=== PATIENT | male | born 1960 | race American Indian/Alaskan Native ===

== ENCOUNTER 2018-02-03 18:33 | Inpatient (IN) | payer MEDICARE ==
[2018-02-03 18:43] VITALS: BMI 24.3
--- NOTE | 2018-02-03 19:06 | C.PDOC ---
History Of Present Illness 57 year old male with PMH of HTN, CKD, DM, systolic CHF with EF last month of 12%, pacemaker, defibrillator, presents to the ED with son for evaluation of abdominal distention and urinary retention. As per son, patient has a beaver ca theter that drains fluid, but he still experiences bladder fullness and urinary retention. Patient regularly follows up with Dr. Brar, who is aware of this. Patient is also complaining of suprapubic abdominal pain. Additionally, son reports patient has lost around 40-50 pounds over the past year. He denies fever, chills, nausea, vomiting. History obtained via patient's son, because patient is deaf/mute. Acute Kidney Injury (N17.9) versus underlying CKD 3, likely due to cardio-renal syndrome CHF exacerbation hyperbilirubinemia hx of AICD BPH, hearing impairment Time Seen by Provider: 02/03/18 18:53 Chief Complaint (Nursing): Shortness Of Breath History Per: Family History/Exam Limitations: other (patient is deaf/mute) Onset/Duration Of Symptoms: Hrs Current Symptoms Are (Timing): Still Present Additional History Per: Family Past Medical History Reviewed: Historical Data, Nursing Documentation, Vital Signs Vital Signs: Last Vital Signs Temp 98.5 F 02/03/18 18:39 Pulse 125 H 02/03/18 18:39 Resp 24 02/03/18 18:39 BP 110/71 02/03/18 18:39 Pulse Ox 99 02/03/18 18:39 - Medical History PMH: Cardia Arrhythmia, CHF, HTN, Hypercholesterolemia, Hyperlipidemia, Peripheral Edema, Chronic Kidney Disease Denies: Personality Disorder Surgical History: Pacemaker (with defib) - [facility] Procedures DRAINAGE OF PERITONEAL CAVITY, PERCUTANEOUS APPROACH (12/04/17) INJECT/INFUSE ELECTROLYT (02/18/13) INJECT/INFUSE NEC (02/18/13) Family History: States: Unknown Family Hx - Social History Hx Tobacco Use: No Hx Alcohol Use: Yes (OCCASIONALLY) Hx Substance Use: No - Immunization History Hx Tetanus Toxoid Vaccination: No Hx Influenza Vaccination: No Hx Pneumococcal Vaccination: No Review Of Systems Constitutional: Negative for: Fever, Chills Gastrointestinal: Positive for: Abdominal Pain (suprapubic ) Genitourinary: Positive for: Other (urinary retention ) Physical Exam - Physical Exam Appears: Non-toxic, Other (in mild distress ) Skin: Normal Color, Warm, Dry Head: Atraumatic, Normacephalic Eye(s): bilateral: Scleral Icterus Oral Mucosa: Moist Neck: Supple Chest: Symmetrical, No Deformity, No Tenderness Cardiovascular: Rhythm Regular, No Murmur Respiratory: Decreased Breath Sounds (right base ), Rales, Other (chronic, non- productive cough noted ) Gastrointestinal/Abdominal: Soft, Tenderness (mild, suprapubic ), Distention, No Guarding, No Rebound Extremity: Normal ROM, Capillary Refill (less than 2 seconds ), Other (urinary leg bag to right lower extremity ) Neurological/Psych: Other (intact ) ED Course And Treatment - Laboratory Results Result Diagrams: 02/03/18 19:59 02/03/18 19:50 ECG: Interpreted By Me ECG Rhythm: Sinus Rhythm, Junctional Rhythm ECG Interpretation: Abnormal Rate From EC O2 Sat by Pulse Oximetry: 99 (on RA) Pulse Ox Interpretation: Normal Progress Note: Bloodwork, urinalysis, CXR, CT Head, and EKG ordered and reviewed. Rocephin IVPB given. Progress - Re-Evaluation Re-evaluation Note: 02/03/18 20:21 D/W DR sIabel BRAR ADVISES BEAVER CHANGE, WILL CONSULT. UNK PROSTATE STATUS, PENDING UROLOGIC WORKUP. RECOMMENDS ADMISSION 02/03/18 21:24 S/P BEAVER REPLACE, +250 CC. +MOD IMPROVE. D/W 02/03/18 21:49 D/W DR Karly MEEK C/F PMD REQUESTING UDS, ETOH. WILL ADMIT - Data Reviewed Data Reviewed: Lab, Diagnostic imaging, EKG, Old records Disposition Counseled Patient/Family Regarding: Studies Performed, Diagnosis - Disposition Disposition: HOSPITALIZED Disposition Time: 21:50 Condition: SERIOUS - POA Present On Arrival: None - Clinical Impression Clinical Impression: Urinary retention, Jaundice, Chronic renal insufficiency - Scribe Statement The provider has reviewed the documentation as recorded by the Scribe (Roberta Brown tel) Provider Attestation: All medical record entries made by the Scribe were at my direction and personally dictated by me. I have reviewed the chart and agree that the record accurately reflects my personal performance of the history, physical exam, medical decision making, and the department course for this patient. I have also personally directed, reviewed, and agree with the discharge instructions and disposition.
[2018-02-03 20:07] LABS: BASO # 0.1 K/uL (0.0-0.2); BASO % 0.9 % (0.0-2.0); EOS # 0.3 K/uL (0.0-0.7); EOS % 2.8 % (0.0-4.0); HEMOGLOBIN 15.9 g/dL (12.0-18.0); LYMPH # 1.1 K/uL (1.0-4.3); LYMPH % 11.6 % (20.0-40.0); MEAN CORPUSCULAR HEMOGLOBIN 29.8 pg (27.0-31.0); MEAN CORPUSCULAR HGB CONC 33.2 g/dL (33.0-37.0); MONO # 0.6 K/uL (0.0-0.8); MONO % 6.1 % (0.0-10.0); NEUT # 7.5 K/uL (1.8-7.0); NEUT % 78.6 % (50.0-75.0); NRBC % 0.1 % (0.0-2.0); RBC 5.32 Mil/uL (4.40-5.90); RED CELL DISTRIBUTION WIDTH 21.4 % (11.5-14.5); WHITE BLOOD COUNT 9.5 K/uL (4.8-10.8)
[2018-02-03 20:17] LABS: INR 1.5; PROTHROMBIN TIME 16.6 SECONDS (9.7-12.2)
[2018-02-03 20:22] LABS: ALBUMIN 3.8 g/dL (3.5-5.0); BILIRUBIN,DIRECT 2.9 mg/dL (0.0-0.4)
[2018-02-03 21:03] LABS: CALCIUM 9.4 mg/dl (8.6-10.4)
[2018-02-03 21:03] LABS: SQUAMOUS EPITHIAL < 1 /hpf (0-5); URINE BACTERIA OCC (<OCC); URINE BILIRUBIN NEGATIVE (NEGATIVE); URINE BLOOD 3+ (NEGATIVE); URINE CLARITY Hazy (Clear); URINE COLOR Yellow (YELLOW); URINE GLUCOSE (UA) NORMAL (Normal); URINE LEUKOCYTE ESTERASE 3+ Leu/uL (Negative); URINE PROTEIN NEGATIVE (NEGATIVE); WBC CLUMPS FEW /hpf
[2018-02-03 22:23] LABS: BARBITURATES, UR NEGATIVE (NEGATIVE); BENZODIAZEPINES, UR NEGATIVE (NEGATIVE); OPIATES, UR NEGATIVE (NEGATIVE); PHENCYCLIDINE, UR NEGATIVE (NEGATIVE)
--- NOTE | 2018-02-03 22:51 | CP.PCM.HP ---
<Kell Madden P - Last Filed: 02/04/18 09:34> History of Present Illness - History of Present Illness History of Present Illness: H&P for hospitalist service. HPI: History was obtained from patient's son in sign language, as patient is deaf and mute. Patient is a 57 year old male with PMHx of HTN, HLD, BPH, CKD 3, systolic heart failure, with AICD and pacemaker, cardiac arrhythmia, who was initially sent to ED by his visiting doctor for hypotension (patient was not told the blood pressure reading), however blood pressure was found to be within normal limits on arrival. In ED, patient admitted to abdominal distention for the past month with no improvement despite having a mason catheter placed 10 days ago. Patient also complains of lower abdominal pressure, pain on urination, intermittent hematuria, as well as bilateral lower leg weakness, cough with white phlegm and SOB for the past 4 months, and 40 lb unintentional weight loss in the past year. Patient denies fever, chills, nausea, vomiting, hematochezia, melena, and flank pain. Bladder scan in the ED showed 750cc. Patient's mason was replaced with output of 250cc of urine. 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 Proxy: Mauri, son: [phone], Kathleen, daughter: [phone] PMD: Dr. Cano, cardio: Dr. Pang Review of Systems: -Gen: No fever, No chills, No headache, No lethargy, + bilateral leg weakness. -HEENT: No dizziness, No change in vision, No change in hearing, No sore throat, No dysphagia, No nasal congestion -Cardio: + chest soreness with coughing, + palpitations, No lower extremity edema, No orthopnea. -Resp: + cough, + dyspnea, No hemoptysis, No wheezing, No pain on inspiration. -GI: + abdominal pain, No nausea/vomiting, No diarrhea/constipation, No hematochezia, No hematemesis. -: + dysuria, No urinary freq, No incontinence, + hematuria, No change in urinary stream. -MSK: No back pain, No muscle weakness, No radiating pain. -Skin: No itching, No rash, No lesions. -Neuro: No confusion, No numbness, No tingling, No focal weakness, No radicular pain, No syncope. -Psych: No anxiety, No depression, No H/I, No S/I, No hallucinations. Present on Admission - Present on Admission Any Indicators Present on Admission: No Past Patient History - Infectious Disease Hx of Infectious Diseases: None - Past Medical History & Family History Past Medical History?: Yes - Past Social History Smoking Status: Never Smoked - CARDIAC Hx Cardia Arrhythmia: Yes Hx Congestive Heart Failure: Yes Hx Hypercholesterolemia: Yes Hx Hypertension: Yes Hx Pacemaker: Yes (with defib) Hx Peripheral Edema: Yes - PULMONARY Hx Respiratory Disorders: No - NEUROLOGICAL Hx Neurological Disorder: Yes (encephalomalacia) HX Cerebrovascular Accident: Yes Hx Syncope: Yes - HEENT Hx HEENT Problems: Yes Hx Deafness: Yes - RENAL Hx Chronic Kidney Disease: Yes - ENDOCRINE/METABOLIC Hx Endocrine Disorders: Yes Hx Diabetes Mellitus Type 2: Yes - HEMATOLOGICAL/ONCOLOGICAL Hx Blood Disorders: No - INTEGUMENTARY Hx Dermatological Problems: No - MUSCULOSKELETAL/RHEUMATOLOGICAL Hx Musculoskeletal Disorders: No Hx Falls: Yes - GASTROINTESTINAL Hx Gastrointestinal Disorders: Yes Other/Comment: ascites - GENITOURINARY/GYNECOLOGICAL Hx Genitourinary Disorders: Yes (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) - PSYCHIATRIC Hx Substance Use: No - SURGICAL HISTORY Hx Surgeries: Yes Other/Comment: Pacemaker - ANESTHESIA Hx Anesthesia: Yes Hx Anesthesia Reactions: No Hx Malignant Hyperthermia: No Meds Allergies/Adverse Reactions: Allergies Allergy/AdvReac Type Severity Reaction Status Date / Time No Known Allergies Allergy Verified 02/03/18 18:39 Physical Exam - Constitutional Appears: No Acute Distress - Head Exam Head Exam: ATRAUMATIC, NORMOCEPHALIC - Eye Exam Eye Exam: EOMI, PERRL, Scleral icterus. absent: Normal appearance - ENT Exam ENT Exam: Mucous Membranes Moist Additional comments: Yellowing of frenulum. - Neck Exam Neck exam: Positive for: Full Rom Additional comments: +JVD on the R - Respiratory Exam Respiratory Exam: Clear to Auscultation Bilateral, NORMAL BREATHING PATTERN. absent: Decreased Breath Sounds, Rales, Rhonchi, Wheezes - Cardiovascular Exam Additional comments: Note noisy ED environment and faint heart sounds made for difficult examination, possible extra heart sound. - GI/Abdominal Exam GI & Abdominal Exam: Distended, Hernia (umbilical), Hypoactive Bowel Sounds, Tenderness (to deep palpation of LLQ). absent: Guarding, Rebound - Extremities Exam Additional comments: Radial pulses strong and equal bilaterally. Pedal pulses weaker than radial. Feet with dry skin, cool to the touch. No loss of sensation. Trace edema to bilateral lower extremities up to tibial tuberosity. Skin changes to bilateral lower legs consistent with chronic venous stasis changes. - Back Exam Back exam: absent: CVA tenderness (L), CVA tenderness (R) - Neurological Exam Neurological exam: Alert, CN II-XII Intact, Oriented x3 Additional comments: 5/5 muscle strength bilateral upper extremities, 4/5 strength bilateral lower extremities. Results - Vital Signs Recent Vital Signs: Last Vital Signs Temp 98.5 F 02/03/18 18:39 Pulse 107 H 02/03/18 22:12 Resp 20 02/03/18 22:12 BP 111/81 02/03/18 22:23 Pulse Ox 99 02/03/18 22:12 - Labs Result Diagrams: 02/04/18 06:55 02/04/18 06:55 Labs: Laboratory Results - last 24 hr 02/03/18 02/03/18 02/03/18 19:50 19:50 19:59 WBC 9.5 RBC 5.32 Hgb 15.9 Hct 47.8 MCV 90.0 D MCH 29.8 MCHC 33.2 RDW 21.4 H Plt Count 253 MPV 8.0 Neut % (Auto) 78.6 H Lymph % (Auto) 11.6 L [place] % (Auto) 6.1 Eos % (Auto) 2.8 Baso % (Auto) 0.9 Neut # (Auto) 7.5 H Lymph # (Auto) 1.1 [place] # (Auto) 0.6 Eos # (Auto) 0.3 Baso # (Auto) 0.1 PT INR APTT Sodium 139 Potassium 4.7 Chloride 100 Carbon Dioxide 24 Anion Gap 21 H BUN 48 H Creatinine 1.8 H Est GFR ( Amer) 47 Est GFR (Non-Af Amer) 39 Random Glucose 102 Calcium 9.4 Phosphorus Magnesium Total Bilirubin Direct Bilirubin AST ALT Alkaline Phosphatase Total Protein Albumin Globulin Albumin/Globulin Ratio Urine Color Urine Clarity Urine pH Ur Specific [place] Urine Protein Urine Glucose (UA) Urine Ketones Urine Blood Urine Nitrate Urine Bilirubin Urine Urobilinogen Ur Leukocyte Esterase Urine WBC (Auto) Urine RBC (Auto) Urine WBC Clumps (Auto) Ur Squamous Epith Cells Urine Bacteria Urine Opiates Screen Urine Methadone Screen Ur Barbiturates Screen Ur Phencyclidine Scrn Ur Amphetamines Screen U Benzodiazepines Scrn U Oth Cocaine Metabols U Cannabinoids Screen Alcohol, Quantitative < 10 02/03/18 02/03/18 02/03/18 19:59 19:59 20:44 WBC RBC Hgb Hct MCV MCH MCHC RDW Plt Count MPV Neut % (Auto) Lymph % (Auto) [place] % (Auto) Eos % (Auto) Baso % (Auto) Neut # (Auto) Lymph # (Auto) [place] # (Auto) Eos # (Auto) Baso # (Auto) PT 16.6 H INR 1.5 APTT 27 Sodium Potassium Chloride Carbon Dioxide Anion Gap BUN Creatinine Est GFR ( Amer) Est GFR (Non-Af Amer) Random Glucose Calcium Phosphorus 4.3 Magnesium 2.3 Total Bilirubin 4.5 H Direct Bilirubin 2.9 H AST 31 ALT 23 Alkaline Phosphatase 464 H D Total Protein 7.7 Albumin 3.8 Globulin 3.9 Albumin/Globulin Ratio 1.0 Urine Color Yellow Urine Clarity Hazy Urine pH 5.0 Ur Specific [place] 1.012 Urine Protein Negative Urine Glucose (UA) Normal Urine Ketones Negative Urine Blood 3+ H Urine Nitrate Negative Urine Bilirubin Negative Urine Urobilinogen 2.0 Ur Leukocyte Esterase 3+ H Urine WBC (Auto) 159 H Urine RBC (Auto) 22 H Urine WBC Clumps (Auto) Few H Ur Squamous Epith Cells < 1 Urine Bacteria Occ H Urine Opiates Screen Urine Methadone Screen Ur Barbiturates Screen Ur Phencyclidine Scrn Ur Amphetamines Screen U Benzodiazepines Scrn U Oth Cocaine Metabols U Cannabinoids Screen Alcohol, Quantitative 02/03/18 21:59 WBC RBC Hgb Hct MCV MCH MCHC RDW Plt Count MPV Neut % (Auto) Lymph % (Auto) [place] % (Auto) Eos % (Auto) Baso % (Auto) Neut # (Auto) Lymph # (Auto) [place] # (Auto) Eos # (Auto) Baso # (Auto) PT INR APTT Sodium Potassium Chloride Carbon Dioxide Anion Gap BUN Creatinine Est GFR ( Amer) Est GFR (Non-Af Amer) Random Glucose Calcium Phosphorus Magnesium Total Bilirubin Direct Bilirubin AST ALT Alkaline Phosphatase Total Protein Albumin Globulin Albumin/Globulin Ratio Urine Color Urine Clarity Urine pH Ur Specific [place] Urine Protein Urine Glucose (UA) Urine Ketones Urine Blood Urine Nitrate Urine Bilirubin Urine Urobilinogen Ur Leukocyte Esterase Urine WBC (Auto) Urine RBC (Auto) Urine WBC Clumps (Auto) Ur Squamous Epith Cells Urine Bacteria Urine Opiates Screen Negative Urine Methadone Screen Negative Ur Barbiturates Screen Negative Ur Phencyclidine Scrn Negative Ur Amphetamines Screen Negative U Benzodiazepines Scrn Negative U Oth Cocaine Metabols Negative U Cannabinoids Screen Negative Alcohol, Quantitative Assessment & Plan - Assessment and Plan (Free Text) Plan: 57 year old male with PMHx of HTN, HLD, BPH, CKD, systolic heart failure, cardiac arrhythmia, PM, defibrillator, previous stroke admitted for urinary retention. Urinary retention status post mason replacement Abnormal UA -NPO for possible cystoscopy on 02/[address] Brar who has seen patient in the past. -Please update Dr. Isabel Brar at 12pm 02/04 -Consult cardiology, Dr. Carlton, for cardiac clearance -Follow up urine C&S -patient with abnormal UA , +Leuk esterase, complaining of painful urination, no CVA tenderness on exam -Continue flomax 0.4mg BID -Mason care with betadine 3x/day HFrEF (Systolic Heart failure) with AICD/Pacemaker -Echo 10/2017: LVEF 12.8% Severe LV hypokinesis, mild LVH, dilated LA, RA and RV, mild MR, severe TR, Mild pulmonar hypertension, PPM in RV. (see full report) -Patient sees Dr. 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 Followed up with him this month. -EKG: Junctional rhythm, left axis deviation, RBB -Daily weights, I&O's, head of bead 45 degrees -Follow up with Dr. Carlton for clearance first thing in the morning. -Continue Entresto, Spironolactone 50mg daily, carvedilol 25mg BID, and Lasix 80mg BID Hx of hyperbilirubinemia, elevated Alkaline phosphatase, ascites Hepatitis panel 10/2017 negative -Tbili is at baseline at 4.5 -Alkaline phosphatase: 464 -Abdominal US 11/2017: The extrahepatic portal vein is patent with hepatopetal flow. No sonographic evidence for thrombus or obstruction is seen. The 3 hepatic veins are visualized centrally and patent. The hepatic artery is patent. (see full report) -CT abd/pelvis: Limited assessment without IV or oral contrast administration. Cardiomegaly. Small pericardial effusion. Moderate to large amount of ascites in the abdomen and pelvis. Enlarged prostate. [id number] anasarca. Preliminary report was submitted by virtual Radiology. (see full report) -Seen by GI, Dr. Zavala during 10/2017 admission and was asked to follow up, however patient did not do so. Patient was councelled on the improtance of following up. Please provide follow up information upon discharge. Hx HTN - Continue Spironolactone 50mg daily, carvedilol 25mg BID, and Lasix 80mg BID -Hold for SBP<100 and HR <60 -Home med of Tradjenta non-formulary, will place patien on insulin sliding scale -Accuchecks ACHS -Hypoglycemia protocol Hx of CKD -Cr: 1.8 -GFR: 54 -Seen by nephro, Dr. Acosta during 10/2017 admission, patient has not followed up. -provide with follow up information upon discharge. Hx of deaf/mute -Patient communicates in sign. Please use sales and operations trainee service Unintentional weight loss -40 lb weight loss in the past year -Continue to monitor Prophylaxis -DVT risk 3 points for age, CHF and possible minor procedure- start Heparin 5000u SC Q8H -Dopplers ordered due to trace LE swelling. May place on SCDs pending doppler results. -No GI ppx indicated -Start on HHD 2g Na following procedure Case discussed with Dr. Karly Lewis. <Raul Lewis - Last Filed: 02/06/18 01:37> Results - Vital Signs Recent Vital Signs: Last Vital Signs Temp 97.6 F 11/18/18 00:00 Pulse 98 H 02/06/18 00:00 Resp 20 02/06/18 00:00 BP 104/65 02/06/18 00:00 Pulse Ox 100 02/06/18 00:00 - Labs Result Diagrams: 02/05/18 08:16 02/05/18 08:16 Labs: Laboratory Results - last 24 hr 02/04/18 02/05/18 02/05/18 21:06 06:10 08:16 WBC 6.6 RBC 4.63 Hgb 13.9 Hct 41.9 MCV 90.6 MCH 30.0 MCHC 33.1 RDW 21.3 H Plt Count 221 MPV 8.4 Neut % (Auto) 75.8 H Lymph % (Auto) 12.9 L [place] % (Auto) 7.0 Eos % (Auto) 3.1 Baso % (Auto) 1.2 Neut # (Auto) 5.0 Lymph # (Auto) 0.8 L [place] # (Auto) 0.5 Eos # (Auto) 0.2 Baso # (Auto) 0.1 Sodium Potassium Chloride Carbon Dioxide Anion Gap BUN Creatinine Est GFR ( Amer) Est GFR (Non-Af Amer) POC Glucose (mg/dL) 125 H 146 H Random Glucose Calcium Phosphorus Magnesium Total Bilirubin AST ALT Alkaline Phosphatase Total Protein Albumin Globulin Albumin/Globulin Ratio 02/05/18 02/05/18 02/05/18 08:16 12:22 16:09 WBC RBC Hgb Hct MCV MCH MCHC RDW Plt Count MPV Neut % (Auto) Lymph % (Auto) [place] % (Auto) Eos % (Auto) Baso % (Auto) Neut # (Auto) Lymph # (Auto) [place] # (Auto) Eos # (Auto) Baso # (Auto) Sodium 140 Potassium 4.5 Chloride 101 Carbon Dioxide 24 Anion Gap 19 BUN 47 H Creatinine 1.7 H Est GFR ( Amer) 50 Est GFR (Non-Af Amer) 42 POC Glucose (mg/dL) 124 H 118 H Random Glucose 125 H Calcium 8.8 Phosphorus 3.9 Magnesium 2.2 Total Bilirubin 3.2 H AST 32 ALT 30 Alkaline Phosphatase 369 H Total Protein 6.8 Albumin 3.2 L Globulin 3.6 Albumin/Globulin Ratio 0.9 L 02/05/18 21:11 WBC RBC Hgb Hct MCV MCH MCHC RDW Plt Count MPV Neut % (Auto) Lymph % (Auto) [place] % (Auto) Eos % (Auto) Baso % (Auto) Neut # (Auto) Lymph # (Auto) [place] # (Auto) Eos # (Auto) Baso # (Auto) Sodium Potassium Chloride Carbon Dioxide Anion Gap BUN Creatinine Est GFR ( Amer) Est GFR (Non-Af Amer) POC Glucose (mg/dL) 134 H Random Glucose Calcium Phosphorus Magnesium Total Bilirubin AST ALT Alkaline Phosphatase Total Protein Albumin Globulin Albumin/Globulin Ratio Attending/Attestation - Attestation I have personally seen and examined this patient.: Yes I have fully participated in the care of the patient.: Yes I have reviewed all pertinent clinical information: Yes Notes (Text): 02/06/18 01:36 This is a late entry. Patient was seen and examined in the ER Bed #[address] Ernestina Madden Patient's son helped to translate Sign Language. Raul Lewis D.O.
[2018-02-04] MEDS ORDERED: Glucagon Recombinant 1 mg Inj IM PRN (00:43)
[2018-02-04] MEDS ORDERED: Dextrose 50% SYRINGE Inj (50 ml) IV PRN (00:43)
[2018-02-04 07:16] LABS: BASO # 0.1 K/uL (0.0-0.2); BASO % 1.2 % (0.0-2.0); EOS # 0.2 K/uL (0.0-0.7); EOS % 2.5 % (0.0-4.0); HEMOGLOBIN 14.3 g/dL (12.0-18.0); LYMPH % 14.1 % (20.0-40.0); MEAN CELL VOLUME 89.6 fL (80.0-94.0); MEAN CORPUSCULAR HGB CONC 33.5 g/dL (33.0-37.0); MEAN PLATELET VOLUME 8.2 fL (7.2-11.7); MONO # 0.5 K/uL (0.0-0.8); NEUT # 5.3 K/uL (1.8-7.0); NEUT % 75.2 % (50.0-75.0); NRBC % 0.1 % (0.0-2.0); RBC 4.76 Mil/uL (4.40-5.90); RED CELL DISTRIBUTION WIDTH 21.3 % (11.5-14.5); WHITE BLOOD COUNT 7.1 K/uL (4.8-10.8)
[2018-02-04 08:16] LABS: ALBUMIN 3.5 g/dL (3.5-5.0)
[2018-02-04] MEDS: (Novolin R) Insulin Human Regular 100 units/ml vial SC SCH ×4 (08:22→21:33)
--- NOTE | 2018-02-04 08:25 | RAD ---
HISTORY: SOB COMPARISON: None available TECHNIQUE: Chest, one view. FINDINGS: LUNGS: No focal consolidation. Please note that chest x-ray has limited sensitivity for the detection of pulmonary masses. PLEURA: No significant pleural effusion identified. No definite pneumothorax . CARDIOVASCULAR: Severe enlargement of the cardiac silhouette. Dual lead left-sided AICD. Faint atherosclerotic calcification present. OSSEOUS STRUCTURES: No acute osseous abnormality identified. VISUALIZED UPPER ABDOMEN: Unremarkable. OTHER FINDINGS: None. IMPRESSION: Severe enlargement of the cardiac silhouette. Dual lead left-sided AICD.
[2018-02-04] MEDS: Sacubitril/Valsartan 49-51 Tab PO SCH ×2 (09:56→18:18)
--- NOTE | 2018-02-04 13:00 | CP.PCM.PN ---
<Jone Gill - Last Filed: 02/04/18 17:37> Subjective - Date & Time of Evaluation Date of Evaluation: 02/04/18 Time of Evaluation: 13:00 - Subjective Subjective: PGY-1 Medicine progress note for Dr. Pereira Patient seen and examined at bedside. No acute events overnight. 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 He is complaining of abdominal distention and inability to urinate. He denies fevers, chills, chest pain, shortness of breath, nausea, vomitting, or diarrhea. Objective - Vital Signs/Intake and Output Vital Signs (last 24 hours): Temp Pulse Resp BP Pulse Ox 97.5 F L 92 H 20 110/77 98 02/04/18 12:00 02/04/18 12:00 02/04/18 12:00 02/04/18 12:00 02/04/18 12:00 - Medications Medications: Current Medications Carvedilol (Coreg) 25 mg PO BID [facility] Last Admin: 02/04/18 09:55 Dose: Not Given Dextrose (Dextrose 50% Inj) 0 ml IV STAT PRN; Protocol PRN Reason: Hypoglycemia Protocol Dextrose (Glutose 15) 0 gm PO ONCE PRN; Protocol PRN Reason: Hypoglycemia Protocol Furosemide (Lasix) 80 mg PO BID [facility] Last Admin: 02/04/18 09:56 Dose: 80 mg Glucagon (Glucagen Diagnostic Kit) 0 mg IM STAT PRN; Protocol PRN Reason: Hypoglycemia Protocol Heparin Sodium (Porcine) (Heparin) 5,000 units SC Q8 [facility] Dextrose (Dextrose 5% In Water 1000 Ml) 1,000 mls @ 0 mls/hr IV .Q0M PRN; Protocol PRN Reason: Hypoglycemia Protocol Influenza Virus Vaccine (Fluzone Quad [id number]) 60 mcg IM .ONCE ONE Stop: 02/06/18 10:01 Insulin Human Regular (Novolin R) 0 unit SC ACHS [facility]; Protocol Last Admin: 02/04/18 12:00 Dose: Not Given Pneumococcal Polyvalent Vaccine (Pneumovax 23 Vaccine) 0.5 ml IM .ONCE ONE Stop: 02/06/18 10:01 Sacubitril/Valsartan (Entresto 49 Mg-51 Mg) 2 tab PO BID [facility] Last Admin: 02/04/18 09:56 Dose: 2 tab Spironolactone (Aldactone) 50 mg PO DAILY [facility] Last Admin: 02/04/18 09:55 Dose: Not Given Tamsulosin HCl (Flomax) 0.4 mg PO BID [facility] Last Admin: 02/04/18 09:56 Dose: 0.4 mg Tramadol HCl (Ultram) 50 mg PO DAILY PRN PRN Reason: Pain, moderate (4-7) - Labs Labs: 02/04/18 06:55 02/04/18 06:55 PT 16.6 SECONDS (9.7-12.2) H 02/03/18 19:59 INR 1.5 02/03/18 19:59 APTT 27 SECONDS (21-34) 02/03/18 19:59 - Additional Findings Additional findings: - Constitutional Appears: No Acute Distress - Head Exam Head Exam: ATRAUMATIC, NORMOCEPHALIC - Eye Exam Eye Exam: EOMI, PERRL, Scleral icterus. absent: Normal appearance - ENT Exam ENT Exam: Mucous Membranes Moist - Respiratory Exam Respiratory Exam: Clear to Auscultation Bilateral, NORMAL BREATHING PATTERN. absent: Decreased Breath Sounds, Rales, Rhonchi, Wheezes - Cardiovascular Exam Additional comments: Irregular heart rhythm, S1, S2. No murmurs heard. - GI/Abdominal Exam GI & Abdominal Exam: Distended, Hernia (umbilical), Hypoactive Bowel Sounds, No Tenderness. absent: Guarding, Rebound - Extremities Exam Additional comments: Radial pulses strong and equal bilaterally. Pedal pulses weaker than radial. Feet with dry skin, cool to the touch. No loss of sensation. Trace edema to bilateral lower extremities up to tibial tuberosity. Skin changes to bilateral lower legs consistent with chronic venous stasis changes. - Neurological Exam Neurological exam: Alert, CN II-XII Intact, Oriented x3 Additional comments: 5/5 muscle strength bilateral upper extremities, 4/5 strength bilateral lower extremities. Assessment and Plan - Assessment and Plan (Free Text) Assessment: 57 year old male with PMHx of HTN, HLD, BPH, CKD, systolic heart failure, cardiac arrhythmia, Pacemaker, and defibrillator, admitted for urinary retention. Plan: Urinary retention status post mason replacement: - UA: positive for blood, LE, WBC, and bacteria - 1 dose of Rocephin given in ED - S/p cystoscopy with Dr. Brar - POD #0 - Consult cardiology, Dr. Carlton, for cardiac clearance - Urine Cx: Follow up - Flomax 0.4mg BID - Mason care with betadine 3x/day HFrEF (Systolic Heart failure) with AICD/Pacemaker: - Echo (10/2017): LVEF 12.8% Severe LV hypokinesis, mild LVH, dilated LA, RA and RV, mild MR, severe TR, Mild pulmonary hypertension. - Patient sees Dr. Pang, reading intervention teacher regularly. Followed up with him this month. - EKG(02/04): Junctional rhythm, left axis deviation, RBB - Daily weights, I&O's, head of bead 45 degrees - Consult cardiology, Dr. Carlton - Monitor patient on telemetry - Entresto 2 tab PO BID - Spironolactone 50mg daily - Carvedilol 25mg BID - Lasix 80mg BID - Fluid restriction to 1 L daily Hx of hyperbilirubinemia, elevated Alkaline phosphatase, ascites: - Hepatitis panel 10/2017 negative - Tbili is at baseline at 4.5 - Alkaline phosphatase: 464 - Abdominal US (12/03/2017): The extrahepatic portal vein is patent with hepatopetal flow. No sonographic evidence for thrombus or obstruction is seen. The 3 hepatic veins are visualized centrally and patent. The hepatic artery is patent. (see full report) - CT abd/pelvis (12/03): Limited assessment without IV or oral contrast administration. Cardiomegaly. Small pericardial effusion. Moderate to large am ount of ascites in the abdomen and pelvis. Enlarged prostate. [id number] anasarca. Preliminary report was submitted by virtual Radiology. (see full report) - Seen by GI, Dr. Zavala during 10/2017 admission and was asked to follow up, however patient did not do so. - Patient was counselled on the importance of following up. Please provide follow up information upon discharge. Hx HTN: - Spironolactone 50mg daily - Carvedilol 25mg BID - Lasix 80mg BID - Hold for SBP<100 and HR <60 Hx of DM-2: - Home med of Tradjenta- hold - ISS - Accuchecks ACHS - Hypoglycemia protocol Hx of CKD: - Cr: 1.6 - GFR: 54 - Seen by nephro, Dr. Acosta during 10/2017 admission, patient has not followed up. - Will provide with follow up information upon discharge. Hx of deaf/mute: - Patient communicates in sign. Please use director packaging service Unintentional weight loss: - 40 lb weight loss in the past year - Continue to monitor Prophylaxis: - Heparin 5000u SC Q8H - Dopplers ordered due to trace LE swelling. May place on SCDs pending doppler results. - No GI ppx indicated - Start on HHD 2g Na following procedure Case discussed with Dr. Randall Gill, PGY-1 <Tiffany Pereira V - Last Filed: 02/04/18 23:29> Objective - Vital Signs/Intake and Output Vital Signs (last 24 hours): Temp Pulse Resp BP Pulse Ox 97.2 F L 100 H 18 115/82 100 02/04/18 16:35 02/04/18 16:35 02/04/18 16:35 02/04/18 18:17 02/04/18 16:35 Intake and Output: 02/04/18 02/05/18 18:59 06:59 Intake Total 175 275 Output Total 1050 350 Balance -875 -75 - Medications Medications: Current Medications Carvedilol (Coreg) 25 mg PO BID [facility] Last Admin: 02/04/18 18:17 Dose: 25 mg Dextrose (Dextrose 50% Inj) 0 ml IV STAT PRN; Protocol PRN Reason: Hypoglycemia Protocol Dextrose (Glutose 15) 0 gm PO ONCE PRN; Protocol PRN Reason: Hypoglycemia Protocol Furosemide (Lasix) 80 mg PO BID [facility] Last Admin: 02/04/18 18:17 Dose: 80 mg Glucagon (Glucagen Diagnostic Kit) 0 mg IM STAT PRN; Protocol PRN Reason: Hypoglycemia Protocol Dextrose (Dextrose 5% In Water 1000 Ml) 1,000 mls @ 0 mls/hr IV .Q0M PRN; Protocol PRN Reason: Hypoglycemia Protocol Influenza Virus Vaccine (Fluzone Quad [id number]) 60 mcg IM .ONCE ONE Stop: 02/06/18 10:01 Insulin Human Regular (Novolin R) 0 unit SC [facility]; Protocol Last Admin: 02/04/18 21:33 Dose: Not Given Pneumococcal Polyvalent Vaccine (Pneumovax 23 Vaccine) 0.5 ml IM .ONCE ONE Stop: 02/06/18 10:01 Polyethylene Glycol (Miralax) 17 gm PO DAILY [facility] Sacubitril/Valsartan (Entresto 49 Mg-51 Mg) 2 tab PO BID [facility] Last Admin: 02/04/18 18:18 Dose: 2 tab Spironolactone (Aldactone) 50 mg PO DAILY [facility] Last Admin: 02/04/18 09:55 Dose: Not Given Tamsulosin HCl (Flomax) 0.4 mg PO BID [facility] Last Admin: 02/04/18 18:17 Dose: 0.4 mg Tramadol HCl (Ultram) 50 mg PO DAILY PRN PRN Reason: Pain, moderate (4-7) Last Admin: 02/04/18 18:17 Dose: 50 mg - Labs Labs: 02/04/18 06:55 02/04/18 06:55 PT 16.6 SECONDS (9.7-12.2) H 02/03/18 19:59 INR 1.5 02/03/18 19:59 APTT 27 SECONDS (21-34) 02/03/18 19:59 Attending/Attestation - Attestation I have personally seen and examined this patient.: Yes I have fully participated in the care of the patient.: Yes I have reviewed all pertinent clinical information, including history, physical exam and plan: Yes Notes (Text): Patient seen, examined, and case discussed with day-time resident. 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 Patient noted he has been urinating but less feels that he is leaking around the mason that was place recent. patient reports he was compensating by taking in less fluid. Patient does not report fluid restriction for his heart failure. patient reports he has a pacemaker and has heart has "stopped" before but unclear if he has AICD or pacemaker only. Cardiology seen patient reports may go for urologic procedure. Will need EP to evaluate the pacemaker. Patient has recent hospitalization in [place] over the summer; advised to f/u with [facility] following hospitalization but did not followup. Patient at the hospitalization had diagnostic paracentesis wherein IR had removed about 2.1 Liters per report. At the time suspect ascites related to Chf. Patient is notably distended on exam. Soft. No pain on palpation. patient is on medications for chf which he reports he is compliant on. Patient for possible urology cystoscopy with Dr. Brar. Assessment/plan 1) Urinary retention status post mason replacement: Assessment/Plan * UA: positive for blood, LE, WBC, and bacteria * Urine culture: gram negative amanda * Patient had received 1 dose of Rocephin given in ED * Start Rocephin 1 gram IV q daily * S/p cystoscopy with Dr. Brar - POD #0 * Consult cardiology, Dr. Carlton, for cardiac clearance-->patient may proceed with procedure, recommended for telemetry, and EP eval * Flomax 0.4mg BID * Mason care with betadine 3x/day 2) HFrEF (Systolic Heart failure) with AICD/Pacemaker: Assessment/Plan * Echo (10/2017): LVEF 12.8% Severe LV hypokinesis, mild LVH, dilated LA, RA and RV, mild MR, severe TR, Mild pulmonary hypertension. * Patient sees Dr. Pang, reading intervention teacher regularly. Followed up with him this month * EKG(02/04): Junctional rhythm, left axis deviation, RBB * Daily weights, I&O's, head of bead 45 degrees * Consult cardiology, Dr. Carlton corporate bond trader-->help appreciated * Monitor patient on telemetr * Entresto 2 tab PO BID * Spironolactone 50mg daily * Carvedilol 25mg BID * Lasix 80mg BID * patient is off aspirin * Fluid restriction to 1 L daily 3) Hx of hyperbilirubinemia, elevated Alkaline phosphatase, ascites: Assessment/Plan * Hepatitis panel 10/2017 negative * Tbili is at baseline at 4.5 * Alkaline phosphatase: 464 * Abdominal US (12/03/2017): The extrahepatic portal vein is patent with hepatopetal flow. No sonographic evidence for thrombus or obstruction is seen. The 3 hepatic veins are visualized centrally and patent. The hepatic artery is patent. (see full report) * CT abd/pelvis (12/03): Limited assessment without IV or oral contrast administration. Cardiomegaly. Small pericardial effusion. Moderate to large amount of ascites in the abdomen and pelvis. Enlarged prostate. [id number] anasarca. Preliminary report was submitted by virtual Radiology. (see full report) * Seen by GI, Dr. Zavala during 10/2017 admission and was asked to follow up, however patient did not do so. * patient noted in prior hospitalization noted ascites secondary to CHF. Patient had require IR to drain about 2.1 Liters. * Patient was counselled on the importance of following up. Please provide follow up information upon discharge. 4) Hx HTN Assessment/Plan * Spironolactone 50mg daily * Carvedilol 25mg BID * Lasix 80mg BID * Hold for SBP<100 and HR <60 5) Hx of DM-2: * Home med of Tradjenta- hold * ISS * Accuchecks ACHS * Hypoglycemia protocol 6) Hx of CKD: * Cr: 1.6 * GFR: 54 * Seen by nephro, Dr. Acosta during 10/2017 admission, patient has not followed up. * consult nephrology * Patient is on Lasix/ Aldactone for CHF 7) Hx of deaf/mute: * Patient communicates in sign. Please use director packaging service 8) Unintentional weight loss: * 40 lb weight loss in the past year * Continue to monitor 9) Prophylaxis: * Patient is OFF chemical anticoagulation secondary to procedure * Dopplers ordered due to trace LE swelling. May place on SCDs pending doppler results. * No GI ppx indicated * Start on HHD 2g Na following urologic procedure * Florastor 250mg PO BID Disposition: Cardiology reports patient may go to urologic procedure to check mason and possible cystoscopy. Urine culture prelim gram negative. Start Rocephin 1 gram Iv daily. Will consult GI/nephro who saw patient previously in 11/06 hospitalization.
--- NOTE | 2018-02-04 14:05 | VASCLAB ---
Date of service: 02/04/2018 PROCEDURE: Lower Extremity Venous Duplex Exam. HISTORY: LE swelling PRIORS: None. TECHNIQUE: Bilateral common femoral, femoral, popliteal and posterior tibial, peroneal and great saphenous veins were evaluated. Flow was assessed with color Doppler, compressibility, assessment of phasic flow and augmentation response. Report prepared by Lc Gonsalves, ANTONINA, RVT FINDINGS: RIGHT: 1. Common Femoral Vein: 1.1. Compressibility - Fully compressible: Thrombus - None : Flow - Phasic: Augmentation -Normal: Reflux - None. 2. Femoral Vein: 2.1. Compressibility - Fully compressible: Thrombus - None : Flow - Phasic: Augmentation -Normal: Reflux - None. 3. Popliteal Vein: 3.1. Compressibility - Fully compressible: Thrombus - None : Flow - Phasic: Augmentation -Normal: Reflux - None. 4. Posterior Tibial Vein: 4.1. Compressibility - Fully compressible: Thrombus - None: Flow - Phasic: Augmentation -Normal: Reflux - None. 5. Peroneal Vein: 5.1. Compressibility - Fully compressible: Thrombus - None: Flow - Phasic: Augmentation -Normal: Reflux - None. 6. Great Saphenous Vein: 6.1. Compressibility - Fully compressible: Thrombus - None: Flow - Phasic: Augmentation - Normal: Reflux - None. LEFT: 1. Common Femoral Vein: 1.1. Compressibility - Fully compressible: Thrombus - None: Flow - Phasic: Augmentation -Normal: Reflux - None. 2. Femoral Vein: 2.1. Compressibility - Fully compressible: Thrombus - None: Flow - Phasic: Augmentation -Normal: Reflux - None. 3. Popliteal Vein: 3.1. Compressibility - Fully compressible: Thrombus - None : Flow - Phasic: Augmentation -Normal: Reflux - Yes. 4. Posterior Tibial Vein: 4.1. Compressibility - Fully compressible: Thrombus - None: Flow - Phasic: Augmentation -Normal: Reflux - None. 5. Peroneal Vein: 5.1. Compressibility - Fully compressible: Thrombus - None: Flow - Phasic: Augmentation -Normal: Reflux - None. 6. Great Saphenous Vein: 6.1. Compressibility - Fully compressible: Thrombus - None: Flow - Phasic: Augmentation - Normal: Reflux - None. OTHER FINDINGS: Pulsatile venous flow noted bilaterally. IMPRESSION: Right: No evidence of deep or superficial vein thrombosis of the right lower extremity. Normal valve function noted of the right side. Left: No evidence of deep or superficial vein thrombosis of the left lower extremity. Valvular incompetence of the left popliteal vein.
[2018-02-04] MEDS ORDERED: cefTRIAXone 1 gm 1 GM/100 ML BAG IVPB ONE (14:17)
[2018-02-04] MEDS ORDERED: Iohexol 240 200 ML ONE (14:17)
[2018-02-04] MEDS ORDERED: Lidocaine 2% Jelly (Uro-Jet) ONE (14:17)
[2018-02-04] MEDS ORDERED: Vasopressin 20 Units/ml Inj ONE (14:24)
[2018-02-04] MEDS ORDERED: Midazolam 2 MG/2 ML VIAL ONE (14:40)
--- NOTE | 2018-02-04 15:18 | CP.PCM.CON ---
Past Patient History - Infectious Disease Hx of Infectious Diseases: None - Past Medical History & Family History Past Medical History?: Yes - Past Social History Smoking Status: Never Smoked - CARDIAC Hx Cardia Arrhythmia: Yes Hx Congestive Heart Failure: Yes Hx Hypercholesterolemia: Yes Hx Hypertension: Yes Hx Pacemaker: Yes (with defib) Hx Peripheral Edema: Yes - PULMONARY Hx Respiratory Disorders: No - NEUROLOGICAL Hx Neurological Disorder: Yes (encephalomalacia) HX Cerebrovascular Accident: Yes Hx Syncope: Yes - HEENT Hx HEENT Problems: Yes Hx Deafness: Yes - RENAL Hx Chronic Kidney Disease: Yes - ENDOCRINE/METABOLIC Hx Endocrine Disorders: Yes Hx Diabetes Mellitus Type 2: Yes - HEMATOLOGICAL/ONCOLOGICAL Hx Blood Disorders: No - INTEGUMENTARY Hx Dermatological Problems: No - MUSCULOSKELETAL/RHEUMATOLOGICAL Hx Musculoskeletal Disorders: No Hx Falls: Yes - GASTROINTESTINAL Hx Gastrointestinal Disorders: Yes Other/Comment: ascites - GENITOURINARY/GYNECOLOGICAL Hx Genitourinary Disorders: Yes (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) - PSYCHIATRIC Hx Substance Use: No - SURGICAL HISTORY Hx Surgeries: Yes Other/Comment: Pacemaker - ANESTHESIA Hx Anesthesia: Yes Hx Anesthesia Reactions: No Hx Malignant Hyperthermia: No Meds Allergies/Adverse Reactions: Allergies Allergy/AdvReac Type Severity Reaction Status Date / Time No Known Allergies Allergy Verified 02/03/18 18:39 - Medications Medications: Current Medications Carvedilol (Coreg) 25 mg PO BID [facility] Last Admin: 02/04/18 09:55 Dose: Not Given Dextrose (Dextrose 50% Inj) 0 ml IV STAT PRN; Protocol PRN Reason: Hypoglycemia Protocol Dextrose (Glutose 15) 0 gm PO ONCE PRN; Protocol PRN Reason: Hypoglycemia Protocol Furosemide (Lasix) 80 mg PO BID [facility] Last Admin: 02/04/18 09:56 Dose: 80 mg Glucagon (Glucagen Diagnostic Kit) 0 mg IM STAT PRN; Protocol PRN Reason: Hypoglycemia Protocol Heparin Sodium (Porcine) (Heparin) 5,000 units SC Q8 [facility] Dextrose (Dextrose 5% In Water 1000 Ml) 1,000 mls @ 0 mls/hr IV .Q0M PRN; Protocol PRN Reason: Hypoglycemia Protocol Influenza Virus Vaccine (Fluzone Quad [id number]) 60 mcg IM .ONCE ONE Stop: 02/06/18 10:01 Insulin Human Regular (Novolin R) 0 unit SC ACHS [facility]; Protocol Last Admin: 02/04/18 12:00 Dose: Not Given Pneumococcal Polyvalent Vaccine (Pneumovax 23 Vaccine) 0.5 ml IM .ONCE ONE Stop: 02/06/18 10:01 Sacubitril/Valsartan (Entresto 49 Mg-51 Mg) 2 tab PO BID [facility] Last Admin: 02/04/18 09:56 Dose: 2 tab Spironolactone (Aldactone) 50 mg PO DAILY [facility] Last Admin: 02/04/18 09:55 Dose: Not Given Tamsulosin HCl (Flomax) 0.4 mg PO BID [facility] Last Admin: 02/04/18 09:56 Dose: 0.4 mg Tramadol HCl (Ultram) 50 mg PO DAILY PRN PRN Reason: Pain, moderate (4-7) Results - Vital Signs Recent Vital Signs: Last Vital Signs Temp 97.5 F L 02/04/18 12:00 Pulse 92 H 02/04/18 12:00 Resp 20 02/04/18 12:00 BP 110/77 02/04/18 12:00 Pulse Ox 98 02/04/18 12:00 - Labs Result Diagrams: 02/04/18 06:55 02/04/18 06:55 Labs: Laboratory Results - last 24 hr 02/03/18 02/03/18 02/03/18 18:50 19:50 19:50 WBC RBC Hgb Hct MCV MCH MCHC RDW Plt Count MPV Neut % (Auto) Lymph % (Auto) Wirt % (Auto) Eos % (Auto) Baso % (Auto) Neut # (Auto) Lymph # (Auto) Wirt # (Auto) Eos # (Auto) Baso # (Auto) PT INR APTT Sodium 139 Potassium 4.7 Chloride 100 Carbon Dioxide 24 Anion Gap 21 H BUN 48 H Creatinine 1.8 H Est GFR ( Amer) 47 Est GFR (Non-Af Amer) 39 POC Glucose (mg/dL) 82 Random Glucose 102 Calcium 9.4 Phosphorus Magnesium Total Bilirubin Direct Bilirubin AST ALT Alkaline Phosphatase Total Protein Albumin Globulin Albumin/Globulin Ratio Prostate Specific Ag Urine Color Urine Clarity Urine pH Ur Specific Grant Urine Protein Urine Glucose (UA) Urine Ketones Urine Blood Urine Nitrate Urine Bilirubin Urine Urobilinogen Ur Leukocyte Esterase Urine WBC (Auto) Urine RBC (Auto) Urine WBC Clumps (Auto) Ur Squamous Epith Cells Urine Bacteria Urine Opiates Screen Urine Methadone Screen Ur Barbiturates Screen Ur Phencyclidine Scrn Ur Amphetamines Screen U Benzodiazepines Scrn U Oth Cocaine Metabols U Cannabinoids Screen Alcohol, Quantitative < 10 02/03/18 02/03/18 02/03/18 19:59 19:59 19:59 WBC 9.5 RBC 5.32 Hgb 15.9 Hct 47.8 MCV 90.0 D MCH 29.8 MCHC 33.2 RDW 21.4 H Plt Count 253 MPV 8.0 Neut % (Auto) 78.6 H Lymph % (Auto) 11.6 L Wirt % (Auto) 6.1 Eos % (Auto) 2.8 Baso % (Auto) 0.9 Neut # (Auto) 7.5 H Lymph # (Auto) 1.1 Wirt # (Auto) 0.6 Eos # (Auto) 0.3 Baso # (Auto) 0.1 PT 16.6 H INR 1.5 APTT 27 Sodium Potassium Chloride Carbon Dioxide Anion Gap BUN Creatinine Est GFR ( Amer) Est GFR (Non-Af Amer) POC Glucose (mg/dL) Random Glucose Calcium Phosphorus 4.3 Magnesium 2.3 Total Bilirubin 4.5 H Direct Bilirubin 2.9 H AST 31 ALT 23 Alkaline Phosphatase 464 H D Total Protein 7.7 Albumin 3.8 Globulin 3.9 Albumin/Globulin Ratio 1.0 Prostate Specific Ag Urine Color Urine Clarity Urine pH Ur Specific Grant Urine Protein Urine Glucose (UA) Urine Ketones Urine Blood Urine Nitrate Urine Bilirubin Urine Urobilinogen Ur Leukocyte Esterase Urine WBC (Auto) Urine RBC (Auto) Urine WBC Clumps (Auto) Ur Squamous Epith Cells Urine Bacteria Urine Opiates Screen Urine Methadone Screen Ur Barbiturates Screen Ur Phencyclidine Scrn Ur Amphetamines Screen U Benzodiazepines Scrn U Oth Cocaine Metabols U Cannabinoids Screen Alcohol, Quantitative 02/03/18 02/03/18 02/04/18 20:44 21:59 06:55 WBC 7.1 RBC 4.76 Hgb 14.3 Hct 42.7 MCV 89.6 MCH 30.0 MCHC 33.5 RDW 21.3 H Plt Count 228 MPV 8.2 Neut % (Auto) 75.2 H Lymph % (Auto) 14.1 L Wirt % (Auto) 7.0 Eos % (Auto) 2.5 Baso % (Auto) 1.2 Neut # (Auto) 5.3 Lymph # (Auto) 1.0 Wirt # (Auto) 0.5 Eos # (Auto) 0.2 Baso # (Auto) 0.1 PT INR APTT Sodium Potassium Chloride Carbon Dioxide Anion Gap BUN Creatinine Est GFR ( Amer) Est GFR (Non-Af Amer) POC Glucose (mg/dL) Random Glucose Calcium Phosphorus Magnesium Total Bilirubin Direct Bilirubin AST ALT Alkaline Phosphatase Total Protein Albumin Globulin Albumin/Globulin Ratio Prostate Specific Ag Urine Color Yellow Urine Clarity Hazy Urine pH 5.0 Ur Specific Grant 1.012 Urine Protein Negative Urine Glucose (UA) Normal Urine Ketones Negative Urine Blood 3+ H Urine Nitrate Negative Urine Bilirubin Negative Urine Urobilinogen 2.0 Ur Leukocyte Esterase 3+ H Urine WBC (Auto) 159 H Urine RBC (Auto) 22 H Urine WBC Clumps (Auto) Few H Ur Squamous Epith Cells < 1 Urine Bacteria Occ H Urine Opiates Screen Negative Urine Methadone Screen Negative Ur Barbiturates Screen Negative Ur Phencyclidine Scrn Negative Ur Amphetamines Screen Negative U Benzodiazepines Scrn Negative U Oth Cocaine Metabols Negative U Cannabinoids Screen Negative Alcohol, Quantitative 02/04/18 02/04/18 06:55 07:25 WBC RBC Hgb Hct MCV MCH MCHC RDW Plt Count MPV Neut % (Auto) Lymph % (Auto) Wirt % (Auto) Eos % (Auto) Baso % (Auto) Neut # (Auto) Lymph # (Auto) Wirt # (Auto) Eos # (Auto) Baso # (Auto) PT INR APTT Sodium 140 Potassium 4.0 Chloride 104 Carbon Dioxide 25 Anion Gap 16 BUN 46 H Creatinine 1.6 H Est GFR ( Amer) 54 Est GFR (Non-Af Amer) 45 POC Glucose (mg/dL) 119 H Random Glucose 105 Calcium 9.0 Phosphorus Magnesium Total Bilirubin 3.3 H Direct Bilirubin AST 28 ALT 28 Alkaline Phosphatase 458 H Total Protein 7.0 Albumin 3.5 Globulin 3.5 Albumin/Globulin Ratio 1.0 Prostate Specific Ag 7.61 H Urine Color Urine Clarity Urine pH Ur Specific Grant Urine Protein Urine Glucose (UA) Urine Ketones Urine Blood Urine Nitrate Urine Bilirubin Urine Urobilinogen Ur Leukocyte Esterase Urine WBC (Auto) Urine RBC (Auto) Urine WBC Clumps (Auto) Ur Squamous Epith Cells Urine Bacteria Urine Opiates Screen Urine Methadone Screen Ur Barbiturates Screen Ur Phencyclidine Scrn Ur Amphetamines Screen U Benzodiazepines Scrn U Oth Cocaine Metabols U Cannabinoids Screen Alcohol, Quantitative Assessment & Plan - Assessment and Plan (Free Text) Assessment: IMP: hematuriA RETENTION chf FULL NOTE T/F ys - Date & Time Date: 02/04/18 Time: 14:00
--- NOTE | 2018-02-04 15:20 | PCM.SURG1 ---
Surgeon's Initial Post Op Note - Surgeon's Notes Surgeon: moise Steele Cold Food Packer: NONE Type of Anesthesia: IV Sedation, Local Pre-Operative Diagnosis: RETENTION. hEMATURIA Operative Findings: same. Enlarged prostate. Bladder tumor Post-Operative Diagnosis: same Operation Performed: cystogram. cystoscopy. Bladder bx and fulg. EUA Specimen/Specimens Removed: bladder bx Estimated Blood Loss: EBL {In ML}: 0 Blood Products Given: N/A Date of Surgery/Procedure: 02/04/18 Time of Surgery/Procedure: 15:19
--- NOTE | 2018-02-04 15:29 | RAD ---
Date of service: 02/04/2018 PROCEDURE: Intraoperative Fluoroscopy. HISTORY: URINARY RETENTION FINDINGS: Fluoroscopic assistance was provided. Fluoroscopy time = 11.2 sec. Radiation dose = 1.12 mGy-cm. Please refer to the operative report from Dr. TAM, ROANOKE.
--- NOTE | 2018-02-04 19:53 | CARD ---
APPROVED REPORT Date of service: 02/03/2018 EKG Measurement Heart [id number] <Conclusion> Accelerated Junctional rhythm Left axis deviation Incomplete right bundle branch block Septal infarct, age undetermined Possible Lateral infarct, age undetermined Inferior infarct, age undetermined Abnormal ECG
--- NOTE | 2018-02-04 20:23 | CON ---
DATE: 02/04/2018 CARDIOLOGY CONSULT REASON FOR CONSULTATION: Cardiomyopathy. The history was obtained by a interactive media designer. HISTORY OF PRESENT ILLNESS: The patient is a 57-year-old male who has a history of dilated cardiomyopathy, status post ICD placement. The patient is being taken care of by his medical records clerk, Dr. Doyle Pang, in [place]. The patient stated that the ICD was placed because his heart stopped beating 4 times. The patient does not recall any recent discharge of defibrillator and does not know the medical records clerk who follows the defibrillator except for the fact that he follows with Dr. Pang. The patient denies having coronary angioplasty or stent. The patient presented because of abdominal distention and urinary retention. The patient was followed by Dr. Brar, urologist, and a cystoscopy is being considered for today. SOCIAL HISTORY: Nonsmoker, nondrinker. He is and with children. MEDICATIONS: Aldactone 50 mg once a day, Coreg 25 mg twice a day, Flomax 0.4 mg twice a day, Entresto 49/51 mg 2 tablets p.o. twice a day, heparin 5000 units subcutaneous every 8 hours, Lasix 80 mg p.o. twice a day, Ultram 50 mg p.o. daily. REVIEW OF SYSTEMS: No recent discharge of the defibrillator. No syncopal episode. No productive cough. PHYSICAL EXAMINATION: GENERAL: The patient is a middle-aged man who does not appear to be in any distress. VITAL SIGNS: Blood pressure 100/68, heart rate 85, temperature 97.4, respirations 20. HEENT: Normocephalic. CHEST: Absent breath sound at the bases. HEART: S1, S2 regular. ABDOMEN: Moderate ascites. EXTREMITIES: 1+ pitting edema. LABORATORY DATA: Today's hemoglobin and hematocrit are 14.3 and 42.7. White count and platelet count are within normal limits. SMA-7: Sodium 140, potassium 4, chloride 104, CO2 of 25, glucose 105, BUN 46, creatinine 1.6. Alkaline phosphatase today is 458, magnesium is 2.3, calcium is 9, INR is 1.5, PTT 27. Urine drug screen is negative and alcohol below 10. EKG revealed junctional tachycardia at the rate of 124 and complete right bundle branch block, and old lateral infarcts. Prior EKG revealed atrial fibrillation. The most recent echo was in 10/2017 at [facility], and revealed left ventricular hypokinesis, dilated left atrium, right atrium, right ventricle, with mild MR and mild pulmonary hypertension. Chest x-ray revealed significant cardiomegaly and ICD with ventricular pacemaker lead noted. No . ASSESSMENT: 1. Dilated cardiomyopathy. 2. Moderate ascites with history of recent abdominal paracentesis with removal of about 2.1 liters in 11/2017 at [facility]. 3. Chronic renal insufficiency. 4. Urinary retention. 5. Chronic atrial fibrillation. RECOMMENDATIONS: I did request the patient to go to the telemetry as soon as possible. Continue Aldactone 50 mg daily, Coreg 25 mg twice a day, Lasix 80 mg p.o. twice a day, Entresto 49/51 mg p.o. twice a day. I would request EP consultation from Dr. Brunner; however, the patient can go to cystoscopy from the cardiac point of view with postprocedural ICU/telemetry depending on the outcome. Jass Carlton MD
--- NOTE | 2018-02-04 23:50 | CP.PCM.PCO ---
Physician Communication Note - Physician Communication Note Physician Communication Note: Promethazine DM for cough PRN
[2018-02-05] MEDS: POLYETHYLENE GLYCOL 3350 17 GM/Dose PACKET PO SCH ×2 (00:05→10:29)
[2018-02-05] MEDS: Promethazine DM 6.25 mg-15 mg/5 ml Syrup PO PRN ×2 (01:29→21:07)
[2018-02-05 08:24] LABS: BASO # 0.1 K/uL (0.0-0.2); BASO % 1.2 % (0.0-2.0); EOS # 0.2 K/uL (0.0-0.7); EOS % 3.1 % (0.0-4.0); HEMOGLOBIN 13.9 g/dL (12.0-18.0); LYMPH # 0.8 K/uL (1.0-4.3); LYMPH % 12.9 % (20.0-40.0); MEAN CELL VOLUME 90.6 fL (80.0-94.0); MEAN CORPUSCULAR HGB CONC 33.1 g/dL (33.0-37.0); MEAN PLATELET VOLUME 8.4 fL (7.2-11.7); MONO # 0.5 K/uL (0.0-0.8); NEUT % 75.8 % (50.0-75.0); RBC 4.63 Mil/uL (4.40-5.90); RED CELL DISTRIBUTION WIDTH 21.3 % (11.5-14.5); WHITE BLOOD COUNT 6.6 K/uL (4.8-10.8)
[2018-02-05] MEDS: (Novolin R) Insulin Human Regular 100 units/ml vial SC SCH ×4 (08:26→21:54)
[2018-02-05 09:12] LABS: ALB/GLOB RATIO 0.9 (1.0-2.1); ALBUMIN 3.2 g/dL (3.5-5.0); CALCIUM 8.8 mg/dl (8.6-10.4)
--- NOTE | 2018-02-05 11:00 | CP.PCM.PN ---
<Saman Aquino - Last Filed: 02/05/18 12:12> Subjective - Date & Time of Evaluation Date of Evaluation: 02/05/18 Time of Evaluation: 11:03 - Subjective Subjective: PGY3 Note for Dr. Pereira Patient seen and examined with indemand ASL interpeter; patient states he feels like his abdomen is markedly distended and is similar to episodes in the past when he has had paracentesis; he denies abdominal pain/fevers, but states it is uncomfortable. Objective - Vital Signs/Intake and Output Vital Signs (last 24 hours): Temp Pulse Resp BP Pulse Ox 97.6 F 95 H 18 97/60 L 99 02/05/18 07:00 02/05/18 07:00 02/05/18 07:00 02/05/18 10:30 02/05/18 07:00 Intake and Output: 02/05/18 02/05/18 06:59 18:59 Intake Total 375 Output Total 450 Balance -75 - Medications Medications: Current Medications Carvedilol (Coreg) 25 mg PO BID [facility] Last Admin: 02/05/18 10:30 Dose: Not Given Dextrose (Dextrose 50% Inj) 0 ml IV STAT PRN; Protocol PRN Reason: Hypoglycemia Protocol Dextrose (Glutose 15) 0 gm PO ONCE PRN; Protocol PRN Reason: Hypoglycemia Protocol Furosemide (Lasix) 80 mg PO BID [facility] Last Admin: 02/04/18 18:17 Dose: 80 mg Glucagon (Glucagen Diagnostic Kit) 0 mg IM STAT PRN; Protocol PRN Reason: Hypoglycemia Protocol Dextrose (Dextrose 5% In Water 1000 Ml) 1,000 mls @ 0 mls/hr IV .Q0M PRN; Protocol PRN Reason: Hypoglycemia Protocol Influenza Virus Vaccine (Fluzone Quad [id number]) 60 mcg IM .ONCE ONE Stop: 02/06/18 10:01 Insulin Human Regular (Novolin R) 0 unit SC ACHS [facility]; Protocol Last Admin: 02/05/18 08:26 Dose: Not Given Pneumococcal Polyvalent Vaccine (Pneumovax 23 Vaccine) 0.5 ml IM .ONCE ONE Stop: 02/06/18 10:01 Polyethylene Glycol (Miralax) 17 gm PO DAILY [facility] Last Admin: 02/05/18 10:29 Dose: Not Given Promethazine HCl/Dextromethorphan (Phenergan Dm Syrup) 5 ml PO Q6H PRN PRN Reason: Cough Last Admin: 02/05/18 01:29 Dose: 5 ml Sacubitril/Valsartan (Entresto 49 Mg-51 Mg) 2 tab PO BID [facility] Last Admin: 02/04/18 18:18 Dose: 2 tab Spironolactone (Aldactone) 50 mg PO DAILY [facility] Last Admin: 02/04/18 09:55 Dose: Not Given Tamsulosin HCl (Flomax) 0.4 mg PO BID [facility] Last Admin: 02/05/18 10:38 Dose: 0.4 mg Tramadol HCl (Ultram) 50 mg PO DAILY PRN PRN Reason: Pain, moderate (4-7) Last Admin: 02/04/18 18:17 Dose: 50 mg - Labs Labs: 02/05/18 08:16 02/05/18 08:16 PT 16.6 SECONDS (9.7-12.2) H 02/03/18 19:59 INR 1.5 02/03/18 19:59 APTT 27 SECONDS (21-34) 02/03/18 19:59 - Constitutional Appears: Well, Non-toxic - Head Exam Head Exam: ATRAUMATIC, NORMAL INSPECTION - Eye Exam Eye Exam: EOMI, Normal appearance, PERRL - ENT Exam ENT Exam: Mucous Membranes Moist - Neck Exam Neck Exam: Full ROM. absent: Lymphadenopathy - Respiratory Exam Respiratory Exam: Clear to Ausculation Bilateral, NORMAL BREATHING PATTERN. absent: Rales, Rhonchi, Wheezes - Cardiovascular Exam Cardiovascular Exam: REGULAR RHYTHM - GI/Abdominal Exam Additional comments: abdomen distended with fluid wave, tenderness suprapubic region - Extremities Exam Extremities Exam: Full ROM. absent: Calf Tenderness - Back Exam Back Exam: NORMAL INSPECTION. absent: CVA tenderness (L), CVA tenderness (R) - Neurological Exam Neurological Exam: Alert, Awake, Oriented x3 - Psychiatric Exam Psychiatric exam: Normal Affect - Skin Skin Exam: Warm Assessment and Plan - Assessment and Plan (Free Text) Assessment: 57 year old male with PMHx of HTN, HLD, BPH, CKD, systolic heart failure, cardiac arrhythmia, Pacemaker, and defibrillator, admitted for urinary retention. Plan: Urinary retention status post mason replacement with SARAH - UA: positive for blood, LE, WBC, and bacteria - 1 dose of Rocephin given in ED - S/p cystoscopy with Dr. Brar - POD #1 - Consult cardiology, Dr. Carlton, for cardiac clearance - Urine Cx: Follow up - Flomax 0.4mg BID - Mason care with betadine 3x/day -f/u nephrology recs for SARAH Bladder Tumor -as per cystoscopy report; patient had bladder tumor -f/u urology recs Abdominal Distention -will f/u GI recs; Dr. Zavala; thank you for your help -patient has been tapped in the past before with 3L being taken off; may need paracentesis again -IR consulted for ascites; 02/05 gave 1 amp of albumin before paracentesis - Abdominal US (12/03/2017): The extrahepatic portal vein is patent with hepatopetal flow. No sonographic evidence for thrombus or obstruction is seen. The 3 hepatic veins are visualized centrally and patent. The hepatic artery is patent. (see full report) - CT abd/pelvis (12/03): Limited assessment without IV or oral contrast administration. Cardiomegaly. Small pericardial effusion. Moderate to large amount of ascites in the abdomen and pelvis. Enlarged prostate. [id number] anasarca. Preliminary report was submitted by virtual Radiology. (see full report) HFrEF (Systolic Heart failure) with AICD/Pacemaker: - Echo (10/2017): LVEF 12.8% Severe LV hypokinesis, mild LVH, dilated LA, RA and RV, mild MR, severe TR, Mild pulmonary hypertension. - Patient sees Dr. Pang, bunch trimmer mold regularly. Followed up with him this month. - EKG(02/04): Junctional rhythm, left axis deviation, RBB - Daily weights, I&O's, head of bead 45 degrees - Consult cardiology, Dr. Carlton - Monitor patient on telemetry - Entresto 2 tab PO BID - Spironolactone 50mg daily - Carvedilol 25mg BID - Lasix 80mg BID - Fluid restriction to 1 L daily Hx of hyperbilirubinemia, elevated Alkaline phosphatase - Hepatitis panel 10/2017 negative - Seen by Dr. Lucas ALVARADO during 10/2017 admission and was asked to follow up, however patient did not do so -f/u GI recs - Patient was counselled on the importance of following up. Please provide follow up information upon discharge. Hx HTN: - Spironolactone 50mg daily - Carvedilol 25mg BID - Lasix 80mg BID - Hold for SBP<100 and HR <60 Hx of DM-2: - Home med of Tradjenta- hold - ISS - Accuchecks ACHS - Hypoglycemia protocol Hx of CKD: - GFR: 50-60 - Seen by nephroDr. Acosta during 10/2017 admission, patient has not followed up. - Will provide with follow up information upon discharge. Hx of deaf/mute: - Patient communicates in sign. Please use medical interpreter service Unintentional weight loss: - 40 lb weight loss in the past year - Continue to monitor Prophylaxis: - Heparin 5000u SC Q8H - Dopplers ordered due to trace LE swelling. May place on SCDs pending doppler results. - No GI ppx indicated - Start on HHD 2g Na following procedure Case discussed with Dr. Randall Aquino PGY3 <Tiffany Pereira V - Last Filed: 02/05/18 22:44> Objective - Vital Signs/Intake and Output Vital Signs (last 24 hours): Temp Pulse Resp BP Pulse Ox 97.8 F 95 H 18 91/62 L 99 02/05/18 15:00 02/05/18 15:00 02/05/18 15:00 02/05/18 17:16 02/05/18 15:00 Intake and Output: 02/05/18 02/06/18 18:59 06:59 Intake Total 290 300 Output Total 300 150 Balance -10 150 - Medications Medications: Current Medications Carvedilol (Coreg) 25 mg PO BID [facility] Last Admin: 02/05/18 17:15 Dose: Not Given Dextrose (Dextrose 50% Inj) 0 ml IV STAT PRN; Protocol PRN Reason: Hypoglycemia Protocol Dextrose (Glutose 15) 0 gm PO ONCE PRN; Protocol PRN Reason: Hypoglycemia Protocol Furosemide (Lasix) 40 mg PO BID [facility] Last Admin: 02/05/18 17:16 Dose: Not Given Glucagon (Glucagen Diagnostic Kit) 0 mg IM STAT PRN; Protocol PRN Reason: Hypoglycemia Protocol Dextrose (Dextrose 5% In Water 1000 Ml) 1,000 mls @ 0 mls/hr IV .Q0M PRN; Protocol PRN Reason: Hypoglycemia Protocol Ceftriaxone Sodium (Rocephin Iv 1 Gm Duplex) 50 mls @ 100 mls/hr IVPB DAILY [facility]; Protocol Stop: 02/09/18 10:05 Influenza Virus Vaccine (Fluzone Quad [id number]) 60 mcg IM .ONCE ONE Stop: 02/06/18 10:01 Insulin Human Regular (Novolin R) 0 unit SC ACHS [facility]; Protocol Last Admin: 02/05/18 21:54 Dose: Not Given Pneumococcal Polyvalent Vaccine (Pneumovax 23 Vaccine) 0.5 ml IM .ONCE ONE Stop: 02/06/18 10:01 Polyethylene Glycol (Miralax) 17 gm PO DAILY [facility] Last Admin: 02/05/18 10:29 Dose: Not Given Promethazine HCl/Dextromethorphan (Phenergan Dm Syrup) 5 ml PO Q6H PRN PRN Reason: Cough Last Admin: 02/05/18 21:07 Dose: 5 ml Sacubitril/Valsartan (Entresto 49 Mg-51 Mg) 2 tab PO BID [facility] Last Admin: 02/05/18 17:17 Dose: Not Given Spironolactone (Aldactone) 50 mg PO DAILY [facility] Tamsulosin HCl (Flomax) 0.4 mg PO BID [facility] Last Admin: 02/05/18 17:16 Dose: 0.4 mg Tramadol HCl (Ultram) 50 mg PO DAILY PRN PRN Reason: Pain, moderate (4-7) Last Admin: 02/04/18 18:17 Dose: 50 mg - Labs Labs: 02/05/18 08:16 02/05/18 08:16 PT 16.6 SECONDS (9.7-12.2) H 02/03/18 19:59 INR 1.5 02/03/18 19:59 APTT 27 SECONDS (21-34) 02/03/18 19:59 Attending/Attestation - Attestation I have personally seen and examined this patient.: Yes I have fully participated in the care of the patient.: Yes I have reviewed all pertinent clinical information, including history, physical exam and plan: Yes Notes (Text): Patient seen, examined, and case discussed with day-time resident. 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 Patient is status post cystoscopy with Dr. Brar POD1. Patient is notably more distended today compared to yesterday. Patient underwent Abdominal US ordered by GI. I have placed for IR paracentesis ordered. Patient had prior paracentesis in [facility] wherein 2.1 Liter was removed. Discussed with renal, creatinine relatively stable likely cardiorenal. Patient pending EP evaluation to check pacemaker. Patient denies complaints of chest pain or palpations. I spoke with patient's RN, Marlen patient has had bowel movements today at least 2, with flatus. patient was started on Miralax post cystoscopy yesterday. Patient given dose of Albumin today to increase effectiveness of diuretic and maintain blood pressure. Blood pressure medication have BP parameters. Patient's urine culture finalized; started on Rocephin 1 gram IV daily Assessment/plan 1) Urinary retention status post mason replacement: Assessment/Plan * UA: positive for blood, LE, WBC, and bacteria * Urine culture: Citrobacter * Patient had received 1 dose of Rocephin given in ED * Start Rocephin 1 gram IV q daily * S/p cystoscopy with Dr. Brar - POD #1 * Consult cardiology, Dr. Carlton, for cardiac clearance-->patient may proceed with procedure, recommended for telemetry, and EP eval * Flomax 0.4mg BID * Mason care with betadine 3x/day 2) HFrEF (Systolic Heart failure) with AICD/Pacemaker: Assessment/Plan * Echo (10/2017): LVEF 12.8% Severe LV hypokinesis, mild LVH, dilated LA, RA and RV, mild MR, severe TR, Mild pulmonary hypertension. * Patient sees Dr. Pang, bunch trimmer mold regularly. Followed up with him this month * EKG(02/04): Junctional rhythm, left axis deviation, RBB * Daily weights, I&O's, head of bead 45 degrees * Consult cardiology, Dr. Carlton construction engineer-->help appreciated * Consult EP-Cardiology, Dr. Brunner to check pacemaker * Monitor patient on telemetry * Entresto 2 tab PO BID * Spironolactone 50mg daily * Carvedilol 25mg BID * Lasix 40mg BID * patient is off aspirin * Fluid restriction to 1 L daily 3) Hx of hyperbilirubinemia, elevated Alkaline phosphatase, ascites: Assessment/Plan * Hepatitis panel 10/2017 negative * Tbili is at baseline at 4.5 * Alkaline phosphatase: 464 * Abdominal US (12/03/2017): The extrahepatic portal vein is patent with hepatopetal flow. No sonographic evidence for thrombus or obstruction is seen. The 3 hepatic veins are visualized centrally and patent. The hepatic artery is patent. (see full report) * CT abd/pelvis (12/03): Limited assessment without IV or oral contrast administration. Cardiomegaly. Small pericardial effusion. Moderate to large amount of ascites in the abdomen and pelvis. Enlarged prostate. [id number] anasarca. Preliminary report was submitted by virtual Radiology. (see full report) * Seen by GI, Dr. Zavala during 10/2017 admission and was asked to follow up, however patient did not do so. * patient noted in prior hospitalization noted ascites secondary to CHF. Patient had require IR to drain about 2.1 Liters. * Patient was counselled on the importance of following up. Please provide follow up information upon discharge. * GI on consult help appreciated * Patient completed new abdominal US * IR order placed for paracentesis 4) Hx HTN Assessment/Plan * Spironolactone 50mg daily * Carvedilol 25mg BID * Lasix 40mg BID * Hold for SBP<100 and HR <60 5) Hx of DM-2: * Home med of Tradjenta- hold * ISS * Accuchecks ACHS * Hypoglycemia protocol 6) Hx of CKD: * likely cardiorenal disease * Cr: 1.6 * GFR: 54 * Seen by nephro, Dr. Acosta during 10/2017 admission, patient has not followed up. * consult nephrology * Patient is on Lasix/ Aldactone for CHF 7) Hx of deaf/mute: * Patient communicates in sign. Please use medical interpreter service which is very effective. 8) Unintentional weight loss: * 40 lb weight loss in the past year * Continue to monitor 9) Prophylaxis: * Patient is OFF chemical anticoagulation secondary to procedure * Venous dopplers: negative b/l * No GI ppx indicated * Start on HHD 2g Na following urologic procedure * Florastor 250mg PO BID Disposition: GI, nephrology, cardiology, and cardiology EP on case. patient underwent Abdominal US today. Order placed for IR paracentesis to relieve d istension. patient is having bowel movements. i did indicate to patient that the fluid back up in the abdominal and scrotum is likely due to his severe congestive heart failure.
[2018-02-05] MEDS ORDERED: Albumin Human 25% (12.5 gm/50 ml) IV ONE ×2 (11:37→18:23)
[2018-02-05] MEDS: Sacubitril/Valsartan 49-51 Tab PO SCH ×2 (11:54→17:17)
--- NOTE | 2018-02-05 14:00 | CP.PCM.CON ---
<Kiara Culver - Last Filed: 02/05/18 14:00> History of Present Illness - History of Present Illness History of Present Illness: GI Fellow PGY5 Consult Note This is a 57 year old male with a past medical history significant for HTN, CKD, DM2, systolic CHF (Last EF 12%), PPM, AICD, deafness and mute who presents with hypotension and abdominal distention. GI was consulted as patient was found to have a moderate to large amount of abdominal/pelvis ascites. Currently, he denies any sick contacts, changes in diet, fevers, headache, chest pain, SOB, abdominal pain, N/V/D/C, hematemesis, melena, hematochezia, or skin changes. Pt has been seen multiple times by the GI service and ascites has been attributed to congestive hepatopathy, no underlying cirrhosis. He had a paracentesis 2L removed two months ago, Neg for SBP. SAAG>1.1 and TP>2.5 consistent with Heart Failure. ROS:A 12pt ROS was negative except as above PMH: As stated above PSH: PPM and AICD Family History: GERD, HTN, HLD; No history of colon/liver/GI cancer Social History: Currently denies any tobacco, alcohol or illicit drug use; Former alcohol abuse noted; Lives alone and independent with ADL's Past Patient History - Infectious Disease Hx of Infectious Diseases: None - Past Medical History & Family History Past Medical History?: Yes - Past Social History Smoking Status: Never Smoked - CARDIAC Hx Cardia Arrhythmia: Yes Hx Congestive Heart Failure: Yes Hx Hypercholesterolemia: Yes Hx Hypertension: Yes Hx Pacemaker: Yes (with defib) Hx Peripheral Edema: Yes - PULMONARY Hx Respiratory Disorders: No - NEUROLOGICAL Hx Neurological Disorder: Yes (encephalomalacia) HX Cerebrovascular Accident: Yes Hx Syncope: Yes - HEENT Hx HEENT Problems: Yes Hx Deafness: Yes - RENAL Hx Chronic Kidney Disease: Yes - ENDOCRINE/METABOLIC Hx Endocrine Disorders: Yes Hx Diabetes Mellitus Type 2: Yes - HEMATOLOGICAL/ONCOLOGICAL Hx Blood Disorders: No - INTEGUMENTARY Hx Dermatological Problems: No - MUSCULOSKELETAL/RHEUMATOLOGICAL Hx Musculoskeletal Disorders: No Hx Falls: Yes - GASTROINTESTINAL Hx Gastrointestinal Disorders: Yes Other/Comment: ascites - GENITOURINARY/GYNECOLOGICAL Hx Genitourinary Disorders: Yes (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) - PSYCHIATRIC Hx Substance Use: No - SURGICAL HISTORY Hx Surgeries: Yes Other/Comment: Pacemaker - ANESTHESIA Hx Anesthesia: Yes Hx Anesthesia Reactions: No Hx Malignant Hyperthermia: No Meds Allergies/Adverse Reactions: Allergies Allergy/AdvReac Type Severity Reaction Status Date / Time No Known Allergies Allergy Verified 02/03/18 18:39 - Medications Medications: Current Medications Carvedilol (Coreg) 25 mg PO BID [facility] Last Admin: 02/05/18 10:30 Dose: Not Given Dextrose (Dextrose 50% Inj) 0 ml IV STAT PRN; Protocol PRN Reason: Hypoglycemia Protocol Dextrose (Glutose 15) 0 gm PO ONCE PRN; Protocol PRN Reason: Hypoglycemia Protocol Furosemide (Lasix) 40 mg PO BID [facility] Glucagon (Glucagen Diagnostic Kit) 0 mg IM STAT PRN; Protocol PRN Reason: Hypoglycemia Protocol Dextrose (Dextrose 5% In Water 1000 Ml) 1,000 mls @ 0 mls/hr IV .Q0M PRN; Pr otocol PRN Reason: Hypoglycemia Protocol Influenza Virus Vaccine (Fluzone Quad [id number]) 60 mcg IM .ONCE ONE Stop: 02/06/18 10:01 Insulin Human Regular (Novolin R) 0 unit SC [facility]; Protocol Last Admin: 02/05/18 12:23 Dose: Not Given Pneumococcal Polyvalent Vaccine (Pneumovax 23 Vaccine) 0.5 ml IM .ONCE ONE Stop: 02/06/18 10:01 Polyethylene Glycol (Miralax) 17 gm PO DAILY [facility] Last Admin: 02/05/18 10:29 Dose: Not Given Promethazine HCl/Dextromethorphan (Phenergan Dm Syrup) 5 ml PO Q6H PRN PRN Reason: Cough Last Admin: 02/05/18 01:29 Dose: 5 ml Sacubitril/Valsartan (Entresto 49 Mg-51 Mg) 2 tab PO BID [facility] Spironolactone (Aldactone) 50 mg PO DAILY [facility] Tamsulosin HCl (Flomax) 0.4 mg PO BID [facility] Last Admin: 02/05/18 10:38 Dose: 0.4 mg Tramadol HCl (Ultram) 50 mg PO DAILY PRN PRN Reason: Pain, moderate (4-7) Last Admin: 02/04/18 18:17 Dose: 50 mg Physical Exam - Constitutional Appears: Non-toxic, No Acute Distress - Head Exam Head Exam: ATRAUMATIC, NORMAL INSPECTION, NORMOCEPHALIC - Eye Exam Eye Exam: EOMI, Normal appearance, PERRL Pupil Exam: PERRL - ENT Exam ENT Exam: Mucous Membranes Moist - Respiratory Exam Respiratory Exam: Rales - Cardiovascular Exam Cardiovascular Exam: Tachycardia, +S1, +S2 - GI/Abdominal Exam GI & Abdominal Exam: Distended, Firm, Normal Bowel Sounds. absent: Tenderness - Extremities Exam Extremities exam: Positive for: pedal edema - Neurological Exam Neurological exam: Alert, Oriented x3 - Psychiatric Exam Psychiatric exam: Normal Affect, Normal Mood - Skin Skin Exam: Dry, Intact, Normal Color, Warm Results - Vital Signs Recent Vital Signs: Last Vital Signs Temp 97.6 F 02/05/18 07:00 Pulse 95 H 02/05/18 07:00 Resp 18 02/05/18 07:00 BP 97/60 L 02/05/18 10:30 Pulse Ox 99 02/05/18 07:00 - Labs Result Diagrams: 02/05/18 08:16 02/05/18 08:16 Labs: Laboratory Results - last 24 hr 02/04/18 02/04/18 02/05/18 16:32 21:06 06:10 WBC RBC Hgb Hct MCV MCH MCHC RDW Plt Count MPV Neut % (Auto) Lymph % (Auto) [place] % (Auto) Eos % (Auto) Baso % (Auto) Neut # (Auto) Lymph # (Auto) [place] # (Auto) Eos # (Auto) Baso # (Auto) Sodium Potassium Chloride Carbon Dioxide Anion Gap BUN Creatinine Est GFR ( Amer) Est GFR (Non-Af Amer) POC Glucose (mg/dL) 92 125 H 146 H Random Glucose Calcium Phosphorus Magnesium Total Bilirubin AST ALT Alkaline Phosphatase Total Protein Albumin Globulin Albumin/Globulin Ratio 02/05/18 02/05/18 02/05/18 08:16 08:16 12:22 WBC 6.6 RBC 4.63 Hgb 13.9 Hct 41.9 MCV 90.6 MCH 30.0 MCHC 33.1 RDW 21.3 H Plt Count 221 MPV 8.4 Neut % (Auto) 75.8 H Lymph % (Auto) 12.9 L [place] % (Auto) 7.0 Eos % (Auto) 3.1 Baso % (Auto) 1.2 Neut # (Auto) 5.0 Lymph # (Auto) 0.8 L [place] # (Auto) 0.5 Eos # (Auto) 0.2 Baso # (Auto) 0.1 Sodium 140 Potassium 4.5 Chloride 101 Carbon Dioxide 24 Anion Gap 19 BUN 47 H Creatinine 1.7 H Est GFR ( Amer) 50 Est GFR (Non-Af Amer) 42 POC Glucose (mg/dL) 124 H Random Glucose 125 H Calcium 8.8 Phosphorus 3.9 Magnesium 2.2 Total Bilirubin 3.2 H AST 32 ALT 30 Alkaline Phosphatase 369 H Total Protein 6.8 Albumin 3.2 L Globulin 3.6 Albumin/Globulin Ratio 0.9 L Assessment & Plan - Assessment and Plan (Free Text) Assessment: 1. Ascites 2. CHF 3. LE Edema 4. CKD Plan: -Continue supportive care -Ascites likely cardiac etiology SAAG>1.1, TP>2.5 from 2months ago -Will order Abdominal US -Plan for paracentesis on Wednesday for symptomatic relief -Optimize cardiac functions -Continue diuretics -Will continue to follow closely <Dominick Reyes - Last Filed: 02/05/18 14:22> Meds - Medications Medications: Current Medications Carvedilol (Coreg) 25 mg PO BID [facility] Last Admin: 02/05/18 10:30 Dose: Not Given Dextrose (Dextrose 50% Inj) 0 ml IV STAT PRN; Protocol PRN Reason: Hypoglycemia Protocol Dextrose (Glutose 15) 0 gm PO ONCE PRN; Protocol PRN Reason: Hypoglycemia Protocol Furosemide (Lasix) 40 mg PO BID [facility] Glucagon (Glucagen Diagnostic Kit) 0 mg IM STAT PRN; Protocol PRN Reason: Hypoglycemia Protocol Dextrose (Dextrose 5% In Water 1000 Ml) 1,000 mls @ 0 mls/hr IV .Q0M PRN; Protocol PRN Reason: Hypoglycemia Protocol Influenza Virus Vaccine (Fluzone Quad [id number]) 60 mcg IM .ONCE ONE Stop: 02/06/18 10:01 Insulin Human Regular (Novolin R) 0 unit SC ACHS [facility]; Protocol Last Admin: 02/05/18 12:23 Dose: Not Given Pneumococcal Polyvalent Vaccine (Pneumovax 23 Vaccine) 0.5 ml IM .ONCE ONE Stop: 02/06/18 10:01 Polyethylene Glycol (Miralax) 17 gm PO DAILY [facility] Last Admin: 02/05/18 10:29 Dose: Not Given Promethazine HCl/Dextromethorphan (Phenergan Dm Syrup) 5 ml PO Q6H PRN PRN Reason: Cough Last Admin: 02/05/18 01:29 Dose: 5 ml Sacubitril/Valsartan (Entresto 49 Mg-51 Mg) 2 tab PO BID [facility] Spironolactone (Aldactone) 50 mg PO DAILY [facility] Tamsulosin HCl (Flomax) 0.4 mg PO BID [facility] Last Admin: 02/05/18 10:38 Dose: 0.4 mg Tramadol HCl (Ultram) 50 mg PO DAILY PRN PRN Reason: Pain, moderate (4-7) Last Admin: 02/04/18 18:17 Dose: 50 mg Results - Vital Signs Recent Vital Signs: Last Vital Signs Temp 97.6 F 02/05/18 07:00 Pulse 95 H 02/05/18 07:00 Resp 18 02/05/18 07:00 BP 97/60 L 02/05/18 10:30 Pulse Ox 99 02/05/18 07:00 - Labs Result Diagrams: 02/05/18 08:16 02/05/18 08:16 Labs: Laboratory Results - last 24 hr 02/04/18 02/04/18 02/05/18 16:32 21:06 06:10 WBC RBC Hgb Hct MCV MCH MCHC RDW Plt Count MPV Neut % (Auto) Lymph % (Auto) [place] % (Auto) Eos % (Auto) Baso % (Auto) Neut # (Auto) Lymph # (Auto) [place] # (Auto) Eos # (Auto) Baso # (Auto) Sodium Potassium Chloride Carbon Dioxide Anion Gap BUN Creatinine Est GFR ( Amer) Est GFR (Non-Af Amer) POC Glucose (mg/dL) 92 125 H 146 H Random Glucose Calcium Phosphorus Magnesium Total Bilirubin AST ALT Alkaline Phosphatase Total Protein Albumin Globulin Albumin/Globulin Ratio 02/05/18 02/05/18 02/05/18 08:16 08:16 12:22 WBC 6.6 RBC 4.63 Hgb 13.9 Hct 41.9 MCV 90.6 MCH 30.0 MCHC 33.1 RDW 21.3 H Plt Count 221 MPV 8.4 Neut % (Auto) 75.8 H Lymph % (Auto) 12.9 L [place] % (Auto) 7.0 Eos % (Auto) 3.1 Baso % (Auto) 1.2 Neut # (Auto) 5.0 Lymph # (Auto) 0.8 L [place] # (Auto) 0.5 Eos # (Auto) 0.2 Baso # (Auto) 0.1 Sodium 140 Potassium 4.5 Chloride 101 Carbon Dioxide 24 Anion Gap 19 BUN 47 H Creatinine 1.7 H Est GFR ( Amer) 50 Est GFR (Non-Af Amer) 42 POC Glucose (mg/dL) 124 H Random Glucose 125 H Calcium 8.8 Phosphorus 3.9 Magnesium 2.2 Total Bilirubin 3.2 H AST 32 ALT 30 Alkaline Phosphatase 369 H Total Protein 6.8 Albumin 3.2 L Globulin 3.6 Albumin/Globulin Ratio 0.9 L Attending/Attestation - Attestation I have personally seen and examined this patient.: Yes I have fully participated in the care of the patient.: Yes I have reviewed all pertinent clinical information: Yes Notes (Text): 02/05/18 14:22 The patient was evaluated and discussed today with Dr. Snell. Agree with above findings on the exam, assessment and recommendations. Also discussed with pt's nurse.
--- NOTE | 2018-02-05 14:56 | CP.PCM.CON ---
History of Present Illness - History of Present Illness History of Present Illness: Covering . History was obtained from patient's son in sign language, as patient is deaf and mute. Patient is a 57 year old male with PMHx of HTN, HLD, BPH, CKD 3, systolic heart failure, with AICD and pacemaker, cardiac arrhythmia, who was initially sent to ED by his visiting doctor for hypotension (patient was not told the blood pressure reading), however blood pressure was found to be within normal limits on arrival. In ED, patient admitted to abdominal distention for the past month with no improvement despite having a mason catheter placed 10 days ago. Patient also complains of lower abdominal pressure, pain on urination, intermittent hematuria, as well as bilateral lower leg weakness, cough with white phlegm and SOB for the past 4 months, and 40 lb unintentional weight loss in the past year. Patient denies fever, chills, nausea, vomiting, hematochezia, melena, and flank pain. AT the time of exam, sitting in bed with distress. Past Patient History - Infectious Disease Hx of Infectious Diseases: None - Past Medical History & Family History Past Medical History?: Yes - Past Social History Smoking Status: Never Smoked - CARDIAC Hx Cardia Arrhythmia: Yes Hx Congestive Heart Failure: Yes Hx Hypercholesterolemia: Yes Hx Hypertension: Yes Hx Pacemaker: Yes (with defib) Hx Peripheral Edema: Yes - PULMONARY Hx Respiratory Disorders: No - NEUROLOGICAL Hx Neurological Disorder: Yes (encephalomalacia) HX Cerebrovascular Accident: Yes Hx Syncope: Yes - HEENT Hx HEENT Problems: Yes Hx Deafness: Yes - RENAL Hx Chronic Kidney Disease: Yes - ENDOCRINE/METABOLIC Hx Endocrine Disorders: Yes Hx Diabetes Mellitus Type 2: Yes - HEMATOLOGICAL/ONCOLOGICAL Hx Blood Disorders: No - INTEGUMENTARY Hx Dermatological Problems: No - MUSCULOSKELETAL/RHEUMATOLOGICAL Hx Musculoskeletal Disorders: No Hx Falls: Yes - GASTROINTESTINAL Hx Gastrointestinal Disorders: Yes Other/Comment: ascites - GENITOURINARY/GYNECOLOGICAL Hx Genitourinary Disorders: Yes (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) - PSYCHIATRIC Hx Substance Use: No - SURGICAL HISTORY Hx Surgeries: Yes Other/Comment: Pacemaker - ANESTHESIA Hx Anesthesia: Yes Hx Anesthesia Reactions: No Hx Malignant Hyperthermia: No Meds Allergies/Adverse Reactions: Allergies Allergy/AdvReac Type Severity Reaction Status Date / Time No Known Allergies Allergy Verified 02/03/18 18:39 - Medications Medications: Current Medications Carvedilol (Coreg) 25 mg PO BID [facility] Last Admin: 02/05/18 10:30 Dose: Not Given Dextrose (Dextrose 50% Inj) 0 ml IV STAT PRN; Protocol PRN Reason: Hypoglycemia Protocol Dextrose (Glutose 15) 0 gm PO ONCE PRN; Protocol PRN Reason: Hypoglycemia Protocol Furosemide (Lasix) 40 mg PO BID [facility] Glucagon (Glucagen Diagnostic Kit) 0 mg IM STAT PRN; Protocol PRN Reason: Hypoglycemia Protocol Dextrose (Dextrose 5% In Water 1000 Ml) 1,000 mls @ 0 mls/hr IV .Q0M PRN; Protocol PRN Reason: Hypoglycemia Protocol Influenza Virus Vaccine (Fluzone Quad [id number]) 60 mcg IM .ONCE ONE Stop: 02/06/18 10:01 Insulin Human Regular (Novolin R) 0 unit SC [facility]; Protocol Last Admin: 02/05/18 12:23 Dose: Not Given Pneumococcal Polyvalent Vaccine (Pneumovax 23 Vaccine) 0.5 ml IM .ONCE ONE Stop: 02/06/18 10:01 Polyethylene Glycol (Miralax) 17 gm PO DAILY [facility] Last Admin: 02/05/18 10:29 Dose: Not Given Promethazine HCl/Dextromethorphan (Phenergan Dm Syrup) 5 ml PO Q6H PRN PRN Reason: Cough Last Admin: 02/05/18 01:29 Dose: 5 ml Sacubitril/Valsartan (Entresto 49 Mg-51 Mg) 2 tab PO BID [facility] Spironolactone (Aldactone) 50 mg PO DAILY [facility] Tamsulosin HCl (Flomax) 0.4 mg PO BID [facility] Last Admin: 02/05/18 10:38 Dose: 0.4 mg Tramadol HCl (Ultram) 50 mg PO DAILY PRN PRN Reason: Pain, moderate (4-7) Last Admin: 02/04/18 18:17 Dose: 50 mg Physical Exam - Head Exam Head Exam: NORMOCEPHALIC - Neck Exam Neck exam: Positive for: Normal Inspection - Respiratory Exam Respiratory Exam: NORMAL BREATHING PATTERN - Cardiovascular Exam Cardiovascular Exam: REGULAR RHYTHM, Systolic Murmur - GI/Abdominal Exam GI & Abdominal Exam: Distended, Firm - Extremities Exam Extremities exam: Positive for: pedal edema - Neurological Exam Neurological exam: Alert Results - Vital Signs Recent Vital Signs: Last Vital Signs Temp 97.6 F 02/05/18 07:00 Pulse 95 H 02/05/18 07:00 Resp 18 02/05/18 07:00 BP 97/60 L 02/05/18 10:30 Pulse Ox 99 02/05/18 07:00 - Labs Result Diagrams: 02/06/18 07:23 02/06/18 07:23 Labs: Laboratory Results - last 24 hr 02/04/18 02/04/18 02/05/18 16:32 21:06 06:10 WBC RBC Hgb Hct MCV MCH MCHC RDW Plt Count MPV Neut % (Auto) Lymph % (Auto) [place] % (Auto) Eos % (Auto) Baso % (Auto) Neut # (Auto) Lymph # (Auto) [place] # (Auto) Eos # (Auto) Baso # (Auto) Sodium Potassium Chloride Carbon Dioxide Anion Gap BUN Creatinine Est GFR ( Amer) Est GFR (Non-Af Amer) POC Glucose (mg/dL) 92 125 H 146 H Random Glucose Calcium Phosphorus Magnesium Total Bilirubin AST ALT Alkaline Phosphatase Total Protein Albumin Globulin Albumin/Globulin Ratio 02/05/18 02/05/18 02/05/18 08:16 08:16 12:22 WBC 6.6 RBC 4.63 Hgb 13.9 Hct 41.9 MCV 90.6 MCH 30.0 MCHC 33.1 RDW 21.3 H Plt Count 221 MPV 8.4 Neut % (Auto) 75.8 H Lymph % (Auto) 12.9 L [place] % (Auto) 7.0 Eos % (Auto) 3.1 Baso % (Auto) 1.2 Neut # (Auto) 5.0 Lymph # (Auto) 0.8 L [place] # (Auto) 0.5 Eos # (Auto) 0.2 Baso # (Auto) 0.1 Sodium 140 Potassium 4.5 Chloride 101 Carbon Dioxide 24 Anion Gap 19 BUN 47 H Creatinine 1.7 H Est GFR ( Amer) 50 Est GFR (Non-Af Amer) 42 POC Glucose (mg/dL) 124 H Random Glucose 125 H Calcium 8.8 Phosphorus 3.9 Magnesium 2.2 Total Bilirubin 3.2 H AST 32 ALT 30 Alkaline Phosphatase 369 H Total Protein 6.8 Albumin 3.2 L Globulin 3.6 Albumin/Globulin Ratio 0.9 L Assessment & Plan (1) Congestive heart failure Assessment and Plan: Severe LV systolic dysfunction now with exacerbation of CHF, Fluid restriction. Maintain electrolyte balance. Status: Acute (2) Syncope Assessment and Plan: No new episodes. Continue monitoring. Status: Acute (3) Flutter-fibrillation Assessment and Plan: Rate controlled, Anticoagulation. EP with possible ablation. Status: Acute
--- NOTE | 2018-02-05 15:13 | CP.PCM.CON ---
History of Present Illness - History of Present Illness History of Present Illness: Assessment: Stable CKD 3, likely due to cardio-renal syndrome CHF exacerbation hyperbilirubinemia hx of AICD BPH, hearing impairment Ascites Obstructive uropathy Plan No acute need for renal replacement therapy at this time. Renal function stable recc consider paracetesis - f/u abdominal us bp is stable f/u work up re: obstructive uropathy Monitor Input/Output, daily weights and renal function with basic metabolic panel Volume status is reasonable Dose meds/antibiotics for reduced GFR. Avoid fleets enema/magnesium based laxatives. Avoid nephrotoxins/NSAIDs/ iodinated contrast (unless needed emergently) Glycemic control Further work up/management as per primary team Chief Complaint; abd distension Reason for consult: CKD HPI: Pt is a 57 M with hx of deafness, CKD III, BPH, CHF that presented w/ worsening abdominal swelling. Initially sent in for hypotension, but bp was ok in ER. He has been compliant w/ medications. He recently had mason placed by for obstructive uropathy. Denies OTC/herbal meds or NSAIDs No recent iodinated contrast exposure. ROS: a full detailed ROS negative except ias in hpi Physical Examination: General Appearance: Comfortable, in no acute respiratory distress, co-operative . Vitals reviewed and noted as below Head; Atraumatic, normocephalic ENT: no ulcers no thrush. Tongue is midline. Oropharynx: no rash or ulcers. has hearing impairment EYES: Pupils are equal, round and reactive to light accommodation. Eye muscles and extraocular movement intact. Sclera is icteric. Neck; supple no lymphadenopathy, no thyromegaly or bruit. JVP distended Lungs: Normal respiratory rate/effort. Breath sounds bilateral clear and decreased at bases Heart: Normal rate. s1s2 normal. No rub or gallop. left side AICD + Extremities: 2+ edema. No varicose veins Neurological: Patient is alert, awake and oriented to person, place and time. No focal deficit. Strength bilateral appropriate and equal Skin: Warm and dry. Normal turgor. No rash. Palpitation: Normal elasticity for age Abdomen: Abdomen is soft. Bowel sounds +. There is no abdominal tenderness, no guarding/rigidity has hepatomegaly. distended Psych: normal insight and normal affect/mood MSK: no joint tenderness or swelling. Digits and nails normal, no deformity : kidney or bladder not palpable Labs/imaging reviewed. Past medical history, past surgical history, family history, social history, al lergy reviewed and noted as below Family hx: no hx of CKD. Rest non-contributory work up: VQ scan neg Past Patient History - Infectious Disease Hx of Infectious Diseases: None - Past Medical History & Family History Past Medical History?: Yes - Past Social History Smoking Status: Never Smoked - CARDIAC Hx Cardia Arrhythmia: Yes Hx Congestive Heart Failure: Yes Hx Hypercholesterolemia: Yes Hx Hypertension: Yes Hx Pacemaker: Yes (with defib) Hx Peripheral Edema: Yes - PULMONARY Hx Respiratory Disorders: No - NEUROLOGICAL Hx Neurological Disorder: Yes (encephalomalacia) HX Cerebrovascular Accident: Yes Hx Syncope: Yes - HEENT Hx HEENT Problems: Yes Hx Deafness: Yes - RENAL Hx Chronic Kidney Disease: Yes - ENDOCRINE/METABOLIC Hx Endocrine Disorders: Yes Hx Diabetes Mellitus Type 2: Yes - HEMATOLOGICAL/ONCOLOGICAL Hx Blood Disorders: No - INTEGUMENTARY Hx Dermatological Problems: No - MUSCULOSKELETAL/RHEUMATOLOGICAL Hx Musculoskeletal Disorders: No Hx Falls: Yes - GASTROINTESTINAL Hx Gastrointestinal Disorders: Yes Other/Comment: ascites - GENITOURINARY/GYNECOLOGICAL Hx Genitourinary Disorders: Yes (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) - PSYCHIATRIC Hx Substance Use: No - SURGICAL HISTORY Hx Surgeries: Yes Other/Comment: Pacemaker - ANESTHESIA Hx Anesthesia: Yes Hx Anesthesia Reactions: No Hx Malignant Hyperthermia: No Meds Allergies/Adverse Reactions: Allergies Allergy/AdvReac Type Severity Reaction Status Date / Time No Known Allergies Allergy Verified 02/03/18 18:39 - Medications Medications: Current Medications Carvedilol (Coreg) 25 mg PO BID [facility] Last Admin: 02/05/18 10:30 Dose: Not Given Dextrose (Dextrose 50% Inj) 0 ml IV STAT PRN; Protocol PRN Reason: Hypoglycemia Protocol Dextrose (Glutose 15) 0 gm PO ONCE PRN; Protocol PRN Reason: Hypoglycemia Protocol Furosemide (Lasix) 40 mg PO BID [facility] Glucagon (Glucagen Diagnostic Kit) 0 mg IM STAT PRN; Protocol PRN Reason: Hypoglycemia Protocol Dextrose (Dextrose 5% In Water 1000 Ml) 1,000 mls @ 0 mls/hr IV .Q0M PRN; Protocol PRN Reason: Hypoglycemia Protocol Influenza Virus Vaccine (Fluzone Quad [id number]) 60 mcg IM .ONCE ONE Stop: 02/06/18 10:01 Insulin Human Regular (Novolin R) 0 unit SC ACHS [facility]; Protocol Last Admin: 02/05/18 12:23 Dose: Not Given Pneumococcal Polyvalent Vaccine (Pneumovax 23 Vaccine) 0.5 ml IM .ONCE ONE Stop: 02/06/18 10:01 Polyethylene Glycol (Miralax) 17 gm PO DAILY [facility] Last Admin: 02/05/18 10:29 Dose: Not Given Promethazine HCl/Dextromethorphan (Phenergan Dm Syrup) 5 ml PO Q6H PRN PRN Reason: Cough Last Admin: 02/05/18 01:29 Dose: 5 ml Sacubitril/Valsartan (Entresto 49 Mg-51 Mg) 2 tab PO BID [facility] Spironolactone (Aldactone) 50 mg PO DAILY [facility] Tamsulosin HCl (Flomax) 0.4 mg PO BID [facility] Last Admin: 02/05/18 10:38 Dose: 0.4 mg Tramadol HCl (Ultram) 50 mg PO DAILY PRN PRN Reason: Pain, moderate (4-7) Last Admin: 02/04/18 18:17 Dose: 50 mg Results - Vital Signs Recent Vital Signs: Last Vital Signs Temp 97.6 F 02/05/18 07:00 Pulse 95 H 02/05/18 07:00 Resp 18 02/05/18 07:00 BP 97/60 L 02/05/18 10:30 Pulse Ox 99 02/05/18 07:00 - Labs Result Diagrams: 02/05/18 08:16 02/05/18 08:16 Labs: Laboratory Results - last 24 hr 02/04/18 02/04/18 02/05/18 16:32 21:06 06:10 WBC RBC Hgb Hct MCV MCH MCHC RDW Plt Count MPV Neut % (Auto) Lymph % (Auto) [place] % (Auto) Eos % (Auto) Baso % (Auto) Neut # (Auto) Lymph # (Auto) [place] # (Auto) Eos # (Auto) Baso # (Auto) Sodium Potassium Chloride Carbon Dioxide Anion Gap BUN Creatinine Est GFR ( Amer) Est GFR (Non-Af Amer) POC Glucose (mg/dL) 92 125 H 146 H Random Glucose Calcium Phosphorus Magnesium Total Bilirubin AST ALT Alkaline Phosphatase Total Protein Albumin Globulin Albumin/Globulin Ratio 02/05/18 02/05/18 02/05/18 08:16 08:16 12:22 WBC 6.6 RBC 4.63 Hgb 13.9 Hct 41.9 MCV 90.6 MCH 30.0 MCHC 33.1 RDW 21.3 H Plt Count 221 MPV 8.4 Neut % (Auto) 75.8 H Lymph % (Auto) 12.9 L [place] % (Auto) 7.0 Eos % (Auto) 3.1 Baso % (Auto) 1.2 Neut # (Auto) 5.0 Lymph # (Auto) 0.8 L [place] # (Auto) 0.5 Eos # (Auto) 0.2 Baso # (Auto) 0.1 Sodium 140 Potassium 4.5 Chloride 101 Carbon Dioxide 24 Anion Gap 19 BUN 47 H Creatinine 1.7 H Est GFR ( Amer) 50 Est GFR (Non-Af Amer) 42 POC Glucose (mg/dL) 124 H Random Glucose 125 H Calcium 8.8 Phosphorus 3.9 Magnesium 2.2 Total Bilirubin 3.2 H AST 32 ALT 30 Alkaline Phosphatase 369 H Total Protein 6.8 Albumin 3.2 L Globulin 3.6 Albumin/Globulin Ratio 0.9 L
--- NOTE | 2018-02-05 15:30 | US ---
Abdominal ultrasound HISTORY: Abdominal ascites. Comparison: CT dated 12/03/2017 Technique: Real-time sonography was performed through the abdomen. Findings: Liver: Prominent measuring 24.6 centimeters in length. Increased echogenicity of the hepatic parenchymal cortex suggestive for fatty infiltration versus hepatic parenchymal disease. Nodular contour of the liver. Bidirectional flow noted within the portal vein. Clinical correlation. Moderate abdominal and pelvic ascites. Gallbladder: Thick-walled and edematous measuring up to 4.7 millimeters. No gross calculi or sludge. Common bile duct measures 4 millimeters. Limited visualization of the pancreas. Atherosclerotic calcification and plaque within the aorta. Visualized aorta Visualized IVC grossly preserved. Prominent spleen measuring 13 centimeters in length. Right kidney: 11.1 x 4.8 x 5.0 centimeters. No calculi or hydronephrosis. Left kidney: 9.5 x 4.1 x 4.3 centimeters. No calculi or hydronephrosis. Impression: 1. Enlarged echogenic and nodular liver suggestive for fatty infiltration versus hepatic parenchymal disease. Bidirectional flow noted within the portal vein. Clinical correlation. 2. Moderate abdominal and pelvic ascites. 3. Right pleural effusion. 4. Contracted thick-walled edematous gallbladder 5. Prominent spleen measuring 13 centimeters in length.
--- NOTE | 2018-02-05 18:23 | PN ---
DATE: 02/05/2018 SUBJECTIVE: The patient underwent cystoscopy yesterday. He tolerated the procedure. I saw him in the recovery room before his transfer to the fifth floor. I communicated with him today in writing. He denies any chest pain or shortness of breath. He complains of abdominal discomfort. PHYSICAL EXAMINATION: VITAL SIGNS: Blood pressure 97/69, heart rate 95, temperature 97.6, respirations 18. HEENT: Normocephalic. CHEST: Clear. HEART: S1 and S2, regular. ABDOMEN: Moderate distention. EXTREMITIES: No edema. LABORATORY STUDIES: Today's SMA-7 is within normal limit except for glucose of 125, BUN and creatinine are 47 and 1.7. Today's hemoglobin and hematocrit, white count and platelet count are within normal limit. ASSESSMENT: 1. Dilated cardiomyopathy, status post implantable cardioverter-defibrillators placement. 2. Recurrent ascites. 3. Urinary retention status post cystoscopy and biopsy. 3. Chronic renal insufficiency. 4. Chronic atrial fibrillation. The patient had junctional tachycardia on admission. RECOMMENDATIONS: Continue Aldactone 50 mg once a day,Entresto two tablets twice a day. Hold both for systolic blood pressure below 100. Continue Lasix at 40 mg intravenously twice a day. Obtain 12-lead EKG today. Jass Carlton MD
--- NOTE | 2018-02-06 01:39 | OP ---
PROCEDURE DATE: 02/04/2018 UROLOGY OPERATIVE REPORT PREOPERATIVE DIAGNOSIS: Urinary retention. POSTOPERATIVE DIAGNOSES: 1. Urinary retention. 2. Prostatic enlargement. 3. Cystitis. 4. Abnormal bladder mucosa, probable bladder tumor. PROCEDURES: Cystogram, cystoscopy, bladder biopsy and fulguration. OPERATING SURGEON: Yesenia Brar MD PROCEDURE FOLLOWS: The patient was in the supine position. The cystogram was performed under fluoroscopic control. Iodinated contrast dye was instilled via the Perdomo catheter. Fluoroscopic views were obtained in PA and both oblique views. Post-drainage film was obtained as well. Findings on cystogram: The bladder contour was noted to be normal. There was no evidence of intrinsic or extrinsic filling defect within the bladder. There was no evidence of vesicoureteral reflux. There was moderate to marked elevation of the bladder floor consistent with prostatic hypertrophy. There was no bladder diverticulum. The Perdomo catheter was removed. The patient was in the supine position. The genitalia were prepped and draped sterilely. Lidocaine jelly was instilled per urethra. Sedation was provided by the anesthesiologist. A 16-Russian flexible cystoscope was introduced under direct vision using video endoscopic control. The previous post-drainage view of the bladder after cystogram revealed good bladder emptying via the Perdomo catheter. The urethra, prostate and bladder were inspected via the flexible cystoscope. Findings: There was no stricture of the anterior urethra. There was evidence of lateral lobe prostatic hypertrophy. Prostatic urethra was 3.5 cm in length and occlusive. There was noted to be marked bladder trabeculation. The ureteral orifices could not be identified. There was diffuse marked inflammation of bladder mucosa. There was debris floating within the bladder which diminished visibility. 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 The tumor appeared to be approximately 2 cm in size. Biopsy of tumor was taken using Dajuan biopsy forceps. Fulguration was performed with Ball electrode and electrocautery. The bladder was reinspected. Hemostasis was complete. The cystoscope was removed. A 16-Russian Perdomo catheter was inserted. Bladder drainage was clear. Rectal examination was performed. The prostate was noted to be enlarged, approximately 30 g in size, without fixation, induration or nodularity. Prostate was firm and smooth. Findings: Abnormal mucosa. Possible bladder carcinoma. Pathology pending. Prostatic enlargement with bladder outlet obstruction. History of urinary retention. RECOMMENDATIONS AND PLAN: Perdomo catheter indwelling. Pathology pending. The patient may require TUR bladder tumor. The patient may require TURP. Further therapy to follow according to the patient's clinical course. Monitor urine culture and continue antibiotic therapy. [place] MD Maykel cc: Raul Lewis DO
--- NOTE | 2018-02-06 05:42 | CON ---
DATE: 02/04/2018 Requested by Raul Lewis DO Urology consultation filled by Yesenia Brar MD REASON FOR CONSULTATION: Urinary retention. HISTORY OF PRESENT ILLNESS: The patient is a 57-year-old male with urinary retention. The patient is in otherwise fair to poor health. The patient has had an indwelling Perdomo catheter. The catheter was not draining well. The patient was found to have abdominal distention. The patient presented to the emergency room. The catheter was found to be not functioning. The patient was found to have an elevated residual within the bladder on bladder scan. Perdomo catheter was subsequently changed. Approximately 450 mL of clear urine was drained. The subsequent bladder scan still revealed an elevated residual within the bladder. The patient was previously in [facility] approximately two months ago. He was admitted with urinary retention in 11/2017. The patient has history of syncope. The patient has history of severe CHF. The patient had been unable to urinate. He also had constipation. Mr. Sorto has a significant cardiac history. He has a history of cardiac pacemaker and defibrillator. There is history of hypertension. There is history of severe CHF. The patient has history of diabetes. His medications previously included atenolol, carvedilol, Tradjenta, Delsym, spirolactone, tramadol, and albuterol. The patient was also found to have abnormal liver function tests in the past with elevated bilirubin. Mr. Sorto subsequently had a trial of voiding. He developed urinary retention and had a Perdomo catheter inserted. There is a history of previous heavy alcohol consumption. The patient lives alone. He does not smoke. ALLERGIES: NONE KNOWN. PHYSICAL EXAMINATION: GENERAL: The patient is a well-developed, well-nourished male appearing his stated age. ABDOMEN: Soft. Mildly distended. There is mild mid abdominal tenderness. The abdomen is protuberant. There is no suprapubic tenderness. GENITALIA: Without inflammation. The urine is dark kadi via the Perdomo catheter. Scrotal contents without inflammation. LABORATORY DATA: Attached. IMPRESSION: Urinary retention. History of enlarged prostate. The patient had failed previous trial of voiding. The patient had a trial of voiding last month. The Perdomo catheter was subsequently reinserted. The patient now presents to the emergency room with catheter obstruction. The catheter has been changed. The etiology of urinary retention may be due to detrusor muscle hypofunction and/or bladder outlet obstruction, possibly related to prostatic disease. The patient also has significant cardiac history as noted above. PLAN/RECOMMENDATIONS: 1. Perdomo catheter in place. Please obtain urine culture. Please obtain serum PSA. 2. Possible cystoscopy, cystogram, and cystometrogram. 3. We will discuss with the patient and with the financial sales consultant. 4. Further therapy to follow according to the patient's clinical course. Of note, the patient had been previously scheduled for cystoscopy, prior to the event which brought about his hospitalization last night. I discussed the case also with the resident staff. The patient is for possible cystoscopy today. I will discuss further with the anesthesiologist as well. ADDENDUM I discussed the case with the fire control system installer, who felt that the patient could have the anesthesia for cystoscopy today. After discussion with the anesthesiologist and with the report of the patient's markedly diminished ejection fraction of 12%, the anesthesiologist recommends that we not give the patient a general anesthesia. I will proceed with flexible cystoscopy with local anesthesia and sedation. Thank you for recommending the patient for urology consultation. Yesenia Brar MD cc: Raul Lewis DO
[2018-02-06 07:32] LABS: BASO # 0.1 K/uL (0.0-0.2); BASO % 1.4 % (0.0-2.0); EOS # 0.2 K/uL (0.0-0.7); EOS % 3.7 % (0.0-4.0); HEMOGLOBIN 13.8 g/dL (12.0-18.0); LYMPH # 1.1 K/uL (1.0-4.3); MEAN CELL VOLUME 89.8 fL (80.0-94.0); MEAN CORPUSCULAR HEMOGLOBIN 29.9 pg (27.0-31.0); MEAN CORPUSCULAR HGB CONC 33.2 g/dL (33.0-37.0); MEAN PLATELET VOLUME 8.2 fL (7.2-11.7); MONO # 0.5 K/uL (0.0-0.8); NEUT # 4.3 K/uL (1.8-7.0); NEUT % 69.9 % (50.0-75.0); RBC 4.63 Mil/uL (4.40-5.90); RED CELL DISTRIBUTION WIDTH 21.1 % (11.5-14.5); WHITE BLOOD COUNT 6.2 K/uL (4.8-10.8)
[2018-02-06 07:50] LABS: ALBUMIN 3.5 g/dL (3.5-5.0)
[2018-02-06] MEDS: (Novolin R) Insulin Human Regular 100 units/ml vial SC SCH ×4 (08:03→21:43)
[2018-02-06] MEDS: POLYETHYLENE GLYCOL 3350 17 GM/Dose PACKET PO SCH (09:52)
[2018-02-06] MEDS ORDERED: Pneumococcal 23-Valent Vaccine IM ONE (10:00)
[2018-02-06] MEDS ORDERED: Influenza Vaccine 60 MCG/0.5 ML SYR (3 yr & up) IM ONE (10:00)
[2018-02-06] MEDS: Sacubitril/Valsartan 49-51 Tab PO SCH ×2 (10:03→17:32)
[2018-02-06] MEDS: cefTRIAXone IV 1 gm in Dextros 50 ML IVPB SCH (10:03)
--- NOTE | 2018-02-06 11:36 | CP.PCM.PN ---
<Palomo,Kiara - Last Filed: 02/06/18 11:33> Subjective - Date & Time of Evaluation Date of Evaluation: 02/06/18 Time of Evaluation: 08:30 - Subjective Subjective: GI Fellow PGY5 Progress Note Pt seen and evaluated at bedside, pt denies any abdominal pain but reports discomforts. +SOB, +BM ROS: A 12pt ROS was negative except as above. Objective - Vital Signs/Intake and Output Vital Signs (last 24 hours): Temp Pulse Resp BP Pulse Ox 97.2 F L 95 H 18 114/86 98 02/06/18 07:00 02/06/18 07:00 02/06/18 07:00 02/06/18 09:52 02/06/18 07:00 Intake and Output: 02/06/18 02/06/18 06:59 18:59 Intake Total 300 Output Total 350 Balance -50 - Medications Medications: Current Medications Carvedilol (Coreg) 25 mg PO BID [facility] Last Admin: 02/06/18 09:51 Dose: 25 mg Dextrose (Dextrose 50% Inj) 0 ml IV STAT PRN; Protocol PRN Reason: Hypoglycemia Protocol Dextrose (Glutose 15) 0 gm PO ONCE PRN; Protocol PRN Reason: Hypoglycemia Protocol Furosemide (Lasix) 40 mg PO BID [facility] Last Admin: 02/06/18 09:52 Dose: 40 mg Glucagon (Glucagen Diagnostic Kit) 0 mg IM STAT PRN; Protocol PRN Reason: Hypoglycemia Protocol Dextrose (Dextrose 5% In Water 1000 Ml) 1,000 mls @ 0 mls/hr IV .Q0M PRN; Protocol PRN Reason: Hypoglycemia Protocol Ceftriaxone Sodium (Rocephin Iv 1 Gm Duplex) 50 mls @ 100 mls/hr IVPB DAILY [facility]; Protocol Stop: 02/09/18 10:05 Last Admin: 02/06/18 10:03 Dose: 100 mls/hr Insulin Human Regular (Novolin R) 0 unit SC ACHS [facility]; Protocol Last Admin: 02/06/18 08:03 Dose: Not Given Polyethylene Glycol (Miralax) 17 gm PO DAILY [facility] Last Admin: 02/06/18 09:52 Dose: 17 gm Promethazine HCl/Dextromethorphan (Phenergan Dm Syrup) 5 ml PO Q6H PRN PRN Reason: Cough Last Admin: 02/05/18 21:07 Dose: 5 ml Sacubitril/Valsartan (Entresto 49 Mg-51 Mg) 2 tab PO BID [facility] Last Admin: 02/06/18 10:03 Dose: 2 tab Spironolactone (Aldactone) 50 mg PO DAILY [facility] Last Admin: 02/06/18 09:52 Dose: 50 mg Tamsulosin HCl (Flomax) 0.4 mg PO BID [facility] Last Admin: 02/06/18 09:51 Dose: 0.4 mg Tramadol HCl (Ultram) 50 mg PO DAILY PRN PRN Reason: Pain, moderate (4-7) Last Admin: 02/06/18 00:39 Dose: 50 mg - Labs Labs: 02/06/18 07:23 02/06/18 07:23 PT 16.6 SECONDS (9.7-12.2) H 02/03/18 19:59 INR 1.5 02/03/18 19:59 APTT 27 SECONDS (21-34) 02/03/18 19:59 - Constitutional Appears: Non-toxic, No Acute Distress - Head Exam Head Exam: ATRAUMATIC, NORMAL INSPECTION, NORMOCEPHALIC - Eye Exam Eye Exam: EOMI, Normal appearance, PERRL Pupil Exam: PERRL - ENT Exam ENT Exam: Mucous Membranes Moist, Normal Exam - Respiratory Exam Respiratory Exam: Rales - Cardiovascular Exam Cardiovascular Exam: Tachycardia, Irregular Rhythm - GI/Abdominal Exam GI & Abdominal Exam: Distended, Firm, Normal Bowel Sounds. absent: Tenderness - Extremities Exam Extremities Exam: Pedal Edema - Neurological Exam Neurological Exam: Alert, Awake, Oriented x3 - Skin Skin Exam: Dry, Intact, Normal Color, Warm Assessment and Plan - Assessment and Plan (Free Text) Assessment: 1. Ascites 2. CHF 3. LE Edema 4. CKD 5. Congestive Hepatopathy Plan: -Continue supportive care -Ascites likely cardiac etiology SAAG>1.1, TP>2.5 from 2months ago -Abdominal US with moderate ascites -Plan for possible paracentesis on Wednesday for symptomatic relief -Optimize cardiac functions -Continue diuretics -Will continue to follow closely <Dominick Reyes - Last Filed: 02/06/18 14:50> Objective - Vital Signs/Intake and Output Vital Signs (last 24 hours): Temp Pulse Resp BP Pulse Ox 97.2 F L 95 H 18 114/86 98 02/06/18 07:00 02/06/18 07:00 02/06/18 07:00 02/06/18 09:52 02/06/18 07:00 Intake and Output: 02/06/18 02/06/18 06:59 18:59 Intake Total 300 Output Total 350 250 Balance -50 -250 - Medications Medications: Current Medications Carvedilol (Coreg) 25 mg PO BID [facility] Last Admin: 02/06/18 09:51 Dose: 25 mg Dextrose (Dextrose 50% Inj) 0 ml IV STAT PRN; Protocol PRN Reason: Hypoglycemia Protocol Dextrose (Glutose 15) 0 gm PO ONCE PRN; Protocol PRN Reason: Hypoglycemia Protocol Furosemide (Lasix) 40 mg IVP Q12 [facility] Glucagon (Glucagen Diagnostic Kit) 0 mg IM STAT PRN; Protocol PRN Reason: Hypoglycemia Protocol Dextrose (Dextrose 5% In Water 1000 Ml) 1,000 mls @ 0 mls/hr IV .Q0M PRN; Protocol PRN Reason: Hypoglycemia Protocol Ceftriaxone Sodium (Rocephin Iv 1 Gm Duplex) 50 mls @ 100 mls/hr IVPB DAILY [facility]; Protocol Stop: 02/09/18 10:05 Last Admin: 02/06/18 10:03 Dose: 100 mls/hr Insulin Human Regular (Novolin R) 0 unit SC ACHS [facility]; Protocol Last Admin: 02/06/18 11:34 Dose: Not Given Polyethylene Glycol (Miralax) 17 gm PO DAILY [facility] Last Admin: 02/06/18 09:52 Dose: 17 gm Promethazine HCl/Dextromethorphan (Phenergan Dm Syrup) 5 ml PO Q6H PRN PRN Reason: Cough Last Admin: 02/05/18 21:07 Dose: 5 ml Sacubitril/Valsartan (Entresto 49 Mg-51 Mg) 2 tab PO BID [facility] Last Admin: 02/06/18 10:03 Dose: 2 tab Spironolactone (Aldactone) 50 mg PO DAILY [facility] Last Admin: 02/06/18 09:52 Dose: 50 mg Tamsulosin HCl (Flomax) 0.4 mg PO BID [facility] Last Admin: 02/06/18 09:51 Dose: 0.4 mg Tramadol HCl (Ultram) 50 mg PO DAILY PRN PRN Reason: Pain, moderate (4-7) Last Admin: 02/06/18 00:39 Dose: 50 mg - Labs Labs: 02/06/18 07:23 02/06/18 07:23 PT 16.6 SECONDS (9.7-12.2) H 02/03/18 19:59 INR 1.5 02/03/18 19:59 APTT 27 SECONDS (21-34) 02/03/18 19:59 Attending/Attestation - Attestation I have personally seen and examined this patient.: Yes I have fully participated in the care of the patient.: Yes I have reviewed all pertinent clinical information, including history, physical exam and plan: Yes Notes (Text): 02/06/18 14:50 The patient was evaluated today and discussed with Dr. Maria. Agree with above findings, assessment and recommendations. 02/06/18 14:50
--- NOTE | 2018-02-06 13:42 | RAD ---
Chest x-ray single frontal view HISTORY: Congestive heart failure. COMPARISON: 02/03/2018 Findings: Severe enlargement of the cardiac silhouette. Left-sided pacer device in place. Atherosclerotic calcification in the aorta. Degenerative changes in the spine. Mild venous congestion. Left hilar prominence. Impression: Severe enlargement of the cardiac silhouette. Left-sided pacer device in place. Atherosclerotic calcification in the aorta. Degenerative changes in the spine. Mild venous congestion. Left hilar prominence.
--- NOTE | 2018-02-06 13:44 | CP.PCM.PN ---
Subjective - Date & Time of Evaluation Date of Evaluation: 02/06/18 Time of Evaluation: 13:41 - Subjective Subjective: No new complaints, watching TV. Objective - Vital Signs/Intake and Output Vital Signs (last 24 hours): Temp Pulse Resp BP Pulse Ox 97.2 F L 95 H 18 114/86 98 02/06/18 07:00 02/06/18 07:00 02/06/18 07:00 02/06/18 09:52 02/06/18 07:00 Intake and Output: 02/06/18 02/06/18 06:59 18:59 Intake Total 300 Output Total 350 Balance -50 - Medications Medications: Current Medications Carvedilol (Coreg) 25 mg PO BID [facility] Last Admin: 02/06/18 09:51 Dose: 25 mg Dextrose (Dextrose 50% Inj) 0 ml IV STAT PRN; Protocol PRN Reason: Hypoglycemia Protocol Dextrose (Glutose 15) 0 gm PO ONCE PRN; Protocol PRN Reason: Hypoglycemia Protocol Furosemide (Lasix) 40 mg IVP Q12 [facility] Glucagon (Glucagen Diagnostic Kit) 0 mg IM STAT PRN; Protocol PRN Reason: Hypoglycemia Protocol Dextrose (Dextrose 5% In Water 1000 Ml) 1,000 mls @ 0 mls/hr IV .Q0M PRN; Protocol PRN Reason: Hypoglycemia Protocol Ceftriaxone Sodium (Rocephin Iv 1 Gm Duplex) 50 mls @ 100 mls/hr IVPB DAILY [facility]; Protocol Stop: 02/09/18 10:05 Last Admin: 02/06/18 10:03 Dose: 100 mls/hr Insulin Human Regular (Novolin R) 0 unit SC ACHS [facility]; Protocol Last Admin: 02/06/18 11:34 Dose: Not Given Polyethylene Glycol (Miralax) 17 gm PO DAILY [facility] Last Admin: 02/06/18 09:52 Dose: 17 gm Promethazine HCl/Dextromethorphan (Phenergan Dm Syrup) 5 ml PO Q6H PRN PRN Reason: Cough Last Admin: 02/05/18 21:07 Dose: 5 ml Sacubitril/Valsartan (Entresto 49 Mg-51 Mg) 2 tab PO BID [facility] Last Admin: 02/06/18 10:03 Dose: 2 tab Spironolactone (Aldactone) 50 mg PO DAILY [facility] Last Admin: 02/06/18 09:52 Dose: 50 mg Tamsulosin HCl (Flomax) 0.4 mg PO BID [facility] Last Admin: 02/06/18 09:51 Dose: 0.4 mg Tramadol HCl (Ultram) 50 mg PO DAILY PRN PRN Reason: Pain, moderate (4-7) Last Admin: 02/06/18 00:39 Dose: 50 mg - Labs Labs: 02/06/18 07:23 02/06/18 07:23 PT 16.6 SECONDS (9.7-12.2) H 02/03/18 19:59 INR 1.5 02/03/18 19:59 APTT 27 SECONDS (21-34) 02/03/18 19:59 - Head Exam Head Exam: NORMOCEPHALIC - Neck Exam Neck Exam: Normal Inspection - Respiratory Exam Respiratory Exam: NORMAL BREATHING PATTERN - Cardiovascular Exam Cardiovascular Exam: REGULAR RHYTHM - GI/Abdominal Exam GI & Abdominal Exam: Distended - Extremities Exam Extremities Exam: Pedal Edema Assessment and Plan (1) Congestive heart failure Assessment & Plan: CHF, stable. Continue diuretics. Status: Acute (2) Syncope Assessment & Plan: AICD interrogation. Monitor. Status: Acute (3) Flutter-fibrillation Assessment & Plan: Anticoagulation. Plans for EP, ABlation and AICD interrogation. Status: Acute
--- NOTE | 2018-02-06 15:36 | CP.PCM.PN ---
Objective - Vital Signs/Intake and Output Vital Signs (last 24 hours): Temp Pulse Resp BP Pulse Ox 97.2 F L 95 H 18 114/86 98 02/06/18 07:00 02/06/18 07:00 02/06/18 07:00 02/06/18 09:52 02/06/18 07:00 Intake and Output: 02/06/18 02/06/18 06:59 18:59 Intake Total 300 Output Total 350 250 Balance -50 -250 - Medications Medications: Current Medications Carvedilol (Coreg) 25 mg PO BID [facility] Last Admin: 02/06/18 09:51 Dose: 25 mg Dextrose (Dextrose 50% Inj) 0 ml IV STAT PRN; Protocol PRN Reason: Hypoglycemia Protocol Dextrose (Glutose 15) 0 gm PO ONCE PRN; Protocol PRN Reason: Hypoglycemia Protocol Furosemide (Lasix) 40 mg IVP Q12 [facility] Glucagon (Glucagen Diagnostic Kit) 0 mg IM STAT PRN; Protocol PRN Reason: Hypoglycemia Protocol Dextrose (Dextrose 5% In Water 1000 Ml) 1,000 mls @ 0 mls/hr IV .Q0M PRN; Protocol PRN Reason: Hypoglycemia Protocol Ceftriaxone Sodium (Rocephin Iv 1 Gm Duplex) 50 mls @ 100 mls/hr IVPB DAILY [facility]; Protocol Stop: 02/09/18 10:05 Last Admin: 02/06/18 10:03 Dose: 100 mls/hr Insulin Human Regular (Novolin R) 0 unit SC ACHS [facility]; Protocol Last Admin: 02/06/18 11:34 Dose: Not Given Polyethylene Glycol (Miralax) 17 gm PO DAILY [facility] Last Admin: 02/06/18 09:52 Dose: 17 gm Promethazine HCl/Dextromethorphan (Phenergan Dm Syrup) 5 ml PO Q6H PRN PRN Reason: Cough Last Admin: 02/05/18 21:07 Dose: 5 ml Sacubitril/Valsartan (Entresto 49 Mg-51 Mg) 2 tab PO BID [facility] Last Admin: 02/06/18 10:03 Dose: 2 tab Spironolactone (Aldactone) 50 mg PO DAILY [facility] Last Admin: 02/06/18 09:52 Dose: 50 mg Tamsulosin HCl (Flomax) 0.4 mg PO BID [facility] Last Admin: 02/06/18 09:51 Dose: 0.4 mg Tramadol HCl (Ultram) 50 mg PO DAILY PRN PRN Reason: Pain, moderate (4-7) Last Admin: 02/06/18 00:39 Dose: 50 mg - Labs Labs: 02/06/18 07:23 02/06/18 07:23 PT 16.6 SECONDS (9.7-12.2) H 02/03/18 19:59 INR 1.5 02/03/18 19:59 APTT 27 SECONDS (21-34) 02/03/18 19:59
--- NOTE | 2018-02-06 15:37 | CP.PCM.PN ---
<Saman Aquino - Last Filed: 02/06/18 15:37> Subjective - Date & Time of Evaluation Date of Evaluation: 02/06/18 Time of Evaluation: 15:40 - Subjective Subjective: PGY3 Note for Dr. Sanchez Patient seen and examined at bedside this AM; patient is complaining of increased abdominal girth and cough; states he has no other complaints such as fevers/chills, BERTRAND, CP, abdominal pain, N/V/D, dysuria/freq/urg or lower extremity pain. Objective - Vital Signs/Intake and Output Vital Signs (last 24 hours): Temp Pulse Resp BP Pulse Ox 97.2 F L 95 H 18 114/86 98 02/06/18 07:00 02/06/18 07:00 02/06/18 07:00 02/06/18 09:52 02/06/18 07:00 Intake and Output: 02/06/18 02/06/18 06:59 18:59 Intake Total 300 Output Total 350 250 Balance -50 -250 - Medications Medications: Current Medications Carvedilol (Coreg) 25 mg PO BID KEE Last Admin: 02/06/18 09:51 Dose: 25 mg Dextrose (Dextrose 50% Inj) 0 ml IV STAT PRN; Protocol PRN Reason: Hypoglycemia Protocol Dextrose (Glutose 15) 0 gm PO ONCE PRN; Protocol PRN Reason: Hypoglycemia Protocol Furosemide (Lasix) 40 mg IVP Q12 KEE Glucagon (Glucagen Diagnostic Kit) 0 mg IM STAT PRN; Protocol PRN Reason: Hypoglycemia Protocol Dextrose (Dextrose 5% In Water 1000 Ml) 1,000 mls @ 0 mls/hr IV .Q0M PRN; Prot ocol PRN Reason: Hypoglycemia Protocol Ceftriaxone Sodium (Rocephin Iv 1 Gm Duplex) 50 mls @ 100 mls/hr IVPB DAILY KEE; Protocol Stop: 02/09/18 10:05 Last Admin: 02/06/18 10:03 Dose: 100 mls/hr Insulin Human Regular (Novolin R) 0 unit SC ACHS KEE; Protocol Last Admin: 02/06/18 11:34 Dose: Not Given Polyethylene Glycol (Miralax) 17 gm PO DAILY KEE Last Admin: 02/06/18 09:52 Dose: 17 gm Promethazine HCl/Dextromethorphan (Phenergan Dm Syrup) 5 ml PO Q6H PRN PRN Reason: Cough Last Admin: 02/05/18 21:07 Dose: 5 ml Sacubitril/Valsartan (Entresto 49 Mg-51 Mg) 2 tab PO BID [facility] Last Admin: 02/06/18 10:03 Dose: 2 tab Spironolactone (Aldactone) 50 mg PO DAILY [facility] Last Admin: 02/06/18 09:52 Dose: 50 mg Tamsulosin HCl (Flomax) 0.4 mg PO BID [facility] Last Admin: 02/06/18 09:51 Dose: 0.4 mg Tramadol HCl (Ultram) 50 mg PO DAILY PRN PRN Reason: Pain, moderate (4-7) Last Admin: 02/06/18 00:39 Dose: 50 mg - Labs Labs: 02/06/18 07:23 02/06/18 07:23 PT 16.6 SECONDS (9.7-12.2) H 02/03/18 19:59 INR 1.5 02/03/18 19:59 APTT 27 SECONDS (21-34) 02/03/18 19:59 - Constitutional Appears: Non-toxic - Head Exam Head Exam: ATRAUMATIC - Eye Exam Eye Exam: EOMI, PERRL - ENT Exam ENT Exam: Mucous Membranes Moist - Neck Exam Neck Exam: Full ROM. absent: Lymphadenopathy - Respiratory Exam Respiratory Exam: absent: Clear to Ausculation Bilateral, Rales, Rhonchi, Wheezes Additional comments: crackels bases - Cardiovascular Exam Cardiovascular Exam: REGULAR RHYTHM, +S1, +S2, Murmur - GI/Abdominal Exam GI & Abdominal Exam: absent: Soft (abdomen is distended with fluid wave, no tenderness to palpation, larger compared to yesterday ) - Extremities Exam Extremities Exam: Full ROM, Pedal Edema. absent: Calf Tenderness - Back Exam Back Exam: NORMAL INSPECTION. absent: CVA tenderness (L), CVA tenderness (R) - Neurological Exam Neurological Exam: Awake, Oriented x3 (patient uses ASL to speak) - Psychiatric Exam Psychiatric exam: Normal Affect - Skin Skin Exam: Warm Assessment and Plan - Assessment and Plan (Free Text) Assessment: 57 year old male with PMHx of HTN, HLD, BPH, CKD, systolic heart failure, cardiac arrhythmia, Pacemaker, and defibrillator, admitted for urinary retention. Plan: Urinary retention status post mason replacement with SARAH/CKD with citrobacter UTI - UA: positive for blood, LE, WBC, and bacteria - 1 dose of Rocephin given in ED - S/p cystoscopy with Dr. Brar - POD #1 - Consult cardiology, Dr. Carlton, for cardiac clearance - Urine Cx: Follow up - Flomax 0.4mg BID - Mason care with betadine 3x/day -f/u nephrology recs for SARAH -1g ceftriaxone daily creatinine hovers around 1.8 with GFR around 50 for AA male Bladder Tumor -as per cystoscopy report; patient had bladder tumor -f/u urology recs Abdominal Distention/ascites -will f/u GI recs; Dr. Zavala; thank you for your help -patient has been tapped in the past before with 3L being taken off; may need paracentesis again -IR consulted for ascites; 02/05 gave 1 amp of albumin before paracentesis - Abdominal US (12/03/2017): The extrahepatic portal vein is patent with hepatopetal flow. No sonographic evidence for thrombus or obstruction is seen. The 3 hepatic veins are visualized centrally and patent. The hepatic artery is patent. (see full report) - CT abd/pelvis (12/03): Limited assessment without IV or oral contrast administration. Cardiomegaly. Small pericardial effusion. Moderate to large amount of ascites in the abdomen and pelvis. Enlarged prostate. [id number] anasarca. Preliminary report was submitted by virtual Radiology. (see full report) -patient has no tenderness to palpation, fevers; low liklihood for SBP; ceftriaxone for UTi will also treat SBP patient for paracentesis 02/07/18 HFrEF (Systolic Heart failure) with AICD/Pacemaker: - Echo (10/2017): LVEF 12.8% Severe LV hypokinesis, mild LVH, dilated LA, RA and RV, mild MR, severe TR, Mild pulmonary hypertension. - Patient sees Dr. Pang, egg worker regularly. Followed up with him this month. - EKG(02/04): Junctional rhythm, left axis deviation, RBB - Daily weights, I&O's, head of bead 45 degrees - Consult cardiology, Dr. Carlton - Monitor patient on telemetry - Entresto 2 tab PO BID - Spironolactone 50mg daily - Carvedilol 25mg BID - Lasix 80mg BID - Fluid restriction to 1 L daily Hx of hyperbilirubinemia, elevated Alkaline phosphatase - Hepatitis panel 10/2017 negative - Seen by GI, Dr. Zavala during 10/2017 admission and was asked to follow up, however patient did not do so -f/u GI recs - Patient was counselled on the importance of following up. Please provide follow up information upon discharge. Hx HTN: - Spironolactone 50mg daily - Carvedilol 25mg BID - Lasix 80mg BID - Hold for SBP<100 and HR <60 Hx of DM-2: - Home med of Tradjenta- hold - ISS - Accuchecks ACHS - Hypoglycemia protocol Hx of CKD: - GFR: 50-60 - Seen by nephro, Dr. Acosta during 10/2017 admission, patient has not followed up. - Will provide with follow up information upon discharge. Hx of deaf/mute: - Patient communicates in sign. Please use bobbin presser service Unintentional weight loss: - 40 lb weight loss in the past year - Continue to monitor Prophylaxis: - Heparin 5000u SC Q8H - Dopplers ordered due to trace LE swelling. May place on SCDs pending doppler results. - No GI ppx indicated - HHD 2g Na Case discussed with Dr. Randall Aquino PGY3 <Sharyn Sanchez - Last Filed: 02/06/18 18:19> Objective - Vital Signs/Intake and Output Vital Signs (last 24 hours): Temp Pulse Resp BP Pulse Ox 97.2 F L 95 H 18 102/74 98 02/06/18 07:00 02/06/18 07:00 02/06/18 07:00 02/06/18 17:32 02/06/18 07:00 Intake and Output: 02/06/18 02/06/18 06:59 18:59 Intake Total 300 Output Total 350 250 Balance -50 -250 - Medications Medications: Current Medications Apixaban (Eliquis) 2.5 mg PO BID KEE Carvedilol (Coreg) 25 mg PO BID KEE Last Admin: 02/06/18 17:32 Dose: 25 mg Dextrose (Dextrose 50% Inj) 0 ml IV STAT PRN; Protocol PRN Reason: Hypoglycemia Protocol Dextrose (Glutose 15) 0 gm PO ONCE PRN; Protocol PRN Reason: Hypoglycemia Protocol Furosemide (Lasix) 40 mg IVP Q12 KEE Glucagon (Glucagen Diagnostic Kit) 0 mg IM STAT PRN; Protocol PRN Reason: Hypoglycemia Protocol Guaifenesin (Robitussin) 200 mg PO Q6H PRN PRN Reason: Cough and congestion Dextrose (Dextrose 5% In Water 1000 Ml) 1,000 mls @ 0 mls/hr IV .Q0M PRN; Protocol PRN Reason: Hypoglycemia Protocol Ceftriaxone Sodium (Rocephin Iv 1 Gm Duplex) 50 mls @ 100 mls/hr IVPB DAILY KEE; Protocol Stop: 02/09/18 10:05 Last Admin: 02/06/18 10:03 Dose: 100 mls/hr Insulin Human Regular (Novolin R) 0 unit SC ACHS KEE; Protocol Last Admin: 02/06/18 16:49 Dose: Not Given Polyethylene Glycol (Miralax) 17 gm PO DAILY [facility] Last Admin: 02/06/18 09:52 Dose: 17 gm Promethazine HCl/Dextromethorphan (Phenergan Dm Syrup) 5 ml PO Q6H PRN PRN Reason: Cough Last Admin: 02/05/18 21:07 Dose: 5 ml Sacubitril/Valsartan (Entresto 49 Mg-51 Mg) 2 tab PO BID [facility] Last Admin: 02/06/18 17:32 Dose: 2 tab Spironolactone (Aldactone) 50 mg PO DAILY [facility] Last Admin: 02/06/18 09:52 Dose: 50 mg Tamsulosin HCl (Flomax) 0.4 mg PO BID [facility] Last Admin: 02/06/18 17:32 Dose: 0.4 mg Tramadol HCl (Ultram) 50 mg PO DAILY PRN PRN Reason: Pain, moderate (4-7) Last Admin: 02/06/18 00:39 Dose: 50 mg - Labs Labs: 02/06/18 07:23 02/06/18 07:23 PT 16.6 SECONDS (9.7-12.2) H 02/03/18 19:59 INR 1.5 02/03/18 19:59 APTT 27 SECONDS (21-34) 02/03/18 19:59 Attending/Attestation - Attestation I have personally seen and examined this patient.: Yes I have fully participated in the care of the patient.: Yes I have reviewed all pertinent clinical information, including history, physical exam and plan: Yes Notes (Text): Seen and examined this morning communicated with the help of translation service/bobbin presser communicated with sign language, Patient is complaining of cough and increasing abdominal distension/discomfort Discussed with Dr Askew. He is recommending to start on Eliquis 2.5 mg bid for his atrial flutter patient may go for paracentesis tomorrow. we will start eliquis after paracentesis. continue current meds coreg,aldactone,Lasix, Entresto ,flomax and ceftriaxone dr Thomas reduced the dose of lasix to 40mg bid. his today's creatinine is 1.7 Assessment and the plan discussed with the resident and I agree with the documentation
[2018-02-06] MEDS ORDERED: guaiFENesin 200 mg/10 ml Syrup UD PO PRN (15:40)
--- NOTE | 2018-02-06 18:00 | PN ---
DATE: 02/06/2018 SUBJECTIVE: The patient is experiencing shortness of breath and productive cough. No chest pain. He has insomnia, but refuses sleeping pills. PHYSICAL EXAMINATION: VITAL SIGNS: Blood pressure 114/86, heart rate 95, temperature 97.2, and respiration 18. HEENT: Normocephalic. CHEST: Bibasilar rhonchi. HEART: S1 and S2 regular. EXTREMITIES: No edema. LABORATORY DATA: Today's BUN and creatinine of 54 and 1.7 respectively. Today's hemoglobin and hematocrit, white count, and platelet count are within normal limit. ASSESSMENT: 1. Dilated cardiomyopathy, status post implantable cardioverter-defibrillator placement. 2. Status post cystoscopy and prostatic biopsy. 3. Chronic renal insufficiency. 4. Atrial flutter with variable atrioventricular conduction. RECOMMENDATIONS: Continue Aldactone 50 mg once a day, Coreg 25 mg once a day, change Lasix 40 mg intravenously twice a day, continue IV Rocephin at 1 g daily, obtain a portable chest x-ray. Jass Carlton MD
[2018-02-07] MEDS: (Novolin R) Insulin Human Regular 100 units/ml vial SC SCH ×4 (08:00→22:10)
[2018-02-07 08:23] LABS: BASO # 0.1 K/uL (0.0-0.2); EOS # 0.2 K/uL (0.0-0.7); EOS % 3.4 % (0.0-4.0); HEMOGLOBIN 14.4 g/dL (12.0-18.0); LYMPH # 0.9 K/uL (1.0-4.3); LYMPH % 15.2 % (20.0-40.0); MEAN CELL VOLUME 89.9 fL (80.0-94.0); MEAN CORPUSCULAR HEMOGLOBIN 30.1 pg (27.0-31.0); MEAN CORPUSCULAR HGB CONC 33.4 g/dL (33.0-37.0); MEAN PLATELET VOLUME 8.5 fL (7.2-11.7); MONO # 0.5 K/uL (0.0-0.8); MONO % 8.1 % (0.0-10.0); NEUT # 4.3 K/uL (1.8-7.0); NEUT % 71.3 % (50.0-75.0); NRBC % 0.1 % (0.0-2.0); RBC 4.78 Mil/uL (4.40-5.90); RED CELL DISTRIBUTION WIDTH 20.9 % (11.5-14.5)
[2018-02-07 08:27] LABS: INR 1.6
[2018-02-07 08:43] LABS: ALBUMIN 3.5 g/dL (3.5-5.0); CALCIUM 9.1 mg/dl (8.6-10.4)
--- NOTE | 2018-02-07 09:05 | CP.PCM.PN ---
<Chapin Riggins - Last Filed: 02/07/18 14:20> Subjective - Date & Time of Evaluation Date of Evaluation: 02/07/18 Time of Evaluation: 09:02 - Subjective Subjective: GI Fellow PGY4, progress note. Patient is okay this AM. No acute overnight events. Abdomen distended and will have paracentesis today. Objective - Vital Signs/Intake and Output Vital Signs (last 24 hours): Temp Pulse Resp BP Pulse Ox 98.8 F 95 H 18 105/71 100 02/07/18 07:00 02/07/18 08:00 02/07/18 07:00 02/07/18 07:00 02/07/18 07:00 Intake and Output: 02/07/18 02/07/18 06:59 18:59 Output Total 750 Balance -750 - Medications Medications: Current Medications Carvedilol (Coreg) 25 mg PO BID KEE Last Admin: 02/06/18 17:32 Dose: 25 mg Dextrose (Dextrose 50% Inj) 0 ml IV STAT PRN; Protocol PRN Reason: Hypoglycemia Protocol Dextrose (Glutose 15) 0 gm PO ONCE PRN; Protocol PRN Reason: Hypoglycemia Protocol Furosemide (Lasix) 40 mg IVP Q12 KEE Last Admin: 02/06/18 21:44 Dose: 40 mg Glucagon (Glucagen Diagnostic Kit) 0 mg IM STAT PRN; Protocol PRN Reason: Hypoglycemia Protocol Guaifenesin (Robitussin) 200 mg PO Q6H PRN PRN Reason: Cough and congestion Ceftriaxone Sodium (Rocephin Iv 1 Gm Duplex) 50 mls @ 100 mls/hr IVPB DAILY KEE; Protocol Stop: 02/09/18 10:05 Last Admin: 02/06/18 10:03 Dose: 100 mls/hr Insulin Human Regular (Novolin R) 0 unit SC ACHS KEE; Protocol Last Admin: 02/07/18 08:00 Dose: Not Given Polyethylene Glycol (Miralax) 17 gm PO DAILY KEE Last Admin: 02/06/18 09:52 Dose: 17 gm Promethazine HCl/Dextromethorphan (Phenergan Dm Syrup) 5 ml PO Q6H PRN PRN Reason: Cough Last Admin: 02/05/18 21:07 Dose: 5 ml Sacubitril/Valsartan (Entresto 49 Mg-51 Mg) 2 tab PO BID [facility] Last Admin: 02/06/18 17:32 Dose: 2 tab Spironolactone (Aldactone) 50 mg PO DAILY [facility] Last Admin: 02/06/18 09:52 Dose: 50 mg Tamsulosin HCl (Flomax) 0.4 mg PO BID [facility] Last Admin: 02/06/18 17:32 Dose: 0.4 mg Tramadol HCl (Ultram) 50 mg PO DAILY PRN PRN Reason: Pain, moderate (4-7) Last Admin: 02/06/18 00:39 Dose: 50 mg - Labs Labs: 02/07/18 08:13 02/07/18 08:13 PT 17.0 SECONDS (9.7-12.2) H 02/07/18 08:13 INR 1.6 02/07/18 08:13 APTT 27 SECONDS (21-34) 02/03/18 19:59 - Constitutional Appears: Non-toxic, No Acute Distress, Chronically Ill - Head Exam Head Exam: NORMAL INSPECTION, NORMOCEPHALIC - Eye Exam Eye Exam: EOMI, Normal appearance - ENT Exam ENT Exam: Mucous Membranes Moist, Normal Exam - Respiratory Exam Respiratory Exam: Clear to Ausculation Bilateral, NORMAL BREATHING PATTERN - Cardiovascular Exam Cardiovascular Exam: REGULAR RHYTHM, +S1, +S2 - GI/Abdominal Exam GI & Abdominal Exam: Distended, Normal Bowel Sounds. absent: Tenderness - Extremities Exam Extremities Exam: Normal Inspection. absent: Pedal Edema - Neurological Exam Neurological Exam: Alert, Awake, Oriented x3 - Psychiatric Exam Psychiatric exam: Normal Affect, Normal Mood - Skin Skin Exam: Dry, Normal Color Assessment and Plan - Assessment and Plan (Free Text) Assessment: 1. Ascites 2. CHF 3. LE Edema 4. CKD 5. Congestive Hepatopathy 6. Bladder tummor Plan: -Continue supportive care -Ascites likely cardiac etiology SAAG>1.1, TP>2.5 from 2months ago -Abdominal US with moderate ascites -s/p paracentesis 02/07, results pending. -Optimize cardiac medical management (lasix, aldactone, coreg). This should help congestive hepatopathy as well. Monitor kidney function closely. -f/u bladder pathology -AFP Pending. Preivous abdominal imaging have not shown any liver masses (HCC). -Continue diet <Saqib Zavala Y - Last Filed: 02/07/18 15:23> Objective - Vital Signs/Intake and Output Vital Signs (last 24 hours): Temp Pulse Resp BP Pulse Ox 98.8 F 95 H 18 90/62 L 100 02/07/18 07:00 02/07/18 08:00 02/07/18 07:00 02/07/18 12:08 02/07/18 07:00 Intake and Output: 02/07/18 02/07/18 06:59 18:59 Output Total 750 Balance -750 - Medications Medications: Current Medications Carvedilol (Coreg) 25 mg PO BID [facility] Last Admin: 02/07/18 12:07 Dose: Not Given Dextrose (Dextrose 50% Inj) 0 ml IV STAT PRN; Protocol PRN Reason: Hypoglycemia Protocol Dextrose (Glutose 15) 0 gm PO ONCE PRN; Protocol PRN Reason: Hypoglycemia Protocol Furosemide (Lasix) 40 mg IVP Q12 KEE Last Admin: 02/07/18 12:08 Dose: Not Given Glucagon (Glucagen Diagnostic Kit) 0 mg IM STAT PRN; Protocol PRN Reason: Hypoglycemia Protocol Ceftriaxone Sodium (Rocephin Iv 1 Gm Duplex) 50 mls @ 100 mls/hr IVPB DAILY [facility]; Protocol Stop: 02/09/18 10:05 Last Admin: 02/07/18 10:50 Dose: 100 mls/hr Insulin Human Regular (Novolin R) 0 unit SC ACHS [facility]; Protocol Last Admin: 02/07/18 12:00 Dose: Not Given Polyethylene Glycol (Miralax) 17 gm PO DAILY [facility] Last Admin: 02/07/18 10:59 Dose: 17 gm Promethazine HCl/Dextromethorphan (Phenergan Dm Syrup) 5 ml PO Q6H PRN PRN Reason: Cough Last Admin: 02/05/18 21:07 Dose: 5 ml Sacubitril/Valsartan (Entresto 49 Mg-51 Mg) 2 tab PO BID [facility] Last Admin: 02/07/18 12:08 Dose: Not Given Simethicone (Mylicon Chew Tab) 80 mg PO QID [facility] Last Admin: 02/07/18 14:14 Dose: 80 mg Spironolactone (Aldactone) 50 mg PO DAILY [facility] Last Admin: 02/07/18 12:07 Dose: Not Given Tamsulosin HCl (Flomax) 0.4 mg PO BID [facility] Last Admin: 02/07/18 11:57 Dose: 0.4 mg Tramadol HCl (Ultram) 50 mg PO DAILY PRN PRN Reason: Pain, moderate (4-7) Last Admin: 02/06/18 00:39 Dose: 50 mg - Labs Labs: 02/07/18 08:13 02/07/18 08:13 PT 17.0 SECONDS (9.7-12.2) H 02/07/18 08:13 INR 1.6 02/07/18 08:13 APTT 27 SECONDS (21-34) 02/03/18 19:59 Attending/Attestation - Attestation I have personally seen and examined this patient.: Yes I have fully participated in the care of the patient.: Yes I have reviewed all pertinent clinical information, including history, physical exam and plan: Yes Notes (Text): 02/07/18 15:20 I have seen and examined patient with GI fellow. Assistance was provided thr [facility] [email or web address] scene and lighting design lecturer service. No acute events overnight, he is seen resting in bed comfortably. He underwent paracentesis today with 3L fluid removed. He complains of mild abdominal pain at drainage site but otherwise denies nausea, vomiting, fever/chills. CHF Ascites - likely cardiac in etiology CKD Bladder lesion - Low sodium diet as tolerated - Continue with diuretic therapy, monitor electrolytes - Albumin replacement therapy given post paracentesis, monitor creatinine - Continue to optimize cardiac status - Follow up ascitic fluid results - Follow up urology recommendations - Obtain AFP - No further planned GI interventions, will sign off case. Please reconsult as necessary, thank you.
[2018-02-07] MEDS: cefTRIAXone IV 1 gm in Dextros 50 ML IVPB SCH (10:50)
[2018-02-07] MEDS: POLYETHYLENE GLYCOL 3350 17 GM/Dose PACKET PO SCH (10:59)
--- NOTE | 2018-02-07 11:21 | PCM.URO ---
Urology Progress Note - General General: Tolerating Diet - Subjective Abdominal Pain: No Flank Pain: No Voiding Well: No (catheter in place) Hematuria: No Chest Pain: No Fever & Chills: No - Objective Lab Studies: Reviewed Lab Results Last 24 Hours: Laboratory Results - last 24 hr 02/06/18 02/06/18 02/07/18 16:28 21:13 06:34 WBC RBC Hgb Hct MCV MCH MCHC RDW Plt Count MPV Neut % (Auto) Lymph % (Auto) [place] % (Auto) Eos % (Auto) Baso % (Auto) Neut # (Auto) Lymph # (Auto) [place] # (Auto) Eos # (Auto) Baso # (Auto) PT INR Sodium Potassium Chloride Carbon Dioxide Anion Gap BUN Creatinine Est GFR ( Amer) Est GFR (Non-Af Amer) POC Glucose (mg/dL) 133 H 170 H 82 Random Glucose Calcium Phosphorus Magnesium Total Bilirubin AST ALT Alkaline Phosphatase Total Protein Albumin Globulin Albumin/Globulin Ratio Lipase 02/07/18 02/07/18 02/07/18 08:13 08:13 08:13 WBC 6.0 RBC 4.78 Hgb 14.4 Hct 42.9 MCV 89.9 MCH 30.1 MCHC 33.4 RDW 20.9 H Plt Count 218 MPV 8.5 Neut % (Auto) 71.3 Lymph % (Auto) 15.2 L [place] % (Auto) 8.1 Eos % (Auto) 3.4 Baso % (Auto) 2.0 Neut # (Auto) 4.3 Lymph # (Auto) 0.9 L [place] # (Auto) 0.5 Eos # (Auto) 0.2 Baso # (Auto) 0.1 PT 17.0 H INR 1.6 Sodium 138 Potassium 4.2 Chloride 104 Carbon Dioxide 22 Anion Gap 16 BUN 56 H Creatinine 1.8 H Est GFR ( Amer) 47 Est GFR (Non-Af Amer) 39 POC Glucose (mg/dL) Random Glucose 116 H Calcium 9.1 Phosphorus 3.4 Magnesium 2.3 Total Bilirubin 3.4 H AST 23 ALT 26 Alkaline Phosphatase 500 H Total Protein 6.9 Albumin 3.5 Globulin 3.4 Albumin/Globulin Ratio 1.0 Lipase 122 02/07/18 10:59 WBC RBC Hgb Hct MCV MCH MCHC RDW Plt Count MPV Neut % (Auto) Lymph % (Auto) [place] % (Auto) Eos % (Auto) Baso % (Auto) Neut # (Auto) Lymph # (Auto) [place] # (Auto) Eos # (Auto) Baso # (Auto) PT INR Sodium Potassium Chloride Carbon Dioxide Anion Gap BUN Creatinine Est GFR ( Amer) Est GFR (Non-Af Amer) POC Glucose (mg/dL) 144 H Random Glucose Calcium Phosphorus Magnesium Total Bilirubin AST ALT Alkaline Phosphatase Total Protein Albumin Globulin Albumin/Globulin Ratio Lipase Intake & Output: Intake & Output 02/06/18 02/07/18 02/07/18 18:59 06:59 18:59 Output Total 250 750 Balance -250 -750 Output: Urine 250 750 Urethral (Perdomo) 250 750 Other: # Bowel Movements 1 Vital Signs: Vital Signs - 24 hr 02/06/18 02/06/18 02/06/18 16:00 17:32 21:44 Temperature 99.1 F Pulse Rate 82 Respiratory 18 Rate Blood Pressure 102/74 102/74 100/60 O2 Sat by Pulse 97 Oximetry 02/07/18 02/07/18 02/07/18 00:00 00:50 07:00 Temperature 97.3 F L 98.8 F Pulse Rate 92 H 89 90 Respiratory 20 18 Rate Blood Pressure 105/71 105/71 O2 Sat by Pulse 100 100 Oximetry 02/07/18 08:00 Temperature Pulse Rate 95 H Respiratory Rate Blood Pressure O2 Sat by Pulse Oximetry - Physical Exam Abdominal Exam: Soft, Non-Tender. absent: Non-Distended (mod distended) Back: No CVA Tenderness Urinary Catheter Draining Well: Yes Urine Color: Yellow - Male Phallus: Normal - Plan Catheter Care: Yes Additional Information: IMP: stable p cysto. Urinary retention. possible bladder tumor. CHF. Rec/P: Perdomo cathetr in place. Cardiologic rx. Bladder bx - pending. discuseed w pt's family. YS. Ascites. Liver disease - Date & Time of Note Date: 02/07/18 Time: 11:21
[2018-02-07] MEDS: Sacubitril/Valsartan 49-51 Tab PO SCH ×2 (12:08→18:50)
--- NOTE | 2018-02-07 12:31 | CP.PCM.PN ---
<Jakob Gould - Last Filed: 02/07/18 16:32> Subjective - Date & Time of Evaluation Date of Evaluation: 02/07/18 Time of Evaluation: 12:28 - Subjective Subjective: Hospitalist Service Pt seen and examined using television script writer for sign language, ([id number]). Pt complains of pain at the mason catheter. Pt also complains of abdominal fullness and distention. Pt denies cp sob fc nv or hematuria. Pt understands recommendations for thoracentesis today and agrees with plan. Objective - Vital Signs/Intake and Output Vital Signs (last 24 hours): Temp Pulse Resp BP Pulse Ox 98.8 F 95 H 18 90/62 L 100 02/07/18 07:00 02/07/18 08:00 02/07/18 07:00 02/07/18 12:08 02/07/18 07:00 Intake and Output: 02/07/18 02/07/18 06:59 18:59 Output Total 750 Balance -750 - Medications Medications: Current Medications Carvedilol (Coreg) 25 mg PO BID KEE Last Admin: 02/07/18 12:07 Dose: Not Given Dextrose (Dextrose 50% Inj) 0 ml IV STAT PRN; Protocol PRN Reason: Hypoglycemia Protocol Dextrose (Glutose 15) 0 gm PO ONCE PRN; Protocol PRN Reason: Hypoglycemia Protocol Furosemide (Lasix) 40 mg IVP Q12 KEE Last Admin: 02/07/18 12:08 Dose: Not Given Glucagon (Glucagen Diagnostic Kit) 0 mg IM STAT PRN; Protocol PRN Reason: Hypoglycemia Protocol Guaifenesin (Robitussin) 200 mg PO Q6H PRN PRN Reason: Cough and congestion Ceftriaxone Sodium (Rocephin Iv 1 Gm Duplex) 50 mls @ 100 mls/hr IVPB DAILY KEE; Protocol Stop: 02/09/18 10:05 Last Admin: 02/07/18 10:50 Dose: 100 mls/hr Insulin Human Regular (Novolin R) 0 unit SC ACHS KEE; Protocol Last Admin: 02/07/18 08:00 Dose: Not Given Polyethylene Glycol (Miralax) 17 gm PO DAILY KEE Last Admin: 02/07/18 10:59 Dose: 17 gm Promethazine HCl/Dextromethorphan (Phenergan Dm Syrup) 5 ml PO Q6H PRN PRN Reason: Cough Last Admin: 02/05/18 21:07 Dose: 5 ml Sacubitril/Valsartan (Entresto 49 Mg-51 Mg) 2 tab PO BID [facility] Last Admin: 02/07/18 12:08 Dose: Not Given Spironolactone (Aldactone) 50 mg PO DAILY [facility] Last Admin: 02/07/18 12:07 Dose: Not Given Tamsulosin HCl (Flomax) 0.4 mg PO BID [facility] Last Admin: 02/07/18 11:57 Dose: 0.4 mg Tramadol HCl (Ultram) 50 mg PO DAILY PRN PRN Reason: Pain, moderate (4-7) Last Admin: 02/06/18 00:39 Dose: 50 mg - Labs Labs: 02/07/18 08:13 02/07/18 08:13 PT 17.0 SECONDS (9.7-12.2) H 02/07/18 08:13 INR 1.6 02/07/18 08:13 APTT 27 SECONDS (21-34) 02/03/18 19:59 Assessment and Plan - Assessment and Plan (Free Text) Assessment: 57yo M with pmhx of ICD CHF, CKD, recent diagnosis of possible bladder tumor s/p cystoscopy 02/05, getting paracentesis today Urinary retention status post mason replacement with SARAH/CKD with citrobacter UTI - UA: positive for blood, LE, WBC, and bacteria - 1 dose of Rocephin given in ED - S/p cystoscopy with Dr. Brar - POD #2 - Consult cardiology, Dr. Carlton, for cardiac clearance - Urine Cx: Follow up - Flomax 0.4mg BID - Mason care with betadine 3x/day -f/u nephrology recs for SARAH -1g ceftriaxone daily creatinine hovers around 1.8 with GFR around 50 for AA male Bladder Tumor -as per cystoscopy report; patient had bladder tumor -f/u urology recs Dr Isabel Brar possible d/c with mason tmrw [employer] [facility] for TURP Abdominal Distention/ascites -Paracentesis today 2L removed -GI recs; Dr. Zavala; thank you for your help: paracentesis for symptomatic relief, f/u bladder path, continue w/ diuresis -IR consulted for ascites; 02/05 gave 1 amp of albumin before paracentesis - Abdominal US (12/03/2017): The extrahepatic portal vein is patent with hepatopetal flow. No sonographic evidence for thrombus or obstruction is seen. The 3 hepatic veins are visualized centrally and patent. The hepatic artery is patent. (see full report) - CT abd/pelvis (12/03): Limited assessment without IV or oral contrast administration. Cardiomegaly. Small pericardial effusion. Moderate to large amount of ascites in the abdomen and pelvis. Enlarged prostate. [id number] anasarca. Preliminary report was submitted by virtual Radiology. (see full report) -patient has no tenderness to palpation, fevers; low liklihood for SBP; ceftriaxone for UTi will also treat SBP patient for paracentesis 02/07/18 Aflutter with AICD/Pacemaker: - Eliquis 5mg QD - Echo (10/2017): LVEF 12.8% Severe LV hypokinesis, mild LVH, dilated LA, RA and RV, mild MR, severe TR, Mild pulmonary hypertension. - Patient sees Dr. Pang, data virtualization consultant regularly. Followed up with him this month. - EKG(02/04): Junctional rhythm, left axis deviation, RBB - Daily weights, I&O's, head of bead 45 degrees - Consult cardiology, Dr. Carlton - Monitor patient on telemetry - Entresto 2 tab PO BID - Spironolactone 50mg daily - Carvedilol 25mg BID - Lasix 80mg BID - Fluid restriction to 1 L daily Hx of hyperbilirubinemia, elevated Alkaline phosphatase - Hepatitis panel 10/2017 negative - Seen by GIDr. Zavala during 10/2017 admission and was asked to follow up, however patient did not do so -f/u GI recs - Patient was counselled on the importance of following up. Please provide follow up information upon discharge. Hx HTN: - Spironolactone 50mg daily - Carvedilol 25mg BID - Lasix 40 q12 - Hold for SBP<100 and HR <60 Hx of DM-2: - Home med of Tradjenta- hold - ISS - Accuchecks ACHS - Hypoglycemia protocol Hx of CKD: - GFR: 50-60 - Seen by nephro, Dr. Acosta during 10/2017 admission, patient has not followed up. Dr Acosta recs: No acute need for renal replacement therapy at this time. Renal function stable s/p paracetesis 2 L bp is stable f/u work up re: obstructive uropathy and bladder tumor. waiting for bx result. Monitor Input/Output, daily weights and renal function with basic metabolic panel Volume status is reasonable - Will provide with follow up information upon discharge. Hx of deaf/mute: - Patient communicates in sign. Please use paraprofessional interpreter service Unintentional weight loss: - 40 lb weight loss in the past year - Continue to monitor Prophylaxis: - Eliquis 5mg QD - No GI ppx indicated - HHD 2g Na Case discussed with Dr. Pereira <Tiffany Pereira V - Last Filed: 02/07/18 20:46> Objective - Vital Signs/Intake and Output Vital Signs (last 24 hours): Temp Pulse Resp BP Pulse Ox 97.1 F L 95 H 20 96/70 L 100 02/07/18 16:00 02/07/18 16:00 02/07/18 16:00 02/07/18 18:50 02/07/18 16:00 - Medications Medications: Current Medications Carvedilol (Coreg) 25 mg PO BID [facility] Last Admin: 02/07/18 18:50 Dose: Not Given Dextrose (Dextrose 50% Inj) 0 ml IV STAT PRN; Protocol PRN Reason: Hypoglycemia Protocol Dextrose (Glutose 15) 0 gm PO ONCE PRN; Protocol PRN Reason: Hypoglycemia Protocol Furosemide (Lasix) 40 mg IVP Q12 KEE Last Admin: 02/07/18 12:08 Dose: Not Given Glucagon (Glucagen Diagnostic Kit) 0 mg IM STAT PRN; Protocol PRN Reason: Hypoglycemia Protocol Ceftriaxone Sodium (Rocephin Iv 1 Gm Duplex) 50 mls @ 100 mls/hr IVPB DAILY KEE; Protocol Stop: 02/09/18 10:05 Last Admin: 02/07/18 10:50 Dose: 100 mls/hr Insulin Human Regular (Novolin R) 0 unit SC ACHS KEE; Protocol Last Admin: 02/07/18 18:51 Dose: Not Given Polyethylene Glycol (Miralax) 17 gm PO DAILY KEE Last Admin: 02/07/18 10:59 Dose: 17 gm Promethazine HCl/Dextromethorphan (Phenergan Dm Syrup) 5 ml PO Q6H PRN PRN Reason: Cough Last Admin: 02/05/18 21:07 Dose: 5 ml Sacubitril/Valsartan (Entresto 49 Mg-51 Mg) 2 tab PO BID [facility] Last Admin: 02/07/18 18:50 Dose: Not Given Simethicone (Mylicon Chew Tab) 80 mg PO QID [facility] Last Admin: 02/07/18 18:57 Dose: 80 mg Spironolactone (Aldactone) 50 mg PO DAILY [facility] Last Admin: 02/07/18 12:07 Dose: Not Given Tamsulosin HCl (Flomax) 0.4 mg PO BID [facility] Last Admin: 02/07/18 18:57 Dose: 0.4 mg Tramadol HCl (Ultram) 50 mg PO DAILY PRN PRN Reason: Pain, moderate (4-7) Last Admin: 02/06/18 00:39 Dose: 50 mg - Labs Labs: 02/07/18 08:13 02/07/18 08:13 PT 17.0 SECONDS (9.7-12.2) H 02/07/18 08:13 INR 1.6 02/07/18 08:13 APTT 27 SECONDS (21-34) 02/03/18 19:59 Attending/Attestation - Attestation I have personally seen and examined this patient.: Yes I have fully participated in the care of the patient.: Yes I have reviewed all pertinent clinical information, including history, physical exam and plan: Yes Notes (Text): Patient seen, examined, and case discussed with day-time resident. Patient seen this afternoon with the assistance of his son, as well as his two family memebers. Patient noted he feels distended in abdomen and pain over the penis. Patient is status post cystoscopy with Dr. Brar POD3. Dr Brar has spoken with two family members in regards to bladder mass; we are awaiting pathology. I did indicate to the family recommend to keep the mason catheter given his complaint was urinary retention in light of his weakened his heart. Patient is status post thoracentesis with interventional radiology about 2-3 liters removed. Discussed with renal, creatinine relatively stable likely cardiorenal. Patient has meditronic device, which was checked last month per son. Noted discussion with my colleague yesterday, EP cardiology noted for atrial flutter recommended for anticoagulation. I did indicate to family regards this finding in regards to anticoagulation given there is a stroke risk associated. Will think about this, consider anticoagulation whether Coumadin vs Eliquis. Repeat UA/Urine culture today. Patient is on empiric antibiotic treatment. GI has signed off case. Assessment/plan 1) Urinary retention status post mason replacement: Assessment/Plan * UA: positive for blood, LE, WBC, and bacteria * Urine culture: Citrobacter * Repeat urine studies to show clearance of UTI * Patient had received 1 dose of Rocephin given in ED * c/w Rocephin 1 gram IV q daily * S/p cystoscopy with Dr. Brar - POD #3 * Consult cardiology, Dr. Carlton, for cardiac clearance-->patient may proceed with procedure, recommended for telemetry, and EP eval * Flomax 0.4mg BID * Mason care with betadine 3x/day 2) HFrEF (Systolic Heart failure) with AICD/Pacemaker: Assessment/Plan * Echo (10/2017): LVEF 12.8% Severe LV hypokinesis, mild LVH, dilated LA, RA and RV, mild MR, severe TR, Mild pulmonary hypertension. * Patient sees Dr. Pang, data virtualization consultant regularly. Followed up with him this month * EKG(02/04): Junctional rhythm, left axis deviation, RBB * Daily weights, I&O's, head of bead 45 degrees * Consult cardiology, Dr. Carlton publications inspector-->help appreciated * Consult EP-Cardiology, Dr. Brunner to check pacemaker * Monitor patient on telemetry * Entresto 2 tab PO BID * Spironolactone 50mg daily * Carvedilol 25mg BID * Lasix 40mg BID * patient is off aspirin * Fluid restriction to 1 L daily * Recommended for anticoagulation in light of atrial flutter 3) Hx of hyperbilirubinemia, elevated Alkaline phosphatase, ascites: Assessment/Plan * Hepatitis panel 10/2017 negative * Tbili is at baseline at 4.5 * Alkaline phosphatase: 464 * Abdominal US (12/03/2017): The extrahepatic portal vein is patent with hepatopetal flow. No sonographic evidence for thrombus or obstruction is seen. The 3 hepatic veins are visualized centrally and patent. The hepatic artery is patent. (see full report) * CT abd/pelvis (12/03): Limited assessment without IV or oral contrast adminis tration. Cardiomegaly. Small pericardial effusion. Moderate to large amount of ascites in the abdomen and pelvis. Enlarged prostate. [id number] anasarca. Preliminary report was submitted by virtual Radiology. (see full report) * Seen by Dr. Lucas ALVARADO during 10/2017 admission and was asked to follow up, however patient did not do so. * GI was reconsulted has seen patient this admission and signed off. * patient noted in prior hospitalization noted ascites secondary to CHF. Patient had require IR to drain about 2.1 Liters. * Patient was counselled on the importance of following up. Please provide follow up information upon discharge. * Is/p paracentesis 02/07 4) Hx HTN Assessment/Plan * Spironolactone 50mg daily * Carvedilol 25mg BID * Lasix 40mg BID * Hold for SBP<100 and HR <60 5) Hx of DM-2: * Home med of Tradjenta- hold * ISS * Accuchecks ACHS * Hypoglycemia protocol 6) Hx of CKD: * likely cardiorenal disease * Cr: 1.6 * GFR: 54 * Seen by nephro, Dr. Acosta during 10/2017 admission, patient has not followed up. * consult nephrology * Patient is on Lasix/ Aldactone for CHF 7) Hx of deaf/mute: * Patient communicates in sign. Please use paraprofessional interpreter service which is very effective. 8) Unintentional weight loss: * 40 lb weight loss in the past year * Continue to monitor 9) Prophylaxis: * Patient is OFF chemical anticoagulation secondary to procedure * Venous dopplers: negative b/l * No GI ppx indicated * Start on HHD 2g Na following urologic procedure * Florastor 250mg PO BID Disposition: GI, nephrology, cardiology, and cardiology EP on case. patient is status post IR thoracentesis today. I had quite discussion with the family and patient. Will consider starting anticoagulation to cover for atrial flutter; in regards to eliquis or coumadin awaiting family decision. f/u urology plan regarding plan regarding bladder mass in regards to further intervention and regards to the mason. i did indicate to patient that the fluid back up in the abdominal and scrotum is likely due to his severe congestive heart failure and advised fluid restriction in light which family i believe understood.
--- NOTE | 2018-02-07 13:26 | US ---
Date of Procedure: 02/07/2018 PROCEDURE: Ultrasound-guided paracentesis, CPT 27227 Medications: 7 cc 1% Lidocaine HISTORY: Ascites, abdominal pain, cirrhosis TECHNIQUE: Following informed consent , the patient was placed supine on the stretcher and the site was marked. A limited abdominal ultrasound was performed that showed a moderate amount of intra-abdominal fluid. Procedural time out was called and the Pt's abdomen was marked and prepped and draped in the usual sterile fashion. Ultrasound-guided large volume paracentesis performed. A total of 3 liters of straw colored fluid was removed without complication. Fluid specimen was sent for culture, sensitivity,and chemistries. IMPRESSION: Ultrasound-guided large volume paracentesis.
[2018-02-07] MEDS: Albumin Human 25% (12.5 gm/50 ml) IV SCH ×2 (14:00→15:04)
[2018-02-07] MEDS: Simethicone 80 mg Chewtab PO SCH ×3 (14:14→22:11)
--- NOTE | 2018-02-07 16:21 | CP.PCM.PN ---
Subjective - Date & Time of Evaluation Date of Evaluation: 02/07/18 Time of Evaluation: 16:11 - Subjective Subjective: Nephrology Consultation Note: Assessment: Stable underlying CKD 3, likely due to cardio-renal syndrome chronic sys CHF with ascites, hyperbilirubinemia hx of AICD BPH, hearing impairment Renal cyst Bladder tumor Plan No acute need for renal replacement therapy at this time. Renal function stable s/p paracetesis 3 L bp is stable f/u work up re: obstructive uropathy and bladder tumor. waiting for bx result. Monitor Input/Output, daily weights and renal function with basic metabolic quinteros el Volume status is reasonable Dose meds/antibiotics for reduced GFR. Avoid fleets enema/magnesium based laxatives. Avoid nephrotoxins/NSAIDs/ iodinated contrast (unless needed emergently) Glycemic control Further work up/management as per primary team Thanks for allowing me to participate in care of your patient. Will follow patient with you. Please call if any Qs. had d/w team Dr Kalpesh Acosta Office: [phone] ROS: used sign/language interpretation Cardiovascular: No chest pain. Pulmonary:no shortness of breath Gastrointestinal: denies abdominal pain No nausea. No vomiting. c/o distension Genitourinary: has catheter All other negative except as mentioned in HPI Physical Examination: General Appearance: Comfortable, no SOB today, co-operative . Vitals reviewed and noted as below Head; Atraumatic, normocephalic ENT: no ulcers no thrush. Tongue is midline. Oropharynx: no rash or ulcers. has hearing impairment EYES: Pupils are equal, round and reactive to light accommodation. Eye muscles and extraocular movement intact. Sclera is icteric. Neck; supple no lymphadenopathy, no thyromegaly or bruit. JVP distended Lungs: normal respiratory rate/effort. Breath sounds bilateral clear Heart: Normal rate. s1s2 normal. No rub or gallop. left side AICD + Extremities: no edema. No varicose veins Neurological: Patient is alert, awake and oriented to person, place and time. No focal deficit. Strength bilateral appropriate and equal Skin: Warm and dry. Normal turgor. No rash. Palpitation: Normal elasticity for age Abdomen: Abdomen is soft. Bowel sounds +. There is no abdominal tenderness, no guarding/rigidity has hepatomegaly. distended and ascitic Psych: normal insight and normal affect/mood MSK: no joint tenderness or swelling. Digits and nails normal, no deformity : kidney or bladder not palpable but exam limited Labs/imaging reviewed. Past medical history, past surgical history, family history, social history, allergy reviewed and noted as below Family hx: no hx of CKD. Rest non-contributory Objective - Vital Signs/Intake and Output Vital Signs (last 24 hours): Temp Pulse Resp BP Pulse Ox 98.8 F 95 H 18 90/62 L 100 02/07/18 07:00 02/07/18 08:00 02/07/18 07:00 02/07/18 12:08 02/07/18 07:00 Intake and Output: 02/07/18 02/07/18 06:59 18:59 Output Total 750 Balance -750 - Medications Medications: Current Medications Carvedilol (Coreg) 25 mg PO BID [facility]EE Last Admin: 02/07/18 12:07 Dose: Not Given Dextrose (Dextrose 50% Inj) 0 ml IV STAT PRN; Protocol PRN Reason: Hypoglycemia Protocol Dextrose (Glutose 15) 0 gm PO ONCE PRN; Protocol PRN Reason: Hypoglycemia Protocol Furosemide (Lasix) 40 mg IVP Q12 KEE Last Admin: 02/07/18 12:08 Dose: Not Given Glucagon (Glucagen Diagnostic Kit) 0 mg IM STAT PRN; Protocol PRN Reason: Hypoglycemia Protocol Ceftriaxone Sodium (Rocephin Iv 1 Gm Duplex) 50 mls @ 100 mls/hr IVPB DAILY KEE; Protocol Stop: 02/09/18 10:05 Last Admin: 02/07/18 10:50 Dose: 100 mls/hr Insulin Human Regular (Novolin R) 0 unit SC ACHS K[facility]; Protocol Last Admin: 02/07/18 12:00 Dose: Not Given Polyethylene Glycol (Miralax) 17 gm PO DAILY [facility] Last Admin: 02/07/18 10:59 Dose: 17 gm Promethazine HCl/Dextromethorphan (Phenergan Dm Syrup) 5 ml PO Q6H PRN PRN Reason: Cough Last Admin: 02/05/18 21:07 Dose: 5 ml Sacubitril/Valsartan (Entresto 49 Mg-51 Mg) 2 tab PO BID [facility] Last Admin: 02/07/18 12:08 Dose: Not Given Simethicone (Mylicon Chew Tab) 80 mg PO QID [facility] Last Admin: 02/07/18 14:14 Dose: 80 mg Spironolactone (Aldactone) 50 mg PO DAILY [facility] Last Admin: 02/07/18 12:07 Dose: Not Given Tamsulosin HCl (Flomax) 0.4 mg PO BID [facility] Last Admin: 02/07/18 11:57 Dose: 0.4 mg Tramadol HCl (Ultram) 50 mg PO DAILY PRN PRN Reason: Pain, moderate (4-7) Last Admin: 02/06/18 00:39 Dose: 50 mg - Labs Labs: 02/07/18 08:13 02/07/18 08:13 PT 17.0 SECONDS (9.7-12.2) H 02/07/18 08:13 INR 1.6 02/07/18 08:13 APTT 27 SECONDS (21-34) 02/03/18 19:59
--- NOTE | 2018-02-07 18:41 | PN ---
DATE: 02/07/2018 SUBJECTIVE: The patient underwent abdominal paracentesis with removal of few liters of straw-colored fluid. The patient denies any chest pain. Shortness of breath has improved. PHYSICAL EXAMINATION: VITAL SIGNS: Blood pressure 90/62, heart rate 95, temperature 98.8, and respiration 18. HEENT: Normocephalic. CHEST: Diminished breath sounds over the basis. HEART: S1 and S2 regular. ABDOMEN: Improved ascites. EXTREMITIES: No edema. LABORATORY DATA: Today's BUN and creatinine of 56 and 1.67, glucose 116. Today's SMA-7 is within normal limit. Today's hemoglobin and hematocrit, white count, and platelet count are within normal limit. ASSESSMENT: 1. Nonischemic cardiomyopathy. 2. Benign prostatic hypertrophy, 3. Bladder mass status post bladder biopsy. 4. Chronic renal insufficiency. 5. Chronic atrial flutter. 6. Splenomegaly. 7. Evidence of thickened and edematous gallbladder without calculi or sludge. RECOMMENDATIONS: Case was discussed at length with Dr. Brar. The patient is a high risk candidate for radical surgery and we will follow for prostatic biopsy. Continue IV Rocephin 1 g daily. Lasix, Coreg and Aldactone are on Hold. I did review yesterday's chest x-ray significant cardiomegaly, no definite infiltrate or effusion. The patient will be evaluated by the customs manager probably today. Jass Carlton MD
[2018-02-07] MEDS: Promethazine DM 6.25 mg-15 mg/5 ml Syrup PO PRN (22:00)
--- NOTE | 2018-02-07 23:04 | CARD ---
APPROVED REPORT Date of service: 02/05/2018 EKG Measurement Heart [id number] P23 [id number] <Conclusion> Atrial flutter with variable AV block Left axis deviation Incomplete right bundle branch block Inferior infarct, age undetermined Abnormal ECG
[2018-02-08] MEDS: Promethazine DM 6.25 mg-15 mg/5 ml Syrup PO PRN ×2 (04:10→22:12)
[2018-02-08 06:25] LABS: BASO # 0.1 K/uL (0.0-0.2); BASO % 1.9 % (0.0-2.0); EOS # 0.2 K/uL (0.0-0.7); EOS % 3.9 % (0.0-4.0); HEMOGLOBIN 13.9 g/dL (12.0-18.0); LYMPH % 16.8 % (20.0-40.0); MEAN CORPUSCULAR HEMOGLOBIN 29.6 pg (27.0-31.0); MEAN CORPUSCULAR HGB CONC 32.9 g/dL (33.0-37.0); MEAN PLATELET VOLUME 8.1 fL (7.2-11.7); MONO # 0.6 K/uL (0.0-0.8); NEUT # 4.2 K/uL (1.8-7.0); NEUT % 68.4 % (50.0-75.0); RBC 4.7 Mil/uL (4.40-5.90); RED CELL DISTRIBUTION WIDTH 20.7 % (11.5-14.5); WHITE BLOOD COUNT 6.2 K/uL (4.8-10.8)
[2018-02-08 06:50] LABS: ALBUMIN 3.2 g/dL (3.5-5.0); CALCIUM 8.8 mg/dl (8.6-10.4)
[2018-02-08] MEDS: (Novolin R) Insulin Human Regular 100 units/ml vial SC SCH ×4 (07:52→21:30)
--- NOTE | 2018-02-08 07:52 | CP.PCM.PN ---
<Jakob Gould - Last Filed: 02/08/18 15:41> Subjective - Date & Time of Evaluation Date of Evaluation: 02/08/18 Time of Evaluation: 07:51 - Subjective Subjective: Hospitalist Service Pt seen and examined at bedside. Pt denies any acute events overnight. Pt feels abdomnial pain improved, urinary retention also improved, pain with the mason cath improved. Pt denies chest pain sob fc nv. Pt is hungry able to eat Objective - Vital Signs/Intake and Output Vital Signs (last 24 hours): Temp Pulse Resp BP Pulse Ox 98.0 F 96 H 20 106/68 99 02/07/18 23:55 02/08/18 04:00 02/07/18 23:55 02/07/18 23:55 02/07/18 23:55 Intake and Output: 02/08/18 02/08/18 06:59 18:59 Intake Total 60 Output Total 400 Balance -340 - Medications Medications: Current Medications Carvedilol (Coreg) 25 mg PO BID [facility] Last Admin: 02/07/18 18:50 Dose: Not Given Dextrose (Dextrose 50% Inj) 0 ml IV STAT PRN; Protocol PRN Reason: Hypoglycemia Protocol Dextrose (Glutose 15) 0 gm PO ONCE PRN; Protocol PRN Reason: Hypoglycemia Protocol Furosemide (Lasix) 40 mg IVP Q12 KEE Last Admin: 02/07/18 22:10 Dose: Not Given Glucagon (Glucagen Diagnostic Kit) 0 mg IM STAT PRN; Protocol PRN Reason: Hypoglycemia Protocol Ceftriaxone Sodium (Rocephin Iv 1 Gm Duplex) 50 mls @ 100 mls/hr IVPB DAILY KEE; Protocol Stop: 02/09/18 10:05 Last Admin: 02/07/18 10:50 Dose: 100 mls/hr Insulin Human Regular (Novolin R) 0 unit SC ACHS KEE; Protocol Last Admin: 02/07/18 22:10 Dose: Not Given Polyethylene Glycol (Miralax) 17 gm PO DAILY [facility] Last Admin: 02/07/18 10:59 Dose: 17 gm Promethazine HCl/Dextromethorphan (Phenergan Dm Syrup) 5 ml PO Q6H PRN PRN Reason: Cough Last Admin: 02/08/18 04:10 Dose: 5 ml Sacubitril/Valsartan (Entresto 49 Mg-51 Mg) 2 tab PO BID [facility] Last Admin: 02/07/18 18:50 Dose: Not Given Simethicone (Mylicon Chew Tab) 80 mg PO QID [facility] Last Admin: 02/07/18 22:11 Dose: 80 mg Spironolactone (Aldactone) 50 mg PO DAILY [facility] Last Admin: 02/07/18 12:07 Dose: Not Given Tamsulosin HCl (Flomax) 0.4 mg PO BID [facility] Last Admin: 02/07/18 18:57 Dose: 0.4 mg Tramadol HCl (Ultram) 50 mg PO DAILY PRN PRN Reason: Pain, moderate (4-7) Last Admin: 02/06/18 00:39 Dose: 50 mg - Labs Labs: 02/08/18 06:19 02/08/18 06:19 PT 17.0 SECONDS (9.7-12.2) H 02/07/18 08:13 INR 1.6 02/07/18 08:13 APTT 27 SECONDS (21-34) 02/03/18 19:59 - Additional Findings Additional findings: - Constitutional Appears: Non-toxic, No Acute Distress, Chronically Ill - Head Exam Head Exam: NORMAL INSPECTION, NORMOCEPHALIC - Eye Exam Eye Exam: EOMI, Normal appearance - ENT Exam ENT Exam: Mucous Membranes Moist, Normal Exam - Respiratory Exam Respiratory Exam: Clear to Ausculation Bilateral, NORMAL BREATHING PATTERN - Cardiovascular Exam Cardiovascular Exam: REGULAR RHYTHM, +S1, +S2 - GI/Abdominal Exam GI & Abdominal Exam: Distended, Normal Bowel Sounds. absent: Tenderness - Extremities Exam Extremities Exam: Normal Inspection. absent: Pedal Edema - Neurological Exam Neurological Exam: Alert, Awake, Oriented x3 - Psychiatric Exam Psychiatric exam: Normal Affect, Normal Mood - Skin Skin Exam: Dry, Normal Color Assessment and Plan - Assessment and Plan (Free Text) Assessment: 57yo M with pmhx of ICD CHF, CKD, recent diagnosis of possible bladder tumor s/p cystoscopy 02/05, getting paracentesis today Urinary retention status post mason replacement with SARAH/CKD with citrobacter UTI - UA: positive for blood, LE, WBC, and bacteria - 1 dose of Rocephin given in ED - S/p cystoscopy with Dr. Brar - POD #3 - Consult cardiology, Dr. 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 Zavala; thank you for your help: paracentesis for symptomatic relief, f/u bladder path, continue w/ diuresis -IR consulted for ascites; 02/05 gave 1 amp of albumin before paracentesis - Abdominal US (12/03/2017): The extrahepatic portal vein is patent with hepatopetal flow. No sonographic evidence for thrombus or obstruction is seen. The 3 hepatic veins are visualized centrally and patent. The hepatic artery is patent. (see full report) - CT abd/pelvis (12/03): Limited assessment without IV or oral contrast administration. Cardiomegaly. Small pericardial effusion. Moderate to large amount of ascites in the abdomen and pelvis. Enlarged prostate. [id number] anasarca. Preliminary report was submitted by virtual Radiology. (see full report) -patient has no tenderness to palpation, fevers; low liklihood for SBP; ceftriaxone for UTi will also treat SBP Aflutter with AICD/Pacemaker: - Eliquis 2.5mg BID - Echo (10/2017): LVEF 12.8% Severe LV hypokinesis, mild LVH, dilated LA, RA and RV, mild MR, severe TR, Mild pulmonary hypertension. - Patient sees Dr. Pang, region manager regularly. Followed up with him this month. - EKG(02/04): Junctional rhythm, left axis deviation, RBB - Daily weights, I&O's, head of bead 45 degrees - Consult cardiology, Dr. Carlton - Monitor patient on telemetry - Entresto 2 tab PO BID - Spironolactone 50mg daily - Carvedilol 25mg BID - Lasix 80mg BID - Fluid restriction to 1 L daily Hx of hyperbilirubinemia, elevated Alkaline phosphatase - Hepatitis panel 10/2017 negative - Seen by GI, Dr. Zavala during 10/2017 admission and was asked to follow up, however patient did not do so - GI signed off - Patient was counselled on the importance of following up. Please provide follow up information upon discharge. Hx HTN: - Spironolactone 50mg daily - Carvedilol 25mg BID - Lasix 40 q12 - Hold for SBP<100 and HR <60 Hx of DM-2: - Home med of Tradjenta- hold - ISS - Accuchecks ACHS - Hypoglycemia protocol Hx of CKD: - GFR: 50-60 - Seen by nephro, Dr. Acosta during 10/2017 admission, patient has not followed up. Dr Acosta recs: No acute need for renal replacement therapy at this time. Renal function stable s/p paracetesis 2 L bp is stable f/u work up re: obstructive uropathy and bladder tumor. waiting for bx result. Monitor Input/Output, daily weights and renal function with basic metabolic panel Volume status is reasonable - Will provide with follow up information upon discharge. Hx of deaf/mute: - Patient communicates in sign. Please use obstetrics nurse service Unintentional weight loss: - 40 lb weight loss in the past year - Continue to monitor Prophylaxis: - Eliquis 2.5mg BID - No GI ppx indicated - HHD 2g Na <Tiffany Pereira V - Last Filed: 02/08/18 20:13> Objective - Vital Signs/Intake and Output Vital Signs (last 24 hours): Temp Pulse Resp BP Pulse Ox 97.9 F 89 18 118/68 100 02/08/18 15:00 02/08/18 19:00 02/08/18 15:00 02/08/18 18:06 02/08/18 15:00 - Medications Medications: Current Medications Carvedilol (Coreg) 25 mg PO BID [facility] Last Admin: 02/08/18 18:06 Dose: 25 mg Dextrose (Dextrose 50% Inj) 0 ml IV STAT PRN; Protocol PRN Reason: Hypoglycemia Protocol Dextrose (Glutose 15) 0 gm PO ONCE PRN; Protocol PRN Reason: Hypoglycemia Protocol Furosemide (Lasix) 40 mg IVP Q12 [facility] Last Admin: 02/08/18 10:05 Dose: 40 mg Glucagon (Glucagen Diagnostic Kit) 0 mg IM STAT PRN; Protocol PRN Reason: Hypoglycemia Protocol Ceftriaxone Sodium (Rocephin Iv 1 Gm Duplex) 50 mls @ 100 mls/hr IVPB DAILY [facility]; Protocol Stop: 02/09/18 10:05 Last Admin: 02/08/18 10:06 Dose: 100 mls/hr Heparin Sodium/Sodium Chloride (Heparin 97753 Units/250ml 1/2 Normal Saline) 25,000 units in 250 mls @ 9.144 mls/hr IV .Q24H PRN; Protocol PRN Reason: ADJUST RATE PER PROTOCOL Insulin Human Regular (Novolin R) 0 unit SC ACHS KEE; Protocol Last Admin: 02/08/18 16:37 Dose: Not Given Polyethylene Glycol (Miralax) 17 gm PO DAILY [facility] Last Admin: 02/08/18 10:05 Dose: 17 gm Promethazine HCl/Dextromethorphan (Phenergan Dm Syrup) 5 ml PO Q6H PRN PRN Reason: Cough Last Admin: 02/08/18 04:10 Dose: 5 ml Sacubitril/Valsartan (Entresto 49 Mg-51 Mg) 2 tab PO BID [facility] Last Admin: 02/08/18 18:05 Dose: 2 tab Simethicone (Mylicon Chew Tab) 80 mg PO QID [facility] Last Admin: 02/08/18 18:05 Dose: 80 mg Spironolactone (Aldactone) 50 mg PO DAILY [facility] Last Admin: 02/08/18 10:05 Dose: 50 mg Tamsulosin HCl (Flomax) 0.4 mg PO BID [facility] Last Admin: 02/08/18 18:06 Dose: 0.4 mg Tramadol HCl (Ultram) 50 mg PO DAILY PRN PRN Reason: Pain, moderate (4-7) Last Admin: 02/06/18 00:39 Dose: 50 mg - Labs Labs: 02/08/18 06:19 02/08/18 06:19 PT 17.0 SECONDS (9.7-12.2) H 02/07/18 08:13 INR 1.6 02/07/18 08:13 APTT 27 SECONDS (21-34) 02/03/18 19:59 Attending/Attestation - Attestation I have personally seen and examined this patient.: Yes I have fully participated in the care of the patient.: Yes I have reviewed all pertinent clinical information, including history, physical exam and plan: Yes Notes (Text): Patient seen, examined, and case discussed with day-time resident. Patient seen this afternoon with the assistance of the Fijian Sign Language device translation. Family not present at bedside. Patient reports he is doing ok. He has worked with physical therapy today who had recommended to him rehab which he seems agreeable to help optimize his heart. I spoke with Dr Isabel Brar today given the biopsy result came back; reported that patient will need an additional procedure to remove the bladder tumor however cardiac huang he would need to be optimized prior to take him to the OR. I did indicate to him likely the ascites is likely secondary to patient's congestive heart failure. He is also aware that patient will need to be on oral anticoagulant in light of the stroke risk associated with atrial flutter. I provided the son's phone number to Dr. Brar as well since the patient has allowed his information to be shared with his son as well as the biopsy came back today as well. I also did discuss this with the patient. We will need to follow-up with the patient's PMD/region manager regarding preference for either Eliquis or Coumadin since patient will need to be monitored, optimized prior to urologic procedure. Patient has not given me preference regarding Coumadin or Eliquis. Will f/u with PMD. Subacute rehab eval placed. Patient noted he feels distended in abdomen and pain over the penis but it is less compared to yesterday. Patient is status post cystoscopy with Dr. Brar POD4 and status post thoracentesis POD1. Repeat UA/Urine culture yesterday. Patient is on empiric antibiotic treatment. Awaiting result Patient received renal dose of Eliquis this evening. Will f/u with PMD what is his preference for either eliquis or coumadin. Assessment/plan 1) Urinary retention status post mason replacement: Assessment/Plan * UA: positive for blood, LE, WBC, and bacteria * Urine culture: Citrobacter * Repeat urine studies to show clearance of UTI-->pending * Patient had received 1 dose of Rocephin given in ED * c/w Rocephin 1 gram IV q daily * S/p cystoscopy with Dr. Brar - POD #4 * Awaiting cardiac optimization since patient will need a second surgery to remove bladder tumor; can be done outpatient and is aware patient will need anticoagulation given atrial flutter * Consult cardiology, Dr. Carlton, for cardiac clearance-->patient may proceed with procedure, recommended for telemetry, and EP eval * Agrees with oral anticoagulation * Will need f/u with PMD regarding anticoagulant * Flomax 0.4mg BID * Mason care with betadine 3x/day 2) HFrEF (Systolic Heart failure) with AICD/Pacemaker: Assessment/Plan * Echo (10/2017): LVEF 12.8% Severe LV hypokinesis, mild LVH, dilated LA, RA and RV, mild MR, severe TR, Mild pulmonary hypertension. * Patient sees Dr. Pang, region manager regularly. Followed up with him this month * EKG(02/04): Junctional rhythm, left axis deviation, RBB * Daily weights, I&O's, head of bead 45 degrees * Consult cardiology, Dr. Carlton prison classification counselor-->help appreciated * Consult EP-Cardiology, Dr. Brunner to check pacemaker * Monitor patient on telemetry * Entresto 2 tab PO BID * Spironolactone 50mg daily * Carvedilol 25mg BID * Lasix 40mg BID * patient is off aspirin * Fluid restriction to 1 L daily * Recommended for anticoagulation in light of atrial flutter * Eliquis 2.5mg first tonight-->f/u PMD in AM regarding preference 3) Hx of hyperbilirubinemia, elevated Alkaline phosphatase, ascites: Assessment/Plan * Hepatitis panel 10/2017 negative * Tbili is at baseline at 4.5 * Alkaline phosphatase: 464 * Abdominal US (12/03/2017): The extrahepatic portal vein is patent with hepatopetal flow. No sonographic evidence for thrombus or obstruction is seen. The 3 hepatic veins are visualized centrally and patent. The hepatic artery is patent. (see full report) * CT abd/pelvis (12/03): Limited assessment without IV or oral contrast administration. Cardiomegaly. Small pericardial effusion. Moderate to large amount of ascites in the abdomen and pelvis. Enlarged prostate. [id number] anasarca. Preliminary report was submitted by virtual Radiol ogisabel. (see full report) * Seen by GIDr. Zavala during 10/2017 admission and was asked to follow up, anil valentine patient did not do so. * GI was reconsulted has seen patient this admission and signed off. * patient noted in prior hospitalization noted ascites secondary to CHF. Patient had require IR to drain about 2.1 Liters. * Patient was counselled on the importance of following up. Please provide follo w up information upon discharge. * Is/p paracentesis 02/07 4) Hx HTN Assessment/Plan * Spironolactone 50mg daily * Carvedilol 25mg BID * Lasix 40mg BID * Hold for SBP<100 and HR <60 5) Hx of DM-2: * Home med of Tradjenta- hold * ISS * Accuchecks ACHS * Hypoglycemia protocol 6) Hx of CKD: * likely cardiorenal disease * Cr: 1.6 * GFR: 54 * Seen by nephroDr. Acosta during 10/2017 admission, patient has not followed up. * consult nephrology * Patient is on Lasix/ Aldactone for CHF 7) Hx of deaf/mute: * Patient communicates in sign. Please use obstetrics nurse service which is very effective. 8) Unintentional weight loss: * 40 lb weight loss in the past year * Continue to monitor 9) Prophylaxis: * Patient is OFF chemical anticoagulation secondary to procedure * Venous dopplers: negative b/l * No GI ppx indicated * Start on HHD 2g Na following urologic procedure * Florastor 250mg PO BID Disposition: Nephrology and cardiology on case. patient is status post IR thoracentesis POD 1. Biopsy result back will need cardiac optimization prior to second urologic procedure, can be done as outpatient. Patient may also leave with mason and f/u with urology afterwards. Will f/u with PMD for anticoagulation preference (either renal dose Eliquis or will need heparin bridge to coumadin). Subacute rehab eval.
[2018-02-08] MEDS: POLYETHYLENE GLYCOL 3350 17 GM/Dose PACKET PO SCH (10:05)
[2018-02-08] MEDS: Sacubitril/Valsartan 49-51 Tab PO SCH ×2 (10:05→18:05)
[2018-02-08] MEDS: Simethicone 80 mg Chewtab PO SCH ×4 (10:05→22:32)
[2018-02-08] MEDS: cefTRIAXone IV 1 gm in Dextros 50 ML IVPB SCH (10:06)
--- NOTE | 2018-02-08 10:45 | CP.PCM.PCO ---
Physician Communication Note - Physician Communication Note Physician Communication Note: Family meeting with son Mauri, at 12 pm today
--- NOTE | 2018-02-08 10:58 | CP.PCM.CON ---
History of Present Illness - History of Present Illness History of Present Illness: Palliative consult requested by Doctor Pereira for goals of care discussion patient is a 57 yo male admitted from home with abdominal distention, suprapubic pain, and decreased urine output despite Mason cath. Folye cath was inserted 10 days ago by Doctor Brar. Patient is S/P Cystoscopy on this admission with Doctor Maykel, on 02/04/18. On 02/07/19 patient underwent paracentesis with 3 l out. Thoracentesis was planned as well. patient's symptoms are believed to be related to obstructive uropathy. Biopsy results are pending. Patient also complained of cough X few months with white phlegm production. Placed on Phenergan siryp. Patient's son reported unwanted weight loss of 40 lb over 1 year. WBC 6.2, Hb 13.9, Director Of Logistics 1.8, T Estev[place] 3.1. urine cultures positive, Rocephin IV on board. PMH: HTN, DM, CKD, CHF, EF of 12 %, PPM, defibrilator, deaf/mute Soc. Hx: single, lives at home, daughter and son involved in care Fam. Hx: Unknown Review of Systems - Constitutional Constitutional: Weight Loss - EENT Eyes: absent: As Per HPI, Blind Spots, Blurred Vision, Change in Vision, Decreased Night Vision, Diplopia, Discharge, Dry Eye, Exophthalmos, Floaters, Irritation, Itchy Eyes, Loss of Peripheral Vision, Pain, Photophobia, Requires Corrective Lenses, Sees Flashes, Spots in Vision, Tunnel Vision, Other Visual Disturbances, Loss of Vision, Other Nose/Mouth/Throat: absent: As Per HPI, Epistaxis, Nasal Congestion, Nasal Discharge, Nasal Obstruction, Nasal Trauma, Nose Pain, Post Nasal Drip, Sinus Pain, Sinus Pressure, Bleeding Gums, Change in Voice, Dental Pain, Dry Mouth, Dysphagia, Halitosis, Hoarsness, Lip Swelling, Mouth Lesions, Mouth Pain, Odynophagia, Sore Throat, Throat Swelling, Tongue Swelling, Facial Pain, Neck Pain, Neck Mass, Other Additional comments: Deaff/ mute - Cardiovascular Cardiovascular: Dyspnea on Exertion, Pedal Edema Additional comments: PPM, defibrilator - Respiratory Respiratory: Cough, Dyspnea on Exertion - Gastrointestinal Gastrointestinal: Abdominal Pain, Bloating - Genitourinary Genitourinary: Difficulty Urinating, Dysuria - Musculoskeletal Musculoskeletal: Stiffness - Integumentary Integumentary: Jaundice - Neurological Neurological: Abnormal Hearing, Abnormal Speech - Psychiatric Psychiatric: absent: As Per HPI, Abnormal Sleep Pattern, Anhedonia, Anxiety, Auditory Hallucinations, Behavioral Changes, Change in Appetite, Change in Libido, Confusion, Depression, Difficulty Concentrating, Hallucinations, Homicidal Ideation, Hopelessness, Irritability, Memory Loss, Mood Swings, Panic Attacks, Paranoia, Suicidal Ideation, Visual Hallucinations, Tactile Hallucinations, Other - Endocrine Endocrine: absent: As Per HPI, Change in Body Appearance, Change in Libido, Cold Intolorance, Deepening of Voice, Excessive Sweating, Fatigue, Flushing, Heat Intolorance, Increase in Ring/Shoe/Hat Size, Palpitations, Polydipsia, Polyphagia, Polyuria, Other - Hematologic/Lymphatic Hematologic: absent: As Per HPI, Easy Bleeding, Easy Bruising, Lymphadenopathy, Other Past Patient History - Infectious Disease Hx of Infectious Diseases: None - Past Medical History & Family History Past Medical History?: Yes - Past Social History Smoking Status: Never Smoked - CARDIAC Hx Congestive Heart Failure: Yes Hx Hypercholesterolemia: Yes Hx Hypertension: Yes - PULMONARY Hx Respiratory Disorders: No - NEUROLOGICAL HX Cerebrovascular Accident: Yes - HEENT Hx HEENT Problems: Yes Hx Deafness: Yes - RENAL Hx Chronic Kidney Disease: Yes - ENDOCRINE/METABOLIC Hx Diabetes Mellitus Type 2: Yes - HEMATOLOGICAL/ONCOLOGICAL Hx Blood Disorders: No - INTEGUMENTARY Hx Dermatological Problems: No - MUSCULOSKELETAL/RHEUMATOLOGICAL Hx Musculoskeletal Disorders: No Hx Falls: Yes - GASTROINTESTINAL Hx Gastrointestinal Disorders: Yes Other/Comment: ascites - GENITOURINARY/GYNECOLOGICAL Hx Genitourinary Disorders: Yes (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) - PSYCHIATRIC Hx Substance Use: No - SURGICAL HISTORY Hx Surgeries: Yes Other/Comment: Pacemaker - ANESTHESIA Hx Anesthesia: Yes Hx Anesthesia Reactions: No Hx Malignant Hyperthermia: No Meds Allergies/Adverse Reactions: Allergies Allergy/AdvReac Type Severity Reaction Status Date / Time No Known Allergies Allergy Verified 02/03/18 18:39 - Medications Medications: Current Medications Carvedilol (Coreg) 25 mg PO BID [facility] Last Admin: 02/08/18 10:05 Dose: 25 mg Dextrose (Dextrose 50% Inj) 0 ml IV STAT PRN; Protocol PRN Reason: Hypoglycemia Protocol Dextrose (Glutose 15) 0 gm PO ONCE PRN; Protocol PRN Reason: Hypoglycemia Protocol Furosemide (Lasix) 40 mg IVP Q12 [facility] Last Admin: 02/08/18 10:05 Dose: 40 mg Glucagon (Glucagen Diagnostic Kit) 0 mg IM STAT PRN; Protocol PRN Reason: Hypoglycemia Protocol Ceftriaxone Sodium (Rocephin Iv 1 Gm Duplex) 50 mls @ 100 mls/hr IVPB DAILY [facility]; Protocol Stop: 02/09/18 10:05 Last Admin: 02/08/18 10:06 Dose: 100 mls/hr Insulin Human Regular (Novolin R) 0 unit SC ACHS [facility]; Protocol Last Admin: 02/08/18 07:52 Dose: Not Given Polyethylene Glycol (Miralax) 17 gm PO DAILY [facility] Last Admin: 02/08/18 10:05 Dose: 17 gm Promethazine HCl/Dextromethorphan (Phenergan Dm Syrup) 5 ml PO Q6H PRN PRN Reason: Cough Last Admin: 02/08/18 04:10 Dose: 5 ml Sacubitril/Valsartan (Entresto 49 Mg-51 Mg) 2 tab PO BID [facility] Last Admin: 02/08/18 10:05 Dose: 2 tab Simethicone (Mylicon Chew Tab) 80 mg PO QID [facility] Last Admin: 02/08/18 10:05 Dose: 80 mg Spironolactone (Aldactone) 50 mg PO DAILY [facility] Last Admin: 02/08/18 10:05 Dose: 50 mg Tamsulosin HCl (Flomax) 0.4 mg PO BID [facility] Last Admin: 02/08/18 10:05 Dose: 0.4 mg Tramadol HCl (Ultram) 50 mg PO DAILY PRN PRN Reason: Pain, moderate (4-7) Last Admin: 02/06/18 00:39 Dose: 50 mg Physical Exam - Constitutional Appears: Chronically Ill - Head Exam Head Exam: ATRAUMATIC, NORMAL INSPECTION, NORMOCEPHALIC - Eye Exam Eye Exam: EOMI, Normal appearance, PERRL Pupil Exam: NORMAL ACCOMODATION, PERRL - ENT Exam ENT Exam: Mucous Membranes Dry - Neck Exam Neck exam: Positive for: Normal Inspection - Respiratory Exam Respiratory Exam: Decreased Breath Sounds, Rhonchi - Cardiovascular Exam Cardiovascular Exam: Tachycardia, REGULAR RHYTHM - GI/Abdominal Exam GI & Abdominal Exam: Diminished Bowel Sounds, Distended, Firm - Rectal Exam Rectal Exam: Deferred - Exam Additional comments: Mason cath - Extremities Exam Extremities exam: Positive for: pedal edema - Back Exam Back exam: NORMAL INSPECTION - Neurological Exam Neurological exam: Alert, Oriented x3 - Psychiatric Exam Psychiatric exam: Normal Affect, Normal Mood - Skin Skin Exam: Dry, Intact, Normal Color, Warm Results - Vital Signs Recent Vital Signs: Last Vital Signs Temp 97.6 F 02/08/18 07:00 Pulse 101 H 02/08/18 08:47 Resp 18 02/08/18 07:00 BP 123/79 02/08/18 10:05 Pulse Ox 100 02/08/18 07:00 - Labs Result Diagrams: 02/08/18 06:19 02/08/18 06:19 Labs: Laboratory Results - last 24 hr 02/07/18 02/07/18 02/08/18 10:59 21:22 06:07 WBC RBC Hgb Hct MCV MCH MCHC RDW Plt Count MPV Neut % (Auto) Lymph % (Auto) [place] % (Auto) Eos % (Auto) Baso % (Auto) Neut # (Auto) Lymph # (Auto) [place] # (Auto) Eos # (Auto) Baso # (Auto) Sodium Potassium Chloride Carbon Dioxide Anion Gap BUN Creatinine Est GFR ( Amer) Est GFR (Non-Af Amer) POC Glucose (mg/dL) 144 H 149 H 127 H Random Glucose Calcium Phosphorus Magnesium Total Bilirubin AST ALT Alkaline Phosphatase Total Protein Albumin Globulin Albumin/Globulin Ratio Alpha Fetoprotein 02/08/18 02/08/18 02/08/18 06:19 06:19 07:06 WBC 6.2 RBC 4.70 Hgb 13.9 Hct 42.3 MCV 90.0 MCH 29.6 MCHC 32.9 L RDW 20.7 H Plt Count 213 MPV 8.1 Neut % (Auto) 68.4 Lymph % (Auto) 16.8 L [place] % (Auto) 9.0 Eos % (Auto) 3.9 Baso % (Auto) 1.9 Neut # (Auto) 4.2 Lymph # (Auto) 1.0 [place] # (Auto) 0.6 Eos # (Auto) 0.2 Baso # (Auto) 0.1 Sodium 139 Potassium 4.3 Chloride 102 Carbon Dioxide 23 Anion Gap 19 BUN 58 H Creatinine 1.8 H Est GFR ( Amer) 47 Est GFR (Non-Af Amer) 39 POC Glucose (mg/dL) Random Glucose 120 H Calcium 8.8 Phosphorus 3.1 Magnesium 2.4 H Total Bilirubin 3.1 H AST 22 ALT 25 Alkaline Phosphatase 438 H Total Protein 6.6 Albumin 3.2 L Globulin 3.3 Albumin/Globulin Ratio 1.0 Alpha Fetoprotein 7.1 Assessment & Plan - Assessment and Plan (Free Text) Assessment: Palliative consult Full Code, there is no Advance directive on chart, PPS 30% I reviewed Medical records, all diagnostic studies, examined patient in the bed. Translation provided by patient's son Mauri Patient is alert, oriented X 3, mute and deaf, appears uncomfortable. Abdomen is very much distended and firm. It affects patient's breathing which is fast and shallow. Patient complains of pain to right side of abdomen. Mason at bed side drains yellow, concentrated urine. Patient feels his penis is getting swollen and is unable to pass urine. On exam, no scrotal/penile swelling noted. I reassured patient of Doctor Maykel's care for his condition. I related his symptoms to his overall medical condition ; EF of 12 % and obstructive uropathy. Goals of care discussed. Son is concerned that in this condition patient is not able anymore to take care of himself at home alone. We discussed JEWEL and patient and son were happy to hear about that option. Code status discussed. Son Mauri refused to translate it to his father as he was afraid that will make his father very worried. Son feels this discussion should be left for another time. I supported him. Impression * Chronically ill male with fluid retention and ascites * Abdominal distention * Labored breathing due to abdominal distention * Urinary retention * Abdominal pain * Mute/ deaf * Son is overly protective of patient and refuses Code status discussion Suggestions * Would repeat Paracentesis if abdomen gets more distended * O2 Supplement * Monitor and manage abdominal pain * care by Doctor Brar * FULL CODE palliative care will remain on board with this patient as I feel that this patient's condition will need further goals of care discussion. Advance Care planing 55 min
--- NOTE | 2018-02-08 12:23 | CP.PCM.PN ---
Subjective - Date & Time of Evaluation Date of Evaluation: 02/08/18 Time of Evaluation: 12:22 - Subjective Subjective: Nephrology Consultation Note: Assessment: Stable underlying CKD 3, likely due to cardio-renal syndrome chronic sys CHF with ascites, hyperbilirubinemia hx of AICD BPH, hearing impairment Renal cyst Bladder tumor Plan No acute need for renal replacement therapy at this time. Renal function stable s/p paracetesis 3 L bp is stable f/u work up re: obstructive uropathy and bladder tumor. waiting for bx result. Monitor Input/Output, daily weights and renal function with basic metabolic panel pt on RAAS cleo as entresto and aldactone CHF management as per cardiology Dose meds/antibiotics for reduced GFR. Avoid fleets enema/magnesium based laxatives. Avoid nephrotoxins/NSAIDs/ iodinated contrast (unless needed emergently) Glycemic control Further work up/management as per primary team Thanks for allowing me to participate in care of your patient. Will follow patient with you. Please call if any Qs. had d/w team Dr Kalpesh Acosta Office: [phone] ROS: used sign/language interpretation Cardiovascular: No chest pain. Pulmonary:c/o shortness of breath Gastrointestinal: denies abdominal pain No nausea. No vomiting. c/o distension Genitourinary: has catheter All other negative except as mentioned in HPI Physical Examination: General Appearance: Comfortable, co-operative . Vitals reviewed and noted as below Head; Atraumatic, normocephalic ENT: no ulcers no thrush. Tongue is midline. Oropharynx: no rash or ulcers. has hearing impairment EYES: Pupils are equal, round and reactive to light accommodation. Eye muscles and extraocular movement intact. Sclera is icteric. Neck; supple no lymphadenopathy, no thyromegaly or bruit. JVP distended Lungs: Increased respiratory rate/effort. Breath sounds bilateral clear except Rt basal crackle Heart: Normal rate. s1s2 normal. No rub or gallop. left side AICD + Extremities: no edema. No varicose veins Neurological: Patient is alert, awake and oriented to person, place and time. No focal deficit. Strength bilateral appropriate and equal Skin: Warm and dry. Normal turgor. No rash. Palpitation: Normal elasticity for age Abdomen: Abdomen is soft. Bowel sounds +. There is no abdominal tenderness, no guarding/rigidity has hepatomegaly. distended and ascitic Psych: normal insight and normal affect/mood MSK: no joint tenderness or swelling. Digits and nails normal, no deformity : kidney or bladder not palpable but exam limited Labs/imaging reviewed. Past medical history, past surgical history, famil Objective - Vital Signs/Intake and Output Vital Signs (last 24 hours): Temp Pulse Resp BP Pulse Ox 97.6 F 101 H 18 123/79 100 02/08/18 07:00 02/08/18 08:47 02/08/18 07:00 02/08/18 10:05 02/08/18 07:00 Intake and Output: 02/08/18 02/08/18 06:59 18:59 Intake Total 60 Output Total 400 Balance -340 - Medications Medications: Current Medications Carvedilol (Coreg) 25 mg PO BID [facility] Last Admin: 02/08/18 10:05 Dose: 25 mg Dextrose (Dextrose 50% Inj) 0 ml IV STAT PRN; Protocol PRN Reason: Hypoglycemia Protocol Dextrose (Glutose 15) 0 gm PO ONCE PRN; Protocol PRN Reason: Hypoglycemia Protocol Furosemide (Lasix) 40 mg IVP Q12 [facility] Last Admin: 02/08/18 10:05 Dose: 40 mg Glucagon (Glucagen Diagnostic Kit) 0 mg IM STAT PRN; Protocol PRN Reason: Hypoglycemia Protocol Ceftriaxone Sodium (Rocephin Iv 1 Gm Duplex) 50 mls @ 100 mls/hr IVPB DAILY [facility]; Protocol Stop: 02/09/18 10:05 Last Admin: 02/08/18 10:06 Dose: 100 mls/hr Insulin Human Regular (Novolin R) 0 unit SC ACHS [facility]; Protocol Last Admin: 02/08/18 07:52 Dose: Not Given Polyethylene Glycol (Miralax) 17 gm PO DAILY [facility] Last Admin: 02/08/18 10:05 Dose: 17 gm Promethazine HCl/Dextromethorphan (Phenergan Dm Syrup) 5 ml PO Q6H PRN PRN Reason: Cough Last Admin: 02/08/18 04:10 Dose: 5 ml Sacubitril/Valsartan (Entresto 49 Mg-51 Mg) 2 tab PO BID [facility] Last Admin: 02/08/18 10:05 Dose: 2 tab Simethicone (Mylicon Chew Tab) 80 mg PO QID [facility] Last Admin: 02/08/18 10:05 Dose: 80 mg Spironolactone (Aldactone) 50 mg PO DAILY [facility] Last Admin: 02/08/18 10:05 Dose: 50 mg Tamsulosin HCl (Flomax) 0.4 mg PO BID [facility] Last Admin: 02/08/18 10:05 Dose: 0.4 mg Tramadol HCl (Ultram) 50 mg PO DAILY PRN PRN Reason: Pain, moderate (4-7) Last Admin: 02/06/18 00:39 Dose: 50 mg - Labs Labs: 02/08/18 06:19 02/08/18 06:19 PT 17.0 SECONDS (9.7-12.2) H 02/07/18 08:13 INR 1.6 02/07/18 08:13 APTT 27 SECONDS (21-34) 02/03/18 19:59
--- NOTE | 2018-02-08 18:28 | PN ---
DATE: 02/08/2018 SUBJECTIVE: The patient was interviewed today with a supervisor sign shop. He denies chest pain. He did report shortness of breath when he walked to the bathroom. He is currently comfortable in bed. PHYSICAL EXAMINATION: VITAL SIGNS: Blood pressure 123/79, heart rate 101, temperature 97.6, and respirations 18. HEENT: Normocephalic. CHEST: Minimal basilar rhonchi. HEART: S1 and S2 regular. EXTREMITIES: No edema. LABORATORY DATA: Today's BUN and creatinine are 58 and 1.8 respectively. Glucose is 120. Magnesium 2.4. Total bilirubin 3.1. Today's hemoglobin, hematocrit, white count, and platelet count are within normal limits. Bladder biopsy report is still pending. ASSESSMENT: 1. Congestive heart failure, status post implantable cardioverter-defibrillator placement. 2. Benign prostatic hypertrophy. 3. Bladder mass. 4. Chronic renal insufficiency. 5. Uncontrolled diabetes mellitus. 6. Atrial flutter with variable atrioventricular conduction. RECOMMENDATIONS: Continue Aldactone 50 mg daily, Coreg 25 mg twice a day, and IV Lasix at 40 mg intravenously twice a day. The case was discussed with Dr. Pereira, hospitalist and Dr. Acosta, the cable cutter and swager,. The patient can be started on oral anticoagulant agent and decision to maintain it as an outpatient will be up to the patient's supervisor malted milk, Dr. Doyle Pang. Jass Carlton MD
[2018-02-09] MEDS: (Novolin R) Insulin Human Regular 100 units/ml vial SC SCH ×4 (08:05→22:00)
[2018-02-09 08:27] LABS: BASO # 0.1 K/uL (0.0-0.2); BASO % 1.8 % (0.0-2.0); EOS # 0.2 K/uL (0.0-0.7); EOS % 3.8 % (0.0-4.0); HEMOGLOBIN 13.9 g/dL (12.0-18.0); LYMPH % 18.5 % (20.0-40.0); MEAN CELL VOLUME 90.9 fL (80.0-94.0); MEAN CORPUSCULAR HEMOGLOBIN 29.9 pg (27.0-31.0); MEAN CORPUSCULAR HGB CONC 32.9 g/dL (33.0-37.0); MEAN PLATELET VOLUME 8.2 fL (7.2-11.7); MONO # 0.5 K/uL (0.0-0.8); MONO % 8.3 % (0.0-10.0); NEUT # 3.7 K/uL (1.8-7.0); NEUT % 67.6 % (50.0-75.0); NRBC % 0.1 % (0.0-2.0); RBC 4.66 Mil/uL (4.40-5.90); RED CELL DISTRIBUTION WIDTH 21.5 % (11.5-14.5); WHITE BLOOD COUNT 5.5 K/uL (4.8-10.8)
[2018-02-09 08:40] LABS: INR 1.5; PROTHROMBIN TIME 16.8 SECONDS (9.7-12.2)
[2018-02-09 08:47] LABS: ALB/GLOB RATIO 0.9 (1.0-2.1); ALBUMIN 3.1 g/dL (3.5-5.0); CALCIUM 8.7 mg/dl (8.6-10.4)
--- NOTE | 2018-02-09 09:23 | CP.PCM.PCO ---
Physician Communication Note - Physician Communication Note Physician Communication Note: I spoke with Dr. Olson (cardiology) on the phone....
[2018-02-09] MEDS ORDERED: Heparin25000 units/250ml 1/2NS 25,000 UNITS/250 ML BAG IV PRN (10:00)
[2018-02-09] MEDS: cefTRIAXone IV 1 gm in Dextros 50 ML IVPB SCH (10:47)
[2018-02-09] MEDS: POLYETHYLENE GLYCOL 3350 17 GM/Dose PACKET PO SCH (10:48)
[2018-02-09] MEDS: Sacubitril/Valsartan 49-51 Tab PO SCH ×2 (10:48→17:47)
[2018-02-09] MEDS: Simethicone 80 mg Chewtab PO SCH ×4 (10:48→23:05)
[2018-02-09 13:04] LABS: TOTAL PROTEIN PERITONEAL FLUID 3.9 g/dL
--- NOTE | 2018-02-09 13:13 | CP.PCM.PN ---
Subjective - Date & Time of Evaluation Date of Evaluation: 02/09/18 Time of Evaluation: 12:00 - Subjective Subjective: patient in bed Vital signs stable No new events reported Objective - Vital Signs/Intake and Output Vital Signs (last 24 hours): Temp Pulse Resp BP Pulse Ox 97.5 F L 81 20 107/74 99 02/09/18 07:09 02/09/18 07:09 02/09/18 07:09 02/09/18 10:48 02/09/18 07:09 Intake and Output: 02/09/18 02/09/18 06:59 18:59 Output Total 1000 Balance -1000 - Medications Medications: Current Medications Carvedilol (Coreg) 25 mg PO BID [facility] Last Admin: 02/09/18 10:47 Dose: 25 mg Dextrose (Dextrose 50% Inj) 0 ml IV STAT PRN; Protocol PRN Reason: Hypoglycemia Protocol Dextrose (Glutose 15) 0 gm PO ONCE PRN; Protocol PRN Reason: Hypoglycemia Protocol Furosemide (Lasix) 40 mg IVP Q12 [facility] Last Admin: 02/09/18 10:48 Dose: 40 mg Glucagon (Glucagen Diagnostic Kit) 0 mg IM STAT PRN; Protocol PRN Reason: Hypoglycemia Protocol Insulin Human Regular (Novolin R) 0 unit SC [facility]; Protocol Last Admin: 02/09/18 12:03 Dose: Not Given Polyethylene Glycol (Miralax) 17 gm PO DAILY [facility] Last Admin: 02/09/18 10:48 Dose: 17 gm Promethazine HCl/Dextromethorphan (Phenergan Dm Syrup) 5 ml PO Q6H PRN PRN Reason: Cough Last Admin: 02/08/18 22:12 Dose: 5 ml Sacubitril/Valsartan (Entresto 49 Mg-51 Mg) 2 tab PO BID [facility] Last Admin: 02/09/18 10:48 Dose: 2 tab Simethicone (Mylicon Chew Tab) 80 mg PO QID [facility] Last Admin: 02/09/18 10:48 Dose: 80 mg Spironolactone (Aldactone) 50 mg PO DAILY [facility] Last Admin: 02/09/18 10:47 Dose: 50 mg Tamsulosin HCl (Flomax) 0.4 mg PO BID [facility] Last Admin: 02/09/18 10:48 Dose: 0.4 mg Tramadol HCl (Ultram) 50 mg PO DAILY PRN PRN Reason: Pain, moderate (4-7) Last Admin: 02/09/18 01:43 Dose: 50 mg - Labs Labs: 02/09/18 08:20 02/09/18 08:20 PT 16.8 SECONDS (9.7-12.2) H 02/09/18 08:20 INR 1.5 02/09/18 08:20 APTT 33 SECONDS (21-34) 02/09/18 08:20 - Constitutional Appears: No Acute Distress - Eye Exam Eye Exam: Conjunctival injection - ENT Exam ENT Exam: Mucous Membranes Moist - Neck Exam Neck Exam: absent: Lymphadenopathy - Respiratory Exam Respiratory Exam: NORMAL BREATHING PATTERN. absent: Chest Wall Tenderness - Cardiovascular Exam Cardiovascular Exam: absent: JVD, Rubs - GI/Abdominal Exam GI & Abdominal Exam: Soft, Normal Bowel Sounds - Extremities Exam Extremities Exam: absent: Calf Tenderness - Back Exam Back Exam: absent: CVA tenderness (L), CVA tenderness (R) - Neurological Exam Neurological Exam: Alert - Psychiatric Exam Psychiatric exam: Normal Affect - Skin Skin Exam: absent: Cyanosis Assessment and Plan - Assessment and Plan (Free Text) Assessment: Assessment: Stable underlying CKD 3, likely due to cardio-renal syndrome chronic sys CHF with ascites, hyperbilirubinemia hx of AICD BPH, hearing impairment Renal cyst Bladder tumor Plan creatinine trending down. No acute need for renal replacement therapy at this time. s/p paracetesis 3 L bp is stable f/u work up re: obstructive uropathy and bladder tumor. waiting for bx result.
--- NOTE | 2018-02-09 13:54 | CP.PCM.PN ---
<Jakob Gould - Last Filed: 02/09/18 14:00> Subjective - Date & Time of Evaluation Date of Evaluation: 02/09/18 Time of Evaluation: 13:50 - Subjective Subjective: Hospitalist Service Pt seen and examined at bedside. Pt complains of constipation. Pt was made aware of his cancer status and understands his cardiac condition is a limiting factor for the urologic intervention. Pt denies any acute symptoms overnight. Pt denies cp sob fc nv Objective - Vital Signs/Intake and Output Vital Signs (last 24 hours): Temp Pulse Resp BP Pulse Ox 97.5 F L 81 20 107/74 99 02/09/18 07:09 02/09/18 07:09 02/09/18 07:09 02/09/18 10:48 02/09/18 07:09 Intake and Output: 02/09/18 02/09/18 06:59 18:59 Output Total 1000 Balance -1000 - Medications Medications: Current Medications Carvedilol (Coreg) 25 mg PO BID [facility] Last Admin: 02/09/18 10:47 Dose: 25 mg Dextrose (Dextrose 50% Inj) 0 ml IV STAT PRN; Protocol PRN Reason: Hypoglycemia Protocol Dextrose (Glutose 15) 0 gm PO ONCE PRN; Protocol PRN Reason: Hypoglycemia Protocol Furosemide (Lasix) 40 mg IVP Q12 [facility] Last Admin: 02/09/18 10:48 Dose: 40 mg Glucagon (Glucagen Diagnostic Kit) 0 mg IM STAT PRN; Protocol PRN Reason: Hypoglycemia Protocol Insulin Human Regular (Novolin R) 0 unit SC [facility]; Protocol Last Admin: 02/09/18 12:03 Dose: Not Given Polyethylene Glycol (Miralax) 17 gm PO DAILY [facility] Last Admin: 02/09/18 10:48 Dose: 17 gm Promethazine HCl/Dextromethorphan (Phenergan Dm Syrup) 5 ml PO Q6H PRN PRN Reason: Cough Last Admin: 02/08/18 22:12 Dose: 5 ml Sacubitril/Valsartan (Entresto 49 Mg-51 Mg) 2 tab PO BID [facility] Last Admin: 02/09/18 10:48 Dose: 2 tab Simethicone (Mylicon Chew Tab) 80 mg PO QID [facility] Last Admin: 02/09/18 13:16 Dose: 80 mg Spironolactone (Aldactone) 50 mg PO DAILY [facility] Last Admin: 02/09/18 10:47 Dose: 50 mg Tamsulosin HCl (Flomax) 0.4 mg PO BID [facility] Last Admin: 02/09/18 10:48 Dose: 0.4 mg Tramadol HCl (Ultram) 50 mg PO DAILY PRN PRN Reason: Pain, moderate (4-7) Last Admin: 02/09/18 01:43 Dose: 50 mg - Labs Labs: 02/09/18 08:20 02/09/18 08:20 PT 16.8 SECONDS (9.7-12.2) H 02/09/18 08:20 INR 1.5 02/09/18 08:20 APTT 33 SECONDS (21-34) 02/09/18 08:20 - Additional Findings Additional findings: - Constitutional Appears: Non-toxic, No Acute Distress, Chronically Ill - Head Exam Head Exam: NORMAL INSPECTION, NORMOCEPHALIC - Eye Exam Eye Exam: EOMI, Normal appearance - ENT Exam ENT Exam: Mucous Membranes Moist, Normal Exam - Respiratory Exam Respiratory Exam: Clear to Ausculation Bilateral, NORMAL BREATHING PATTERN - Cardiovascular Exam Cardiovascular Exam: REGULAR RHYTHM, +S1, +S2 - GI/Abdominal Exam GI & Abdominal Exam: Distended, Normal Bowel Sounds. absent: Tenderness - Extremities Exam Extremities Exam: Normal Inspection. absent: Pedal Edema - Neurological Exam Neurological Exam: Alert, Awake, Oriented x3 - Psychiatric Exam Psychiatric exam: Normal Affect, Normal Mood - Skin Skin Exam: Dry, Normal Color Assessment and Plan - Assessment and Plan (Free Text) Assessment: 57yo M with pmhx of ICD CHF, CKD, recent diagnosis of possible bladder tumor s/p cystoscopy 02/05, getting paracentesis today Urinary retention status post mason replacement with SARHA/CKD with citrobacter UTI - UA: positive for blood, LE, WBC, and bacteria - 1 dose of Rocephin given in ED - S/p cystoscopy with Dr. Brar - POD #3 - Consult cardiology, Dr. Carlton, for cardiac clearance - Urine Cx: neg - Flomax 0.4mg BID - Mason care with betadine 3x/day -Dr Bradley nephrology recs for SARAH: no acute renal replacement therapy needed at this time -1g ceftriaxone daily creatinine hovers around 1.8 with GFR around 50 for AA male Constipation -dulcolax suppository today and tmw -simethicone for gas relief Bladder Tumor -as per cystoscopy report; patient had bladder tumor -pathology shows papillary bladder tumor without mets -f/u urology recs Dr Isabel Brar possible d/c with mason wednesday [facility] medically -wednesday likely transfer to [place] [facility] Abdominal Distention/ascites -02/07 Paracentesis 2.5L removed -GI recs; Dr. Zavala; thank you for your help: paracentesis for symptomatic relief, f/u bladder path, continue w/ diuresis -IR consulted for ascites; 02/05 gave 1 amp of albumin before paracentesis - Abdominal US (12/03/2017): The extrahepatic portal vein is patent with hepatopetal flow. No sonographic evidence for thrombus or obstruction is seen. The 3 hepatic veins are visualized centrally and patent. The hepatic artery is patent. (see full report) - CT abd/pelvis (12/03): Limited assessment without IV or oral contrast administration. Cardiomegaly. Small pericardial effusion. Moderate to large amount of ascites in the abdomen and pelvis. Enlarged prostate. [id number] anasarca. Preliminary report was submitted by virtual Radiology. (see full report) -patient has no tenderness to palpation, fevers; low liklihood for SBP; ceftriaxone for UTi will also treat SBP Aflutter with AICD/Pacemaker: - Dr Olson cardiology and pt PMD made aware of status, recommends TCU care and follow up in 1 week in office. c/w diuresis - Echo (10/2017): LVEF 12.8% Severe LV hypokinesis, mild LVH, dilated LA, RA and RV, mild MR, severe TR, Mild pulmonary hypertension. - Patient sees Dr. Pang, stamp presser regularly. Followed up with him this month. - EKG(02/04): Junctional rhythm, left axis deviation, RBB - Daily weights, I&O's, head of bead 45 degrees - Consult cardiology, Dr. Carlton - Monitor patient on telemetry - Entresto 2 tab PO BID - Spironolactone 50mg daily - Carvedilol 25mg BID - Lasix 80mg BID - Fluid restriction to 1 L daily Hx of hyperbilirubinemia, elevated Alkaline phosphatase - Hepatitis panel 10/2017 negative - Seen by GI, Dr. Zavala during 10/2017 admission and was asked to follow up, however patient did not do so - GI signed off - Patient was counselled on the importance of following up. Please provide follow up information upon discharge. Hx HTN: - Spironolactone 50mg daily - Carvedilol 25mg BID - Lasix 40 q12 - Hold for SBP<100 and HR <60 Hx of DM-2: - Home med of Tradjenta- hold - ISS - Accuchecks ACHS - Hypoglycemia protocol Hx of CKD: - GFR: 50-60 - Seen by nephro, Dr. Acosta during 10/2017 admission, patient has not followed up. Dr Acosta recdeepika: No acute need for renal replacement therapy at this time. Renal function stable s/p paracetesis 2 L bp is stable f/u work up re: obstructive uropathy and bladder tumor. waiting for bx result. Monitor Input/Output, daily weights and renal function with basic metabolic panel Volume status is reasonable - Will provide with follow up information upon discharge. Hx of deaf/mute: - Patient communicates in sign. Please use freelance interpreter/translator service Unintentional weight loss: - 40 lb weight loss in the past year - Continue to monitor Prophylaxis: - no anticoag as per Dr Whitney osorio - No GI ppx indicated - HHD 2g Na <Tiffany Pereira V - Last Filed: 02/13/18 21:07> Objective - Vital Signs/Intake and Output Vital Signs (last 24 hours): Temp Pulse Resp BP Pulse Ox 98.1 F 110 H 22 110/76 100 02/13/18 15:00 02/13/18 15:00 02/13/18 15:00 02/13/18 17:51 02/13/18 15:00 Intake and Output: 02/13/18 02/14/18 18:59 06:59 Intake Total 960 Output Total 300 Balance 660 - Medications Medications: Current Medications Albuterol/Ipratropium (Duoneb 3 Mg/0.5 Mg (3 Ml) Ud) 3 ml INH RQ6 PRN PRN Reason: Shortness of Breath Benzocaine/Menthol (Cepacol Sore Throat) 1 renuka MT Q4H [facility] Last Admin: 02/13/18 17:41 Dose: 1 renuka Benzonatate (Tessalon Perles) 100 mg PO TID PRN PRN Reason: Cough Last Admin: 02/13/18 11:44 Dose: 100 mg Bisacodyl (Dulcolax) 10 mg NE Q12 PRN PRN Reason: Constipation Last Admin: 02/10/18 10:00 Dose: 10 mg Carvedilol (Coreg) 25 mg PO BID [facility] Last Admin: 02/13/18 17:51 Dose: 25 mg Dextrose (Glutose 15) 0 gm PO ONCE PRN; Protocol PRN Reason: Hypoglycemia Protocol Dextrose (Dextrose 50% Inj) 0 ml IV Q1H PRN; Protocol PRN Reason: Hypoglycemia Protocol Furosemide (Lasix) 40 mg IVP DAILY [facility] Glucagon (Glucagen Diagnostic Kit) 0 mg IM STAT PRN; Protocol PRN Reason: Hypoglycemia Protocol Guaifenesin (Robitussin) 100 mg PO Q4H PRN PRN Reason: Cough Last Admin: 02/13/18 11:46 Dose: 100 mg Ceftriaxone Sodium (Rocephin Iv 1 Gm Duplex) 50 mls @ 50 mls/30 min IVPB DAILY [facility]; Protocol Last Admin: 02/13/18 11:36 Dose: 50 mls/30 min Polyethylene Glycol (Miralax) 17 gm PO DAILY [facility] Last Admin: 02/13/18 11:46 Dose: 17 gm Sacubitril/Valsartan (Entresto 49 Mg-51 Mg) 2 tab PO BID [facility] Last Admin: 02/13/18 17:42 Dose: 2 tab Simethicone (Mylicon Chew Tab) 80 mg PO QID [facility] Last Admin: 02/13/18 17:49 Dose: 80 mg Spironolactone (Aldactone) 50 mg PO DAILY [facility] Last Admin: 02/13/18 11:54 Dose: Not Given Tamsulosin HCl (Flomax) 0.4 mg PO BID [facility] Last Admin: 02/13/18 17:50 Dose: 0.4 mg - Labs Labs: 02/13/18 06:28 02/13/18 06:20 PT 16.8 SECONDS (9.7-12.2) H 02/09/18 08:20 INR 1.5 02/09/18 08:20 APTT 33 SECONDS (21-34) 02/09/18 08:20 Attending/Attestation - Attestation I have personally seen and examined this patient.: Yes I have fully participated in the care of the patient.: Yes I have reviewed all pertinent clinical information, including history, physical exam and plan: Yes Notes (Text): This is late computer entry for 02/09/18. Patient seen, examined, and case discussed with medical billing specialist. Agree with assessment and plan as written by the resident. Discussed with patient's PMD/stamp presser in the morning; patient is not candidate for chemical anticoagulation given fall risk and will not be cardiac optimized given his severe heart failure. I spoke with urology regarding patient's cardiac status not being safe for further intervention; he is aware. I also provided number of son, Mauri who had requested to speak with Dr. Brar regarding biopsy result. I did discuss with patient that he does have a bladder tumor, and because of his cardiac status he will be high risk for any type of invasive procedure. Patient is amenable to rehab in terms of improving his conditioning. Will plan for subacute rehab eval for discharge planning purposes.
--- NOTE | 2018-02-09 18:09 | PN ---
DATE: 02/09/2018 SUBJECTIVE: The patient is experiencing abdominal distention. No chest pain. PHYSICAL EXAMINATION: VITAL SIGNS: Blood pressure 101/72, heart 81, temperature 97.5, respirations 20. HEENT: Normocephalic. CHEST: Diminished breath sounds over the bases. HEART: S1 and S2 regular. ABDOMEN: Worsening ascites. EXTREMITIES: No edema. LABORATORY DATA: Today's BUN and creatinine 51 and 1.6 respectively. Glucose of 137. The rest of SMA-7 is within normal limit. Today's hemoglobin, hematocrit, white count and platelet count are within normal limit. ASSESSMENT 1. Dilated cardiomyopathy, status post implantable-cardioverter defibrillator placement. 2. Cardiac cirrhosis and portal hypertension. 3. Worsening ascites, status post abdominal paracentesis twice recently. 4. Chronic renal insufficiency. 5. Papillary urothelial carcinoma, low grade. RECOMMENDATIONS: Case was discussed with Dr. Pereira, who spoke to Dr. Doyle aPng, the primary engine repairer and both agreed that the patient is not a candidate for either anticoagulation or any major surgical intervention. I recommended further evaluation for possible abdominal paracentesis prior to discharge to Subacute Rehab. Aldactone is currently at 50 mg daily. Continue Coreg 25 mg twice a day, Lasix 40 mg intravenously twice a day. Jass Carlton MD
[2018-02-10] MEDS ORDERED: Dextrose 50% SYRINGE Inj (50 ml) IV STA (06:42)
[2018-02-10] MEDS ORDERED: Dextrose 50% VIAL Inj (50 ml) IV ONE (06:47)
--- NOTE | 2018-02-10 06:54 | PCM.RRT ---
COMMUNICATIONS OPERATOR Nurses Assessment - Situation Date: 02/10/18 Time COMMUNICATIONS OPERATOR was called: 06:28 COMMUNICATIONS OPERATOR Responder Arrival Time:: 06:29 COMMUNICATIONS OPERATOR Location:: Med/Surg Room Number: 563B COMMUNICATIONS OPERATOR Reason for Call: Change in Mental Status COMMUNICATIONS OPERATOR Called By: RN - IV IV Inserted during COMMUNICATIONS OPERATOR?: Yes New IV Insertion Tolerance: Excellent - Respiratory COMMUNICATIONS OPERATOR Delivery Method: Intubated Was the Patient Ventilated with Bag/Mask 100% O2?: Yes Was the Patient Intubated?: Yes - Diagnostic Test Ordered Chest X-Ray: Yes I.Reason for COMMUNICATIONS OPERATOR - A) Acute Change in Patient: (Select all that apply): Acute change in mental status - Neurological Status (Select all that apply): absent: Alert, Responsive, Oriented, Follows Commands - Respiratory Oxygen Delivery Method: Intubated - Constitutional Appears: In Acute Distress - Head Head Exam: ATRAUMATIC, NORMOCEPHALIC - Eyes Eye Exam: EOMI, Normal appearance - Respiratory Exam Respiratory Exam: Decreased Breath Sounds, Respiratory Distress. absent: Rales, Rhonchi, Wheezes Additional comments: BVM filled abdomen - Cardiovascular Exam Cardiovascular Exam: Tachycardia, REGULAR RHYTHM, +S1, +S2 - GI/Abdominal Exam GI & Abdominal Exam: Soft, Normal Bowel Sounds. absent: Tenderness - Neurological Exam Neurological Exam: Altered. absent: Alert, Awake, Oriented x3 - Extremities Exam Extremities Exam: Normal Capillary Refill Plan - Assessment of Findings&Treatment Plan COMMUNICATIONS OPERATOR called at 0628 by RN for unresponsiveness Vitals on arrival BP 90/58 HR 115 O2 75% RA unable to obtain Accucheck, given D50 50 ml @ 645. f/u Accucheck 242 CXR, ABG shock, BVM -> intubation by anesthesia 2 IV access ports started started mittens as patient pulls out lines BP 93/64 HR 110 at end of COMMUNICATIONS OPERATOR COMMUNICATIONS OPERATOR ended at 0653. transferred to ICU 7 CXR to be done in ICU on vent
[2018-02-10] MEDS ORDERED: Dextrose 5%/0.9% NS 1,000 ML IV ONE (07:58)
[2018-02-10] MEDS: (Novolin R) Insulin Human Regular 100 units/ml vial SC SCH (08:00)
--- NOTE | 2018-02-10 08:15 | PCM.ANES ---
Anesthesia Emergent Intubation - Diagnosis Working Diagnosis:: respiratory failure - Consult Reason for Consult:: Intubation - Intubation Attempts Previous Number of Intubation Attempts:: 0 - Pre-Intubation Vital Signs Blood Pressure: 108/60 Heart Rate: 98 Respiratory Rate: 34 O2 Sat: 77 FIO2: 100 Oxygen Delivery Method: Ambu-Bag Level Of Consciousness: Comatose/Unresponsive Intubation Meds Given: Etomidate, Succinylcholine - Airway Management Oropharyngeal Area Suctioned: Yes Inhalation: Yes Rapid Sequence: Yes Cricoid Pressure: Yes - Method of Intubation Intubation Method: Oral ETT ETT Size: 7.5 Lipline@: 21.5 Easy: No (CL grade 3) Atramatic: Yes - Intubation Devices Candie Blade Size Used: 4 - Placement Confirmation Breath Sounds Present & Equal Bilaterally: Yes Gurgling Sounds Not Audible at Epigastrum: Yes Positive EtCO2: Yes Portable CXR: Yes (ordered) Recommendations: Ventilator - Post-Intubation Vital Signs Blood Pressure: 138/60 Heart Rate: 105 Respiratory Rate: 18 O2 Sat: 95 FIO2: 100
[2018-02-10 08:41] LABS: ALB/GLOB RATIO 1.1 (1.0-2.1); ALBUMIN 4.2 g/dL (3.5-5.0); CALCIUM 9.5 mg/dl (8.6-10.4)
--- NOTE | 2018-02-10 08:54 | CP.PCM.PN ---
Subjective - Date & Time of Evaluation Date of Evaluation: 02/10/18 Time of Evaluation: 08:50 - Subjective Subjective: Citizen Of [place] Sign Language Intrepretor: Vi (ID: [id number]) Patient seen and examined this morning. This morning he was a rapid response for unresponsiveness secondary to hypoglycemia and difficulty breathing. Patient does not have an ET tube currently. he reports is breathing is about the same. Patient denies chest pain, denies palpitations, denies abdominal pain, reports he has not had a bowel movement inspite of the suppository yesterday (last BM over the weekend). Family not present at bedside. Objective - Vital Signs/Intake and Output Vital Signs (last 24 hours): Temp Pulse Resp BP Pulse Ox 98 F 98 H 34 H 108/60 77 L 02/09/18 23:24 02/10/18 08:16 02/10/18 08:16 02/10/18 08:16 02/10/18 08:16 Intake and Output: 02/10/18 02/10/18 06:59 18:59 Output Total 550 Balance -550 - Medications Medications: Current Medications Bisacodyl (Dulcolax) 10 mg HI Q12 PRN PRN Reason: Constipation Carvedilol (Coreg) 25 mg PO BID [facility] Last Admin: 02/09/18 17:47 Dose: Not Given Dextrose (Dextrose 50% Inj) 0 ml IV STAT PRN; Protocol PRN Reason: Hypoglycemia Protocol Dextrose (Glutose 15) 0 gm PO ONCE PRN; Protocol PRN Reason: Hypoglycemia Protocol Furosemide (Lasix) 40 mg IVP Q12 [facility] Last Admin: 02/09/18 21:50 Dose: 40 mg Glucagon (Glucagen Diagnostic Kit) 0 mg IM STAT PRN; Protocol PRN Reason: Hypoglycemia Protocol Dextrose/Sodium Chloride (Dextrose 5%/0.9% Ns 1000 Ml) 1,000 mls @ 60 mls/hr IV .[id number] ONE Stop: 02/11/18 00:37 Insulin Human Regular (Novolin R) 0 unit SC [facility]; Protocol Last Admin: 02/10/18 08:00 Dose: Not Given Polyethylene Glycol (Miralax) 17 gm PO DAILY [facility] Last Admin: 02/09/18 10:48 Dose: 17 gm Promethazine HCl/Dextromethorphan (Phenergan Dm Syrup) 5 ml PO Q6H PRN PRN Reason: Cough Last Admin: 02/08/18 22:12 Dose: 5 ml Sacubitril/Valsartan (Entresto 49 Mg-51 Mg) 2 tab PO BID [facility] Last Admin: 02/09/18 17:47 Dose: Not Given Simethicone (Mylicon Chew Tab) 80 mg PO QID [facility] Last Admin: 02/09/18 23:05 Dose: 80 mg Spironolactone (Aldactone) 50 mg PO DAILY [facility] Last Admin: 02/09/18 10:47 Dose: 50 mg Tamsulosin HCl (Flomax) 0.4 mg PO BID [facility] Last Admin: 02/09/18 17:48 Dose: 0.4 mg Tramadol HCl (Ultram) 50 mg PO DAILY PRN PRN Reason: Pain, moderate (4-7) Last Admin: 02/09/18 01:43 Dose: 50 mg - Labs Labs: 02/09/18 08:20 02/10/18 07:41 PT 16.8 SECONDS (9.7-12.2) H 02/09/18 08:20 INR 1.5 02/09/18 08:20 APTT 33 SECONDS (21-34) 02/09/18 08:20 - Constitutional Appears: Non-toxic, No Acute Distress - Head Exam Head Exam: NORMAL INSPECTION - Eye Exam Eye Exam: EOMI, PERRL. absent: Nystagmus, Scleral icterus Pupil Exam: PERRL Additional comments: pacemaker (left side of chest) nontender, no signs of erythema - ENT Exam ENT Exam: Mucous Membranes Dry - Respiratory Exam Respiratory Exam: Decreased Breath Sounds, NORMAL BREATHING PATTERN. absent: Rales, Rhonchi, Stridor - Cardiovascular Exam Cardiovascular Exam: REGULAR RHYTHM, +S1, +S2 - GI/Abdominal Exam GI & Abdominal Exam: Distended, Soft, Normal Bowel Sounds. absent: Firm, Guarding, Rigid, Tenderness, Rebound - Extremities Exam Extremities Exam: Pedal Edema. absent: Tenderness - Neurological Exam Neurological Exam: Alert, Awake, Oriented x3 - Skin Skin Exam: Dry, Intact, Normal Color, Warm Attending/Attestation - Attestation I have personally seen and examined this patient.: Yes I have fully participated in the care of the patient.: Yes I have reviewed all pertinent clinical information, including history, physical exam and plan: Yes Notes (Text): Assessment/plan 1) Urinary retention status post mason replacement: Assessment/Plan * UA: positive for blood, LE, WBC, and bacteria * Urine culture: Citrobacter * repeat urine culture: no growht * Patient had received 1 dose of Rocephin given in ED * c/w Rocephin 1 gram IV q daily completed 4 days * Will complete 5th dose 02/10/18 * S/p cystoscopy with Dr. Brar - POD #6 * Discussed with Dr. Brar, he is aware patient is not cleared in regards to cardiac status, I spoke with his outpatient central supply technician yesterday as well as discussed with Dr. Carlton * I spoke with the patient as well yesterday, he is aware he has a bladder tumor, but he is very high risk because of his heart. * Flomax 0.4mg BID * Mason care with betadine 3x/day 2) HFrEF (Systolic Heart failure) with AICD/Pacemaker: Assessment/Plan * Echo (10/2017): LVEF 12.8% Severe LV hypokinesis, mild LVH, dilated LA, RA and RV, mild MR, severe TR, Mild pulmonary hypertension. * Patient sees Dr. Pang, central supply technician regularly. * Discussed with him 02/09-->high risk cardiac; will not be cleared for urologic procedure for the bladder tumor * recommends f/u in 1 week * I spoke with Dr. Carlton following this conversation--->aware he is not a candidate for anticoagulation given fall risk and he recommends for further diuresis * EKG(02/04): Junctional rhythm, left axis deviation, RBB * Daily weights, I&O's, head of bead 45 degrees * Consult cardiology, Dr. Carlton data acquisition technician-->help appreciated * Consult EP-Cardiology, Dr. Brunner to check pacemaker * Monitor patient on telemetry * Entresto 2 tab PO BID * Spironolactone 50mg daily * Carvedilol 25mg BID * Lasix 40mg BID * patient is off aspirin * Fluid restriction to 1 L daily * Patient is high risk for anticoagulation per discussion with PMD for the atrial flutter 3) Hx of hyperbilirubinemia, elevated Alkaline phosphatase, ascites: Assessment/Plan * Hepatitis panel 10/2017 negative * Tbili is at baseline at 4.5 * Alkaline phosphatase: 464 * Abdominal US (12/03/2017): The extrahepatic portal vein is patent with hepatopetal flow. No sonographic evidence for thrombus or obstruction is seen. The 3 hepatic veins are visualized centrally and patent. The hepatic artery is patent. (see full report) * CT abd/pelvis (12/03): Limited assessment without IV or oral contrast administration. Cardiomegaly. Small pericardial effusion. Moderate to large amount of ascites in the abdomen and pelvis. Enlarged prostate. [id number] anasarca. Preliminary report was submitted by virtual Radiology. (see full report) * Seen by GIDr. Zavala during 10/2017 admission and was asked to follow up, however patient did not do so. * GI was reconsulted has seen patient this admission and signed off. * patient noted in prior hospitalization noted ascites secondary to CHF. Patient had require IR to drain about 2.1 Liters. * Patient was counselled on the importance of following up. Please provide follow up information upon discharge. * Is/p paracentesis 02/07 4) Hx HTN Assessment/Plan * Spironolactone 50mg daily * Carvedilol 25mg BID * Lasix 40mg BID * Hold for SBP<100 and HR <60 5) Hx of DM-2: * Home med of Tradjenta- hold * ISS * Accuchecks ACHS * Hypoglycemia protocol 6) Hx of CKD: * likely cardiorenal disease * Cr: 1.6 * GFR: 54 * Seen by nephroDr. Acosta during 10/2017 admission, patient has not followed up. * consult nephrology * Patient is on Lasix/ Aldactone for CHF 7) Hx of deaf/mute: * Patient communicates in sign. Please use hide tanner service which is very effective. 8) Unintentional weight loss: * 40 lb weight loss in the past year * Continue to monitor 9) Prophylaxis: * dvt ppx: heparin 5000 units subq8H * Venous dopplers: negative b/l * No GI ppx indicated * Start on HHD 2g Na following urologic procedure * Florastor 250mg PO BID Disposition: Nephrology and cardiology on case. patient is status post IR thoracentesis POD 3. Patient was rapid response this morning for respiratory failure and hypoglycemia. Patient seen in ICU. Patient no longer has ET tube. repeat chest xray.
[2018-02-10] MEDS ORDERED: Dextrose 50% SYRINGE Inj (50 ml) IV PRN (09:15)
[2018-02-10] MEDS: Sacubitril/Valsartan 49-51 Tab PO SCH ×2 (09:41→17:57)
[2018-02-10] MEDS: POLYETHYLENE GLYCOL 3350 17 GM/Dose PACKET PO SCH (09:42)
[2018-02-10] MEDS: Simethicone 80 mg Chewtab PO SCH ×4 (09:42→21:49)
--- NOTE | 2018-02-10 10:02 | CP.PCM.CON ---
History of Present Illness - History of Present Illness History of Present Illness: PMD: Dr. Cano, cardio: Dr. Pang Attending: Hospitalist group Urology: Dr Brar Reason for Consult: Critical care: Management Chief Complaint: Unresponsiveness The patient was seen and examined in ICU already intubated HPI: The hx is obtained from the Nursing staff and after review of the medical records; This is a 57 years deaf, mute old male with hx of HTN, CKD, DM II and BPH who was admitted on 02/03/18 with abdominal distention and Urinary retention.Cystoscopy on 02/04/18 showed Enlarged Prostate with bladder tumor. bladder bx with fulguration was done. ( Papillary bladder tumor peer pathology) Rapid Response Team was activated this AM because the patient was unresponsive with SpO2 75% on Room air. Blood Glucose was <20gm/dl. 50gms of Dextrose given. The Patient was intubated by Anaesthesia and transferred to the ICU. 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 FH: Unknown family hx Allergies: NKDA Medication: Reviewed Proxy: Mauri, son: [phone], Kathleen, daughter: [phone] Review of Systems - Review of Systems Review of Systems: Review of systems limited because the patient is intubated and was sedated. Past Patient History - Infectious Disease Hx of Infectious Diseases: None - Past Medical History & Family History Past Medical History?: Yes - Past Social History Smoking Status: Never Smoked Chewing Tobacco Use: No Cigar Use: No Drugs: Denies - CARDIAC Hx Congestive Heart Failure: Yes Hx Hypercholesterolemia: Yes Hx Hypertension: Yes - PULMONARY Hx Respiratory Disorders: No - NEUROLOGICAL HX Cerebrovascular Accident: Yes - HEENT Hx HEENT Problems: Yes Hx Deafness: Yes - RENAL Hx Chronic Kidney Disease: Yes - ENDOCRINE/METABOLIC Hx Diabetes Mellitus Type 2: Yes - HEMATOLOGICAL/ONCOLOGICAL Hx Blood Disorders: No - INTEGUMENTARY Hx Dermatological Problems: No - MUSCULOSKELETAL/RHEUMATOLOGICAL Hx Musculoskeletal Disorders: No Hx Falls: Yes - GASTROINTESTINAL Hx Gastrointestinal Disorders: Yes Other/Comment: ascites - GENITOURINARY/GYNECOLOGICAL Hx Genitourinary Disorders: Yes (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) - PSYCHIATRIC Hx Substance Use: No - SURGICAL HISTORY Hx Surgeries: Yes Other/Comment: AICD. Paracentesis - ANESTHESIA Hx Anesthesia: Yes Hx Anesthesia Reactions: No Hx Malignant Hyperthermia: No Meds Allergies/Adverse Reactions: Allergies Allergy/AdvReac Type Severity Reaction Status Date / Time No Known Allergies Allergy Verified 02/03/18 18:39 - Medications Medications: Current Medications Bisacodyl (Dulcolax) 10 mg [place] Q12 PRN PRN Reason: Constipation Last Admin: 02/10/18 10:00 Dose: 10 mg Carvedilol (Coreg) 25 mg PO BID [facility] Last Admin: 02/10/18 09:40 Dose: Not Given Dextrose (Glutose 15) 0 gm PO ONCE PRN; Protocol PRN Reason: Hypoglycemia Protocol Dextrose (Dextrose 50% Inj) 0 ml IV Q1H PRN; Protocol PRN Reason: Hypoglycemia Protocol Furosemide (Lasix) 40 mg IVP Q12 [facility] Last Admin: 02/10/18 09:42 Dose: 40 mg Glucagon (Glucagen Diagnostic Kit) 0 mg IM STAT PRN; Protocol PRN Reason: Hypoglycemia Protocol Heparin Sodium (Porcine) (Heparin) 5,000 units SC Q8 [facility] Ceftriaxone Sodium (Rocephin Iv 1 Gm Duplex) 50 mls @ 50 mls/30 min IVPB DAILY [facility]; Protocol Dextrose (Dextrose 10% In Water) 1,000 mls @ 20 mls/hr IV .Q24H [facility] Last Admin: 02/10/18 09:45 Dose: 20 mls/hr Polyethylene Glycol (Miralax) 17 gm PO DAILY [facility] Last Admin: 02/10/18 09:42 Dose: 17 gm Sacubitril/Valsartan (Entresto 49 Mg-51 Mg) 2 tab PO BID [facility] Last Admin: 02/10/18 09:41 Dose: Not Given Simethicone (Mylicon Chew Tab) 80 mg PO QID [facility] Last Admin: 02/10/18 09:42 Dose: 80 mg Spironolactone (Aldactone) 50 mg PO DAILY [facility] Last Admin: 02/10/18 09:39 Dose: 50 mg Tamsulosin HCl (Flomax) 0.4 mg PO BID [facility] Last Admin: 02/10/18 09:41 Dose: 0.4 mg Physical Exam - Constitutional Additional comments: Intubated and sedated - Head Exam Head Exam: ATRAUMATIC, NORMAL INSPECTION, NORMOCEPHALIC - Eye Exam Additional comments: Pupils equal and reacting to light - ENT Exam ENT Exam: Normal External Ear Exam - Neck Exam Neck exam: Positive for: Full Rom, Normal Inspection - Respiratory Exam Respiratory Exam: absent: Rales, Rhonchi, Wheezes Additional comments: Bilateral breath sounds - Cardiovascular Exam Cardiovascular Exam: REGULAR RHYTHM, +S1, +S2 - GI/Abdominal Exam Additional comments: Full,soft, decreased bowel sounds - Rectal Exam Rectal Exam: Deferred - Extremities Exam Additional comments: No edema - Back Exam Back exam: NORMAL INSPECTION - Neurological Exam Additional comments: Sedated on mechanical ventilator - Psychiatric Exam Additional comments: Patient sedated post intubation. - Skin Additional comments: Cold, moist skin. Results - Vital Signs Recent Vital Signs: Last Vital Signs Temp 98 F 02/09/18 23:24 Pulse 98 H 02/10/18 08:16 Resp 34 H 02/10/18 08:16 BP 96/64 L 02/10/18 09:42 Pulse Ox 77 L 02/10/18 08:16 - Labs Result Diagrams: 02/09/18 08:20 02/10/18 07:41 Labs: Laboratory Results - last 24 hr 02/07/18 02/09/18 02/09/18 10:35 11:01 16:33 Sodium Potassium Chloride Carbon Dioxide Anion Gap BUN Creatinine Est GFR ( Amer) Est GFR (Non-Af Amer) POC Glucose (mg/dL) 135 H 270 H Random Glucose Calcium Phosphorus Magnesium Total Bilirubin AST ALT Alkaline Phosphatase Total Protein Albumin Globulin Albumin/Globulin Ratio Peritoneal Tot Protein 3.9 02/09/18 02/10/18 02/10/18 21:17 06:44 06:47 Sodium Potassium Chloride Carbon Dioxide Anion Gap BUN Creatinine Est GFR ( Amer) Est GFR (Non-Af Amer) POC Glucose (mg/dL) 86 < 20 L* 245 H Random Glucose Calcium Phosphorus Magnesium Total Bilirubin AST ALT Alkaline Phosphatase Total Protein Albumin Globulin Albumin/Globulin Ratio Peritoneal Tot Protein 02/10/18 02/10/18 02/10/18 07:14 07:41 09:12 Sodium 142 Potassium 4.9 Chloride 107 Carbon Dioxide 20 L Anion Gap 20 BUN 52 H Creatinine 1.6 H Est GFR ( Amer) 54 Est GFR (Non-Af Amer) 45 POC Glucose (mg/dL) 145 H 91 Random Glucose 847 H* D Calcium 9.5 Phosphorus 5.1 H Magnesium 2.4 H Total Bilirubin 4.9 H AST 75 H D ALT 33 Alkaline Phosphatase 794 H D Total Protein 8.1 Albumin 4.2 Globulin 3.9 Albumin/Globulin Ratio 1.1 Peritoneal Tot Protein Assessment & Plan - Assessment and Plan (Free Text) Plan: 57 years deaf, mute old male with hx of HTN, CKD, DM II and BPH, admitted on 02/03/18 with abdominal distention and Urinary retention. Cystoscopy on 02/04/18 showed Enlarged Prostate with bladder tumor. bladder bx with fulguration was done. ( Papillary bladder tumor peer pathology) Rapid Response Team was activated this AM because the patient was unresponsive with SpO2 75% on Room air. Blood Glucose was <20gm/dl. 50gms of Dextrose given. The Patient was intubated by Anaesthesia and transferred to the ICU. #. Unresponsiveness secondary to Hypoglycemia - The patient received D50, 100mls IV on the Telemetry Unit. - Patient awoke in the ICU, Attempting to get out of bed - Continue with IV Fluid D5/NS - Follow Accucheck #. DM II uncontrolled - Hold tradjenta - Accucheck Q1hrs and report to Attending #. Hypoxic Respiratory failure. Improved on Mechanical ventilator. SpO2 100%, hemodynamically stable. normothermic - The patient is being Extubate now. - Placed on 2L nasal cannula and the SpO2 is 100% #. A Fib/Flutter - Not candidate for full anticoagulation because of fall risk #. Obstructive Uropathy with Enlarged Prostate and Bladder Tumor - Dr Brar on consult #.Systolic CHF with EF of 12%. AICD in place - Lasix - Spironolactone #. CKD - Dr Acosta on consult #. Ascites secondary to the CHF - Treat CHF - Paracentesis Benjamin Carrizales MD - Date & Time Date: 02/10/18 Time: 10:02
--- NOTE | 2018-02-10 10:29 | PCM.URO ---
Urology Progress Note - General General: No Complaints, Tolerating Diet - Subjective Abdominal Pain: Yes Nausea: No Voiding Well: No Hematuria: No Dsypnea: Yes Chest Pain: No Fever & Chills: No - Objective Lab Studies: Reviewed Lab Results Last 24 Hours: Laboratory Results - last 24 hr 02/07/18 02/09/18 02/09/18 10:35 11:01 16:33 Sodium Potassium Chloride Carbon Dioxide Anion Gap BUN Creatinine Est GFR ( Amer) Est GFR (Non-Af Amer) POC Glucose (mg/dL) 135 H 270 H Random Glucose Calcium Phosphorus Magnesium Total Bilirubin AST ALT Alkaline Phosphatase Total Protein Albumin Globulin Albumin/Globulin Ratio Peritoneal Tot Protein 3.9 02/09/18 02/10/18 02/10/18 21:17 06:44 06:47 Sodium Potassium Chloride Carbon Dioxide Anion Gap BUN Creatinine Est GFR ( Amer) Est GFR (Non-Af Amer) POC Glucose (mg/dL) 86 < 20 L* 245 H Random Glucose Calcium Phosphorus Magnesium Total Bilirubin AST ALT Alkaline Phosphatase Total Protein Albumin Globulin Albumin/Globulin Ratio Peritoneal Tot Protein 02/10/18 02/10/18 02/10/18 07:14 07:41 09:12 Sodium 142 Potassium 4.9 Chloride 107 Carbon Dioxide 20 L Anion Gap 20 BUN 52 H Creatinine 1.6 H Est GFR ( Amer) 54 Est GFR (Non-Af Amer) 45 POC Glucose (mg/dL) 145 H 91 Random Glucose 847 H* D Calcium 9.5 Phosphorus 5.1 H Magnesium 2.4 H Total Bilirubin 4.9 H AST 75 H D ALT 33 Alkaline Phosphatase 794 H D Total Protein 8.1 Albumin 4.2 Globulin 3.9 Albumin/Globulin Ratio 1.1 Peritoneal Tot Protein Intake & Output: Intake & Output 02/09/18 02/10/18 02/10/18 18:59 06:59 18:59 Output Total 600 550 Balance -600 -550 Output: Urine 600 550 Urethral (Perdomo) 600 550 Vital Signs: Vital Signs - 24 hr 02/09/18 02/09/18 02/09/18 10:47 10:48 15:00 Temperature 97.4 F L Pulse Rate 83 Respiratory 18 Rate Blood Pressure 107/74 107/74 94/66 L O2 Sat by Pulse 97 Oximetry 11/21/18 11/21/18 11/21/18 17:47 21:50 23:24 Temperature 98 F Pulse Rate 88 Respiratory 20 Rate Blood Pressure 99/69 L 104/77 91/68 L O2 Sat by Pulse 99 Oximetry 02/10/18 02/10/18 02/10/18 01:00 08:16 09:42 Temperature Pulse Rate 89 98 H Respiratory 34 H Rate Blood Pressure 108/60 96/64 L O2 Sat by Pulse 77 L Oximetry - Physical Exam Abdominal Exam: Soft, Non-Tender. absent: Non-Distended (distended protuberent) Back: No CVA Tenderness Genitalia: Without Inflammation Urinary Catheter Draining Well: Yes Urine Color: Clear, Yellow Extremities: Lower Extremity Edema: Bilateral - Male Phallus: Normal Scrotum: Edema - Plan Catheter Care: Yes Intake & Output: Yes Additional Information: IMP: Retention. BPH. Hx of elevated PSA. Bladder Ca. CHF. Rec/P: Perdomo cath in place. Rx for CHF. Further urologic care, if pt is cardiologically improved, to. follow, namely TUR-Bladder Tumor and TUR- prostate. Discussed w pt.'s family, resident and attending staff. YS - Date & Time of Note Date: 02/09/18 Time: 12:30
[2018-02-10] MEDS: cefTRIAXone IV 1 gm in Dextros 50 ML IVPB SCH (10:30)
--- NOTE | 2018-02-10 10:59 | RAD ---
Date of service: 02/10/2018 HISTORY: poor respirations COMPARISON: Comparison is made with 02/06/2018 FINDINGS: LUNGS: Mild pulmonary vascular congestion is noted. The ET tube is seen at appropriate position. PLEURA: No significant pleural effusion identified, no pneumothorax apparent. CARDIOVASCULAR: No aortic atherosclerotic calcification present. The cardiac silhouette is moderately enlarged no pulmonary vascular congestion. OSSEOUS STRUCTURES: No significant abnormalities. VISUALIZED UPPER ABDOMEN: Normal. OTHER FINDINGS: Left-sided pacemaker is seen in place. IMPRESSION: Mild pulmonary vascular congestion. Appropriate position of theET tube. The cardiac silhouette is enlarged.
[2018-02-10 11:19] LABS: BASO % 0.5 % (0.0-2.0); EOS % 0.4 % (0.0-4.0); HEMOGLOBIN 13.8 g/dL (12.0-18.0); LYMPH # 0.8 K/uL (1.0-4.3); LYMPH % 8.8 % (20.0-40.0); MEAN CELL VOLUME 91.2 fL (80.0-94.0); MEAN CORPUSCULAR HEMOGLOBIN 29.9 pg (27.0-31.0); MEAN CORPUSCULAR HGB CONC 32.8 g/dL (33.0-37.0); MEAN PLATELET VOLUME 8.3 fL (7.2-11.7); MONO # 0.6 K/uL (0.0-0.8); NEUT # 7.8 K/uL (1.8-7.0); NEUT % 84.3 % (50.0-75.0); NRBC % 0.1 % (0.0-2.0); PLATELET COUNT 198 K/uL (130-400); RBC 4.62 Mil/uL (4.40-5.90); RED CELL DISTRIBUTION WIDTH 21.2 % (11.5-14.5); WHITE BLOOD COUNT 9.2 K/uL (4.8-10.8)
--- NOTE | 2018-02-10 12:33 | CP.PCM.PN ---
Subjective - Date & Time of Evaluation Date of Evaluation: 02/10/18 Time of Evaluation: 12:06 - Subjective Subjective: Patient awake, alert. 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 Last Admin: 02/10/18 09:40 Dose: Not Given Dextrose (Glutose 15) 0 gm PO ONCE PRN; Protocol PRN Reason: Hypoglycemia Protocol Dextrose (Dextrose 50% Inj) 0 ml IV Q1H PRN; Protocol PRN Reason: Hypoglycemia Protocol Furosemide (Lasix) [address] [facility] Last Admin: 02/10/18 09:42 Dose: 40 mg Glucagon (Glucagen Diagnostic Kit) 0 mg IM STAT PRN; Protocol PRN Reason: Hypoglycemia Protocol Heparin Sodium (Porcine) (Heparin) 5,[address] [facility] Ceftriaxone Sodium (Rocephin Iv 1 Gm Duplex) 50 mls @ 50 mls/[address] [facility]; Protocol Dextrose (Dextrose 10% In Water) 1,000 mls @ 20 mls/hr IV .Q24H [facility] Last Admin: 02/10/18 09:45 Dose: 20 mls/hr Polyethylene Glycol (Miralax) [address] [facility] Last Admin: 02/10/18 09:42 Dose: 17 gm Sacubitril/Valsartan (Entresto 49 Mg-51 Mg) [address] [facility] Last Admin: 02/10/18 09:41 Dose: Not Given Simethicone (Mylicon Chew Tab) [address] [facility] Last Admin: 02/10/18 09:42 Dose: 80 mg Spironolactone (Aldactone) [address] [facility] Last Admin: 02/10/18 09:39 Dose: 50 mg Tamsulosin HCl (Flomax) 0.[address] [facility] Last Admin: 02/10/18 09:41 Dose: 0.4 mg - Labs Labs: 02/10/18 11:10 02/10/18 07:41 PT 16.8 SECONDS (9.7-12.2) H 02/09/18 08:20 INR 1.5 02/09/18 08:20 APTT 33 SECONDS (21-34) 02/09/18 08:20 Assessment and Plan - Assessment and Plan (Free Text) Assessment: AMS: likely 2nd hypoglycemia: resolved and extubated, contineu D5, measure BGm q1hrs x 24 hours -Chronic sytolic heart failure: Patient will benefit from continuuation ACEI + Av miguel cleo. continue as BP tolerated, as per cardiology -continue other home medications -continue dvt/pud ppx Patient sucessfully extubated and communicating well.
[2018-02-10 12:48] LABS: ANISOCYTOSIS MODERATE; LYMPHOCYTE 9 % (20-40); MONOCYTE 5 % (0-10); NEUTROPHIL 84 % (50-75); PLATELET ESTIMATE NORMAL (NORMAL); POLYCHROMIC SLIGHT; REACTIVE LYMPHOCYTES 2 % (0-0); TOTAL CELLS COUNTED 100
[2018-02-10 12:49] LABS: LARGE PLATELETS PRESENT; TOXIC GRANULATION PRESENT
--- NOTE | 2018-02-10 13:32 | RAD ---
Date of service: 02/10/2018 HISTORY: difficulty breathing COMPARISON: Comparison is made with previous same-day exam. FINDINGS: LUNGS: The patient status post extubation. Mild pulmonary vascular congestion is noted. PLEURA: There is right pleural effusion again suspected. CARDIOVASCULAR: No aortic atherosclerotic calcification present. The cardiac silhouette is enlarged. Left-sided pacemaker or AICD is seen in place. No pulmonary vascular congestion. OSSEOUS STRUCTURES: No significant abnormalities. VISUALIZED UPPER ABDOMEN: Normal. OTHER FINDINGS: None. IMPRESSION: Status post extubation. Mild pulmonary vascular congestion. Enlargement of the cardiac silhouette and right pleural effusion.
--- NOTE | 2018-02-10 18:57 | PN ---
DATE: 02/10/2018 SUBJECTIVE: Case was discussed earlier with Dr. Pereira. The patient was hypoglycemic and required ICU transfer. No reported ventricular arrhythmia. The patient is currently sleeping in ICU bed 9 and his son is at the bedside. According to the son, no reported shortness of breath or chest discomfort. PHYSICAL EXAMINATION: VITAL SIGNS: Blood pressure 105/70, heart rate 80, respirations 28, temperature 97.5. LUNGS: Clear. EXTREMITIES: No pedal edema. LABORATORY DATA: Today's hemoglobin and hematocrit 13.8 and 42.1, white count and platelet count are within normal limit. Today's SMA-7: Sodium 142, potassium 4.9, chloride 107, CO2 of 20, glucose 847, BUN 52, creatinine 1.6. Earlier this morning at 6:44, the blood sugar was less than 20 when the patient was hypoglycemic. The previous chest x-ray revealed cardiomegaly, minimal pulmonary congestion is noticed. ASSESSMENT: 1. Cardiomyopathy, status post implantable-cardioverter defibrillator placement. 2. Status post hypoglycemic episode. 3. Benign prostatic hypertrophy. 4. Papillary urothelial carcinoma of low grade. 5. Chronic insufficiency. 6. Hepatic cirrhosis. RECOMMENDATIONS: Continue Aldactone 50 mg daily which was started today, Coreg 25 mg twice a day is on hold. Continue Lasix 40 mg intravenously twice a day, Rocephin at 1 g intravenously daily, and Crestor mg two tablets p.o. twice a day. Case was discussed with the patient's son at the bedside who agreed for TCU transfer at [place]. Jass Carlton MD
[2018-02-11 06:32] LABS: BASO % 0.7 % (0.0-2.0); EOS # 0.1 K/uL (0.0-0.7); EOS % 2.2 % (0.0-4.0); HEMOGLOBIN 14.3 g/dL (12.0-18.0); LYMPH # 1.1 K/uL (1.0-4.3); LYMPH % 15.4 % (20.0-40.0); MEAN CORPUSCULAR HGB CONC 33.3 g/dL (33.0-37.0); MEAN PLATELET VOLUME 8.3 fL (7.2-11.7); MONO # 0.6 K/uL (0.0-0.8); MONO % 8.5 % (0.0-10.0); NEUT % 73.2 % (50.0-75.0); RBC 4.77 Mil/uL (4.40-5.90); RED CELL DISTRIBUTION WIDTH 21.3 % (11.5-14.5); WHITE BLOOD COUNT 6.9 K/uL (4.8-10.8)
[2018-02-11 06:52] LABS: ALB/GLOB RATIO 0.9 (1.0-2.1); ALT/SGPT 34 U/L (21-72); AST/SGOT 27 U/L (17-59); BLOOD UREA NITROGEN 52 mg/dL (9-20); CALCIUM 8.5 mg/dl (8.6-10.4); GFR NON-AFRICAN AMERICAN 57
--- NOTE | 2018-02-11 07:15 | CP.CCUPN ---
<Dilip Zamora - Last Filed: 02/11/18 14:03> CCU Subjective - Physician Review Subjective (Free Text): 02/11/18 10:58 PGY-1 Critical Care Progress Note for Dr. Lewis Patient seen and examined at bedside this AM. No acute overnight events reported. Patient clinically improved, awake and alert, in no acute distress. Medically stable for downgrade to medicine floors. Critical Care Time Spent (in minutes): 35 CCU Objective - Vital Signs / Intake & Output Vital Signs (Last 4 hours): Vital Signs Temp Pulse Resp BP Pulse Ox 02/11/18 06:00 97.4 F L 93 H 19 83/61 L 98 02/11/18 05:10 88 19 88/64 L 02/11/18 05:00 93 H 27 H 02/11/18 04:10 90 23 96/67 L 02/11/18 04:00 89 22 Intake and Output (Last 8hrs): Intake & Output 02/10/18 02/11/18 02/11/18 22:59 06:59 14:59 Intake Total 1030 200 Output Total 430 435 Balance 600 -235 Weight 172 lb Intake: Intake, IV Amount 20 0 Left Forearm 0 Right Forearm 20 0 Oral 1010 200 Output: Urine 430 435 Urethral (Mason) 430 435 Other: # Bowel Movements 1 - Physical Exam Head: Positive for: Atraumatic, Normocephalic Pupils: Positive for: PERRL Extroacular Muscles: Positive for: EOMI Respiratory/Chest: Positive for: Clear to Auscultation, Decreased Breath Sounds, Other (pacemaker (left side of chest) nontender, no signs of erythema). Negative for: Rales, Retracting, Rhonchi Cardiovascular: Positive for: Regular Rate and Rhythm, Normal S1, S2 Abdomen: Positive for: Distention, Normal Bowel Sounds. Negative for: Tenderness, Peritoneal Signs, Rebound, Guarding Upper Extremity: Positive for: Normal Inspection, NORMAL PULSES, Neurovascularly Intact, Capillary Refill < 2s. Negative for: Cyanosis, Edema Lower Extremity: Positive for: Edema, NORMAL PULSES, Neurovascularly Intact, Capillary Refill < 2 s. Negative for: Tenderness Neurological: Positive for: CN II-XII Intact Skin: Positive for: Warm, Dry, Normal Color Psychiatric: Positive for: Alert, Oriented x 3 - Medications Active Medications: Active Medications Generic Name Dose Route Start Last Admin Trade Name Freq PRN Reason Stop Dose Admin Bisacodyl 10 mg 02/09/18 14:42 02/10/18 10:00 Dulcolax DE 10 mg Q12 PRN Administration Constipation Carvedilol 25 mg 02/04/18 10:00 02/10/18 17:57 Coreg PO Not Given BID KEE Dextrose 0 gm 02/04/18 00:43 Glutose 15 PO ONCE PRN Hypoglycemia Protocol Protocol Dextrose 0 ml 02/10/18 09:15 Dextrose 50% Inj IV Q1H PRN Hypoglycemia Protocol Protocol Furosemide 40 mg 02/06/18 22:00 02/10/18 21:48 Lasix IVP 40 mg Q12 KEE Administration Glucagon 0 mg 02/04/18 00:43 Glucagen Diagnostic Kit IM STAT PRN Hypoglycemia Protocol Protocol Heparin Sodium (Porcine) 5,000 units 02/10/18 14:00 02/11/18 06:04 Heparin SC 5,000 units Q8 KEE Administration Ceftriaxone Sodium 50 mls @ 50 mls/30 min 02/10/18 10:00 02/10/18 10:30 Rocephin Iv 1 Gm Duplex IVPB 50 mls/30 min DAILY KEE Administration Protocol Dextrose 1,000 mls @ 20 mls/hr 02/10/18 10:00 02/10/18 09:45 Dextrose 10% In Water IV 20 mls/hr .Q24H KEE Administration Polyethylene Glycol 17 gm 02/04/18 23:15 02/10/18 09:42 Miralax PO 17 gm DAILY KEE Administration Sacubitril/Valsartan 2 tab 02/05/18 11:53 02/10/18 17:57 Entresto 49 Mg-51 Mg PO Not Given BID KEE Simethicone 80 mg 02/07/18 14:00 02/10/18 21:49 Mylicon Chew Tab PO 80 mg QID KEE Administration Spironolactone 50 mg 02/05/18 11:53 02/10/18 09:39 Aldactone PO 50 mg DAILY KEE Administration Tamsulosin HCl 0.4 mg 02/04/18 10:00 02/10/18 17:57 Flomax PO 0.4 mg BID KEE Administration - Patient Studies Lab Studies: Lab Studies 02/11/18 02/11/18 02/11/18 Range/Units 07:04 06:23 06:20 WBC 6.9 (4.8-10.8) K/uL RBC 4.77 (4.40-5.90) Mil/uL Hgb 14.3 (12.0-18.0) g/dL Hct 42.9 (35.0-51.0) % MCV 90.0 (80.0-94.0) fL MCH 30.0 (27.0-31.0) pg MCHC 33.3 (33.0-37.0) g/dL RDW 21.3 H (11.5-14.5) % Plt Count 215 (130-400) K/uL MPV 8.3 (7.2-11.7) fL Neut % (Auto) 73.2 (50.0-75.0) % Lymph % (Auto) 15.4 L (20.0-40.0) % [place] % (Auto) 8.5 (0.0-10.0) % Eos % (Auto) 2.2 (0.0-4.0) % Baso % (Auto) 0.7 (0.0-2.0) % Neut # (Auto) 5.0 (1.8-7.0) K/uL Lymph # (Auto) 1.1 (1.0-4.3) K/uL [place] # (Auto) 0.6 (0.0-0.8) K/uL Eos # (Auto) 0.1 (0.0-0.7) K/uL Baso # (Auto) 0.0 (0.0-0.2) K/uL Neutrophils % (Manual) (50-75) % Lymphocytes % (Manual) (20-40) % Reactive Lymphs % (0-0) % Monocytes % (Manual) (0-10) % Toxic Granulation Platelet Estimate (NORMAL) Large Platelets Polychromasia Anisocytosis (manual) Macrocytosis (manual) Sodium 137 (132-148) mmol/L Potassium 4.3 (3.6-5.2) mmol/L Chloride 100 (98-107) mmol/L Carbon Dioxide 25 (22-30) mmol/L Anion Gap 15 (10-20) BUN 52 H (9-20) mg/dL Creatinine 1.3 (0.8-1.5) mg/dL Est GFR ( Amer) > 60 Est GFR (Non-Af Amer) 57 POC Glucose (mg/dL) 141 H (65-110) mg/dL Random Glucose 138 H (75-110) mg/dL Calcium 8.5 L (8.6-10.4) mg/dl Phosphorus 3.1 (2.5-4.5) mg/dL Magnesium 2.1 (1.6-2.3) mg/dL Total Bilirubin 2.7 H (0.2-1.3) mg/dL AST 27 (17-59) U/L ALT 34 (21-72) U/L Alkaline Phosphatase 404 H D (38-126) U/L Total Protein 6.3 (6.3-8.3) g/dL Albumin 3.0 L D (3.5-5.0) g/dL Globulin 3.3 (2.2-3.9) gm/dL Albumin/Globulin Ratio 0.9 L (1.0-2.1) 02/11/18 02/11/18 02/11/18 Range/Units 05:53 05:04 04:07 WBC (4.8-10.8) K/uL RBC (4.40-5.90) Mil/uL Hgb (12.0-18.0) g/dL Hct (35.0-51.0) % MCV (80.0-94.0) fL MCH (27.0-31.0) pg MCHC (33.0-37.0) g/dL RDW (11.5-14.5) % Plt Count (130-400) K/uL MPV (7.2-11.7) fL Neut % (Auto) (50.0-75.0) % Lymph % (Auto) (20.0-40.0) % [place] % (Auto) (0.0-10.0) % Eos % (Auto) (0.0-4.0) % Baso % (Auto) (0.0-2.0) % Neut # (Auto) (1.8-7.0) K/uL Lymph # (Auto) (1.0-4.3) K/uL [place] # (Auto) (0.0-0.8) K/uL Eos # (Auto) (0.0-0.7) K/uL Baso # (Auto) (0.0-0.2) K/uL Neutrophils % (Manual) (50-75) % Lymphocytes % (Manual) (20-40) % Reactive Lymphs % (0-0) % Monocytes % (Manual) (0-10) % Toxic Granulation Platelet Estimate (NORMAL) Large Platelets Polychromasia Anisocytosis (manual) Macrocytosis (manual) Sodium (132-148) mmol/L Potassium (3.6-5.2) mmol/L Chloride (98-107) mmol/L Carbon Dioxide (22-30) mmol/L Anion Gap (10-20) BUN (9-20) mg/dL Creatinine (0.8-1.5) mg/dL Est GFR ( Amer) Est GFR (Non-Af Amer) POC Glucose (mg/dL) 125 H 156 H 176 H (65-110) mg/dL Random Glucose (75-110) mg/dL Calcium (8.6-10.4) mg/dl Phosphorus (2.5-4.5) mg/dL Magnesium (1.6-2.3) mg/dL Total Bilirubin (0.2-1.3) mg/dL AST (17-59) U/L ALT (21-72) U/L Alkaline Phosphatase (38-126) U/L Total Protein (6.3-8.3) g/dL Albumin (3.5-5.0) g/dL Globulin (2.2-3.9) gm/dL Albumin/Globulin Ratio (1.0-2.1) 02/11/18 02/11/18 02/11/18 Range/Units 04:05 03:22 02:01 WBC (4.8-10.8) K/uL RBC (4.40-5.90) Mil/uL Hgb (12.0-18.0) g/dL Hct (35.0-51.0) % MCV (80.0-94.0) fL MCH (27.0-31.0) pg MCHC (33.0-37.0) g/dL RDW (11.5-14.5) % Plt Count (130-400) K/uL MPV (7.2-11.7) fL Neut % (Auto) (50.0-75.0) % Lymph % (Auto) (20.0-40.0) % [place] % (Auto) (0.0-10.0) % Eos % (Auto) (0.0-4.0) % Baso % (Auto) (0.0-2.0) % Neut # (Auto) (1.8-7.0) K/uL Lymph # (Auto) (1.0-4.3) K/uL [place] # (Auto) (0.0-0.8) K/uL Eos # (Auto) (0.0-0.7) K/uL Baso # (Auto) (0.0-0.2) K/uL Neutrophils % (Manual) (50-75) % Lymphocytes % (Manual) (20-40) % Reactive Lymphs % (0-0) % Monocytes % (Manual) (0-10) % Toxic Granulation Platelet Estimate (NORMAL) Large Platelets Polychromasia Anisocytosis (manual) Macrocytosis (manual) Sodium (132-148) mmol/L Potassium (3.6-5.2) mmol/L Chloride (98-107) mmol/L Carbon Dioxide (22-30) mmol/L Anion Gap (10-20) BUN (9-20) mg/dL Creatinine (0.8-1.5) mg/dL Est GFR ( Amer) Est GFR (Non-Af Amer) POC Glucose (mg/dL) > 500 H* 267 H 141 H (65-110) mg/dL Random Glucose (75-110) mg/dL Calcium (8.6-10.4) mg/dl Phosphorus (2.5-4.5) mg/dL Magnesium (1.6-2.3) mg/dL Total Bilirubin (0.2-1.3) mg/dL AST (17-59) U/L ALT (21-72) U/L Alkaline Phosphatase (38-126) U/L Total Protein (6.3-8.3) g/dL Albumin (3.5-5.0) g/dL Globulin (2.2-3.9) gm/dL Albumin/Globulin Ratio (1.0-2.1) 02/11/18 02/10/18 02/10/18 Range/Units 01:02 23:48 22:52 WBC (4.8-10.8) K/uL RBC (4.40-5.90) Mil/uL Hgb (12.0-18.0) g/dL Hct (35.0-51.0) % MCV (80.0-94.0) fL MCH (27.0-31.0) pg MCHC (33.0-37.0) g/dL RDW (11.5-14.5) % Plt Count (130-400) K/uL MPV (7.2-11.7) fL Neut % (Auto) (50.0-75.0) % Lymph % (Auto) (20.0-40.0) % [place] % (Auto) (0.0-10.0) % Eos % (Auto) (0.0-4.0) % Baso % (Auto) (0.0-2.0) % Neut # (Auto) (1.8-7.0) K/uL Lymph # (Auto) (1.0-4.3) K/uL [place] # (Auto) (0.0-0.8) K/uL Eos # (Auto) (0.0-0.7) K/uL Baso # (Auto) (0.0-0.2) K/uL Neutrophils % (Manual) (50-75) % Lymphocytes % (Manual) (20-40) % Reactive Lymphs % (0-0) % Monocytes % (Manual) (0-10) % Toxic Granulation Platelet Estimate (NORMAL) Large Platelets Polychromasia Anisocytosis (manual) Macrocytosis (manual) Sodium (132-148) mmol/L Potassium (3.6-5.2) mmol/L Chloride (98-107) mmol/L Carbon Dioxide (22-30) mmol/L Anion Gap (10-20) BUN (9-20) mg/dL Creatinine (0.8-1.5) mg/dL Est GFR ( Amer) Est GFR (Non-Af Amer) POC Glucose (mg/dL) 150 H 176 H 151 H (65-110) mg/dL Random Glucose (75-110) mg/dL Calcium (8.6-10.4) mg/dl Phosphorus (2.5-4.5) mg/dL Magnesium (1.6-2.3) mg/dL Total Bilirubin (0.2-1.3) mg/dL AST (17-59) U/L ALT (21-72) U/L Alkaline Phosphatase (38-126) U/L Total Protein (6.3-8.3) g/dL Albumin (3.5-5.0) g/dL Globulin (2.2-3.9) gm/dL Albumin/Globulin Ratio (1.0-2.1) 02/10/18 02/10/18 02/10/18 Range/Units 22:06 21:57 21:07 WBC (4.8-10.8) K/uL RBC (4.40-5.90) Mil/uL Hgb (12.0-18.0) g/dL Hct (35.0-51.0) % MCV (80.0-94.0) fL MCH (27.0-31.0) pg MCHC (33.0-37.0) g/dL RDW (11.5-14.5) % Plt Count (130-400) K/uL MPV (7.2-11.7) fL Neut % (Auto) (50.0-75.0) % Lymph % (Auto) (20.0-40.0) % [place] % (Auto) (0.0-10.0) % Eos % (Auto) (0.0-4.0) % Baso % (Auto) (0.0-2.0) % Neut # (Auto) (1.8-7.0) K/uL Lymph # (Auto) (1.0-4.3) K/uL [place] # (Auto) (0.0-0.8) K/uL Eos # (Auto) (0.0-0.7) K/uL Baso # (Auto) (0.0-0.2) K/uL Neutrophils % (Manual) (50-75) % Lymphocytes % (Manual) (20-40) % Reactive Lymphs % (0-0) % Monocytes % (Manual) (0-10) % Toxic Granulation Platelet Estimate (NORMAL) Large Platelets Polychromasia Anisocytosis (manual) Macrocytosis (manual) Sodium (132-148) mmol/L Potassium (3.6-5.2) mmol/L Chloride (98-107) mmol/L Carbon Dioxide (22-30) mmol/L Anion Gap (10-20) BUN (9-20) mg/dL Creatinine (0.8-1.5) mg/dL Est GFR ( Amer) Est GFR (Non-Af Amer) POC Glucose (mg/dL) 159 H 186 H 192 H (65-110) mg/dL Random Glucose (75-110) mg/dL Calcium (8.6-10.4) mg/dl Phosphorus (2.5-4.5) mg/dL Magnesium (1.6-2.3) mg/dL Total Bilirubin (0.2-1.3) mg/dL AST (17-59) U/L ALT (21-72) U/L Alkaline Phosphatase (38-126) U/L Total Protein (6.3-8.3) g/dL Albumin (3.5-5.0) g/dL Globulin (2.2-3.9) gm/dL Albumin/Globulin Ratio (1.0-2.1) 02/10/18 02/10/18 02/10/18 Range/Units 20:04 19:21 18:04 WBC (4.8-10.8) K/uL RBC (4.40-5.90) Mil/uL Hgb (12.0-18.0) g/dL Hct (35.0-51.0) % MCV (80.0-94.0) fL MCH (27.0-31.0) pg MCHC (33.0-37.0) g/dL RDW (11.5-14.5) % Plt Count (130-400) K/uL MPV (7.2-11.7) fL Neut % (Auto) (50.0-75.0) % Lymph % (Auto) (20.0-40.0) % [place] % (Auto) (0.0-10.0) % Eos % (Auto) (0.0-4.0) % Baso % (Auto) (0.0-2.0) % Neut # (Auto) (1.8-7.0) K/uL Lymph # (Auto) (1.0-4.3) K/uL [place] # (Auto) (0.0-0.8) K/uL Eos # (Auto) (0.0-0.7) K/uL Baso # (Auto) (0.0-0.2) K/uL Neutrophils % (Manual) (50-75) % Lymphocytes % (Manual) (20-40) % Reactive Lymphs % (0-0) % Monocytes % (Manual) (0-10) % Toxic Granulation Platelet Estimate (NORMAL) Large Platelets Polychromasia Anisocytosis (manual) Macrocytosis (manual) Sodium (132-148) mmol/L Potassium (3.6-5.2) mmol/L Chloride (98-107) mmol/L Carbon Dioxide (22-30) mmol/L Anion Gap (10-20) BUN (9-20) mg/dL Creatinine (0.8-1.5) mg/dL Est GFR ( Amer) Est GFR (Non-Af Amer) POC Glucose (mg/dL) 200 H 201 H 167 H (65-110) mg/dL Random Glucose (75-110) mg/dL Calcium (8.6-10.4) mg/dl Phosphorus (2.5-4.5) mg/dL Magnesium (1.6-2.3) mg/dL Total Bilirubin (0.2-1.3) mg/dL AST (17-59) U/L ALT (21-72) U/L Alkaline Phosphatase (38-126) U/L Total Protein (6.3-8.3) g/dL Albumin (3.5-5.0) g/dL Globulin (2.2-3.9) gm/dL Albumin/Globulin Ratio (1.0-2.1) 02/10/18 02/10/18 02/10/18 Range/Units 17:03 16:12 15:04 WBC (4.8-10.8) K/uL RBC (4.40-5.90) Mil/uL Hgb (12.0-18.0) g/dL Hct (35.0-51.0) % MCV (80.0-94.0) fL MCH (27.0-31.0) pg MCHC (33.0-37.0) g/dL RDW (11.5-14.5) % Plt Count (130-400) K/uL MPV (7.2-11.7) fL Neut % (Auto) (50.0-75.0) % Lymph % (Auto) (20.0-40.0) % [place] % (Auto) (0.0-10.0) % Eos % (Auto) (0.0-4.0) % Baso % (Auto) (0.0-2.0) % Neut # (Auto) (1.8-7.0) K/uL Lymph # (Auto) (1.0-4.3) K/uL [place] # (Auto) (0.0-0.8) K/uL Eos # (Auto) (0.0-0.7) K/uL Baso # (Auto) (0.0-0.2) K/uL Neutrophils % (Manual) (50-75) % Lymphocytes % (Manual) (20-40) % Reactive Lymphs % (0-0) % Monocytes % (Manual) (0-10) % Toxic Granulation Platelet Estimate (NORMAL) Large Platelets Polychromasia Anisocytosis (manual) Macrocytosis (manual) Sodium (132-148) mmol/L Potassium (3.6-5.2) mmol/L Chloride (98-107) mmol/L Carbon Dioxide (22-30) mmol/L Anion Gap (10-20) BUN (9-20) mg/dL Creatinine (0.8-1.5) mg/dL Est GFR ( Amer) Est GFR (Non-Af Amer) POC Glucose (mg/dL) 221 H 227 H 159 H (65-110) mg/dL Random Glucose (75-110) mg/dL Calcium (8.6-10.4) mg/dl Phosphorus (2.5-4.5) mg/dL Magnesium (1.6-2.3) mg/dL Total Bilirubin (0.2-1.3) mg/dL AST (17-59) U/L ALT (21-72) U/L Alkaline Phosphatase (38-126) U/L Total Protein (6.3-8.3) g/dL Albumin (3.5-5.0) g/dL Globulin (2.2-3.9) gm/dL Albumin/Globulin Ratio (1.0-2.1) 02/10/18 02/10/18 02/10/18 Range/Units 13:17 12:03 11:13 WBC (4.8-10.8) K/uL RBC (4.40-5.90) Mil/uL Hgb (12.0-18.0) g/dL Hct (35.0-51.0) % MCV (80.0-94.0) fL MCH (27.0-31.0) pg MCHC (33.0-37.0) g/dL RDW (11.5-14.5) % Plt Count (130-400) K/uL MPV (7.2-11.7) fL Neut % (Auto) (50.0-75.0) % Lymph % (Auto) (20.0-40.0) % [place] % (Auto) (0.0-10.0) % Eos % (Auto) (0.0-4.0) % Baso % (Auto) (0.0-2.0) % Neut # (Auto) (1.8-7.0) K/uL Lymph # (Auto) (1.0-4.3) K/uL [place] # (Auto) (0.0-0.8) K/uL Eos # (Auto) (0.0-0.7) K/uL Baso # (Auto) (0.0-0.2) K/uL Neutrophils % (Manual) (50-75) % Lymphocytes % (Manual) (20-40) % Reactive Lymphs % (0-0) % Monocytes % (Manual) (0-10) % Toxic Granulation Platelet Estimate (NORMAL) Large Platelets Polychromasia Anisocytosis (manual) Macrocytosis (manual) Sodium (132-148) mmol/L Potassium (3.6-5.2) mmol/L Chloride (98-107) mmol/L Carbon Dioxide (22-30) mmol/L Anion Gap (10-20) BUN (9-20) mg/dL Creatinine (0.8-1.5) mg/dL Est GFR ( Amer) Est GFR (Non-Af Amer) POC Glucose (mg/dL) 124 H 127 H 143 H (65-110) mg/dL Random Glucose (75-110) mg/dL Calcium (8.6-10.4) mg/dl Phosphorus (2.5-4.5) mg/dL Magnesium (1.6-2.3) mg/dL Total Bilirubin (0.2-1.3) mg/dL AST (17-59) U/L ALT (21-72) U/L Alkaline Phosphatase (38-126) U/L Total Protein (6.3-8.3) g/dL Albumin (3.5-5.0) g/dL Globulin (2.2-3.9) gm/dL Albumin/Globulin Ratio (1.0-2.1) 02/10/18 02/10/18 02/10/18 Range/Units 11:10 10:20 09:12 WBC 9.2 D (4.8-10.8) K/uL RBC 4.62 (4.40-5.90) Mil/uL Hgb 13.8 (12.0-18.0) g/dL Hct 42.1 (35.0-51.0) % MCV 91.2 (80.0-94.0) fL MCH 29.9 (27.0-31.0) pg MCHC 32.8 L (33.0-37.0) g/dL RDW 21.2 H (11.5-14.5) % Plt Count 198 (130-400) K/uL MPV 8.3 (7.2-11.7) fL Neut % (Auto) 84.3 H (50.0-75.0) % Lymph % (Auto) 8.8 L (20.0-40.0) % [place] % (Auto) 6.0 (0.0-10.0) % Eos % (Auto) 0.4 (0.0-4.0) % Baso % (Auto) 0.5 (0.0-2.0) % Neut # (Auto) 7.8 H (1.8-7.0) K/uL Lymph # (Auto) 0.8 L (1.0-4.3) K/uL [place] # (Auto) 0.6 (0.0-0.8) K/uL Eos # (Auto) 0.0 (0.0-0.7) K/uL Baso # (Auto) 0.0 (0.0-0.2) K/uL Neutrophils % (Manual) 84 H (50-75) % Lymphocytes % (Manual) 9 L (20-40) % Reactive Lymphs % 2 H (0-0) % Monocytes % (Manual) 5 (0-10) % Toxic Granulation Present Platelet Estimate Normal (NORMAL) Large Platelets Present Polychromasia Slight Anisocytosis (manual) Moderate Macrocytosis (manual) Slight Sodium (132-148) mmol/L Potassium (3.6-5.2) mmol/L Chloride (98-107) mmol/L Carbon Dioxide (22-30) mmol/L Anion Gap (10-20) BUN (9-20) mg/dL Creatinine (0.8-1.5) mg/dL Est GFR ( Amer) Est GFR (Non-Af Amer) POC Glucose (mg/dL) 136 H 91 (65-110) mg/dL Random Glucose (75-110) mg/dL Calcium (8.6-10.4) mg/dl Phosphorus (2.5-4.5) mg/dL Magnesium (1.6-2.3) mg/dL Total Bilirubin (0.2-1.3) mg/dL AST (17-59) U/L ALT (21-72) U/L Alkaline Phosphatase (38-126) U/L Total Protein (6.3-8.3) g/dL Albumin (3.5-5.0) g/dL Globulin (2.2-3.9) gm/dL Albumin/Globulin Ratio (1.0-2.1) 02/10/18 02/10/18 Range/Units 07:41 07:14 WBC (4.8-10.8) K/uL RBC (4.40-5.90) Mil/uL Hgb (12.0-18.0) g/dL Hct (35.0-51.0) % MCV (80.0-94.0) fL MCH (27.0-31.0) pg MCHC (33.0-37.0) g/dL RDW (11.5-14.5) % Plt Count (130-400) K/uL MPV (7.2-11.7) fL Neut % (Auto) (50.0-75.0) % Lymph % (Auto) (20.0-40.0) % [place] % (Auto) (0.0-10.0) % Eos % (Auto) (0.0-4.0) % Baso % (Auto) (0.0-2.0) % Neut # (Auto) (1.8-7.0) K/uL Lymph # (Auto) (1.0-4.3) K/uL [place] # (Auto) (0.0-0.8) K/uL Eos # (Auto) (0.0-0.7) K/uL Baso # (Auto) (0.0-0.2) K/uL Neutrophils % (Manual) (50-75) % Lymphocytes % (Manual) (20-40) % Reactive Lymphs % (0-0) % Monocytes % (Manual) (0-10) % Toxic Granulation Platelet Estimate (NORMAL) Large Platelets Polychromasia Anisocytosis (manual) Macrocytosis (manual) Sodium 142 (132-148) mmol/L Potassium 4.9 (3.6-5.2) mmol/L Chloride 107 (98-107) mmol/L Carbon Dioxide 20 L (22-30) mmol/L Anion Gap 20 (10-20) BUN 52 H (9-20) mg/dL Creatinine 1.6 H (0.8-1.5) mg/dL Est GFR ( Amer) 54 Est GFR (Non-Af Amer) 45 POC Glucose (mg/dL) 145 H (65-110) mg/dL Random Glucose 847 H* D (75-110) mg/dL Calcium 9.5 (8.6-10.4) mg/dl Phosphorus 5.1 H (2.5-4.5) mg/dL Magnesium 2.4 H (1.6-2.3) mg/dL Total Bilirubin 4.9 H (0.2-1.3) mg/dL AST 75 H D (17-59) U/L ALT 33 (21-72) U/L Alkaline Phosphatase 794 H D (38-126) U/L Total Protein 8.1 (6.3-8.3) g/dL Albumin 4.2 (3.5-5.0) g/dL Globulin 3.9 (2.2-3.9) gm/dL Albumin/Globulin Ratio 1.1 (1.0-2.1) Laboratory Results - last 24 hr 02/10/18 02/10/18 02/10/18 07:14 07:41 09:12 WBC RBC Hgb Hct MCV MCH MCHC RDW Plt Count MPV Neut % (Auto) Lymph % (Auto) [place] % (Auto) Eos % (Auto) Baso % (Auto) Neut # (Auto) Lymph # (Auto) [place] # (Auto) Eos # (Auto) Baso # (Auto) Neutrophils % (Manual) Lymphocytes % (Manual) Reactive Lymphs % Monocytes % (Manual) Toxic Granulation Platelet Estimate Large Platelets Polychromasia Anisocytosis (manual) Macrocytosis (manual) Sodium 142 Potassium 4.9 Chloride 107 Carbon Dioxide 20 L Anion Gap 20 BUN 52 H Creatinine 1.6 H Est GFR ( Amer) 54 Est GFR (Non-Af Amer) 45 POC Glucose (mg/dL) 145 H 91 Random Glucose 847 H* D Calcium 9.5 Phosphorus 5.1 H Magnesium 2.4 H Total Bilirubin 4.9 H AST 75 H D ALT 33 Alkaline Phosphatase 794 H D Total Protein 8.1 Albumin 4.2 Globulin 3.9 Albumin/Globulin Ratio 1.1 02/10/18 02/10/18 02/10/18 10:20 11:10 11:13 WBC 9.2 D RBC 4.62 Hgb 13.8 Hct 42.1 MCV 91.2 MCH 29.9 MCHC 32.8 L RDW 21.2 H Plt Count 198 MPV 8.3 Neut % (Auto) 84.3 H Lymph % (Auto) 8.8 L [place] % (Auto) 6.0 Eos % (Auto) 0.4 Baso % (Auto) 0.5 Neut # (Auto) 7.8 H Lymph # (Auto) 0.8 L [place] # (Auto) 0.6 Eos # (Auto) 0.0 Baso # (Auto) 0.0 Neutrophils % (Manual) 84 H Lymphocytes % (Manual) 9 L Reactive Lymphs % 2 H Monocytes % (Manual) 5 Toxic Granulation Present Platelet Estimate Normal Large Platelets Present Polychromasia Slight Anisocytosis (manual) Moderate Macrocytosis (manual) Slight Sodium Potassium Chloride Carbon Dioxide Anion Gap BUN Creatinine Est GFR ( Amer) Est GFR (Non-Af Amer) POC Glucose (mg/dL) 136 H 143 H Random Glucose Calcium Phosphorus Magnesium Total Bilirubin AST ALT Alkaline Phosphatase Total Protein Albumin Globulin Albumin/Globulin Ratio 02/10/18 02/10/18 02/10/18 12:03 13:17 15:04 WBC RBC Hgb Hct MCV MCH MCHC RDW Plt Count MPV Neut % (Auto) Lymph % (Auto) [place] % (Auto) Eos % (Auto) Baso % (Auto) Neut # (Auto) Lymph # (Auto) [place] # (Auto) Eos # (Auto) Baso # (Auto) Neutrophils % (Manual) Lymphocytes % (Manual) Reactive Lymphs % Monocytes % (Manual) Toxic Granulation Platelet Estimate Large Platelets Polychromasia Anisocytosis (manual) Macrocytosis (manual) Sodium Potassium Chloride Carbon Dioxide Anion Gap BUN Creatinine Est GFR ( Amer) Est GFR (Non-Af Amer) POC Glucose (mg/dL) 127 H 124 H 159 H Random Glucose Calcium Phosphorus Magnesium Total Bilirubin AST ALT Alkaline Phosphatase Total Protein Albumin Globulin Albumin/Globulin Ratio 02/10/18 02/10/18 02/10/18 16:12 17:03 18:04 WBC RBC Hgb Hct MCV MCH MCHC RDW Plt Count MPV Neut % (Auto) Lymph % (Auto) [place] % (Auto) Eos % (Auto) Baso % (Auto) Neut # (Auto) Lymph # (Auto) [place] # (Auto) Eos # (Auto) Baso # (Auto) Neutrophils % (Manual) Lymphocytes % (Manual) Reactive Lymphs % Monocytes % (Manual) Toxic Granulation Platelet Estimate Large Platelets Polychromasia Anisocytosis (manual) Macrocytosis (manual) Sodium Potassium Chloride Carbon Dioxide Anion Gap BUN Creatinine Est GFR ( Amer) Est GFR (Non-Af Amer) POC Glucose (mg/dL) 227 H 221 H 167 H Random Glucose Calcium Phosphorus Magnesium Total Bilirubin AST ALT Alkaline Phosphatase Total Protein Albumin Globulin Albumin/Globulin Ratio 02/10/18 02/10/18 02/10/18 19:21 20:04 21:07 WBC RBC Hgb Hct MCV MCH MCHC RDW Plt Count MPV Neut % (Auto) Lymph % (Auto) [place] % (Auto) Eos % (Auto) Baso % (Auto) Neut # (Auto) Lymph # (Auto) [place] # (Auto) Eos # (Auto) Baso # (Auto) Neutrophils % (Manual) Lymphocytes % (Manual) Reactive Lymphs % Monocytes % (Manual) Toxic Granulation Platelet Estimate Large Platelets Polychromasia Anisocytosis (manual) Macrocytosis (manual) Sodium Potassium Chloride Carbon Dioxide Anion Gap BUN Creatinine Est GFR ( Amer) Est GFR (Non-Af Amer) POC Glucose (mg/dL) 201 H 200 H 192 H Random Glucose Calcium Phosphorus Magnesium Total Bilirubin AST ALT Alkaline Phosphatase Total Protein Albumin Globulin Albumin/Globulin Ratio 02/10/18 02/10/18 02/10/18 21:57 22:06 22:52 WBC RBC Hgb Hct MCV MCH MCHC RDW Plt Count MPV Neut % (Auto) Lymph % (Auto) [place] % (Auto) Eos % (Auto) Baso % (Auto) Neut # (Auto) Lymph # (Auto) [place] # (Auto) Eos # (Auto) Baso # (Auto) Neutrophils % (Manual) Lymphocytes % (Manual) Reactive Lymphs % Monocytes % (Manual) Toxic Granulation Platelet Estimate Large Platelets Polychromasia Anisocytosis (manual) Macrocytosis (manual) Sodium Potassium Chloride Carbon Dioxide Anion Gap BUN Creatinine Est GFR ( Amer) Est GFR (Non-Af Amer) POC Glucose (mg/dL) 186 H 159 H 151 H Random Glucose Calcium Phosphorus Magnesium Total Bilirubin AST ALT Alkaline Phosphatase Total Protein Albumin Globulin Albumin/Globulin Ratio 02/10/18 02/11/18 02/11/18 23:48 01:02 02:01 WBC RBC Hgb Hct MCV MCH MCHC RDW Plt Count MPV Neut % (Auto) Lymph % (Auto) [place] % (Auto) Eos % (Auto) Baso % (Auto) Neut # (Auto) Lymph # (Auto) [place] # (Auto) Eos # (Auto) Baso # (Auto) Neutrophils % (Manual) Lymphocytes % (Manual) Reactive Lymphs % Monocytes % (Manual) Toxic Granulation Platelet Estimate Large Platelets Polychromasia Anisocytosis (manual) Macrocytosis (manual) Sodium Potassium Chloride Carbon Dioxide Anion Gap BUN Creatinine Est GFR ( Amer) Est GFR (Non-Af Amer) POC Glucose (mg/dL) 176 H 150 H 141 H Random Glucose Calcium Phosphorus Magnesium Total Bilirubin AST ALT Alkaline Phosphatase Total Protein Albumin Globulin Albumin/Globulin Ratio 02/11/18 02/11/18 02/11/18 03:22 04:05 04:07 WBC RBC Hgb Hct MCV MCH MCHC RDW Plt Count MPV Neut % (Auto) Lymph % (Auto) [place] % (Auto) Eos % (Auto) Baso % (Auto) Neut # (Auto) Lymph # (Auto) [place] # (Auto) Eos # (Auto) Baso # (Auto) Neutrophils % (Manual) Lymphocytes % (Manual) Reactive Lymphs % Monocytes % (Manual) Toxic Granulation Platelet Estimate Large Platelets Polychromasia Anisocytosis (manual) Macrocytosis (manual) Sodium Potassium Chloride Carbon Dioxide Anion Gap BUN Creatinine Est GFR ( Amer) Est GFR (Non-Af Amer) POC Glucose (mg/dL) 267 H > 500 H* 176 H Random Glucose Calcium Phosphorus Magnesium Total Bilirubin AST ALT Alkaline Phosphatase Total Protein Albumin Globulin Albumin/Globulin Ratio 02/11/18 02/11/18 02/11/18 05:04 05:53 06:20 WBC RBC Hgb Hct MCV MCH MCHC RDW Plt Count MPV Neut % (Auto) Lymph % (Auto) [place] % (Auto) Eos % (Auto) Baso % (Auto) Neut # (Auto) Lymph # (Auto) [place] # (Auto) Eos # (Auto) Baso # (Auto) Neutrophils % (Manual) Lymphocytes % (Manual) Reactive Lymphs % Monocytes % (Manual) Toxic Granulation Platelet Estimate Large Platelets Polychromasia Anisocytosis (manual) Macrocytosis (manual) Sodium 137 Potassium 4.3 Chloride 100 Carbon Dioxide 25 Anion Gap 15 BUN 52 H Creatinine 1.3 Est GFR ( Amer) > 60 Est GFR (Non-Af Amer) 57 POC Glucose (mg/dL) 156 H 125 H Random Glucose 138 H Calcium 8.5 L Phosphorus 3.1 Magnesium 2.1 Total Bilirubin 2.7 H AST 27 ALT 34 Alkaline Phosphatase 404 H D Total Protein 6.3 Albumin 3.0 L D Globulin 3.3 Albumin/Globulin Ratio 0.9 L 02/11/18 02/11/18 06:23 07:04 WBC 6.9 RBC 4.77 Hgb 14.3 Hct 42.9 MCV 90.0 MCH 30.0 MCHC 33.3 RDW 21.3 H Plt Count 215 MPV 8.3 Neut % (Auto) 73.2 Lymph % (Auto) 15.4 L [place] % (Auto) 8.5 Eos % (Auto) 2.2 Baso % (Auto) 0.7 Neut # (Auto) 5.0 Lymph # (Auto) 1.1 [place] # (Auto) 0.6 Eos # (Auto) 0.1 Baso # (Auto) 0.0 Neutrophils % (Manual) Lymphocytes % (Manual) Reactive Lymphs % Monocytes % (Manual) Toxic Granulation Platelet Estimate Large Platelets Polychromasia Anisocytosis (manual) Macrocytosis (manual) Sodium Potassium Chloride Carbon Dioxide Anion Gap BUN Creatinine Est GFR ( Amer) Est GFR (Non-Af Amer) POC Glucose (mg/dL) 141 H Random Glucose Calcium Phosphorus Magnesium Total Bilirubin AST ALT Alkaline Phosphatase Total Protein Albumin Globulin Albumin/Globulin Ratio Fingerstick Blood Sugar Results: 125 Review of Systems - Review of Systems All systems: reviewed and no additional remarkable complaints except Review of Systems: as per HPI Critical Care Progress Note - Nutrition Nutrition: Nutrition Category Date Time Status Consistent Carbohydrate [DIET] Diets 02/04/18 Dinner Active Assessment/Plan - Assessment and Plan (Free Text) Assessment: Neuro: -AMS 2/2 hypoglycemia, resolved and extubated -BG 87 Pulm: -stable CV: -Systolic Heart Failure with pacemaker placement -Cardiology (Dr. Carlton) on board -EP Material Flow Engineer (Dr. Brunner) on board -Echo (10/2017): LVEF 12.8% Severe LV hypokinesis, mild LVH, dilated LA, RA and RV, mild MR, severe TR, Mild pulmonary hypertension. -Patient sees Dr. Pang regularly -high risk cardiac; will not be cleared for urologic procedure for the bladder tumor -recommends f/u in 1 week -Daily weights, I&O's, head of bead 45 degrees -Fluid restriction to 1 L daily -Monitor patient on telemetry -Entresto 2 tab PO BID -Spironolactone 50mg daily -Carvedilol 25mg BID -Lasix 40mg BID -off ASA Heme: -hemodynamically stable Renal: -urinary retention s/p mason placement, mason care with betadine 3x/day -Urology (Dr. Brar) on board -UA positive, UCx: citrobacter, repeat urine cx: no growth -completed 5 day course of rocephin (02/10) -s/p cystoscopy POD 7: pt aware he has a bladder tumor, but very high risk because of his heart -flomax 0.4 BID Endo: -DM Type II -ISS, accuchecks GI: -Hepatitis panel 10/2017 negative -Tbili is at baseline at 4.5 -ALP 464 -pt noted to have ascites 2/2 CHF in prior hospitalization. Required IR to drain 2.1 L fluid. -Seen by GI, Dr. Zavala during 10/2017 admission and was asked to follow up, however patient did not do so. PPx, Diet, Disposition -DVT ppx: heparin 5000 q8 -Venous dopplers: negative b/l -Code status: Full code Case discussed with Dr. Joshua Zamora DO, PGY-1 <Stephania Lewis M - Last Filed: 02/11/18 14:51> CCU Objective - Vital Signs / Intake & Output Vital Signs (Last 4 hours): Vital Signs Temp Pulse Resp BP Pulse Ox 02/11/18 14:00 102 H 28 H 02/11/18 13:00 102 H 14 100 02/11/18 12:26 100 H 22 97/65 L 94 L 02/11/18 12:10 90 29 H 90/70 L 02/11/18 12:00 97.5 F L 97 H 28 H 02/11/18 11:10 81 21 84/45 L 02/11/18 11:00 95 H 29 H Intake and Output (Last 8hrs): Intake & Output 02/10/18 02/11/18 02/11/18 22:59 06:59 14:59 Intake Total 1030 200 Output Total 430 435 Balance 600 -235 Weight 172 lb Intake: Intake, IV Amount 20 0 Left Forearm 0 Right Forearm 20 0 Oral 1010 200 Output: Urine 430 435 Urethral (Mason) 430 435 Other: # Bowel Movements 1 - Medications Active Medications: Active Medications Generic Name Dose Route Start Last Admin Trade Name Freq PRN Reason Stop Dose Admin Bisacodyl 10 mg 02/09/18 14:42 02/10/18 10:00 Dulcolax DE 10 mg Q12 PRN Administration Constipation Carvedilol 25 mg 02/04/18 10:00 02/10/18 17:57 Coreg PO Not Given BID KEE Dextrose 0 gm 02/04/18 00:43 Glutose 15 PO ONCE PRN Hypoglycemia Protocol Protocol Dextrose 0 ml 02/10/18 09:15 Dextrose 50% Inj IV Q1H PRN Hypoglycemia Protocol Protocol Furosemide 40 mg 02/06/18 22:00 02/11/18 09:21 Lasix IVP 40 mg Q12 KEE Administration Glucagon 0 mg 02/04/18 00:43 Glucagen Diagnostic Kit IM STAT PRN Hypoglycemia Protocol Protocol Heparin Sodium (Porcine) 5,000 units 02/10/18 14:00 02/11/18 06:04 Heparin SC 5,000 units Q8 KEE Administration Ceftriaxone Sodium 50 mls @ 50 mls/30 min 02/10/18 10:00 02/11/18 09:00 Rocephin Iv 1 Gm Duplex IVPB 50 mls/30 min DAILY KEE Administration Protocol Polyethylene Glycol 17 gm 02/04/18 23:15 02/11/18 09:39 Miralax PO 17 gm DAILY KEE Administration Sacubitril/Valsartan 2 tab 02/05/18 11:53 02/11/18 09:20 Entresto 49 Mg-51 Mg PO Not Given BID KEE Simethicone 80 mg 02/07/18 14:00 02/11/18 09:16 Mylicon Chew Tab PO 80 mg QID KEE Administration Spironolactone 50 mg 02/05/18 11:53 02/11/18 09:21 Aldactone PO 50 mg DAILY KEE Administration Tamsulosin HCl 0.4 mg 02/04/18 10:00 02/11/18 09:20 Flomax PO 0.4 mg BID KEE Administration - Patient Studies Lab Studies: Lab Studies 02/11/18 02/11/18 02/11/18 Range/Units 11:51 08:26 07:04 WBC (4.8-10.8) K/uL RBC (4.40-5.90) Mil/uL Hgb (12.0-18.0) g/dL Hct (35.0-51.0) % MCV (80.0-94.0) fL MCH (27.0-31.0) pg MCHC (33.0-37.0) g/dL RDW (11.5-14.5) % Plt Count (130-400) K/uL MPV (7.2-11.7) fL Neut % (Auto) (50.0-75.0) % Lymph % (Auto) (20.0-40.0) % [place] % (Auto) (0.0-10.0) % Eos % (Auto) (0.0-4.0) % Baso % (Auto) (0.0-2.0) % Neut # (Auto) (1.8-7.0) K/uL Lymph # (Auto) (1.0-4.3) K/uL [place] # (Auto) (0.0-0.8) K/uL Eos # (Auto) (0.0-0.7) K/uL Baso # (Auto) (0.0-0.2) K/uL Sodium (132-148) mmol/L Potassium (3.6-5.2) mmol/L Chloride (98-107) mmol/L Carbon Dioxide (22-30) mmol/L Anion Gap (10-20) BUN (9-20) mg/dL Creatinine (0.8-1.5) mg/dL Est GFR ( Amer) Est GFR (Non-Af Amer) POC Glucose (mg/dL) 124 H 87 141 H (65-110) mg/dL Random Glucose (75-110) mg/dL Calcium (8.6-10.4) mg/dl Phosphorus (2.5-4.5) mg/dL Magnesium (1.6-2.3) mg/dL Total Bilirubin (0.2-1.3) mg/dL AST (17-59) U/L ALT (21-72) U/L Alkaline Phosphatase (38-126) U/L Total Protein (6.3-8.3) g/dL Albumin (3.5-5.0) g/dL Globulin (2.2-3.9) gm/dL Albumin/Globulin Ratio (1.0-2.1) Fluid Albumin g/dL 02/11/18 02/11/18 02/11/18 Range/Units 06:23 06:20 05:53 WBC 6.9 (4.8-10.8) K/uL RBC 4.77 (4.40-5.90) Mil/uL Hgb 14.3 (12.0-18.0) g/dL Hct 42.9 (35.0-51.0) % MCV 90.0 (80.0-94.0) fL MCH 30.0 (27.0-31.0) pg MCHC 33.3 (33.0-37.0) g/dL RDW 21.3 H (11.5-14.5) % Plt Count 215 (130-400) K/uL MPV 8.3 (7.2-11.7) fL Neut % (Auto) 73.2 (50.0-75.0) % Lymph % (Auto) 15.4 L (20.0-40.0) % [place] % (Auto) 8.5 (0.0-10.0) % Eos % (Auto) 2.2 (0.0-4.0) % Baso % (Auto) 0.7 (0.0-2.0) % Neut # (Auto) 5.0 (1.8-7.0) K/uL Lymph # (Auto) 1.1 (1.0-4.3) K/uL [place] # (Auto) 0.6 (0.0-0.8) K/uL Eos # (Auto) 0.1 (0.0-0.7) K/uL Baso # (Auto) 0.0 (0.0-0.2) K/uL Sodium 137 (132-148) mmol/L Potassium 4.3 (3.6-5.2) mmol/L Chloride 100 (98-107) mmol/L Carbon Dioxide 25 (22-30) mmol/L Anion Gap 15 (10-20) BUN 52 H (9-20) mg/dL Creatinine 1.3 (0.8-1.5) mg/dL Est GFR ( Amer) > 60 Est GFR (Non-Af Amer) 57 POC Glucose (mg/dL) 125 H (65-110) mg/dL Random Glucose 138 H (75-110) mg/dL Calcium 8.5 L (8.6-10.4) mg/dl Phosphorus 3.1 (2.5-4.5) mg/dL Magnesium 2.1 (1.6-2.3) mg/dL Total Bilirubin 2.7 H (0.2-1.3) mg/dL AST 27 (17-59) U/L ALT 34 (21-72) U/L Alkaline Phosphatase 404 H D (38-126) U/L Total Protein 6.3 (6.3-8.3) g/dL Albumin 3.0 L D (3.5-5.0) g/dL Globulin 3.3 (2.2-3.9) gm/dL Albumin/Globulin Ratio 0.9 L (1.0-2.1) Fluid Albumin g/dL 02/11/18 02/11/18 02/11/18 Range/Units 05:04 04:07 04:05 WBC (4.8-10.8) K/uL RBC (4.40-5.90) Mil/uL Hgb (12.0-18.0) g/dL Hct (35.0-51.0) % MCV (80.0-94.0) fL MCH (27.0-31.0) pg MCHC (33.0-37.0) g/dL RDW (11.5-14.5) % Plt Count (130-400) K/uL MPV (7.2-11.7) fL Neut % (Auto) (50.0-75.0) % Lymph % (Auto) (20.0-40.0) % [place] % (Auto) (0.0-10.0) % Eos % (Auto) (0.0-4.0) % Baso % (Auto) (0.0-2.0) % Neut # (Auto) (1.8-7.0) K/uL Lymph # (Auto) (1.0-4.3) K/uL [place] # (Auto) (0.0-0.8) K/uL Eos # (Auto) (0.0-0.7) K/uL Baso # (Auto) (0.0-0.2) K/uL Sodium (132-148) mmol/L Potassium (3.6-5.2) mmol/L Chloride (98-107) mmol/L Carbon Dioxide (22-30) mmol/L Anion Gap (10-20) BUN (9-20) mg/dL Creatinine (0.8-1.5) mg/dL Est GFR ( Amer) Est GFR (Non-Af Amer) POC Glucose (mg/dL) 156 H 176 H > 500 H* (65-110) mg/dL Random Glucose (75-110) mg/dL Calcium (8.6-10.4) mg/dl Phosphorus (2.5-4.5) mg/dL Magnesium (1.6-2.3) mg/dL Total Bilirubin (0.2-1.3) mg/dL AST (17-59) U/L ALT (21-72) U/L Alkaline Phosphatase (38-126) U/L Total Protein (6.3-8.3) g/dL Albumin (3.5-5.0) g/dL Globulin (2.2-3.9) gm/dL Albumin/Globulin Ratio (1.0-2.1) Fluid Albumin g/dL 02/11/18 02/11/18 02/11/18 Range/Units 03:22 02:01 01:02 WBC (4.8-10.8) K/uL RBC (4.40-5.90) Mil/uL Hgb (12.0-18.0) g/dL Hct (35.0-51.0) % MCV (80.0-94.0) fL MCH (27.0-31.0) pg MCHC (33.0-37.0) g/dL RDW (11.5-14.5) % Plt Count (130-400) K/uL MPV (7.2-11.7) fL Neut % (Auto) (50.0-75.0) % Lymph % (Auto) (20.0-40.0) % [place] % (Auto) (0.0-10.0) % Eos % (Auto) (0.0-4.0) % Baso % (Auto) (0.0-2.0) % Neut # (Auto) (1.8-7.0) K/uL Lymph # (Auto) (1.0-4.3) K/uL [place] # (Auto) (0.0-0.8) K/uL Eos # (Auto) (0.0-0.7) K/uL Baso # (Auto) (0.0-0.2) K/uL Sodium (132-148) mmol/L Potassium (3.6-5.2) mmol/L Chloride (98-107) mmol/L Carbon Dioxide (22-30) mmol/L Anion Gap (10-20) BUN (9-20) mg/dL Creatinine (0.8-1.5) mg/dL Est GFR ( Amer) Est GFR (Non-Af Amer) POC Glucose (mg/dL) 267 H 141 H 150 H (65-110) mg/dL Random Glucose (75-110) mg/dL Calcium (8.6-10.4) mg/dl Phosphorus (2.5-4.5) mg/dL Magnesium (1.6-2.3) mg/dL Total Bilirubin (0.2-1.3) mg/dL AST (17-59) U/L ALT (21-72) U/L Alkaline Phosphatase (38-126) U/L Total Protein (6.3-8.3) g/dL Albumin (3.5-5.0) g/dL Globulin (2.2-3.9) gm/dL Albumin/Globulin Ratio (1.0-2.1) Fluid Albumin g/dL 02/10/18 02/10/18 02/10/18 Range/Units 23:48 22:52 22:06 WBC (4.8-10.8) K/uL RBC (4.40-5.90) Mil/uL Hgb (12.0-18.0) g/dL Hct (35.0-51.0) % MCV (80.0-94.0) fL MCH (27.0-31.0) pg MCHC (33.0-37.0) g/dL RDW (11.5-14.5) % Plt Count (130-400) K/uL MPV (7.2-11.7) fL Neut % (Auto) (50.0-75.0) % Lymph % (Auto) (20.0-40.0) % [place] % (Auto) (0.0-10.0) % Eos % (Auto) (0.0-4.0) % Baso % (Auto) (0.0-2.0) % Neut # (Auto) (1.8-7.0) K/uL Lymph # (Auto) (1.0-4.3) K/uL [place] # (Auto) (0.0-0.8) K/uL Eos # (Auto) (0.0-0.7) K/uL Baso # (Auto) (0.0-0.2) K/uL Sodium (132-148) mmol/L Potassium (3.6-5.2) mmol/L Chloride (98-107) mmol/L Carbon Dioxide (22-30) mmol/L Anion Gap (10-20) BUN (9-20) mg/dL Creatinine (0.8-1.5) mg/dL Est GFR ( Amer) Est GFR (Non-Af Amer) POC Glucose (mg/dL) 176 H 151 H 159 H (65-110) mg/dL Random Glucose (75-110) mg/dL Calcium (8.6-10.4) mg/dl Phosphorus (2.5-4.5) mg/dL Magnesium (1.6-2.3) mg/dL Total Bilirubin (0.2-1.3) mg/dL AST (17-59) U/L ALT (21-72) U/L Alkaline Phosphatase (38-126) U/L Total Protein (6.3-8.3) g/dL Albumin (3.5-5.0) g/dL Globulin (2.2-3.9) gm/dL Albumin/Globulin Ratio (1.0-2.1) Fluid Albumin g/dL 02/10/18 02/10/18 02/10/18 Range/Units 21:57 21:07 20:04 WBC (4.8-10.8) K/uL RBC (4.40-5.90) Mil/uL Hgb (12.0-18.0) g/dL Hct (35.0-51.0) % MCV (80.0-94.0) fL MCH (27.0-31.0) pg MCHC (33.0-37.0) g/dL RDW (11.5-14.5) % Plt Count (130-400) K/uL MPV (7.2-11.7) fL Neut % (Auto) (50.0-75.0) % Lymph % (Auto) (20.0-40.0) % [place] % (Auto) (0.0-10.0) % Eos % (Auto) (0.0-4.0) % Baso % (Auto) (0.0-2.0) % Neut # (Auto) (1.8-7.0) K/uL Lymph # (Auto) (1.0-4.3) K/uL [place] # (Auto) (0.0-0.8) K/uL Eos # (Auto) (0.0-0.7) K/uL Baso # (Auto) (0.0-0.2) K/uL Sodium (132-148) mmol/L Potassium (3.6-5.2) mmol/L Chloride (98-107) mmol/L Carbon Dioxide (22-30) mmol/L Anion Gap (10-20) BUN (9-20) mg/dL Creatinine (0.8-1.5) mg/dL Est GFR ( Amer) Est GFR (Non-Af Amer) POC Glucose (mg/dL) 186 H 192 H 200 H (65-110) mg/dL Random Glucose (75-110) mg/dL Calcium (8.6-10.4) mg/dl Phosphorus (2.5-4.5) mg/dL Magnesium (1.6-2.3) mg/dL Total Bilirubin (0.2-1.3) mg/dL AST (17-59) U/L ALT (21-72) U/L Alkaline Phosphatase (38-126) U/L Total Protein (6.3-8.3) g/dL Albumin (3.5-5.0) g/dL Globulin (2.2-3.9) gm/dL Albumin/Globulin Ratio (1.0-2.1) Fluid Albumin g/dL 02/10/18 02/10/18 02/10/18 Range/Units 19:21 18:04 17:03 WBC (4.8-10.8) K/uL RBC (4.40-5.90) Mil/uL Hgb (12.0-18.0) g/dL Hct (35.0-51.0) % MCV (80.0-94.0) fL MCH (27.0-31.0) pg MCHC (33.0-37.0) g/dL RDW (11.5-14.5) % Plt Count (130-400) K/uL MPV (7.2-11.7) fL Neut % (Auto) (50.0-75.0) % Lymph % (Auto) (20.0-40.0) % [place] % (Auto) (0.0-10.0) % Eos % (Auto) (0.0-4.0) % Baso % (Auto) (0.0-2.0) % Neut # (Auto) (1.8-7.0) K/uL Lymph # (Auto) (1.0-4.3) K/uL [place] # (Auto) (0.0-0.8) K/uL Eos # (Auto) (0.0-0.7) K/uL Baso # (Auto) (0.0-0.2) K/uL Sodium (132-148) mmol/L Potassium (3.6-5.2) mmol/L Chloride (98-107) mmol/L Carbon Dioxide (22-30) mmol/L Anion Gap (10-20) BUN (9-20) mg/dL Creatinine (0.8-1.5) mg/dL Est GFR ( Amer) Est GFR (Non-Af Amer) POC Glucose (mg/dL) 201 H 167 H 221 H (65-110) mg/dL Random Glucose (75-110) mg/dL Calcium (8.6-10.4) mg/dl Phosphorus (2.5-4.5) mg/dL Magnesium (1.6-2.3) mg/dL Total Bilirubin (0.2-1.3) mg/dL AST (17-59) U/L ALT (21-72) U/L Alkaline Phosphatase (38-126) U/L Total Protein (6.3-8.3) g/dL Albumin (3.5-5.0) g/dL Globulin (2.2-3.9) gm/dL Albumin/Globulin Ratio (1.0-2.1) Fluid Albumin g/dL 02/10/18 02/10/18 02/10/18 Range/Units 16:12 15:04 13:17 WBC (4.8-10.8) K/uL RBC (4.40-5.90) Mil/uL Hgb (12.0-18.0) g/dL Hct (35.0-51.0) % MCV (80.0-94.0) fL MCH (27.0-31.0) pg MCHC (33.0-37.0) g/dL RDW (11.5-14.5) % Plt Count (130-400) K/uL MPV (7.2-11.7) fL Neut % (Auto) (50.0-75.0) % Lymph % (Auto) (20.0-40.0) % [place] % (Auto) (0.0-10.0) % Eos % (Auto) (0.0-4.0) % Baso % (Auto) (0.0-2.0) % Neut # (Auto) (1.8-7.0) K/uL Lymph # (Auto) (1.0-4.3) K/uL [place] # (Auto) (0.0-0.8) K/uL Eos # (Auto) (0.0-0.7) K/uL Baso # (Auto) (0.0-0.2) K/uL Sodium (132-148) mmol/L Potassium (3.6-5.2) mmol/L Chloride (98-107) mmol/L Carbon Dioxide (22-30) mmol/L Anion Gap (10-20) BUN (9-20) mg/dL Creatinine (0.8-1.5) mg/dL Est GFR ( Amer) Est GFR (Non-Af Amer) POC Glucose (mg/dL) 227 H 159 H 124 H (65-110) mg/dL Random Glucose (75-110) mg/dL Calcium (8.6-10.4) mg/dl Phosphorus (2.5-4.5) mg/dL Magnesium (1.6-2.3) mg/dL Total Bilirubin (0.2-1.3) mg/dL AST (17-59) U/L ALT (21-72) U/L Alkaline Phosphatase (38-126) U/L Total Protein (6.3-8.3) g/dL Albumin (3.5-5.0) g/dL Globulin (2.2-3.9) gm/dL Albumin/Globulin Ratio (1.0-2.1) Fluid Albumin g/dL 02/07/18 Range/Units 10:35 WBC (4.8-10.8) K/uL RBC (4.40-5.90) Mil/uL Hgb (12.0-18.0) g/dL Hct (35.0-51.0) % MCV (80.0-94.0) fL MCH (27.0-31.0) pg MCHC (33.0-37.0) g/dL RDW (11.5-14.5) % Plt Count (130-400) K/uL MPV (7.2-11.7) fL Neut % (Auto) (50.0-75.0) % Lymph % (Auto) (20.0-40.0) % [place] % (Auto) (0.0-10.0) % Eos % (Auto) (0.0-4.0) % Baso % (Auto) (0.0-2.0) % Neut # (Auto) (1.8-7.0) K/uL Lymph # (Auto) (1.0-4.3) K/uL [place] # (Auto) (0.0-0.8) K/uL Eos # (Auto) (0.0-0.7) K/uL Baso # (Auto) (0.0-0.2) K/uL Sodium (132-148) mmol/L Potassium (3.6-5.2) mmol/L Chloride (98-107) mmol/L Carbon Dioxide (22-30) mmol/L Anion Gap (10-20) BUN (9-20) mg/dL Creatinine (0.8-1.5) mg/dL Est GFR ( Amer) Est GFR (Non-Af Amer) POC Glucose (mg/dL) (65-110) mg/dL Random Glucose (75-110) mg/dL Calcium (8.6-10.4) mg/dl Phosphorus (2.5-4.5) mg/dL Magnesium (1.6-2.3) mg/dL Total Bilirubin (0.2-1.3) mg/dL AST (17-59) U/L ALT (21-72) U/L Alkaline Phosphatase (38-126) U/L Total Protein (6.3-8.3) g/dL Albumin (3.5-5.0) g/dL Globulin (2.2-3.9) gm/dL Albumin/Globulin Ratio (1.0-2.1) Fluid Albumin 1.0 g/dL Laboratory Results - last 24 hr 02/07/18 02/10/18 02/10/18 10:35 13:17 15:04 WBC RBC Hgb Hct MCV MCH MCHC RDW Plt Count MPV Neut % (Auto) Lymph % (Auto) [place] % (Auto) Eos % (Auto) Baso % (Auto) Neut # (Auto) Lymph # (Auto) [place] # (Auto) Eos # (Auto) Baso # (Auto) Sodium Potassium Chloride Carbon Dioxide Anion Gap BUN Creatinine Est GFR ( Amer) Est GFR (Non-Af Amer) POC Glucose (mg/dL) 124 H 159 H Random Glucose Calcium Phosphorus Magnesium Total Bilirubin AST ALT Alkaline Phosphatase Total Protein Albumin Globulin Albumin/Globulin Ratio Fluid Albumin 1.0 02/10/18 02/10/18 02/10/18 16:12 17:03 18:04 WBC RBC Hgb Hct MCV MCH MCHC RDW Plt Count MPV Neut % (Auto) Lymph % (Auto) [place] % (Auto) Eos % (Auto) Baso % (Auto) Neut # (Auto) Lymph # (Auto) [place] # (Auto) Eos # (Auto) Baso # (Auto) Sodium Potassium Chloride Carbon Dioxide Anion Gap BUN Creatinine Est GFR ( Amer) Est GFR (Non-Af Amer) POC Glucose (mg/dL) 227 H 221 H 167 H Random Glucose Calcium Phosphorus Magnesium Total Bilirubin AST ALT Alkaline Phosphatase Total Protein Albumin Globulin Albumin/Globulin Ratio Fluid Albumin 02/10/18 02/10/18 02/10/18 19:21 20:04 21:07 WBC RBC Hgb Hct MCV MCH MCHC RDW Plt Count MPV Neut % (Auto) Lymph % (Auto) [place] % (Auto) Eos % (Auto) Baso % (Auto) Neut # (Auto) Lymph # (Auto) [place] # (Auto) Eos # (Auto) Baso # (Auto) Sodium Potassium Chloride Carbon Dioxide Anion Gap BUN Creatinine Est GFR ( Amer) Est GFR (Non-Af Amer) POC Glucose (mg/dL) 201 H 200 H 192 H Random Glucose Calcium Phosphorus Magnesium Total Bilirubin AST ALT Alkaline Phosphatase Total Protein Albumin Globulin Albumin/Globulin Ratio Fluid Albumin 02/10/18 02/10/18 02/10/18 21:57 22:06 22:52 WBC RBC Hgb Hct MCV MCH MCHC RDW Plt Count MPV Neut % (Auto) Lymph % (Auto) [place] % (Auto) Eos % (Auto) Baso % (Auto) Neut # (Auto) Lymph # (Auto) [place] # (Auto) Eos # (Auto) Baso # (Auto) Sodium Potassium Chloride Carbon Dioxide Anion Gap BUN Creatinine Est GFR ( Amer) Est GFR (Non-Af Amer) POC Glucose (mg/dL) 186 H 159 H 151 H Random Glucose Calcium Phosphorus Magnesium Total Bilirubin AST ALT Alkaline Phosphatase Total Protein Albumin Globulin Albumin/Globulin Ratio Fluid Albumin 02/10/18 02/11/18 02/11/18 23:48 01:02 02:01 WBC RBC Hgb Hct MCV MCH MCHC RDW Plt Count MPV Neut % (Auto) Lymph % (Auto) [place] % (Auto) Eos % (Auto) Baso % (Auto) Neut # (Auto) Lymph # (Auto) [place] # (Auto) Eos # (Auto) Baso # (Auto) Sodium Potassium Chloride Carbon Dioxide Anion Gap BUN Creatinine Est GFR ( Amer) Est GFR (Non-Af Amer) POC Glucose (mg/dL) 176 H 150 H 141 H Random Glucose Calcium Phosphorus Magnesium Total Bilirubin AST ALT Alkaline Phosphatase Total Protein Albumin Globulin Albumin/Globulin Ratio Fluid Albumin 02/11/18 02/11/18 02/11/18 03:22 04:05 04:07 WBC RBC Hgb Hct MCV MCH MCHC RDW Plt Count MPV Neut % (Auto) Lymph % (Auto) [place] % (Auto) Eos % (Auto) Baso % (Auto) Neut # (Auto) Lymph # (Auto) [place] # (Auto) Eos # (Auto) Baso # (Auto) Sodium Potassium Chloride Carbon Dioxide Anion Gap BUN Creatinine Est GFR ( Amer) Est GFR (Non-Af Amer) POC Glucose (mg/dL) 267 H > 500 H* 176 H Random Glucose Calcium Phosphorus Magnesium Total Bilirubin AST ALT Alkaline Phosphatase Total Protein Albumin Globulin Albumin/Globulin Ratio Fluid Albumin 02/11/18 02/11/18 02/11/18 05:04 05:53 06:20 WBC RBC Hgb Hct MCV MCH MCHC RDW Plt Count MPV Neut % (Auto) Lymph % (Auto) [place] % (Auto) Eos % (Auto) Baso % (Auto) Neut # (Auto) Lymph # (Auto) [place] # (Auto) Eos # (Auto) Baso # (Auto) Sodium 137 Potassium 4.3 Chloride 100 Carbon Dioxide 25 Anion Gap 15 BUN 52 H Creatinine 1.3 Est GFR ( Amer) > 60 Est GFR (Non-Af Amer) 57 POC Glucose (mg/dL) 156 H 125 H Random Glucose 138 H Calcium 8.5 L Phosphorus 3.1 Magnesium 2.1 Total Bilirubin 2.7 H AST 27 ALT 34 Alkaline Phosphatase 404 H D Total Protein 6.3 Albumin 3.0 L D Globulin 3.3 Albumin/Globulin Ratio 0.9 L Fluid Albumin 02/11/18 02/11/18 02/11/18 06:23 07:04 08:26 WBC 6.9 RBC 4.77 Hgb 14.3 Hct 42.9 MCV 90.0 MCH 30.0 MCHC 33.3 RDW 21.3 H Plt Count 215 MPV 8.3 Neut % (Auto) 73.2 Lymph % (Auto) 15.4 L [place] % (Auto) 8.5 Eos % (Auto) 2.2 Baso % (Auto) 0.7 Neut # (Auto) 5.0 Lymph # (Auto) 1.1 [place] # (Auto) 0.6 Eos # (Auto) 0.1 Baso # (Auto) 0.0 Sodium Potassium Chloride Carbon Dioxide Anion Gap BUN Creatinine Est GFR ( Amer) Est GFR (Non-Af Amer) POC Glucose (mg/dL) 141 H 87 Random Glucose Calcium Phosphorus Magnesium Total Bilirubin AST ALT Alkaline Phosphatase Total Protein Albumin Globulin Albumin/Globulin Ratio Fluid Albumin 02/11/18 11:51 WBC RBC Hgb Hct MCV MCH MCHC RDW Plt Count MPV Neut % (Auto) Lymph % (Auto) [place] % (Auto) Eos % (Auto) Baso % (Auto) Neut # (Auto) Lymph # (Auto) [place] # (Auto) Eos # (Auto) Baso # (Auto) Sodium Potassium Chloride Carbon Dioxide Anion Gap BUN Creatinine Est GFR ( Amer) Est GFR (Non-Af Amer) POC Glucose (mg/dL) 124 H Random Glucose Calcium Phosphorus Magnesium Total Bilirubin AST ALT Alkaline Phosphatase Total Protein Albumin Globulin Albumin/Globulin Ratio Fluid Albumin Critical Care Progress Note - Nutrition Nutrition: Nutrition Category Date Time Status Consistent Carbohydrate [DIET] Diets 02/04/18 Dinner Active Assessment/Plan - Assessment and Plan (Free Text) Plan: Above patient seen and examined at bedside. Patient remains hemodynamically stable -off glucose ggt -remains hemodynamically stable -drafter apprentice used for - Date & Time Date: 02/11/18 Time: 14:51
[2018-02-11] MEDS: cefTRIAXone IV 1 gm in Dextros 50 ML IVPB SCH (09:00)
[2018-02-11] MEDS: Simethicone 80 mg Chewtab PO SCH ×4 (09:16→21:15)
[2018-02-11] MEDS: Sacubitril/Valsartan 49-51 Tab PO SCH ×2 (09:20→17:21)
[2018-02-11] MEDS: POLYETHYLENE GLYCOL 3350 17 GM/Dose PACKET PO SCH (09:39)
--- NOTE | 2018-02-11 13:23 | CP.PCM.PN ---
Subjective - Date & Time of Evaluation Date of Evaluation: 02/11/18 Time of Evaluation: 13:22 - Subjective Subjective: Nephrology Consultation Note: Assessment: Stable underlying CKD 3, likely due to cardio-renal syndrome chronic sys CHF with ascites, hyperbilirubinemia hx of AICD BPH, hearing impairment Renal cyst Bladder tumor Hypoglycemia and AMS resolved Plan No acute need for renal replacement therapy at this time. Renal function stable. maintain hemodynamics stable s/p paracetesis 3 L bp is stable f/u work up re: obstructive uropathy and bladder tumor. waiting for bx result. Monitor Input/Output, daily weights and renal function with basic metabolic panel pt on RAAS cleo as entresto and aldactone CHF management as per cardiology Dose meds/antibiotics for reduced GFR. Avoid fleets enema/magnesium based laxatives. Avoid nephrotoxins/NSAIDs/ iodinated contrast (unless needed emergently) Glycemic control Further work up/management as per primary team Thanks for allowing me to participate in care of your patient. Will follow patient with you. Please call if any Qs. had d/w team Dr Kalpesh Acosta Office: [phone] ROS: used sign/language interpretation (VOYCE) Cardiovascular: No chest pain. Pulmonary: noo shortness of breath Gastrointestinal: denies abdominal pain No nausea. No vomiting. c/o distension Genitourinary: has catheter All other negative except as mentioned in HPI Physical Examination: General Appearance: Comfortable, co-operative . Vitals reviewed and noted as below Head; Atraumatic, normocephalic ENT: no ulcers no thrush. Tongue is midline. Oropharynx: no rash or ulcers. has hearing impairment EYES: Pupils are equal, round and reactive to light accommodation. Eye muscles and extraocular movement intact. Sclera is icteric. Neck; supple no lymphadenopathy, no thyromegaly or bruit. JVP distended Lungs: normal respiratory rate/effort. Breath sounds bilateral clear except few basal crackle Heart: Normal rate. s1s2 normal. No rub or gallop. left side AICD + Extremities: no edema. No varicose veins Neurological: Patient is alert, awake and oriented to person, place and time. No focal deficit. Strength bilateral appropriate and equal Skin: Warm and dry. Normal turgor. No rash. Palpitation: Normal elasticity for age Abdomen: Abdomen is soft. Bowel sounds +. There is no abdominal tenderness, no guarding/rigidity has hepatomegaly. distended and ascitic Psych: normal insight and normal affect/mood MSK: no joint tenderness or swelling. Digits and nails normal, no deformity : kidney or bladder not palpable but exam limited. has mason Labs/imaging reviewed. Past medical history, past surgical history, famil Objective - Vital Signs/Intake and Output Vital Signs (last 24 hours): Temp Pulse Resp BP Pulse Ox 97.4 F L 93 H 19 88/62 L 98 02/11/18 06:00 02/11/18 06:00 02/11/18 06:00 02/11/18 09:21 02/11/18 06:00 Intake and Output: 02/11/18 02/11/18 06:59 18:59 Intake Total 460 Output Total 665 Balance -205 - Medications Medications: Current Medications Bisacodyl (Dulcolax) 10 mg MO Q12 PRN PRN Reason: Constipation Last Admin: 02/10/18 10:00 Dose: 10 mg Carvedilol (Coreg) 25 mg PO BID ON LICENSE OF [facility] Last Admin: 02/10/18 17:57 Dose: Not Given Dextrose (Glutose 15) 0 gm PO ONCE PRN; Protocol PRN Reason: Hypoglycemia Protocol Dextrose (Dextrose 50% Inj) 0 ml IV Q1H PRN; Protocol PRN Reason: Hypoglycemia Protocol Furosemide (Lasix) 40 mg IVP Q12 ON LICENSE OF [facility] Last Admin: 02/11/18 09:21 Dose: 40 mg Glucagon (Glucagen Diagnostic Kit) 0 mg IM STAT PRN; Protocol PRN Reason: Hypoglycemia Protocol Heparin Sodium (Porcine) (Heparin) 5,000 units SC Q8 ON LICENSE OF [facility] Last Admin: 02/11/18 06:04 Dose: 5,000 units Ceftriaxone Sodium (Rocephin Iv 1 Gm Duplex) 50 mls @ 50 mls/30 min IVPB DAILY ON LICENSE OF [facility]; Protocol Last Admin: 02/11/18 09:00 Dose: 50 mls/30 min Polyethylene Glycol (Miralax) 17 gm PO DAILY ON LICENSE OF [facility] Last Admin: 02/11/18 09:39 Dose: 17 gm Sacubitril/Valsartan (Entresto 49 Mg-51 Mg) 2 tab PO BID ON LICENSE OF [facility] Last Admin: 02/11/18 09:20 Dose: Not Given Simethicone (Mylicon Chew Tab) 80 mg PO QID ON LICENSE OF [facility] Last Admin: 02/11/18 09:16 Dose: 80 mg Spironolactone (Aldactone) 50 mg PO DAILY ON LICENSE OF [facility] Last Admin: 02/11/18 09:21 Dose: 50 mg Tamsulosin HCl (Flomax) 0.4 mg PO BID ON LICENSE OF [facility] Last Admin: 02/11/18 09:20 Dose: 0.4 mg - Labs Labs: 02/11/18 06:23 02/11/18 06:20 PT 16.8 SECONDS (9.7-12.2) H 02/09/18 08:20 INR 1.5 02/09/18 08:20 APTT 33 SECONDS (21-34) 02/09/18 08:20
--- NOTE | 2018-02-11 16:42 | PN ---
DATE: 02/11/2018 SUBJECTIVE: The patient is sitting on the chair. He denied any chest pain or shortness of breath. PHYSICAL EXAMINATION: VITAL SIGNS: Blood pressure 83/61, heart rate 93, temperature 97.4, respirations 19. HEENT: Normocephalic. CHEST: Diminished breath sounds over the bases. HEART: S1 and S2, regular. EXTREMITIES: No pedal edema. There was right forearm swelling related to intravenous line infiltration. LABORATORY DATA: Hemoglobin and hematocrit 14.3 and 42.9, white count and platelet count are within normal limit. SMA-7 is within normal limit except for glucose 138 and BUN of 52, calcium is 8.2. Magnesium and phosphorous are within normal limit. Yesterday's chest x-ray report status post extubation, mild pulmonary vascular congestion, enlargement of cardiac silhouette and right pleural effusion. ASSESSMENT: 1. Cardiomyopathy. 2. Cardiac cirrhosis. 3. Status post hypoglycemic episode. 4. Benign prostatic hypertrophy. 5. 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 6. Prerenal azotemia. RECOMMENDATIONS: Continue Aldactone At 50 mg daily, Coreg 25 mg twice a day is currently on hold because of borderline hypotension. Continue subcutaneous heparin 5000 units every 8 hours. Hold intravenous Lasix for now. Continue IV Rocephin at 1 g daily. Jass Carlton MD
--- NOTE | 2018-02-11 18:16 | CP.PCM.PN ---
<Dilip Zamora - Last Filed: 02/11/18 18:29> Subjective - Date & Time of Evaluation Date of Evaluation: 02/11/18 Time of Evaluation: 18:12 - Subjective Subjective: PGY-1 Medicine Progress Note for Dr. Pereira Documentation Engineer: ID# [id number] Patient seen and examined at bedside. No acute events reported overnight. No fevers/chills, chest pain, palpitations, shortness of breath, cough, abdominal pain, nausea/vomiting/diarrhea/constipation, dysuria, or changes in stool. 12 pt ROS reviewed and otherwise negative. Objective - Vital Signs/Intake and Output Vital Signs (last 24 hours): Temp Pulse Resp BP Pulse Ox 97.5 F L 98 H 30 H 105/83 100 02/11/18 12:00 02/11/18 17:19 02/11/18 17:19 02/11/18 17:19 02/11/18 13:00 Intake and Output: 02/11/18 02/11/18 06:59 18:59 Intake Total 460 Output Total 665 Balance -205 - Medications Medications: Current Medications Bisacodyl (Dulcolax) 10 mg [place] Q12 PRN PRN Reason: Constipation Last Admin: 02/10/18 10:00 Dose: 10 mg Carvedilol (Coreg) 25 mg PO BID [facility] Last Admin: 02/11/18 17:19 Dose: 25 mg Dextrose (Glutose 15) 0 gm PO ONCE PRN; Protocol PRN Reason: Hypoglycemia Protocol Dextrose (Dextrose 50% Inj) 0 ml IV Q1H PRN; Protocol PRN Reason: Hypoglycemia Protocol Furosemide (Lasix) 40 mg IVP Q12 [facility] Last Admin: 02/11/18 09:21 Dose: 40 mg Glucagon (Glucagen Diagnostic Kit) 0 mg IM STAT PRN; Protocol PRN Reason: Hypoglycemia Protocol Heparin Sodium (Porcine) (Heparin) 5,000 units SC Q8 [facility] Last Admin: 02/11/18 14:00 Dose: 5,000 units Ceftriaxone Sodium (Rocephin Iv 1 Gm Duplex) 50 mls @ 50 mls/30 min IVPB DAILY [facility]; Protocol Last Admin: 02/11/18 09:00 Dose: 50 mls/30 min Polyethylene Glycol (Miralax) 17 gm PO DAILY [facility] Last Admin: 02/11/18 09:39 Dose: 17 gm Sacubitril/Valsartan (Entresto 49 Mg-51 Mg) 2 tab PO BID [facility] Last Admin: 02/11/18 17:21 Dose: 2 tab Simethicone (Mylicon Chew Tab) 80 mg PO QID [facility] Last Admin: 02/11/18 17:21 Dose: 80 mg Spironolactone (Aldactone) 50 mg PO DAILY [facility] Last Admin: 02/11/18 09:21 Dose: 50 mg Tamsulosin HCl (Flomax) 0.4 mg PO BID [facility] Last Admin: 02/11/18 17:21 Dose: 0.4 mg - Labs Labs: 02/11/18 06:23 02/11/18 06:20 PT 16.8 SECONDS (9.7-12.2) H 02/09/18 08:20 INR 1.5 02/09/18 08:20 APTT 33 SECONDS (21-34) 02/09/18 08:20 - Constitutional Appears: Non-toxic, No Acute Distress - Head Exam Head Exam: ATRAUMATIC, NORMAL INSPECTION, NORMOCEPHALIC - Eye Exam Eye Exam: EOMI, Normal appearance Pupil Exam: NORMAL ACCOMODATION - ENT Exam ENT Exam: Mucous Membranes Moist, Normal Exam - Neck Exam Neck Exam: Full ROM, Normal Inspection - Respiratory Exam Respiratory Exam: Clear to Ausculation Bilateral, NORMAL BREATHING PATTERN. absent: Accessory Muscle Use, Rales, Rhonchi, Wheezes, Respiratory Distress, Stridor - Cardiovascular Exam Cardiovascular Exam: Tachycardia, +S1, +S2 - GI/Abdominal Exam GI & Abdominal Exam: Soft, Normal Bowel Sounds. absent: Distended, Firm, Guarding, Rigid, Tenderness, Organomegaly, Rebound - Extremities Exam Extremities Exam: Normal Capillary Refill, Normal Inspection. absent: Calf Tenderness, Joint Swelling, Pedal Edema - Back Exam Back Exam: NORMAL INSPECTION - Neurological Exam Neurological Exam: Alert, Awake, CN II-XII Intact, Oriented x3 - Psychiatric Exam Psychiatric exam: Normal Affect, Normal Mood - Skin Skin Exam: Dry, Intact, Normal Color, Warm Assessment and Plan - Assessment and Plan (Free Text) Assessment: 57 year old M with PMHx of ICD CHF, CKD, bladder tumor s/p cystoscopy 02/05. Monitored in the ICU s/p SIGNALS ANALYST yesterday for respiratory failure and hypoglycemia. Patient no longer intubated. Plan: Urinary retention status post mason replacement: * UA: positive for blood, LE, WBC, and bacteria * Urine culture: Citrobacter * repeat urine culture: no growth * Patient had received 1 dose of Rocephin given in ED * recently completed 5 day course of Rocephin 1 gram IV qdaily * S/p cystoscopy with Dr. Brar - POD #7 * Discussed with Dr. Brar, he is aware patient is not cleared in regards to cardiac status, I spoke with his outpatient injury prevention coordinator yesterday as well as discussed with Dr. Carlton * patient is aware he has a bladder tumor, but he is very high risk because of his heart. * Flomax 0.4mg BID * Mason care with betadine 3x/day HFrEF (Systolic Heart failure) with AICD/Pacemaker: * Echo (10/2017): LVEF 12.8% Severe LV hypokinesis, mild LVH, dilated LA, RA and RV, mild MR, severe TR, Mild pulmonary hypertension. * Patient sees Dr. Pang, injury prevention coordinator regularly. * per Dr. Pang, patient is a high risk cardiac; will not be cleared for urologic procedure for the bladder tumor * recommends f/u in 1 week * Per Dr. Carlton, patient is aware he is not a candidate for anticoagulation given fall risk and he recommends for further diuresis * EKG(02/04): Junctional rhythm, left axis deviation, RBB * Daily weights, I&O's, head of bead 45 degrees * Consult cardiology, Dr. Carlton extension division director-->help appreciated * Consult EP-Cardiology, Dr. Brunner to check pacemaker * Monitor patient on telemetry * Entresto 2 tab PO BID * Spironolactone 50mg daily * Carvedilol 25mg BID * Lasix 40mg BID * patient is off aspirin * Fluid restriction to 1 L daily * Patient is high risk for anticoagulation per discussion with PMD for the atrial flutter Hx of hyperbilirubinemia, elevated Alkaline phosphatase, ascites: * Hepatitis panel 10/2017 negative * Tbili is at baseline at 4.5 * Alkaline phosphatase: 464 * Abdominal US (12/03/2017): The extrahepatic portal vein is patent with hepatopetal flow. No sonographic evidence for thrombus or obstruction is seen. The 3 hepatic veins are visualized centrally and patent. The hepatic artery is patent. (see full report) * CT abd/pelvis (12/03): Limited assessment without IV or oral contrast administration. Cardiomegaly. Small pericardial effusion. Moderate to large amount of ascites in the abdomen and pelvis. Enlarged prostate. [id number] anasarca. Preliminary report was submitted by virtual [facility]. (see full report) * Seen by GI, Dr. Zavala during 10/2017 admission and was asked to follow up, however patient did not do so. * GI was reconsulted has seen patient this admission and signed off. * patient noted in prior hospitalization noted ascites secondary to CHF. Patient had require IR to drain about 2.1 Liters. * Patient was counselled on the importance of following up. Please provide follow up information upon discharge. * Patient is s/p paracentesis 02/07 Hx HTN * Spironolactone 50mg daily * Carvedilol 25mg BID * Lasix 40mg BID * Hold for SBP<100 and HR <60 Hx of DM Type II: * home Tradjenta held * ISS * Accuchecks ACHS * Hypoglycemia protocol Hx of CKD: * likely cardiorenal disease * Cr: 1.6 * GFR: 54 * Seen by nephro, Dr. Acosta during 10/2017 admission, patient has not followed up. * consult nephrology * Patient is on Lasix/Aldactone for CHF Hx of deaf/mute: * Patient communicates in sign. Please use recycle worker service which is very effective. PPx, Diet, Disposition * DVT ppx: heparin 5000 units SC q8 * Venous dopplers: negative b/l * GI ppx: not indicated * Start on HHD 2g Na following urologic procedure * Florastor 250mg PO BID * Disposition: Nephrology and cardiology on case. Patient is status post IR thoracentesis POD 4. Monitored in the ICU s/p SIGNALS ANALYST yesterday for respiratory failure and hypoglycemia. Patient no longer intubated. Case discussed with Dr. Randall Zamora DO, PGY-1 <Tiffany Pereira V - Last Filed: 02/12/18 09:28> Objective - Vital Signs/Intake and Output Vital Signs (last 24 hours): Temp Pulse Resp BP Pulse Ox 97.8 F 96 H 23 107/70 99 02/12/18 08:00 02/12/18 08:10 02/12/18 08:10 02/12/18 09:04 02/12/18 08:10 Intake and Output: 02/12/18 02/12/18 06:59 18:59 Intake Total 250 Output Total 400 Balance -150 - Medications Medications: Current Medications Benzocaine/Menthol (Cepacol Sore Throat) 1 renuka MT Q4H PRN PRN Reason: Sore Throat Last Admin: 02/12/18 02:01 Dose: 1 renuka Benzonatate (Tessalon Perles) 100 mg PO TID PRN PRN Reason: Cough Last Admin: 02/12/18 04:34 Dose: 100 mg Bisacodyl (Dulcolax) 10 mg NH Q12 PRN PRN Reason: Constipation Last Admin: 02/10/18 10:00 Dose: 10 mg Carvedilol (Coreg) 25 mg PO BID [facility] Last Admin: 02/12/18 09:04 Dose: 25 mg Dextrose (Glutose 15) 0 gm PO ONCE PRN; Protocol PRN Reason: Hypoglycemia Protocol Dextrose (Dextrose 50% Inj) 0 ml IV Q1H PRN; Protocol PRN Reason: Hypoglycemia Protocol Furosemide (Lasix) 40 mg IVP Q12 [facility] Last Admin: 02/11/18 09:21 Dose: 40 mg Glucagon (Glucagen Diagnostic Kit) 0 mg IM STAT PRN; Protocol PRN Reason: Hypoglycemia Protocol Guaifenesin (Robitussin) 100 mg PO Q4H PRN PRN Reason: Cough Last Admin: 02/12/18 09:06 Dose: 100 mg Heparin Sodium (Porcine) (Heparin) 5,000 units SC Q8 [facility] Last Admin: 02/12/18 06:03 Dose: 5,000 units Ceftriaxone Sodium (Rocephin Iv 1 Gm Duplex) 50 mls @ 50 mls/30 min IVPB DAILY [facility]; Protocol Last Admin: 02/12/18 09:00 Dose: 50 mls/30 min Polyethylene Glycol (Miralax) 17 gm PO DAILY [facility] Last Admin: 02/11/18 09:39 Dose: 17 gm Sacubitril/Valsartan (Entresto 49 Mg-51 Mg) 2 tab PO BID [facility] Last Admin: 02/12/18 09:06 Dose: 2 tab Simethicone (Mylicon Chew Tab) 80 mg PO QID [facility] Last Admin: 02/12/18 09:06 Dose: 80 mg Spironolactone (Aldactone) 50 mg PO DAILY [facility] Last Admin: 02/12/18 09:06 Dose: 50 mg Tamsulosin HCl (Flomax) 0.4 mg PO BID [facility] Last Admin: 02/12/18 09:06 Dose: 0.4 mg - Labs Labs: 02/12/18 06:23 02/12/18 06:07 PT 16.8 SECONDS (9.7-12.2) H 02/09/18 08:20 INR 1.5 02/09/18 08:20 APTT 33 SECONDS (21-34) 02/09/18 08:20 Attending/Attestation - Attestation I have personally seen and examined this patient.: Yes I have fully participated in the care of the patient.: Yes I have reviewed all pertinent clinical information, including history, physical exam and plan: Yes Notes (Text): This is late computer entry for 02/11/18. Patient seen, examined and case discussed with resident. Patient seen with the Australian Sign Language intreptator. Patient reports he is doing okay. concerned for swelling over the right lower swelling. I explained the bruising is likely when they were trying to get blood work during the emergency yesterday. patient noted for abdominal distension; did not have a bowel movement. Will reconsult PT/OT eval Follow-up with cardiology for stabilization to plan for discharge planning. Assessment/plan 1) Urinary retention status post mason replacement: Assessment/Plan * UA: positive for blood, LE, WBC, and bacteria * Urine culture: Citrobacter * repeat urine culture: no growht * Patient had received 1 dose of Rocephin given in ED * completed antibiotic * S/p cystoscopy with Dr. Brar - POD #7 * Discussed with Dr. Brar, he is aware patient is not cleared in regards to cardiac status. Will monitor outpatient. Spoke with patient's son as well who is aware * Flomax 0.4mg BID * Mason care with betadine 3x/day 2) HFrEF (Systolic Heart failure) with AICD/Pacemaker: Assessment/Plan * Echo (10/2017): LVEF 12.8% Severe LV hypokinesis, mild LVH, dilated LA, RA and RV, mild MR, severe TR, Mild pulmonary hypertension. * Patient sees Dr. Pang, injury prevention coordinator regularly. * Discussed with him 02/09-->high risk cardiac; will not be cleared for urologic procedure for the bladder tumor * recommends f/u in 1 week * I spoke with Dr. Carlton following this conversation--->aware he is not a candidate for anticoagulation given fall risk and he recommends for further diuresis * EKG(02/04): Junctional rhythm, left axis deviation, RBB * Daily weights, I&O's, head of bead 45 degrees * Consult cardiology, Dr. Carlton extension division director-->help appreciated * Consult EP-Cardiology, Dr. Brunner to check pacemaker * Monitor patient on telemetry * Entresto 2 tab PO BID * Spironolactone 50mg daily * Carvedilol 25mg BID * Lasix 40mg BID * patient is off aspirin * Fluid restriction to 1 L daily * Patient is high risk for anticoagulation per discussion with PMD for the atrial flutter 3) Hx of hyperbilirubinemia, elevated Alkaline phosphatase, ascites: Assessment/Plan * Hepatitis panel 10/2017 negative * Tbili is at baseline at 4.5 * Alkaline phosphatase: 464 * Abdominal US (12/03/2017): The extrahepatic portal vein is patent with hepatopetal flow. No sonographic evidence for thrombus or obstruction is seen. The 3 hepatic veins are visualized centrally and patent. The hepatic artery is patent. (see full report) * CT abd/pelvis (12/03): Limited assessment without IV or oral contrast administration. Cardiomegaly. Small pericardial effusion. Moderate to large amount of ascites in the abdomen and pelvis. Enlarged prostate. [id number] anasarca. [facility] (see full [facility]) * Seen by CHRISTIANO, Dr. Zavala during 10/2017 admission and was asked to follow up, however patient did not do so. * GI was reconsulted has seen patient this admission and signed off. * patient noted in prior hospitalization noted ascites secondary to CHF. Patient had require IR to drain about 2.1 Liters. * Patient was counselled on the importance of following up. Please provide f ollow up information upon discharge. * s/p paracentesis 02/07 4) Hx HTN Assessment/Plan * Spironolactone 50mg daily * Carvedilol 25mg BID * Lasix 40mg BID * Hold for SBP<100 and HR <60 5) Hx of DM-2: * Home med of Tradjenta- hold * ISS * Accuchecks ACHS * Hypoglycemia protocol 6) Hx of CKD: * likely cardiorenal * Patient is on Lasix/ Aldactone for CHF * Discussed with Dr. Acosta, clarisse from nephrology standpoint, signed off. 7) Hx of deaf/mute: * Patient communicates in sign. Please use recycle worker service which is very effective. 8) Unintentional weight loss: * 40 lb weight loss in the past year * Continue to monitor 9) Prophylaxis: * dvt ppx: heparin 5000 units subq8H * Venous dopplers: negative b/l * No GI ppx indicated * Florastor 250mg PO BID Disposition: Nephrology and cardiology on case. patient is status post IR thoracentesis. Patient s/p SIGNALS ANALYST for respiratory failure and hypoglycemia, patient stabilized by ICU and transferred out. Reconsult PT/OT and follow-up with cardiology. [facility]
--- NOTE | 2018-02-11 18:32 | CON ---
DATE: 02/11/2018 LOCATION: ICU, Room #7. HISTORY OF PRESENT ILLNESS: This is a 57-year-old male with known history of type 2 diabetes and hypertension, previously on oral hypoglycemic therapy and is now being referred for evaluation of recent symptomatic hypoglycemia and is now being referred for endocrine evaluation and management. PAST MEDICAL HISTORY: History of type 2 diabetes, previously on oral hypoglycemic therapy and taking Tradjenta at 5 mg once daily, history of hypertension and dyslipidemia, history of coronary artery disease with underlying chronic kidney disease, history of cardiac tachyarrhythmias and cardiomyopathy with an ejection fraction of 12% and previous admission for congestive heart failure, he currently has a pacemaker and defibrillator in place since 2000, history of recent cystoscopy with a papillary bladder carcinoma, he is also deaf-mute and lives alone but has a very supportive family, history of CVA in 2000 and 2016, history of recent urinary retention and abdominal distention with new-onset jaundice and a recent paracentesis undertaken, he also become suddenly unresponsive and developed acute respiratory failure and is currently endotracheally intubated at this time. FAMILY HISTORY: Positive for diabetes and hypertension. SOCIAL HISTORY: The patient has a previous history of chronic alcoholism and quit a year ago. No other substance use noted; has supportive family otherwise. REVIEW OF SYSTEMS: Not possible at this time, but the chart has been reviewed in detail and the pre owned sales consultant's note also reviewed in detail. PHYSICAL EXAMINATION: GENERAL: This is an average-built male in no apparent distress who was just extubated this morning. VITAL SIGNS: Currently on nasal cannula with a blood pressure of 140/80, pulse of 100 beats per minute regular, temperature 98, respirations 20, height is 5 feet 8 inches, weight is 172 pounds. HEENT: Head normocephalic. Eyes anicteric with pink conjunctivae. Funduscopy not possible at this time. Ears, nose and throat otherwise normal. NECK: Supple. Thyroid gland is normal size. No carotid bruits or cervical adenopathy. CARDIOPULMONARY: Some adynamic precordium. S1 and S2 are rapid and regular. LUNGS: Clear to auscultation. ABDOMEN: Flat, soft with positive bowel sounds. EXTREMITIES: No peripheral edema. Pulses are +2 bilaterally. LABORATORY DATA: Chemistry showed a BUN of 52, sodium 137, potassium 4.3, chloride 100, CO2 25, glucose 138 and creatinine 1.3. The glucose on admission was less than 20 mg/dL. His glucose levels overnight ranged from 87 to 141 mg per/dL. His total bilirubin is 2.7 with elevated alkaline phosphates of 404. ASSESSMENT: This is a 57-year-old male with recent acute respiratory failure and just extubated today and is being referred with concomitant papillary bladder cell carcinoma and possible metastases with current abdominal distention most likely related to underlying liver metastases with expected episodic bouts of symptomatic hypoglycemia with the impaired glycogenolysis and impaired hepatic gluconeogenesis. He was previously on oral hypoglycemic therapy for diabetic management and has been off the medication since admission. He also has diabetic microvascular complications of retinopathy, polyneuropathy and nephropathy with underlying chronic kidney disease. Moreover, he also has microvascular complications of cerebrovascular disease, coronary artery disease and peripheral arterial disease and vasculopathy with cardiac tachyarrhythmias and concomitant automatic implantable cardioverter-defibrillator and pacemaker placement at this time. PLAN OF MANAGEMENT: We will continue the present medical management and hold off any kind of oral hypoglycemic therapy, not even insulin coverage scale is ordered. We will obtain serial chemistries and supplement accordingly as needed. We will concur with the present medical management at this time as given with symptomatic and supportive care as ordered. We will obtain serial chemistries and supplement accordingly as needed. We will follow. Clarita Ryan MD
[2018-02-12] MEDS ORDERED: Labetalol 25mg/5ml Syringe IVP STA (00:44)
[2018-02-12] MEDS: guaiFENesin 100 mg/5 ml Syrup UD PO PRN ×3 (00:46→21:25)
[2018-02-12] MEDS: Benzocaine/Menthol (Cepacol) Lozenge MT PRN (02:01)
[2018-02-12] MEDS ORDERED: Promethazine/Cod 6.25mg-10mg/5ml Syr UD PO ONE ×2 (02:58→06:36)
[2018-02-12] MEDS ORDERED: Albuterol-Ipratrop 3 mg / 0.5 (3 ml) UD INH STA (03:53)
[2018-02-12 06:30] LABS: ALBUMIN 3.3 g/dL (3.5-5.0); BLOOD UREA NITROGEN 48 mg/dL (9-20); CALCIUM 8.7 mg/dl (8.6-10.4); GFR NON-AFRICAN AMERICAN 57
[2018-02-12 06:31] LABS: ALT/SGPT 32 U/L (21-72); AST/SGOT 27 U/L (17-59)
[2018-02-12 06:37] LABS: BASO # 0.1 K/uL (0.0-0.2); BASO % 1.3 % (0.0-2.0); EOS # 0.2 K/uL (0.0-0.7); EOS % 3.3 % (0.0-4.0); HEMOGLOBIN 14.6 g/dL (12.0-18.0); LYMPH # 1.2 K/uL (1.0-4.3); LYMPH % 19.1 % (20.0-40.0); MEAN CELL VOLUME 90.4 fL (80.0-94.0); MEAN CORPUSCULAR HEMOGLOBIN 30.1 pg (27.0-31.0); MEAN CORPUSCULAR HGB CONC 33.3 g/dL (33.0-37.0); MEAN PLATELET VOLUME 8.4 fL (7.2-11.7); MONO # 0.6 K/uL (0.0-0.8); MONO % 9.6 % (0.0-10.0); NEUT # 4.1 K/uL (1.8-7.0); NEUT % 66.7 % (50.0-75.0); NRBC % 0.1 % (0.0-2.0); RBC 4.86 Mil/uL (4.40-5.90); RED CELL DISTRIBUTION WIDTH 21.1 % (11.5-14.5); WHITE BLOOD COUNT 6.1 K/uL (4.8-10.8)
[2018-02-12] MEDS: cefTRIAXone IV 1 gm in Dextros 50 ML IVPB SCH (09:00)
[2018-02-12] MEDS: POLYETHYLENE GLYCOL 3350 17 GM/Dose PACKET PO SCH (09:05)
[2018-02-12] MEDS: Simethicone 80 mg Chewtab PO SCH ×4 (09:06→21:25)
[2018-02-12] MEDS: Sacubitril/Valsartan 49-51 Tab PO SCH ×3 (09:06→17:23)
--- NOTE | 2018-02-12 09:30 | CP.PCM.PN ---
Subjective - Date & Time of Evaluation Date of Evaluation: 02/12/18 Time of Evaluation: 09:20 - Subjective Subjective: [place] Islander Sampler Pickup [employer] Medical Attending Note: Patient seen and examined. Patient denies headache, coughing, denies shortness of breathe, denies nausea, denies vomitting, has abdominal distension, denies nausea, denies vomitting, urinating, has bowel movement. Objective - Vital Signs/Intake and Output Vital Signs (last 24 hours): Temp Pulse Resp BP Pulse Ox 97.8 F 96 H 23 107/70 99 02/12/18 08:00 02/12/18 08:10 02/12/18 08:10 02/12/18 09:04 02/12/18 08:10 Intake and Output: 02/12/18 02/12/18 06:59 18:59 Intake Total 250 Output Total 400 Balance -150 - Medications Medications: Current Medications Benzocaine/Menthol (Cepacol Sore Throat) 1 renuka MT Q4H PRN PRN Reason: Sore Throat Last Admin: 02/12/18 02:01 Dose: 1 renuka Benzonatate (Tessalon Perles) 100 mg PO TID PRN PRN Reason: Cough Last Admin: 02/12/18 04:34 Dose: 100 mg Bisacodyl (Dulcolax) 10 mg TN Q12 PRN PRN Reason: Constipation Last Admin: 02/10/18 10:00 Dose: 10 mg Carvedilol (Coreg) 25 mg PO BID [facility] Last Admin: 02/12/18 09:04 Dose: 25 mg Dextrose (Glutose 15) 0 gm PO ONCE PRN; Protocol PRN Reason: Hypoglycemia Protocol Dextrose (Dextrose 50% Inj) 0 ml IV Q1H PRN; Protocol PRN Reason: Hypoglycemia Protocol Furosemide (Lasix) 40 mg IVP Q12 [facility] Last Admin: 02/11/18 09:21 Dose: 40 mg Glucagon (Glucagen Diagnostic Kit) 0 mg IM STAT PRN; Protocol PRN Reason: Hypoglycemia Protocol Guaifenesin (Robitussin) 100 mg PO Q4H PRN PRN Reason: Cough Last Admin: 02/12/18 09:06 Dose: 100 mg Heparin Sodium (Porcine) (Heparin) 5,000 units SC Q8 [facility] Last Admin: 02/12/18 06:03 Dose: 5,000 units Ceftriaxone Sodium (Rocephin Iv 1 Gm Duplex) 50 mls @ 50 mls/30 min IVPB DAILY [facility]; Protocol Last Admin: 02/12/18 09:00 Dose: 50 mls/30 min Polyethylene Glycol (Miralax) 17 gm PO DAILY [facility] Last Admin: 02/11/18 09:39 Dose: 17 gm Sacubitril/Valsartan (Entresto 49 Mg-51 Mg) 2 tab PO BID [facility] Last Admin: 02/12/18 09:06 Dose: 2 tab Simethicone (Mylicon Chew Tab) 80 mg PO QID [facility] Last Admin: 02/12/18 09:06 Dose: 80 mg Spironolactone (Aldactone) 50 mg PO DAILY [facility] Last Admin: 02/12/18 09:06 Dose: 50 mg Tamsulosin HCl (Flomax) 0.4 mg PO BID [facility] Last Admin: 02/12/18 09:06 Dose: 0.4 mg - Labs Labs: 02/12/18 06:23 02/12/18 06:07 PT 16.8 SECONDS (9.7-12.2) H 02/09/18 08:20 INR 1.5 02/09/18 08:20 APTT 33 SECONDS (21-34) 02/09/18 08:20 - Constitutional Appears: Non-toxic, No Acute Distress - Head Exam Head Exam: NORMAL INSPECTION - Eye Exam Eye Exam: EOMI - ENT Exam ENT Exam: Mucous Membranes Moist - Respiratory Exam Respiratory Exam: Clear to Ausculation Bilateral, NORMAL BREATHING PATTERN. absent: Rales, Rhonchi, Wheezes - Cardiovascular Exam Cardiovascular Exam: Tachycardia, +S1, +S2 - GI/Abdominal Exam GI & Abdominal Exam: Distended, Soft, Normal Bowel Sounds. absent: Firm, Guarding, Rigid, Tenderness, Rebound - Extremities Exam Extremities Exam: Pedal Edema. absent: Tenderness - Neurological Exam Neurological Exam: Alert, Awake, Oriented x3 - Skin Skin Exam: Dry, Intact, Normal Color, Warm Attending/Attestation - Attestation I have personally seen and examined this patient.: Yes I have fully participated in the care of the patient.: Yes I have reviewed all pertinent clinical information, including history, physical exam and plan: Yes Notes (Text): Patient seen, examined and case discussed with resident. Patient seen with the [place] Island[place] Sign Language intreptator. Patient reports he is doing okay. Patient noted constant coughing overnight. Suspect secondary to abdominal distension. Patient has cough PRN in place. We will order right upper venous ultrasound given swelling r/o DVT. Patient to f/u with PT/OT Workup on subacute rehab eval for discharge planning Follow-up with cardiology for stabilization to plan for discharge planning. Nephrology has signed off yesterday Follow-up with cardiology Patient will need to f/u outpatient with his wild life photographer, and urology in regards to mason. Assessment/plan 1) HFrEF (Systolic Heart failure) with AICD/Pacemaker: Assessment/Plan * Echo (10/2017): LVEF 12.8% Severe LV hypokinesis, mild LVH, dilated LA, RA and RV, mild MR, severe TR, Mild pulmonary hypertension. * Patient sees Dr. Pang, wild life photographer regularly. * Discussed with him 02/09-->high risk cardiac; will not be cleared for urologic procedure for the bladder tumor * recommends f/u in 1 week * I spoke with Dr. Carlton following this conversation--->aware he is not a candidate for anticoagulation given fall risk and he recommends for further diuresis * EKG(02/04): Junctional rhythm, left axis deviation, RBB * Daily weights, I&O's, head of bead 45 degrees * Consult cardiology, Dr. Carlton motion picture set up worker-->help appreciated * Consult EP-Cardiology, Dr. Brunner to check pacemaker * Monitor patient on telemetry * Entresto 2 tab PO BID * Spironolactone 50mg daily * Carvedilol 25mg BID * Lasix 40mg BID * patient is off aspirin * Fluid restriction to 1 L daily * Patient is high risk for anticoagulation per discussion with PMD for the atrial flutter 2) Urinary retention status post mason replacement: Assessment/Plan * UA: positive for blood, LE, WBC, and bacteria * Urine culture: Citrobacter * repeat urine culture: no growth * Patient had received 1 dose of Rocephin given in ED * completed antibiotic * S/p cystoscopy with Dr. Brar - POD #8 * Discussed with Dr. Brar, he is aware patient is not cleared in regards to cardiac status. Will monitor outpatient. Spoke with patient's son as well who is aware * Flomax 0.4mg BID * Mason care with betadine 3x/day * Will discharge outpatient with mason, and follow-up with Dr. Brar 3) Hx of hyperbilirubinemia, elevated Alkaline phosphatase, ascites: Assessment/Plan * Hepatitis panel 10/2017 negative * Tbili is at baseline at 4.5 * Alkaline phosphatase: 464 * Abdominal US (12/03/2017): The extrahepatic portal vein is patent with hepatopetal flow. No sonographic evidence for thrombus or obstruction is seen. The 3 hepatic veins are visualized centrally and patent. The hepatic artery is patent. (see full report) * CT abd/pelvis (12/03): Limited assessment without IV or oral contrast administration. Cardiomegaly. Small pericardial effusion. Moderate to large amount of ascites in the abdomen and pelvis. Enlarged prostate. [id number] anasarca. Preliminary report was submitted by virtual Radiology. (see full report) * Seen by CHRISTIANO, Dr. Zavala during 10/2017 admission and was asked to follow up, however patient did not do so. * GI was reconsulted has seen patient this admission and signed off. * patient noted in prior hospitalization noted ascites secondary to CHF. Patient had require IR to drain about 2.1 Liters. * Patient was counselled on the importance of following up. Please provide follow up information upon discharge. * s/p paracentesis 02/07 4) Hx HTN Assessment/Plan * Spironolactone 50mg daily * Carvedilol 25mg BID * Lasix 40mg BID * Hold for SBP<100 and HR <60 5) Hx of DM-2: * Home med of Tradjenta- hold * ISS * Accuchecks ACHS * Hypoglycemia protocol 6) Hx of CKD: * likely cardiorenal * Patient is on Lasix/ Aldactone for CHF * Discussed with clarisse Uribe from nephrology standpoint, signed off. 7) Hx of deaf/mute: * Patient communicates in sign. Please use track template maker service which is very effective. 8) Unintentional weight loss: * 40 lb weight loss in the past year * Continue to monitor 9) Prophylaxis: * dvt ppx: heparin 5000 units subq8H * Venous dopplers: negative b/l * No GI ppx indicated * Florastor 250mg PO BID Disposition: Nephrology and cardiology on case. patient is status post IR thoracentesis. 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 Reconsult PT/OT and follow-up with cardiology. Discharge planning for [facility].
[2018-02-12] MEDS ORDERED: Albuterol-Ipratrop 3 mg / 0.5 (3 ml) UD INH PRN (09:33)
[2018-02-12] MEDS: Benzocaine/Menthol (Cepacol) Lozenge MT SCH ×4 (10:15→21:25)
--- NOTE | 2018-02-12 12:25 | CARD ---
APPROVED REPORT Date of service: 02/11/2018 EXAM: Two-dimensional and M-mode echocardiogram with Doppler and color Doppler. Other Information Quality : GoodRhythm : INDICATION Peripheral Edema Congestive Heart Failure 2D DIMENSIONS IVSd1.0 (0.7-1.1cm)LVDd6.3 (3.9-5.9cm) PWd1.3 (0.7-1.1cm)LA Dmjidq06 (18-58mL) LVDs6.0 (2.5-4.0cm)FS (%) 4.8 % LVEF (%)10.6 (>50%)LVEF (Ernandez's)15 % M-Mode DIMENSIONS Left Atrium (MM)5.12 (2.5-4.0cm)IVSd1.10 (0.7-1.1cm) Aortic Root3.47 (2.2-3.7cm)LVDd7.51 (4.0-5.6cm) Aortic Cusp Exc.2.16 (1.5-2.0cm)PWd1.10 (0.7-1.1cm) FS (%) 9 %LVDs6.87 (2.0-3.8cm) TAPSE11.48 cmLVEF (%)10 (>50%) Mitral Valve MV E Bgplbijz80.5cm/sE/A ratio0.0UBFT803.14 cm/s TDI Lateral E' Peak V9.32cm/sMedial E' Peak V5.58cm/sE/Lateral E'10.5 E/Medial E'17.5 Tricuspid Valve TR Peak Ttpyaotx628wx/sTR Peak Gr.85yiRyKPKP39qoYz LEFT VENTRICLE The Left Ventricle is severely dilated. There is normal left ventricular wall thickness. Left ventricle systolic function is severely impaired. The Ejection Fraction is <20%. There is severe global hypokinesis of the left ventricle. The left ventricular diastolic function is normal. No left ventricle thrombus noted on this study. RIGHT VENTRICLE The right ventricle is moderately dilated. There is normal right ventricular wall thickness. Systolic function seems moderately reduced. There is a catheter in the right ventricle. ATRIA The left atrium is severely dilated. The right atrium is severely dilated. AORTIC VALVE The aortic valve is mildly The aortic valve is trileaflet. No aortic regurgitation is present. There is no aortic valvular stenosis. There is no aortic valvular vegetation. MITRAL VALVE Mitral annular calcification is mild. There is no evidence of mitral valve prolapse. There is no mitral valve stenosis. Mitral regurgitation is mild to moderate. TRICUSPID VALVE The tricuspid valve is normal in structure. There is severe tricuspid regurgitation. Right ventricular systolic pressure is estimated at 40-50 mmHg. There is moderate pulmonary hypertension. There is no tricuspid valve prolapse or vegetation. There is no tricuspid valve stenosis. PULMONIC VALVE The pulmonic valve is not well visualized. There is moderate to severe pulmonic valvular regurgitation. GREAT VESSELS The aortic root is normal in size. The IVC collapses <50% with inspiration. PERICARDIAL EFFUSION There is a small circumferential pericardial effusion. <Conclusion> The Left Ventricle is severely dilated. Left ventricle systolic function is severely impaired. The Ejection Fraction is <20%. There is severe global hypokinesis of the left ventricle. The right ventricle is moderately dilated. Systolic function seems moderately reduced. The left atrium is severely dilated. The right atrium is severely dilated. Mitral regurgitation is mild to moderate. There is severe tricuspid regurgitation. There is moderate pulmonary hypertension. There is moderate to severe pulmonic valvular regurgitation. There is a small circumferential pericardial effusion. 4-chamber dilatation with severe biventricular systolic dysfunction.
--- NOTE | 2018-02-12 14:21 | PN ---
DATE: 02/12/2018 ENDOCRINOLOGY FOLLOWUP NOTE LOCATION: In ICU, room 7. SUBJECTIVE: This is a 57-year-old male with recent bouts of symptomatic hypoglycemia and is now being followed closely for metabolic management. He also has concomitant jaundice with abdominal distention and possible liver metastasis from underlying bladder carcinoma with ongoing urologic and oncologic workup at this time. His glycemic levels today are improved ranging from 83 to 131 and 141 mg/dL. LABORATORY DATA: His latest chemistries showed a BUN of 48, sodium 136, potassium 5, chloride 102, CO2 of 23, glucose 101, and creatinine 1.3. His latest alkaline phosphatase is 493. ASSESSMENT: This is a 57-year-old male with recent symptomatic hypoglycemia and associated neuroglycopenic and hyperadrenergic manifestations of the same, most likely related to a multiplicity of factors especially nutritional with suboptimal oral intake and prior usage of oral hypoglycemic therapy, which has since then been discontinued and now with supervening metastatic carcinoma involving also the liver, which can contribute to hypoglycemia with the impaired glycogenolysis and gluconeogenesis thereof. PLAN OF MANAGEMENT: We will continue the present medical management and GI workup at this time and we will encourage improved oral intake to obviate further bouts of hypoglycemia. No indication at this time for any kind of oral hypoglycemic therapy to be undertaken. We will obtain serial chemistries and supplement accordingly as needed. We will follow. Clarita Ryan MD
--- NOTE | 2018-02-12 14:29 | RAD ---
Date of service: 02/12/2018 HISTORY: cough COMPARISON: 02/10/2018 FINDINGS: LUNGS: No active pulmonary disease. PLEURA: Possible small left pleural effusion. No right pleural effusion. No pneumothorax. CARDIOVASCULAR: Mild cardiomegaly. AICD. No congestive change. Mild calcification of the thoracic aortic arch. OSSEOUS STRUCTURES: No significant abnormalities. VISUALIZED UPPER ABDOMEN: Normal. OTHER FINDINGS: None. IMPRESSION: Possible small left pleural effusion. No acute infiltrate.
--- NOTE | 2018-02-12 20:52 | PN ---
DATE: 02/12/2018 FOLLOWUP SUBJECTIVE: The patient offers no complaint. He is in sinus rhythm. PHYSICAL EXAMINATION: VITAL SIGNS: Blood pressure 107/70, heart rate 96, temperature 97.8, respirations 23. HEENT: Normocephalic. CHEST: Minimal basilar rhonchi. HEART: S1 and S2 are regular. ABDOMEN: Moderate ascites. EXTREMITIES: Trace pedal edema. LABORATORY DATA: Today's SMA-7 is within normal limits except for BUN of 48. Total bilirubin is elevated at 3.3. Today's hemoglobin, hematocrit, white count and platelet count are within normal limits. Today's chest x-ray report, possible small left pleural effusion, no acute infiltrate. ASSESSMENT: 1. Cardiomyopathy, status post implantable cardioverter-defibrillator placement. 2. Cardiac cirrhosis. 3. Benign prostatic hypertrophy. 4. Low-grade papillary carcinoma of the urinary bladder. 5. Prerenal azotemia. 5. Status post hypoglycemic episode. RECOMMENDATIONS: Continue Aldactone 50 mg once a day, Coreg 25 mg twice a day, Entresto two tablets twice a day, subcutaneous heparin 5000 units every 8 hours, Lasix 40 mg intravenously twice a day, Rocephin 1 g intravenously daily. Jass Carlton MD
[2018-02-13] MEDS: Benzocaine/Menthol (Cepacol) Lozenge MT SCH ×7 (01:10→21:45)
[2018-02-13 06:33] LABS: BASO # 0.1 K/uL (0.0-0.2); BASO % 1.7 % (0.0-2.0); EOS # 0.2 K/uL (0.0-0.7); EOS % 3.7 % (0.0-4.0); HEMOGLOBIN 14.4 g/dL (12.0-18.0); LYMPH # 1.3 K/uL (1.0-4.3); LYMPH % 23.1 % (20.0-40.0); MEAN CELL VOLUME 90.4 fL (80.0-94.0); MEAN CORPUSCULAR HEMOGLOBIN 29.9 pg (27.0-31.0); MEAN CORPUSCULAR HGB CONC 33.1 g/dL (33.0-37.0); MEAN PLATELET VOLUME 8.6 fL (7.2-11.7); MONO # 0.6 K/uL (0.0-0.8); MONO % 11.3 % (0.0-10.0); NEUT # 3.3 K/uL (1.8-7.0); NEUT % 60.2 % (50.0-75.0); NRBC % 0.4 % (0.0-2.0); RBC 4.82 Mil/uL (4.40-5.90); RED CELL DISTRIBUTION WIDTH 21.1 % (11.5-14.5); WHITE BLOOD COUNT 5.5 K/uL (4.8-10.8)
[2018-02-13 06:48] LABS: ALB/GLOB RATIO 0.9 (1.0-2.1); ALBUMIN 3.3 g/dL (3.5-5.0); ALT/SGPT 29 U/L (21-72); AST/SGOT 27 U/L (17-59); BLOOD UREA NITROGEN 54 mg/dL (9-20); CALCIUM 8.9 mg/dl (8.6-10.4); GFR NON-AFRICAN AMERICAN 52
[2018-02-13] MEDS: Simethicone 80 mg Chewtab PO SCH ×4 (11:00→21:59)
[2018-02-13] MEDS: cefTRIAXone IV 1 gm in Dextros 50 ML IVPB SCH (11:36)
[2018-02-13] MEDS: Sacubitril/Valsartan 49-51 Tab PO SCH ×2 (11:37→17:42)
[2018-02-13] MEDS: POLYETHYLENE GLYCOL 3350 17 GM/Dose PACKET PO SCH (11:46)
[2018-02-13] MEDS: guaiFENesin 100 mg/5 ml Syrup UD PO PRN (11:46)
--- NOTE | 2018-02-13 13:25 | PN ---
DATE: 02/13/2018 SUBJECTIVE: The patient is experiencing shortness of breath and complaining of constipation. PHYSICAL EXAMINATION: VITAL SIGNS: Blood pressure 114/84, heart rate 118, temperature 98, and respirations 22. HEENT: Normocephalic. CHEST: Diminished breath sounds over the bases. HEART: S1 and S2 regular. EXTREMITIES: No edema. LABORATORY DATA: Today's hemoglobin and hematocrit, white count, and platelet count are within normal limit. Today's SMA-7 is within normal limit except the BUN of 54. Total bilirubin is 3.2. I did review yesterday's chest x-ray, which revealed cardiomegaly, but no definite infiltrate. ASSESSMENT: 1. Dilated cardiomyopathy, status post implantable cardioverter-defibrillator placement. 2. Mild prerenal azotemia. 3. Cardiac cirrhosis. 4. Papillary carcinoma of the urinary bladder. 5. Benign prostatic hypertrophy. RECOMMENDATIONS: Continue Aldactone at 50 mg once a day, Coreg is on hold now, resume Lasix at 40 mg intravenously daily, and IV Rocephin at 1 g daily. [address] with Dr. Pereira For transfer to [facility] tomorrow Jass Carlton MD MTDD
[2018-02-13] MEDS: Benzocaine/Menthol (Cepacol) Lozenge MT PRN (14:32)
--- NOTE | 2018-02-13 15:30 | PN ---
DATE: 02/13/2018 ENDOCRINOLOGY FOLLOWUP NOTE LOCATION: In ICU room 7. SUBJECTIVE: This is a 57-year-old male with metastatic carcinoma with liver metastasis and ascites with abdominal distention and jaundice, and is now being followed closely for metabolic management. He has had recent glycemic fluctuations from hyperglycemic accelerations down to symptomatic hypoglycemia as noted thereof. LABORATORY DATA: His latest chemistry showed a BUN of 54, sodium 138, potassium 5, chloride 101, CO2 of 22, glucose 109, creatinine 1.4. His glucose values are fluctuating, but improved and have ranged from 147 to 152 mg/dL. ASSESSMENT AND PLAN: There is no indication at this time for any kind of resumption of any oral hypoglycemic therapy at this point since he was previously on Tradjenta medication on the outpatient. With the variable oral intake, we will hold off any kind of oral hypoglycemic therapy at this time and observe his glycemic fluctuations thereof. We will obtain serial chemistries and supplement accordingly as needed. We will follow. Clarita Ryan MD
--- NOTE | 2018-02-13 16:34 | CP.PCM.PN ---
Subjective - Date & Time of Evaluation Date of Evaluation: 02/13/18 Time of Evaluation: 16:30 - Subjective Subjective: Medical Attending Note: Patient seen and examined. Using for indemand physical geographer [place] sign language service. Patient seen at bedside. Patient denies headache, denies chest pain, reports cough, reports he has had 2 bowel movements large, denies nausea, denies vomitting, and has mason. patient is amenable to rehab. I spoke with Dr. fonseca, disregard the ryann inhibitor since patient is on entresto, is amenable from his standpoint for rehab. I have place IR thoracentesis for paracentesis to see if belly is amenable for repeat thoracenteis. Objective - Vital Signs/Intake and Output Vital Signs (last 24 hours): Temp Pulse Resp BP Pulse Ox 98.1 F 110 H 22 108/66 100 02/13/18 15:00 02/13/18 15:00 02/13/18 15:00 02/13/18 15:00 02/13/18 15:00 Intake and Output: 02/13/18 02/13/18 06:59 18:59 Intake Total 240 960 Output Total 300 300 Balance -60 660 - Medications Medications: Current Medications Albuterol/Ipratropium (Duoneb 3 Mg/0.5 Mg (3 Ml) Ud) 3 ml INH RQ6 PRN PRN Reason: Shortness of Breath Benzocaine/Menthol (Cepacol Sore Throat) 1 renuka MT Q4H [facility] Last Admin: 02/13/18 13:50 Dose: 1 renuka Benzonatate (Tessalon Perles) 100 mg PO TID PRN PRN Reason: Cough Last Admin: 02/13/18 11:44 Dose: 100 mg Bisacodyl (Dulcolax) 10 mg [place] Q12 PRN PRN Reason: Constipation Last Admin: 02/10/18 10:00 Dose: 10 mg Carvedilol (Coreg) 25 mg PO BID [facility] Last Admin: 02/13/18 11:00 Dose: 25 mg Dextrose (Glutose 15) 0 gm PO ONCE PRN; Protocol PRN Reason: Hypoglycemia Protocol Dextrose (Dextrose 50% Inj) 0 ml IV Q1H PRN; Protocol PRN Reason: Hypoglycemia Protocol Furosemide (Lasix) 40 mg IVP DAILY [facility] Glucagon (Glucagen Diagnostic Kit) 0 mg IM STAT PRN; Protocol PRN Reason: Hypoglycemia Protocol Guaifenesin (Robitussin) 100 mg PO Q4H PRN PRN Reason: Cough Last Admin: 02/13/18 11:46 Dose: 100 mg Ceftriaxone Sodium (Rocephin Iv 1 Gm Duplex) 50 mls @ 50 mls/30 min IVPB DAILY [facility]; Protocol Last Admin: 02/13/18 11:36 Dose: 50 mls/30 min Polyethylene Glycol (Miralax) 17 gm PO DAILY [facility] Last Admin: 02/13/18 11:46 Dose: 17 gm Sacubitril/Valsartan (Entresto 49 Mg-51 Mg) 2 tab PO BID [facility] Last Admin: 02/13/18 11:37 Dose: 2 tab Simethicone (Mylicon Chew Tab) 80 mg PO QID [facility] Last Admin: 02/13/18 14:00 Dose: 80 mg Spironolactone (Aldactone) 50 mg PO DAILY [facility] Last Admin: 02/13/18 11:54 Dose: Not Given Tamsulosin HCl (Flomax) 0.4 mg PO BID [facility] Last Admin: 02/13/18 11:50 Dose: 0.4 mg - Labs Labs: 02/13/18 06:28 02/13/18 06:20 PT 16.8 SECONDS (9.7-12.2) H 02/09/18 08:20 INR 1.5 02/09/18 08:20 APTT 33 SECONDS (21-34) 02/09/18 08:20 - Constitutional Appears: Non-toxic, No Acute Distress - Head Exam Head Exam: NORMAL INSPECTION - Eye Exam Eye Exam: EOMI - ENT Exam ENT Exam: Mucous Membranes Moist - Respiratory Exam Respiratory Exam: Clear to Ausculation Bilateral, NORMAL BREATHING PATTERN. absent: Rales, Rhonchi, Wheezes - Cardiovascular Exam Cardiovascular Exam: REGULAR RHYTHM, +S1 - GI/Abdominal Exam GI & Abdominal Exam: Distended, Soft, Normal Bowel Sounds. absent: Firm, Guarding, Rigid, Tenderness, Rebound - Extremities Exam Extremities Exam: Pedal Edema. absent: Tenderness - Back Exam Back Exam: absent: CVA tenderness (L), CVA tenderness (R) - Neurological Exam Neurological Exam: Alert, Awake, Oriented x3 - Psychiatric Exam Psychiatric exam: Normal Affect, Normal Mood - Skin Skin Exam: Dry, Intact, Normal Color, Warm Additional comments: ecchymoses over the right upper extremity Attending/Attestation - Attestation I have personally seen and examined this patient.: Yes I have fully participated in the care of the patient.: Yes I have reviewed all pertinent clinical information, including history, physical exam and plan: Yes Notes (Text): Patient seen, examined and case discussed with resident. We will order right upper venous ultrasound given swelling r/o DVT. We have place IR thoracentesis for repeat paracentesis tomorrow. Case management referral for [facility]. PT/OT consult Patient to f/u with PT/OT per endocrinology, no need for oral hypoglycemic at this time. 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 Assessment/plan 1) HFrEF (Systolic Heart failure) with AICD/Pacemaker: Assessment/Plan * Echo (10/2017): LVEF 12.8% Severe LV hypokinesis, mild LVH, dilated LA, RA and RV, mild MR, severe TR, Mild pulmonary hypertension. * Patient sees Dr. Pang, middle school principal regularly. * Discussed with him 02/09-->high risk cardiac; will not be cleared for urologic procedure for the bladder tumor * recommends f/u in 1 week * I spoke with Dr. Fonseca following this conversation--->aware he is not a candidate for anticoagulation given fall risk and he recommends for further diuresis * EKG(02/04): Junctional rhythm, left axis deviation, RBB * Daily weights, I&O's, head of bead 45 degrees * Consult cardiology, Dr. Fonseca supervisor electronics testing-->help appreciated * Consult EP-Cardiology, Dr. Brunner to check pacemaker * Monitor patient on telemetry * Entresto 2 tab PO BID * Spironolactone 50mg daily * Carvedilol 25mg BID * Lasix 40mg IV BID * patient is off aspirin * Fluid restriction to 1 L daily * Patient is high risk for anticoagulation per discussion with PMD for the atrial flutter 2) Urinary retention status post mason replacement: Assessment/Plan * UA: positive for blood, LE, WBC, and bacteria * Urine culture: Citrobacter * repeat urine culture: no growth * Patient had received 1 dose of Rocephin given in ED * completed antibiotic * S/p cystoscopy with Dr. Brar - POD #9 * Discussed with Dr. Brar, he is aware patient is not cleared in regards to cardiac status. Will monitor outpatient. Spoke with patient's son as well who is aware * Flomax 0.4mg BID * Mason care with betadine 3x/day * Will discharge outpatient with mason, and follow-up with Dr. Brar 3) Hx of hyperbilirubinemia, elevated Alkaline phosphatase, ascites: Assessment/Plan * Hepatitis panel 10/2017 negative * Tbili is at baseline at 4.5 * Alkaline phosphatase: 464 * Abdominal US (12/03/2017): The extrahepatic portal vein is patent with hepatopetal flow. No sonographic evidence for thrombus or obstruction is seen. The 3 hepatic veins are visualized centrally and patent. The hepatic artery is patent. (see full report) * CT abd/pelvis (12/03): Limited assessment without IV or oral contrast administration. Cardiomegaly. Small pericardial effusion. Moderate to large amount of ascites in the abdomen and pelvis. Enlarged prostate. [id number] anasarca. Preliminary report was submitted by virtual Radiology. (see full report) * Seen by GI, Dr. Zavala during 10/2017 admission and was asked to follow up, however patient did not do so. * GI was reconsulted has seen patient this admission and signed off. * patient noted in prior hospitalization noted ascites secondary to CHF. Patient had require IR to drain about 2.1 Liters. * Patient was counselled on the importance of following up. Please provide follow up information upon discharge. * s/p paracentesis 02/07 * Will consult IR for repeat paracentesis 02/14/18 4) Hx HTN Assessment/Plan * Spironolactone 50mg daily * Carvedilol 25mg BID * Lasix 40mg BID * Hold for SBP<100 and HR <60 5) Hx of DM-2: * Home med of Tradjenta- hold * ISS * Accuchecks ACHS * Hypoglycemia protocol * endocrinology: no oral hypoglycemic at this time. 6) Hx of CKD: * likely cardiorenal * Patient is on Lasix/ Aldactone for CHF * Discussed with Dr. Acosta, stable from nephrology standpoint, signed off. 7) Hx of deaf/mute: * Patient communicates in sign. Please use jogger operator service which is very effective. 8) Unintentional weight loss: * 40 lb weight loss in the past year * Continue to monitor 9) Prophylaxis: * dvt ppx: heparin 5000 units subq8H * Venous dopplers: negative b/l * No GI ppx indicated * Florastor 250mg PO BID Disposition: Nephrology and cardiology on case. Will reconsult IR paracentesis for cardiac ascites. Case management referral for subacute rehab for authorization. Venous doppler right upper extremity pending.
[2018-02-13] MEDS: Promethazine 12.5 mg/10 ml Syrup PO PRN (22:00)
[2018-02-14] MEDS: Benzocaine/Menthol (Cepacol) Lozenge MT SCH ×5 (01:45→21:04)
[2018-02-14] MEDS: guaiFENesin 100 mg/5 ml Syrup UD PO PRN ×2 (02:27→10:58)
[2018-02-14 05:46] LABS: BASO # 0.1 K/uL (0.0-0.2); BASO % 1.4 % (0.0-2.0); EOS # 0.2 K/uL (0.0-0.7); EOS % 2.6 % (0.0-4.0); HEMOGLOBIN 15.1 g/dL (12.0-18.0); LYMPH # 1.2 K/uL (1.0-4.3); LYMPH % 19.7 % (20.0-40.0); MEAN CELL VOLUME 90.3 fL (80.0-94.0); MEAN CORPUSCULAR HEMOGLOBIN 29.7 pg (27.0-31.0); MEAN CORPUSCULAR HGB CONC 32.9 g/dL (33.0-37.0); MEAN PLATELET VOLUME 8.3 fL (7.2-11.7); MONO # 0.6 K/uL (0.0-0.8); MONO % 10.8 % (0.0-10.0); NEUT # 3.8 K/uL (1.8-7.0); NEUT % 65.5 % (50.0-75.0); NRBC % 0.1 % (0.0-2.0); RBC 5.07 Mil/uL (4.40-5.90); RED CELL DISTRIBUTION WIDTH 21.1 % (11.5-14.5); WHITE BLOOD COUNT 5.9 K/uL (4.8-10.8)
[2018-02-14 06:12] LABS: ALBUMIN 3.4 g/dL (3.5-5.0)
--- NOTE | 2018-02-14 08:24 | CP.PCM.PN ---
Subjective - Date & Time of Evaluation Date of Evaluation: 02/14/18 Time of Evaluation: 09:30 - Subjective Subjective: PGY-1 Yenni Muñoz D.O. Medicine progress note for Dr. Raul Lewis's service: Patient was seen and examined this morning. Objective - Vital Signs/Intake and Output Vital Signs (last 24 hours): Temp Pulse Resp BP Pulse Ox 97.8 F 106 H 23 103/58 L 100 02/14/18 03:00 02/14/18 03:00 02/14/18 03:00 02/14/18 03:00 02/14/18 03:00 Intake and Output: 02/14/18 02/14/18 06:59 18:59 Intake Total 200 Balance 200 - Medications Medications: Current Medications Albuterol/Ipratropium (Duoneb 3 Mg/0.5 Mg (3 Ml) Ud) 3 ml INH RQ6 PRN PRN Reason: Shortness of Breath Last Admin: 02/14/18 01:39 Dose: 3 ml Benzocaine/Menthol (Cepacol Sore Throat) 1 renuka MT Q4H KEE Last Admin: 02/14/18 01:45 Dose: Not Given Benzonatate (Tessalon Perles) 100 mg PO TID PRN PRN Reason: Cough Last Admin: 02/14/18 00:36 Dose: 100 mg Bisacodyl (Dulcolax) 10 mg [place] Q12 PRN PRN Reason: Constipation Last Admin: 02/10/18 10:00 Dose: 10 mg Carvedilol (Coreg) 25 mg PO BID [facility] Last Admin: 02/13/18 17:51 Dose: 25 mg Dextrose (Glutose 15) 0 gm PO ONCE PRN; Protocol PRN Reason: Hypoglycemia Protocol Dextrose (Dextrose 50% Inj) 0 ml IV Q1H PRN; Protocol PRN Reason: Hypoglycemia Protocol Furosemide (Lasix) 40 mg IVP DAILY [facility] Glucagon (Glucagen Diagnostic Kit) 0 mg IM STAT PRN; Protocol PRN Reason: Hypoglycemia Protocol Guaifenesin (Robitussin) 100 mg PO Q4H PRN PRN Reason: Cough Last Admin: 02/14/18 02:27 Dose: 100 mg Ceftriaxone Sodium (Rocephin Iv 1 Gm Duplex) 50 mls @ 50 mls/30 min IVPB DAILY [facility]; Protocol Last Admin: 02/13/18 11:36 Dose: 50 mls/30 min Polyethylene Glycol (Miralax) 17 gm PO DAILY [facility] Last Admin: 02/13/18 11:46 Dose: 17 gm Promethazine HCl (Phenergan Syrup) 12.5 mg PO Q6 PRN PRN Reason: Cough Last Admin: 02/13/18 22:00 Dose: 12.5 mg Sacubitril/Valsartan (Entresto 49 Mg-51 Mg) 2 tab PO BID [facility] Last Admin: 02/13/18 17:42 Dose: 2 tab Simethicone (Mylicon Chew Tab) 80 mg PO QID [facility] Last Admin: 02/13/18 21:59 Dose: 80 mg Spironolactone (Aldactone) 50 mg PO DAILY [facility] Last Admin: 02/13/18 11:54 Dose: Not Given Tamsulosin HCl (Flomax) 0.4 mg PO BID [facility] Last Admin: 02/13/18 17:50 Dose: 0.4 mg - Labs Labs: 02/14/18 05:37 02/14/18 05:37 PT 16.8 SECONDS (9.7-12.2) H 02/09/18 08:20 INR 1.5 02/09/18 08:20 APTT 33 SECONDS (21-34) 02/09/18 08:20
--- NOTE | 2018-02-14 10:01 | CP.PCM.PN ---
Subjective - Date & Time of Evaluation Date of Evaluation: 02/14/18 Time of Evaluation: 09:58 - Subjective Subjective: Hospitalist Service Pt seen and examined at bedside. Pt denies any acute events overnight. Pt feels intense abdominal pressure and distention, agrees to plan for paracentesis today. Pt has had small bowel movements daily. Pt denies CP SOB FC [place] Objective - Vital Signs/Intake and Output Vital Signs (last 24 hours): Temp Pulse Resp BP Pulse Ox 97.8 F 106 H 23 103/58 L 100 02/14/18 03:00 02/14/18 03:00 02/14/18 03:00 02/14/18 03:00 02/14/18 03:00 Intake and Output: 02/14/18 02/14/18 06:59 18:59 Intake Total 200 Balance 200 - Medications Medications: Current Medications Albuterol/Ipratropium (Duoneb 3 Mg/0.5 Mg (3 Ml) Ud) 3 ml INH RQ6 PRN PRN Reason: Shortness of Breath Last Admin: 02/14/18 01:39 Dose: 3 ml Benzocaine/Menthol (Cepacol Sore Throat) 1 renuka MT Q4H [facility] Last Admin: 02/14/18 01:45 Dose: Not Given Benzonatate (Tessalon Perles) 100 mg PO TID PRN PRN Reason: Cough Last Admin: 02/14/18 00:36 Dose: 100 mg Bisacodyl (Dulcolax) 10 mg [place] Q12 PRN PRN Reason: Constipation Last Admin: 02/10/18 10:00 Dose: 10 mg Carvedilol (Coreg) 25 mg PO BID [facility] Last Admin: 02/13/18 17:51 Dose: 25 mg Dextrose (Glutose 15) 0 gm PO ONCE PRN; Protocol PRN Reason: Hypoglycemia Protocol Dextrose (Dextrose 50% Inj) 0 ml IV Q1H PRN; Protocol PRN Reason: Hypoglycemia Protocol Furosemide (Lasix) 40 mg IVP DAILY [facility] Glucagon (Glucagen Diagnostic Kit) 0 mg IM STAT PRN; Protocol PRN Reason: Hypoglycemia Protocol Guaifenesin (Robitussin) 100 mg PO Q4H PRN PRN Reason: Cough Last Admin: 02/14/18 02:27 Dose: 100 mg Ceftriaxone Sodium (Rocephin Iv 1 Gm Duplex) 50 mls @ 50 mls/30 min IVPB DAILY [facility]; Protocol Last Admin: 02/13/18 11:36 Dose: 50 mls/30 min Polyethylene Glycol (Miralax) 17 gm PO DAILY [facility] Last Admin: 02/13/18 11:46 Dose: 17 gm Promethazine HCl (Phenergan Syrup) 12.5 mg PO Q6 PRN PRN Reason: Cough Last Admin: 02/13/18 22:00 Dose: 12.5 mg Sacubitril/Valsartan (Entresto 49 Mg-51 Mg) 2 tab PO BID [facility] Last Admin: 02/13/18 17:42 Dose: 2 tab Simethicone (Mylicon Chew Tab) 80 mg PO QID [facility] Last Admin: 02/13/18 21:59 Dose: 80 mg Spironolactone (Aldactone) 50 mg PO DAILY [facility] Last Admin: 02/13/18 11:54 Dose: Not Given Tamsulosin HCl (Flomax) 0.4 mg PO BID [facility] Last Admin: 02/13/18 17:50 Dose: 0.4 mg - Labs Labs: 02/14/18 05:37 02/14/18 05:37 PT 16.8 SECONDS (9.7-12.2) H 02/09/18 08:20 INR 1.5 02/09/18 08:20 APTT 33 SECONDS (21-34) 02/09/18 08:20 - Additional Findings Additional findings: - Constitutional Appears: Non-toxic, No Acute Distress - Head Exam Head Exam: NORMAL INSPECTION - Eye Exam Eye Exam: EOMI - ENT Exam ENT Exam: Mucous Membranes Moist - Respiratory Exam Respiratory Exam: Clear to Ausculation Bilateral, NORMAL BREATHING PATTERN. absent: Rales, Rhonchi, Wheezes - Cardiovascular Exam Cardiovascular Exam: REGULAR RHYTHM, +S1 - GI/Abdominal Exam GI & Abdominal Exam: Distended, Soft, Normal Bowel Sounds. absent: Firm, Guarding, Rigid, Tenderness, Rebound - Extremities Exam Extremities Exam: Pedal Edema. absent: Tenderness - Back Exam Back Exam: absent: CVA tenderness (L), CVA tenderness (R) - Neurological Exam Neurological Exam: Alert, Awake, Oriented x3 - Psychiatric Exam Psychiatric exam: Normal Affect, Normal Mood - Skin Skin Exam: Dry, Intact, Normal Color, Warm Additional comments: ecchymoses over the right upper extremity Assessment and Plan - Assessment and Plan (Free Text) Assessment: Assessment/plan Systolic Heart failure with AICD/Pacemaker: * Echo 02/10: LVEF 10% Severe LV hypokinesis, mild LVH, dilated LA, RA and RV, mild MR, severe TR, Mild pulmonary hypertension. * Patient sees Dr. Pang, doctor of chiropractic regularly. * High risk for interventional procedures unlikely candidate for TURP procedure at this time * EKG(02/04): Junctional rhythm, left axis deviation, RBB * Daily weights, I&O's, head of bead 45 degrees * Consult cardiology, Dr. Carlton information tech-->help appreciated * Consult EP-Cardiology, Dr. Brunner to check pacemaker * Monitor patient on telemetry * Entresto 2 tab PO BID * Spironolactone 50mg daily * Carvedilol 25mg BID * Lasix 40mg IV BID * patient is off aspirin * Fluid restriction to 1 L daily * Patient is high risk for anticoagulation per discussion with PMD for the atrial flutter Papillary Bladder CA w/ Urinary Retention: * UA: positive for blood, LE, WBC, and bacteria * Urine culture: Citrobacter * repeat urine culture: no growth * Patient had received 1 dose of Rocephin given in ED * completed antibiotic * S/p cystoscopy and bx with Dr. Brar - POD #10 * Discussed with Dr. Brar, he is aware patient is not cleared in regards to cardiac status. Will monitor outpatient. Spoke with patient's son as well who is aware * Bx pathology shows Papillary Bladder CA localized no mets * continue to monitor * Flomax 0.4mg BID * Mason care with betadine 3x/day * Will discharge outpatient with mason, and follow-up with Dr. Brar Ascites: * Hepatitis panel 10/2017 negative * Tbili is at baseline at 4.5 * Alkaline phosphatase: 521 * Abdominal US (12/03/2017): The extrahepatic portal vein is patent with hepatopetal flow. No sonographic evidence for thrombus or obstruction is seen. The 3 hepatic veins are visualized centrally and patent. The hepatic artery is patent. (see full report) * CT abd/pelvis (12/03): Limited assessment without IV or oral contrast administration. Cardiomegaly. Small pericardial effusion. Moderate to large amount of ascites in the abdomen and pelvis. Enlarged prostate. [id number] anasarca. Preliminary report was submitted by virtual Radiology. (see full report) * Seen by GI, Dr. Zavala during 10/2017 admission and was asked to follow up, however patient did not do so. * GI was reconsulted has seen patient this admission and signed off. * patient noted in prior hospitalization noted ascites secondary to CHF. Patient had require IR to drain about 2.1 Liters. * Patient was counselled on the importance of following up. Please provide follow up information upon discharge. * s/p paracentesis 02/07 removed 2.5L * Dr Carrasco IR consulted- paracentesis 02/14/18 HTN * Spironolactone 50mg daily * Carvedilol 25mg BID * Lasix 40mg BID * Hold for SBP<100 and HR <60 DM-2: * Home med of [place]adj[place]- hold * ISS * Accuchecks ACHS * Hypoglycemia protocol * endocrinology: no oral hypoglycemic at this time. CKD: * likely cardiorenal * Patient is on Lasix/ Aldactone for CHF * Discussed with clarisse Uribe from nephrology standpoint, signed off. Unintentional weight loss: * 40 lb weight loss in the past year * Continue to monitor 9) Prophylaxis: * dvt ppx: heparin 5000 units subq8H * Venous dopplers: negative b/l * No GI ppx indicated * Florastor 250mg PO BID Disposition: 02/14 IR to do paracentesis for cardiac ascites. Case management referral for subacute rehab for authorization. Venous doppler right upper extremity pending.
[2018-02-14] MEDS: Albumin Human 25% (12.5 gm/50 ml) IV SCH ×2 (10:10→11:02)
--- NOTE | 2018-02-14 10:13 | PCM.SURG1 ---
Surgeon's Initial Post Op Note - Surgeon's Notes Surgeon: Dwain Carrasco MD Ruby [employer] Rails Software Developer: NONE Type of Anesthesia: Local Pre-Operative Diagnosis: Ascites, abdominal discomfort Operative Findings: US showed moderate ascites Post-Operative Diagnosis: Ascites, abdominal discomfort Operation Performed: US guided paracentesis Specimen/Specimens Removed: 3 liters of yellow fluid Estimated Blood Loss: EBL {In ML}: 0 Blood Products Given: N/A Drains Used: No Drains Post-Op Condition: Fair Date of Surgery/Procedure: 02/14/18 Time of Surgery/Procedure: 10:00
--- NOTE | 2018-02-14 10:21 | US ---
Date of Procedure: 02/14/2018 PROCEDURE: Ultrasound-guided paracentesis, CPT 25325 Medications: 7 cc 1% Lidocaine HISTORY: Ascites, abdominal pain TECHNIQUE: Following informed consent , the patient was placed supine on the stretcher and the site was marked. A limited abdominal ultrasound was performed that showed a smalll amount of intra-abdominal fluid. Procedural time out was called and the Pt's abdomen was marked and prepped and draped in the usual sterile fashion. Ultrasound-guided large volume paracentesis performed. A total of 3 liters of clear yellow colored fluid was removed without complication. IMPRESSION: Ultrasound-guided paracentesis.
[2018-02-14] MEDS: Simethicone 80 mg Chewtab PO SCH ×4 (10:30→21:04)
[2018-02-14] MEDS: Sacubitril/Valsartan 49-51 Tab PO SCH ×2 (10:35→18:40)
[2018-02-14] MEDS: cefTRIAXone IV 1 gm in Dextros 50 ML IVPB SCH (11:05)
[2018-02-14] MEDS: Promethazine 12.5 mg/10 ml Syrup PO PRN ×2 (11:07→18:42)
[2018-02-14] MEDS: POLYETHYLENE GLYCOL 3350 17 GM/Dose PACKET PO SCH (11:13)
--- NOTE | 2018-02-14 12:00 | CP.PCM.PN ---
Subjective - Date & Time of Evaluation Date of Evaluation: 02/14/18 Time of Evaluation: 11:58 - Subjective Subjective: Nephrology Consultation Note: Assessment: Stable underlying CKD 3, likely due to cardio-renal syndrome chronic sys CHF with ascites, hyperbilirubinemia hx of AICD BPH, hearing impairment Renal cyst Bladder tumor Hypoglycemia and AMS resolved Plan No acute need for renal replacement therapy at this time. Renal function stable. maintain hemodynamics stable s/p paracetesis , bp is stable f/u work up re: obstructive uropathy and bladder tumor. waiting for bx result. Monitor Input/Output, daily weights and renal function with basic metabolic panel pt on RAAS cleo as entresto and aldactone. K on higher side, low K diet recommended. if K remains high, please add veltassa 8.4 gram once a day (no other medication 3 hour or 3 hours after the veltassa dose) CHF management as per cardiology Dose meds/antibiotics for reduced GFR. Avoid fleets enema/magnesium based laxatives. Avoid nephrotoxins/NSAIDs/ iodinated contrast (unless needed emergently) Glycemic control Further work up/management as per primary team Thanks for allowing me to participate in care of your patient. Will follow patient with you. Please call if any Qs. had d/w team Dr Kalpesh Acosta Office: [phone] ROS: used sign/language interpretation (VOYCE) Cardiovascular: No chest pain. Pulmonary: noo shortness of breath Gastrointestinal: denies abdominal pain No nausea. No vomiting. Genitourinary: has catheter and pt c/o pain due to it All other negative except as mentioned in HPI Physical Examination: General Appearance: Comfortable, co-operative . Vitals reviewed and noted as below Head; Atraumatic, normocephalic ENT: no ulcers no thrush. Tongue is midline. Oropharynx: no rash or ulcers. has hearing impairment EYES: Pupils are equal, round and reactive to light accommodation. Eye muscles and extraocular movement intact. Sclera is icteric. Neck; supple no lymphadenopathy, no thyromegaly or bruit. JVP distended Lungs: normal respiratory rate/effort. Breath sounds bilateral clear Heart: Normal rate. s1s2 normal. No rub or gallop. left side AICD + Extremities: no edema. No varicose veins Neurological: Patient is alert, awake and oriented to person, place and time. No focal deficit. Strength bilateral appropriate and equal Skin: Warm and dry. Normal turgor. No rash. Palpitation: Normal elasticity for age Abdomen: Abdomen is soft. Bowel sounds +. There is no abdominal tenderness, no guarding/rigidity has hepatomegaly. distended and ascitic Psych: normal insight and normal affect/mood MSK: no joint tenderness or swelling. Digits and nails normal, no deformity : kidney or bladder not palpable but exam limited. has mason Labs/imaging reviewed. Past medical history, past surgical history, family history reviewed Objective - Vital Signs/Intake and Output Vital Signs (last 24 hours): Temp Pulse Resp BP Pulse Ox 98 F 106 H 23 130/78 100 02/14/18 11:53 02/14/18 03:00 02/14/18 03:00 02/14/18 11:03 02/14/18 03:00 Intake and Output: 02/14/18 02/14/18 06:59 18:59 Intake Total 200 Balance 200 - Medications Medications: Current Medications Albuterol/Ipratropium (Duoneb 3 Mg/0.5 Mg (3 Ml) Ud) 3 ml INH RQ6 PRN PRN Reason: Shortness of Breath Last Admin: 02/14/18 01:39 Dose: 3 ml Benzocaine/Menthol (Cepacol Sore Throat) 1 renuka MT Q4H [facility] Last Admin: 02/14/18 10:41 Dose: Not Given Benzonatate (Tessalon Perles) 100 mg PO TID PRN PRN Reason: Cough Last Admin: 02/14/18 11:20 Dose: 100 mg Bisacodyl (Dulcolax) 10 mg AR Q12 PRN PRN Reason: Constipation Last Admin: 02/10/18 10:00 Dose: 10 mg Carvedilol (Coreg) 25 mg PO BID [facility] Last Admin: 02/14/18 11:03 Dose: 25 mg Dextrose (Glutose 15) 0 gm PO ONCE PRN; Protocol PRN Reason: Hypoglycemia Protocol Dextrose (Dextrose 50% Inj) 0 ml IV Q1H PRN; Protocol PRN Reason: Hypoglycemia Protocol Furosemide (Lasix) 40 mg IVP DAILY [facility] Last Admin: 02/14/18 10:59 Dose: 40 mg Glucagon (Glucagen Diagnostic Kit) 0 mg IM STAT PRN; Protocol PRN Reason: Hypoglycemia Protocol Guaifenesin (Robitussin) 100 mg PO Q4H PRN PRN Reason: Cough Last Admin: 02/14/18 10:58 Dose: 100 mg Heparin Sodium (Porcine) (Heparin) 5,000 units SC Q8 [facility] Ceftriaxone Sodium (Rocephin Iv 1 Gm Duplex) 50 mls @ 50 mls/30 min IVPB DAILY [facility]; Protocol Last Admin: 02/14/18 11:05 Dose: 50 mls/30 min Polyethylene Glycol (Miralax) 17 gm PO DAILY [facility] Last Admin: 02/14/18 11:13 Dose: Not Given Promethazine HCl (Phenergan Syrup) 12.5 mg PO Q6 PRN PRN Reason: Cough Last Admin: 02/14/18 11:07 Dose: 12.5 mg Sacubitril/Valsartan (Entresto 49 Mg-51 Mg) 2 tab PO BID [facility] Last Admin: 02/14/18 10:35 Dose: 2 tab Simethicone (Mylicon Chew Tab) 80 mg PO QID [facility] Last Admin: 02/14/18 10:30 Dose: 80 mg Spironolactone (Aldactone) 50 mg PO DAILY [facility] Last Admin: 02/14/18 11:12 Dose: 50 mg Tamsulosin HCl (Flomax) 0.4 mg PO BID [facility] Last Admin: 02/13/18 17:50 Dose: 0.4 mg - Labs Labs: 02/14/18 05:37 02/14/18 05:37 PT 16.8 SECONDS (9.7-12.2) H 02/09/18 08:20 INR 1.5 02/09/18 08:20 APTT 33 SECONDS (21-34) 02/09/18 08:20
--- NOTE | 2018-02-14 16:55 | PN ---
DATE: 02/14/2018 SUBJECTIVE: The patient is experiencing right arm swelling. He underwent abdominal paracentesis by Dr. Dwain Carrasco, interventional radiologist with removal of 3 L of clear yellow colored fluid. PHYSICAL EXAMINATION: VITAL SIGNS: Blood pressure 103/80, heart rate 106, temperature 97.8, respirations 23. HEENT: Normocephalic. CHEST: Diminished breath sounds over the bases. HEART: Sounds regular. EXTREMITIES: Left arm edema and ecchymosis. LABORATORY DATA: Hemoglobin and hematocrit 15.1 and 45.8, white count and platelet count are within normal limit. Today's SMA-7: Sodium 138, potassium 5.2, chloride 102, CO2 of 25, glucose 114, BUN 52, creatinine 1.5. ASSESSMENT: 1. Dilated cardiomyopathy, status post implantable-cardioverter defibrillator placement. 2. Prerenal azotemia. 3. Rule out right upper extremity deep vein thrombosis. 4. Cardiac cirrhosis. 5. Benign prostatic hypertrophy requiring indwelling Perdomo catheter. The patient has hematuria today. 6. 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 RECOMMENDATIONS: Continue Aldactone at 50 mg once a day, Coreg 25 mg twice a day and Crestor 2 tablets twice a day. Hold subcutaneous heparin for now and continue Lasix 40 mg intravenously daily and Rocephin at 1 g intravenously daily. The patient will undergo venous Doppler of the right upper extremity today. Jass Carlton MD
[2018-02-14 20:37] VITALS: RESP 20
--- NOTE | 2018-02-14 22:44 | PN ---
DATE: 02/14/2018 ENDOCRINOLOGY FOLLOWUP NOTE LOCATION: In ICU, room 7. SUBJECTIVE: This is a 57-year-old male with metastatic carcinoma and ascites with abdominal distention, elevated liver transaminases, jaundice, and is now being followed closely for metabolic management. He presented initially with hyperglycemic accelerations and supervening symptomatic hypoglycemia, and since then, has been taken off oral hyperglycemic therapy as noted. His latest glucose values today have improved and have ranged from 90 to 112 and 152 mg/dL. His latest chemistry showed a BUN of 52, sodium 138, potassium 5.2, chloride 102, CO2 of 25, glucose 114, and creatinine 1.5. So at this time, we will continue the present medical management with no indication for any kind of oral hypoglycemic therapy, especially with variability of his oral intake at this time. We will obtain serial chemistries and supplement accordingly as needed. We will follow. Clarita Ryan MD
[2018-02-15] MEDS: Benzocaine/Menthol (Cepacol) Lozenge MT SCH ×6 (01:50→21:09)
[2018-02-15 06:45] LABS: BASO # 0.1 K/uL (0.0-0.2); BASO % 1.7 % (0.0-2.0); EOS # 0.2 K/uL (0.0-0.7); EOS % 3.2 % (0.0-4.0); HEMOGLOBIN 14.6 g/dL (12.0-18.0); LYMPH # 1.2 K/uL (1.0-4.3); LYMPH % 16.6 % (20.0-40.0); MEAN CELL VOLUME 91.1 fL (80.0-94.0); MEAN CORPUSCULAR HEMOGLOBIN 29.7 pg (27.0-31.0); MEAN CORPUSCULAR HGB CONC 32.6 g/dL (33.0-37.0); MEAN PLATELET VOLUME 8.5 fL (7.2-11.7); MONO # 0.6 K/uL (0.0-0.8); MONO % 8.6 % (0.0-10.0); NEUT # 4.9 K/uL (1.8-7.0); NEUT % 69.9 % (50.0-75.0); NRBC % 0.1 % (0.0-2.0); RBC 4.92 Mil/uL (4.40-5.90); RED CELL DISTRIBUTION WIDTH 21.7 % (11.5-14.5); WHITE BLOOD COUNT 7.1 K/uL (4.8-10.8)
[2018-02-15 07:19] LABS: ALBUMIN 3.4 g/dL (3.5-5.0); CALCIUM 8.9 mg/dl (8.6-10.4)
--- NOTE | 2018-02-15 10:14 | CP.PCM.DIS ---
Provider - Provider Date of Admission: 02/03/18 21:51 Attending physician: Raul Lewis MD Time Spent in preparation of Discharge (in minutes): 45 Diagnosis - Discharge Diagnosis (1) Cardiorenal syndrome Status: Chronic (2) Ascites Status: Chronic (3) Urinary retention Status: Chronic (4) Congestive heart failure Status: Chronic (5) Deaf Status: Acute Hospital Course - Lab Results Lab Results: Micro Results 02/10/18 11:10 Naris MRSA Culture (Admit) - Final MRSA NOT DETECTED 02/07/18 22:32 Urine,Clean Catch Urine Culture - Final No Growth (<1,000 CFU/ML) 02/03/18 20:44 Urine Urine Culture - Final Citrobacter Freundii Most Recent Lab Values WBC 7.1 K/uL (4.8-10.8) 02/15/18 06:31 RBC 4.92 Mil/uL (4.40-5.90) 02/15/18 06:31 Hgb 14.6 g/dL (12.0-18.0) 02/15/18 06:31 Hct 44.8 % (35.0-51.0) 02/15/18 06:31 MCV 91.1 fL (80.0-94.0) 02/15/18 06:31 MCH 29.7 pg (27.0-31.0) 02/15/18 06:31 MCHC 32.6 g/dL (33.0-37.0) L 02/15/18 06:31 RDW 21.7 % (11.5-14.5) H 02/15/18 06:31 Plt Count 222 K/uL (130-400) 02/15/18 06:31 MPV 8.5 fL (7.2-11.7) 02/15/18 06:31 Neut % (Auto) 69.9 % (50.0-75.0) 02/15/18 06:31 Lymph % (Auto) 16.6 % (20.0-40.0) L 02/15/18 06:31 [place]ke % (Auto) 8.6 % (0.0-10.0) 02/15/18 06:31 Eos % (Auto) 3.2 % (0.0-4.0) 02/15/18 06:31 Baso % (Auto) 1.7 % (0.0-2.0) 02/15/18 06:31 Neut # (Auto) 4.9 K/uL (1.8-7.0) 02/15/18 06:31 Lymph # (Auto) 1.2 K/uL (1.0-4.3) 02/15/18 06:31 Parke # (Auto) 0.6 K/uL (0.0-0.8) 02/15/18 06:31 Eos # (Auto) 0.2 K/uL (0.0-0.7) 02/15/18 06:31 Baso # (Auto) 0.1 K/uL (0.0-0.2) 02/15/18 06:31 Neutrophils % (Manual) 84 % (50-75) H 02/10/18 11:10 Lymphocytes % (Manual) 9 % (20-40) L 02/10/18 11:10 Reactive Lymphs % 2 % (0-0) H 02/10/18 11:10 Monocytes % (Manual) 5 % (0-10) 02/10/18 11:10 Toxic Granulation Present 02/10/18 11:10 Platelet Estimate Normal (NORMAL) 02/10/18 11:10 Large Platelets Present 02/10/18 11:10 Polychromasia Slight 02/10/18 11:10 Anisocytosis (manual) Moderate 02/10/18 11:10 Macrocytosis (manual) Slight 02/10/18 11:10 PT 16.8 SECONDS (9.7-12.2) H 02/09/18 08:20 INR 1.5 02/09/18 08:20 APTT 33 SECONDS (21-34) 02/09/18 08:20 Sodium 138 mmol/L (132-148) 02/15/18 06:31 Potassium 4.9 mmol/L (3.6-5.2) 02/15/18 06:31 Chloride 101 mmol/L (98-107) 02/15/18 06:31 Carbon Dioxide 24 mmol/L (22-30) 02/15/18 06:31 Anion Gap 19 (10-20) 02/15/18 06:31 BUN 56 mg/dL (9-20) H 02/15/18 06:31 Creatinine 1.5 mg/dL (0.8-1.5) 02/15/18 06:31 Est GFR ( Amer) 58 02/15/18 06:31 Est GFR (Non-Af Amer) 48 02/15/18 06:31 POC Glucose (mg/dL) 144 mg/dL (65-110) H 02/15/18 07:27 Random Glucose 132 mg/dL (75-110) H 02/15/18 06:31 Hemoglobin A1c 7.7 % (4.2-6.5) H 02/12/18 06:23 Calcium 8.9 mg/dl (8.6-10.4) 02/15/18 06:31 Phosphorus 3.7 mg/dL (2.5-4.5) 02/15/18 06:31 Magnesium 2.3 mg/dL (1.6-2.3) 02/15/18 06:31 Total Bilirubin 3.1 mg/dL (0.2-1.3) H 02/15/18 06:31 Direct Bilirubin 2.9 mg/dL (0.0-0.4) H 02/03/18 19:59 AST 28 U/L (17-59) 02/15/18 06:31 ALT 26 U/L (21-72) 02/15/18 06:31 Alkaline Phosphatase 482 U/L (38-126) H 02/15/18 06:31 Ammonia 54 umol/L (9-33) H 02/13/18 06:53 Total Protein 6.8 g/dL (6.3-8.3) 02/15/18 06:31 Albumin 3.4 g/dL (3.5-5.0) L 02/15/18 06:31 Globulin 3.3 gm/dL (2.2-3.9) 02/15/18 06:31 Albumin/Globulin Ratio 1.0 (1.0-2.1) 02/15/18 06:31 Lipase 122 U/L (23-300) 02/07/18 08:13 Alpha Fetoprotein 7.1 ng/mL (0.0-7.5) 02/08/18 07:06 Prostate Specific Ag 7.61 ng/mL (0.00-4.0) H 02/04/18 06:55 TSH 3rd Generation 2.40 mIU/L (0.46-4.68) 02/12/18 06:07 Urine Color Yellow (YELLOW) 02/03/18 20:44 Urine Clarity Hazy (Clear) 02/03/18 20:44 Urine pH 5.0 (5.0-8.0) 02/03/18 20:44 Ur Specific [place] 1.012 (1.003-1.030) 02/03/18 20:44 Urine Protein Negative mg/dL (NEGATIVE) 02/03/18 20:44 Urine Glucose (UA) Normal mg/dL (Normal) 02/03/18 20:44 Urine Ketones Negative mg/dL (NEGATIVE) 02/03/18 20:44 Urine Blood 3+ (NEGATIVE) H 02/03/18 20:44 Urine Nitrate Negative (NEGATIVE) 02/03/18 20:44 Urine Bilirubin Negative (NEGATIVE) 02/03/18 20:44 Urine Urobilinogen 2.0 mg/dL (0.2-1.0) 02/03/18 20:44 Ur Leukocyte Esterase 3+ Sanjuanita/uL (Negative) H 02/03/18 20:44 Urine WBC (Auto) 159 /hpf (0-5) H 02/03/18 20:44 Urine RBC (Auto) 22 /hpf (0-3) H 02/03/18 20:44 Urine WBC Clumps (Auto) Few /hpf (NONE) H 02/03/18 20:44 Ur Squamous Epith Cells < 1 /hpf (0-5) 02/03/18 20:44 Urine Bacteria Occ (<OCC) H 02/03/18 20:44 Fluid Albumin 1.0 g/dL 02/07/18 10:35 Peritoneal Tot Protein 3.9 g/dL 02/07/18 10:35 Urine Opiates Screen Negative (NEGATIVE) 02/03/18 21:59 Urine Methadone Screen Negative (NEGATIVE) 02/03/18 21:59 Ur Barbiturates Screen Negative (NEGATIVE) 02/03/18 21:59 Ur Phencyclidine Scrn Negative (NEGATIVE) 02/03/18 21:59 Ur Amphetamines Screen Negative (NEGATIVE) 02/03/18 21:59 U Benzodiazepines Scrn Negative (NEGATIVE) 02/03/18 21:59 U Oth Cocaine Metabols Negative (NEGATIVE) 02/03/18 21:59 U Cannabinoids Screen Negative (NEGATIVE) 02/03/18 21:59 Alcohol, Quantitative < 10 mg/dl (0-10) 02/03/18 19:50 - Hospital Course Hospital Course: HPI: History was obtained from patient's son in sign language, as patient is deaf and mute. Patient is a 57 year old male with PMHx of HTN, HLD, BPH, CKD 3, systolic heart failure, with AICD and pacemaker, cardiac arrhythmia, who was initially sent to ED by his visiting doctor for hypotension (patient was not told the blood pressure reading), however blood pressure was found to be within normal limits on arrival. In ED, patient admitted to abdominal distention for the past month with no improvement despite having a mason catheter placed 10 day s ago. Patient also complains of lower abdominal pressure, pain on urination, intermittent hematuria, as well as bilateral lower leg weakness, cough with white phlegm and SOB for the past 4 months, and 40 lb unintentional weight loss in the past year. Patient denies fever, chills, nausea, vomiting, hematochezia, melena, and flank pain. Bladder scan in the ED showed 750cc. Patient's mason was replaced with output of 250cc of urine. 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 Proxy: Mauri, son: [phone], Kathleen, daughter: [phone] PMD: Dr. Cano, cardio: Dr. Pang Review of Systems: -Gen: No fever, No chills, No headache, No lethargy, + bilateral leg weakness. -HEENT: No dizziness, No change in vision, No change in hearing, No sore throat, No dysphagia, No nasal congestion -Cardio: + chest soreness with coughing, + palpitations, No lower extremity edema, No orthopnea. -Resp: + cough, + dyspnea, No hemoptysis, No wheezing, No pain on inspiration. -GI: + abdominal pain, No nausea/vomiting, No diarrhea/constipation, No hematochezia, No hematemesis. -: + dysuria, No urinary freq, No incontinence, + hematuria, No change in urinary stream. -MSK: No back pain, No muscle weakness, No radiating pain. -Skin: No itching, No rash, No lesions. -Neuro: No confusion, No numbness, No tingling, No focal weakness, No radicular pain, No syncope. -Psych: No anxiety, No depression, No H/I, No S/I, No hallucinations. HOSPITAL COURSE Systolic HF Consult cardiology, Dr. Carlton naval gunfire liaison officer-->help appreciated * Consult EP-Cardiology, Dr. Brunner to check pacemaker * Monitor patient on telemetry * Entresto 2 tab PO BID * Spironolactone 50mg daily * Carvedilol 25mg BID * Lasix 40mg IV BID * patient is off aspirin * Fluid restriction to 1 L daily * Patient is high risk for anticoagulation per discussion with PMD for the atrial flutter Papillary Bladder CA w/ Retention * Patient had received 1 dose of Rocephin given in ED * completed Cipro course * S/p cystoscopy and bx with Dr. Brar - POD #10 * Discussed with Dr. Brar, he is aware patient is not cleared in regards to cardiac status. Will monitor outpatient. Spoke with patient's son as well who is aware * Bx pathology shows Papillary Bladder CA localized no mets * Flomax 0.4mg BID * Mason care with betadine 3x/day Ascites: * Seen by CHRISTIANO, Dr. Zavala during 10/2017 admission and was asked to follow up, however patient did not do so. * GI was reconsulted has seen patient this admission and signed off. * patient noted in prior hospitalization noted ascites secondary to CHF. Patient had require IR to drain about 2.1 Liters. * Patient was counselled on the importance of following up. Please provide follow up information upon discharge. * Dr Carrasco (Int Rad) consulted for Paracentesis 02/07 and 02/14: removed 2.5L each time IMAGING AND DIAGNOSTICS Echo 02/10: LVEF 10% Severe LV hypokinesis, mild LVH, dilated LA, RA and RV, mild MR, severe TR, Mild pulmonary hypertension. EKG(02/04): Junctional rhythm, left axis deviation, RBB UA: positive for blood, LE, WBC, and bacteria * Urine culture: Citrobacter * repeat urine culture: no growth Hepatitis panel 10/2017 negative Abdominal US (12/03/2017): The extrahepatic portal vein is patent with hepatopetal flow. No sonographic evidence for thrombus or obstruction is seen. The 3 hepatic veins are visualized centrally and patent. The hepatic artery is patent. (see full report) CT abd/pelvis (12/03): Limited assessment without IV or oral contrast adminis tration. Cardiomegaly. Small pericardial effusion. Moderate to large amount of ascites in the abdomen and pelvis. Enlarged prostate. [id number] anasarca. Preliminary report was submitted by virtual Radiology. DISCHARGE PLAN Pt is to be discharged with the following instructions Please follow up with Dr Olson Cardiology within one week of DC from TCU at [place] Please schedule a follow up with Dr Brar Urologist for care of bladder mass and prostate. call [phone] Please schedule and appointment with Dr Lucas ALVARADO , within one week of discharge from TCU call [phone] Please make sure you are fluid restricted at 1 Liter per day FOR TCU TEAM mason may be removed if pt is structed to properly self straight catheterize, please instruct. please see med rec for current medication list THIS IS A SUMMARY [facility] Discharge Exam - Head Exam Head Exam: NORMAL INSPECTION - Additional Findings Additional findings: - Constitutional Appears: Non-toxic, No Acute Distress - Head Exam Head Exam: NORMAL INSPECTION - Eye Exam Eye Exam: EOMI - ENT Exam ENT Exam: Mucous Membranes Moist - Respiratory Exam Respiratory Exam: Clear to Ausculation Bilateral, NORMAL BREATHING PATTERN. absent: Rales, Rhonchi, Wheezes - Cardiovascular Exam Cardiovascular Exam: REGULAR RHYTHM, +S1 - GI/Abdominal Exam GI & Abdominal Exam: Distended, Soft, Normal Bowel Sounds. absent: Firm, Guarding, Rigid, Tenderness, Rebound - Extremities Exam Extremities Exam: Pedal Edema. absent: Tenderness - Back Exam Back Exam: absent: CVA tenderness (L), CVA tenderness (R) - Neurological Exam Neurological Exam: Alert, Awake, Oriented x3 - Psychiatric Exam Psychiatric exam: Normal Affect, Normal Mood - Skin Skin Exam: Dry, Intact, Normal Color, Warm Additional comments: ecchymoses over the right upper extremity Discharge Plan - Follow Up Plan Condition: SERIOUS Disposition: HOME/ ROUTINE Instructions: Jaundice, Adult (DC), Urinary Retention (DC) Additional Instructions: Pt is to be discharged with the following instructions Please follow up with Dr Olson Cardiology within one week of DC from TCU at [place] Please schedule a follow up with Dr Brar Urologist for care of bladder mass and prostate. call [phone] Please schedule and appointment with Dr Lucas ALVARADO , within one week of discharge from TCU call [phone] Please make sure you are fluid restricted at 1 Liter per day FOR TCU TEAM mason may be removed if pt is structed to properly self straight catheterize, please instruct. please see med rec for current medication list Referrals: Erna Brunner MD [Staff Provider] - Kalpesh Acosta MD [Staff Provider] - Jass Carlton MD [Staff Provider] - Saqib Zavala MD [Staff Provider] - Yesenia Brar MD [Staff Provider] -
--- NOTE | 2018-02-15 10:32 | PCM.URO ---
Urology Progress Note - Objective Lab Results Last 24 Hours: Laboratory Results - last 24 hr 02/14/18 02/14/18 02/14/18 11:36 16:06 20:54 WBC RBC Hgb Hct MCV MCH MCHC RDW Plt Count MPV Neut % (Auto) Lymph % (Auto) Carver % (Auto) Eos % (Auto) Baso % (Auto) Neut # (Auto) Lymph # (Auto) Carver # (Auto) Eos # (Auto) Baso # (Auto) Sodium Potassium Chloride Carbon Dioxide Anion Gap BUN Creatinine Est GFR ( Amer) Est GFR (Non-Af Amer) POC Glucose (mg/dL) 90 107 160 H Random Glucose Calcium Phosphorus Magnesium Total Bilirubin AST ALT Alkaline Phosphatase Total Protein Albumin Globulin Albumin/Globulin Ratio 02/15/18 02/15/18 02/15/18 06:31 06:31 07:27 WBC 7.1 RBC 4.92 Hgb 14.6 Hct 44.8 MCV 91.1 MCH 29.7 MCHC 32.6 L RDW 21.7 H Plt Count 222 MPV 8.5 Neut % (Auto) 69.9 Lymph % (Auto) 16.6 L Carver % (Auto) 8.6 Eos % (Auto) 3.2 Baso % (Auto) 1.7 Neut # (Auto) 4.9 Lymph # (Auto) 1.2 Carver # (Auto) 0.6 Eos # (Auto) 0.2 Baso # (Auto) 0.1 Sodium 138 Potassium 4.9 Chloride 101 Carbon Dioxide 24 Anion Gap 19 BUN 56 H Creatinine 1.5 Est GFR ( Amer) 58 Est GFR (Non-Af Amer) 48 POC Glucose (mg/dL) 144 H Random Glucose 132 H Calcium 8.9 Phosphorus 3.7 Magnesium 2.3 Total Bilirubin 3.1 H AST 28 ALT 26 Alkaline Phosphatase 482 H Total Protein 6.8 Albumin 3.4 L Globulin 3.3 Albumin/Globulin Ratio 1.0 Intake & Output: Intake & Output 02/14/18 02/15/18 02/15/18 18:59 06:59 18:59 Intake Total 250 100 Output Total 600 350 Balance -600 -100 100 Intake: Oral 250 100 Output: Urine 600 350 Urethral (Perdomo) 600 350 Other: # Bowel Movements 2 Vital Signs: Vital Signs - 24 hr 02/14/18 02/14/18 02/14/18 10:59 11:03 11:53 Temperature 98 F Pulse Rate Respiratory Rate Blood Pressure 140/76 130/78 O2 Sat by Pulse Oximetry 02/14/18 02/14/18 02/14/18 15:00 18:00 20:00 Temperature 97.2 F L 98 F Pulse Rate 89 61 Respiratory 22 20 Rate Blood Pressure 120/78 102/78 95/63 L O2 Sat by Pulse 100 100 Oximetry 02/15/18 02/15/18 00:00 08:00 Temperature 97.5 F L 98.2 F Pulse Rate 95 H 100 H Respiratory 20 20 Rate Blood Pressure 113/76 116/86 O2 Sat by Pulse 100 96 Oximetry - Date & Time of Note Date: 02/14/18 Time: 12:30
[2018-02-15] MEDS: Sacubitril/Valsartan 49-51 Tab PO SCH ×2 (10:58→19:00)
[2018-02-15] MEDS: Simethicone 80 mg Chewtab PO SCH ×4 (10:59→21:08)
[2018-02-15] MEDS: POLYETHYLENE GLYCOL 3350 17 GM/Dose PACKET PO SCH (10:59)
[2018-02-15] MEDS: cefTRIAXone IV 1 gm in Dextros 50 ML IVPB SCH (11:01)
[2018-02-15] MEDS: Promethazine 12.5 mg/10 ml Syrup PO PRN (11:02)
--- NOTE | 2018-02-15 14:45 | CP.PCM.PN ---
Subjective - Date & Time of Evaluation Date of Evaluation: 02/15/18 Time of Evaluation: 14:44 - Subjective Subjective: Nephrology Consultation Note: Assessment: Stable underlying CKD 3, likely due to cardio-renal syndrome chronic sys CHF with ascites, hyperbilirubinemia hx of AICD BPH, hearing impairment Renal cyst Bladder tumor Hypoglycemia and AMS resolved Plan No acute need for renal replacement therapy at this time. Renal function stable. maintain hemodynamics stable s/p paracetesis , bp is stable f/u work up re: obstructive uropathy and bladder tumor. waiting for bx result. Monitor Input/Output, daily weights and renal function with basic metabolic panel pt on RAAS cleo as entresto and aldactone. K on higher side, low K diet recommended. if K remains high, please add veltassa 8.4 gram once a day (no other medication 3 hour or 3 hours after the veltassa dose). K okay for now CHF management as per cardiology Dose meds/antibiotics for reduced GFR. Avoid fleets enema/magnesium based laxatives. Avoid nephrotoxins/NSAIDs/ iodinated contrast (unless needed emergently) Glycemic control Further work up/management as per primary team Thanks for allowing me to participate in care of your patient. Will follow patient with you. Please call if any Qs. had d/w team Dr Kalpesh Acosta Office: [phone] ROS: used sign/language interpretation (VOYCE) Cardiovascular: No chest pain. Pulmonary: noo shortness of breath Gastrointestinal: denies abdominal pain No nausea. No vomiting. Genitourinary: has catheter and pt c/o pain due to it All other negative except as mentioned in HPI Physical Examination: General Appearance: Comfortable, co-operative . Vitals reviewed and noted as below Head; Atraumatic, normocephalic ENT: no ulcers no thrush. Tongue is midline. Oropharynx: no rash or ulcers. has hearing impairment EYES: Pupils are equal, round and reactive to light accommodation. Eye muscles and extraocular movement intact. Sclera is icteric. Neck; supple no lymphadenopathy, no thyromegaly or bruit. JVP distended Lungs: normal respiratory rate/effort. Breath sounds bilateral clear Heart: Normal rate. s1s2 normal. No rub or gallop. left side AICD + Extremities: no edema. No varicose veins Neurological: Patient is alert, awake and oriented to person, place and time. No focal deficit. Strength bilateral appropriate and equal Skin: Warm and dry. Normal turgor. No rash. Palpitation: Normal elasticity for age Abdomen: Abdomen is soft. Bowel sounds +. There is no abdominal tenderness, no guarding/rigidity has hepatomegaly. distended and ascitic Psych: normal insight and normal affect/mood MSK: no joint tenderness or swelling. Digits and nails normal, no deformity : kidney or bladder not palpable but exam limited. has mason Labs/imaging reviewed. Past medical history, past surgical history, family history reviewed Objective - Vital Signs/Intake and Output Vital Signs (last 24 hours): Temp Pulse Resp BP Pulse Ox 98.2 F 100 H 20 116/86 96 02/15/18 08:00 02/15/18 08:00 02/15/18 08:00 02/15/18 10:59 02/15/18 08:00 Intake and Output: 02/15/18 02/15/18 06:59 18:59 Intake Total 250 100 Output Total 350 1000 Balance -100 -900 - Medications Medications: Current Medications Albuterol/Ipratropium (Duoneb 3 Mg/0.5 Mg (3 Ml) Ud) 3 ml INH RQ6 PRN PRN Reason: Shortness of Breath Last Admin: 02/14/18 01:39 Dose: 3 ml Benzocaine/Menthol (Cepacol Sore Throat) 1 renuka MT Q4H [facility] Last Admin: 02/15/18 14:14 Dose: 1 renuka Benzonatate (Tessalon Perles) 100 mg PO TID PRN PRN Reason: Cough Last Admin: 02/14/18 11:20 Dose: 100 mg Bisacodyl (Dulcolax) 10 mg ID Q12 PRN PRN Reason: Constipation Last Admin: 02/10/18 10:00 Dose: 10 mg Carvedilol (Coreg) 25 mg PO BID [facility] Last Admin: 02/15/18 10:58 Dose: 25 mg Dextrose (Glutose 15) 0 gm PO ONCE PRN; Protocol PRN Reason: Hypoglycemia Protocol Dextrose (Dextrose 50% Inj) 0 ml IV Q1H PRN; Protocol PRN Reason: Hypoglycemia Protocol Furosemide (Lasix) 40 mg IVP DAILY [facility] Last Admin: 02/15/18 10:59 Dose: 40 mg Glucagon (Glucagen Diagnostic Kit) 0 mg IM STAT PRN; Protocol PRN Reason: Hypoglycemia Protocol Guaifenesin (Robitussin) 100 mg PO Q4H PRN PRN Reason: Cough Last Admin: 02/14/18 10:58 Dose: 100 mg Polyethylene Glycol (Miralax) 17 gm PO DAILY [facility] Last Admin: 02/15/18 10:59 Dose: 17 gm Promethazine HCl (Phenergan Syrup) 12.5 mg PO Q6 PRN PRN Reason: Cough Last Admin: 02/15/18 11:02 Dose: 12.5 mg Sacubitril/Valsartan (Entresto 49 Mg-51 Mg) 2 tab PO BID [facility] Last Admin: 02/15/18 10:58 Dose: 2 tab Simethicone (Mylicon Chew Tab) 80 mg PO QID [facility] Last Admin: 02/15/18 14:09 Dose: Not Given Spironolactone (Aldactone) 50 mg PO DAILY [facility] Last Admin: 02/15/18 10:58 Dose: 50 mg Tamsulosin HCl (Flomax) 0.4 mg PO BID [facility] Last Admin: 02/15/18 10:58 Dose: 0.4 mg - Labs Labs: 02/15/18 06:31 02/15/18 06:31 PT 16.8 SECONDS (9.7-12.2) H 02/09/18 08:20 INR 1.5 02/09/18 08:20 APTT 33 SECONDS (21-34) 02/09/18 08:20
--- NOTE | 2018-02-15 15:34 | PN ---
DATE: 02/15/2018 SUBJECTIVE: The patient feels comfortable, nasal O2. No chest pain. PHYSICAL EXAMINATION VITAL SIGNS: Blood pressure 116/86, heart rate 100, temperature 98.2, respirations 20. HEENT: Normocephalic. CHEST: Clear. HEART: S1, S2 regular. EXTREMITIES: No edema with improved right upper arm cellulitis. LABORATORY DATA: Hemoglobin, hematocrit, white count and platelet count today are within normal limits. Today's SMA-7 within normal limits except for glucose 132 and BUN of 56. ASSESSMENT: 1. Dilated cardiomyopathy, status post implantable-cardioverter defibrillator placement. 2. Benign prostatic hypertrophy requiring indwelling Perdomo catheter. 3. Papillary carcinoma of the urinary bladder. 4. Chronic kidney disease. RECOMMENDATIONS: Continue current Aldactone 50 mg once a day, Coreg 25 mg once a day, albuterol inhaler every 6 hours p.r.n., Entresto two tablets twice a day, Lasix 40 mg intravenously twice a day, Robitussin 100 mg every 4 hours p.r.n. Jass Carlton MD
[2018-02-15 16:43] VITALS: BP 110/83; PULSE 93; TEMP 98.4; O2SAT 99
--- NOTE | 2018-02-15 20:33 | PN ---
DATE: 02/15/2018 ENDOCRINOLOGY FOLLOWUP NOTE LOCATION: Room 351. SUBJECTIVE: This is a 57-year-old male with recent bouts of symptomatic hypoglycemia, who continues to have variable oral intake and suboptimal meal portions and is now being followed closely for metabolic management. He also is undergoing GI and workup for metastatic carcinoma with jaundice and ascites with abdominal distention. LABORATORY DATA: His chemistries today showed a BUN of 56, sodium 138, potassium 4.9, chloride 101, CO2 of 24, glucose 132, and creatinine 1.5. ASSESSMENT AND PLAN: His glucose levels are fluctuating and have ranged from 144 to 209 mg/dL. However, because of the variability of his oral intake, we will order a very low dose oral hypoglycemic therapy with Januvia given as 25 mg once daily as indicated. However, because of the variability of his oral intake, we will hold off for now and observe it overnight, testing the fluctuations thereof. He was taking Tradjenta as 5 mg once daily at home as given. We will obtain serial chemistries and supplement accordingly as needed. We will follow. Clarita Ryan MD
== END 2018-02-15 23:20 | DRG 987 ==
LOC: C.ER 18:33 → C.3T 21:51 → C.5S 02-04 11:14 → C.9I 02-10 07:23 → C.3T 02-14 21:31
PROVIDERS: ADMIT Family Medicine; ATTEND Family Medicine
PROC: 0T5B8ZZ Destruction of Bladder, Via Natural or Artificial Opening Endoscopic (ICD-10-PCS; principal; 2018-02-04 16:00)
PROC: BT101ZZ Fluoroscopy of Bladder using Low Osmolar Contrast (ICD-10-PCS; 2018-02-04 16:00)
PROC: 0W9G3ZZ Drainage of Peritoneal Cavity, Percutaneous Approach (ICD-10-PCS; 2018-02-07)
PROC: 0BH17EZ Insertion of Endotracheal Airway into Trachea, Via Natural or Artificial Opening (ICD-10-PCS; 2018-02-10)
PROC: 5A1935Z Respiratory Ventilation, Less than 24 Consecutive Hours (ICD-10-PCS; 2018-02-10)
PROC: 0W9G3ZZ Drainage of Peritoneal Cavity, Percutaneous Approach (ICD-10-PCS; 2018-02-14)
DX: I13.0 Hypertensive heart and chronic kidney disease with heart failure and stage 1 through stage 4 chronic kidney disease, or unspecified chronic kidney disease (principal); E11.641 Type 2 diabetes mellitus with hypoglycemia with coma; I50.23 Acute on chronic systolic (congestive) heart failure; J96.91 Respiratory failure, unspecified with hypoxia; N17.9 Acute kidney failure, unspecified; I31.3 Pericardial effusion (noninflammatory); I48.92 Unspecified atrial flutter; K76.6 Portal hypertension; R18.8 Other ascites; C67.4 Malignant neoplasm of posterior wall of bladder; I42.0 Dilated cardiomyopathy; N40.1 Benign prostatic hyperplasia with lower urinary tract symptoms; N18.3 Chronic kidney disease, stage 3 (moderate); Z95.810 Presence of automatic (implantable) cardiac defibrillator; E11.22 Type 2 diabetes mellitus with diabetic chronic kidney disease; E11.21 Type 2 diabetes mellitus with diabetic nephropathy; E11.51 Type 2 diabetes mellitus with diabetic peripheral angiopathy without gangrene; E11.42 Type 2 diabetes mellitus with diabetic polyneuropathy; Z86.73 Personal history of transient ischemic attack (TIA), and cerebral infarction without residual deficits; Z79.4 Long term (current) use of insulin; F10.21 Alcohol dependence, in remission; I25.10 Atherosclerotic heart disease of native coronary artery without angina pectoris; I27.20 Pulmonary hypertension, unspecified; H91.3 Deaf nonspeaking, not elsewhere classified; I48.2 Chronic atrial fibrillation; K21.9 Gastro-esophageal reflux disease without esophagitis; K76.1 Chronic passive congestion of liver; R33.8 Other retention of urine; N30.91 Cystitis, unspecified with hematuria; R55 Syncope and collapse; Z51.5 Encounter for palliative care; E11.65 Type 2 diabetes mellitus with hyperglycemia; I80.8 Phlebitis and thrombophlebitis of other sites; I87.8 Other specified disorders of veins

== ENCOUNTER 2018-02-28 12:08 | Inpatient (IN) | payer MEDICARE ==
[2018-02-28 12:08] VITALS: BMI 24.5
[2018-02-28 13:19] LABS: BASO # 0.1 K/uL (0.0-0.2); BASO % 1.7 % (0.0-2.0); EOS % 0.5 % (0.0-4.0); HEMOGLOBIN 16.4 g/dL (12.0-18.0); LYMPH # 1.8 K/uL (1.0-4.3); LYMPH % 22.8 % (20.0-40.0); MEAN CORPUSCULAR HEMOGLOBIN 30.7 pg (27.0-31.0); MEAN CORPUSCULAR HGB CONC 32.9 g/dL (33.0-37.0); MEAN PLATELET VOLUME 8.7 fL (7.2-11.7); MONO # 0.6 K/uL (0.0-0.8); NEUT # 5.2 K/uL (1.8-7.0); NRBC % 0.3 % (0.0-2.0); RBC 5.34 Mil/uL (4.40-5.90); RED CELL DISTRIBUTION WIDTH 20.5 % (11.5-14.5); WHITE BLOOD COUNT 7.8 K/uL (4.8-10.8)
[2018-02-28 13:20] LABS: MEAN CELL VOLUME 93.3 fL (80.0-94.0)
[2018-02-28 14:01] LABS: ALBUMIN 3.7 g/dL (3.5-5.0); CALCIUM 9.3 mg/dl (8.6-10.4)
--- NOTE | 2018-02-28 14:31 | C.PDOC ---
History Of Present Illness 57 y/o male,w/PMhx of liver cirrhosis, brought to ER by ambulance from [facility] care for evaluation of worsening abdominal ascites. Patient had abdomen tapped about 1 month ago.Patient has history of cardiomyopathy and has ejection fr action 15%, he has ICD placement. 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) History/Exam Limitations: clinical condition Onset/Duration Of Symptoms: Days Current Symptoms Are (Timing): Still Present Past Medical History Reviewed: Historical Data, Nursing Documentation, Vital Signs Vital Signs: Last Vital Signs Temp 97.5 F L 02/28/18 12:36 Pulse 121 H 02/28/18 13:16 Resp 33 H 02/28/18 13:16 BP 109/78 02/28/18 13:16 Pulse Ox 100 02/28/18 13:16 - Medical History PMH: Cardia Arrhythmia, CHF, HTN, Hypercholesterolemia, Hyperlipidemia, Pe ripheral Edema, Chronic Kidney Disease Denies: HIV, Personality Disorder Surgical History: Pacemaker - [facility] Procedures DESTRUCTION OF BLADDER, ENDO (02/03/18) DRAINAGE OF PERITONEAL CAVITY, PERCUTANEOUS APPROACH (02/03/18) EXERCISE TREATMENT OF MUSCULOSK WHOLE USING ASSIST EQUIPMENT (02/15/18) FLUOROSCOPY OF BLADDER USING LOW OSMOLAR CONTRAST (02/03/18) GAIT TRAINING/AMBULAT TREATMENT USING ASSIST EQUIPMENT (02/15/18) HOME MANAGEMENT TREATMENT USING ASSIST EQUIPMENT (02/15/18) INJECT/INFUSE ELECTROLYT (02/18/13) INJECT/INFUSE NEC (02/18/13) INSERTION OF ENDOTRACHEAL AIRWAY INTO TRACHEA, VIA OPENING (02/03/18) RESPIRATORY VENTILATION, LESS THAN 24 CONSECUTIVE HOURS (02/03/18) Family History: States: No Known Family Hx - Social History Hx Tobacco Use: No Hx Alcohol Use: No Hx Substance Use: No - Immunization History Hx Tetanus Toxoid Vaccination: No Hx Influenza Vaccination: No Hx Pneumococcal Vaccination: No Review Of Systems Except As Marked, All Systems Reviewed And Found Negative. Constitutional: Negative for: Fever, Chills Gastrointestinal: Positive for: Other (ascites) Physical Exam - Physical Exam Appears: Chronically Ill, Other (thin) Skin: Normal Color, Warm, Dry Head: Atraumatic, Normacephalic Eye(s): bilateral: Normal Inspection Nose: Normal Oral Mucosa: Moist Neck: Supple Chest: Symmetrical, Other (AICD on chest) Cardiovascular: Rhythm Regular Respiratory: Normal Breath Sounds, No Rales, No Rhonchi, No Wheezing Gastrointestinal/Abdominal: Soft, No Tenderness, Distention, No Guarding, No Rebound, Ascites, Other ((-) caput medusae, (-) spider angioma) Extremity: Other (thin lower bilateral extremities without edema) Neurological/Psych: Oriented x3, Normal Speech ED Course And Treatment - Laboratory Results Result Diagrams: 02/28/18 13:14 02/28/18 13:39 Lab Interpretation: Abnormal (bnp 9400 H) ECG: Interpreted By Me ECG Rhythm: Sinus Rhythm ECG Interpretation: Normal Rate From EC O2 Sat by Pulse Oximetry: 100 (RA) Pulse Ox Interpretation: Normal - Radiology CXR: Interpreted by Me CXR Interpretation: Yes: No Acute Disease, Heart Size, Other (no pna/pnx) Reevaluation Time: 15:31 Reassessment Condition: Improved - Physician Consult Information Outcome Of Conversation: 1530: d/w Dr. De Jesus, PMD, ok to admit Medical Decision Making Medical Decision Making: recurrent abd ascites, from JEWEL last tap about 1 month ago pending elective abd ascites paracentesis by IR later today d/w Dr. Carrasco order placed coags and platelet count appropriate Disposition Doctor Will See Patient In The: Hospital Counseled Patient/Family Regarding: Studies Performed, Diagnosis - Disposition Disposition: HOSPITALIZED Disposition Time: 15:35 Condition: FAIR - Clinical Impression Clinical Impression: Ascites due to alcoholic cirrhosis
--- NOTE | 2018-02-28 16:04 | RAD ---
Date of service: 2018-02-28 14:31:10 HISTORY: bed 12, SOB COMPARISON: Comparison chest 02/12/2018 FINDINGS: LUNGS: Suspect mild bibasilar atelectasis. PLEURA: No significant pleural effusion identified, no pneumothorax apparent. CARDIOVASCULAR: Mild aortic atherosclerotic calcification present. Marked cardiomegaly again seen. No change bipolar pacemaker/defibrillator. No pulmonary vascular congestion. OSSEOUS STRUCTURES: No significant abnormalities. VISUALIZED UPPER ABDOMEN: Normal. OTHER FINDINGS: None. IMPRESSION: Suspect minor bibasilar atelectasis. Redemonstrated is marked cardiomegaly
[2018-02-28] MEDS ORDERED: Albuterol-Ipratrop 3 mg / 0.5 (3 ml) UD INH SCH (20:00)
[2018-02-28 20:46] LABS: TROPONIN I 0.053 ng/mL (0.00-0.120)
[2018-03-01] MEDS: Albuterol-Ipratrop 3 mg / 0.5 (3 ml) UD INH PRN ×2 (01:46→21:05)
[2018-03-01 07:51] LABS: ALBUMIN 3.7 g/dL (3.5-5.0); CALCIUM 9.2 mg/dl (8.6-10.4)
[2018-03-01] MEDS ORDERED: Lidocaine 2% MPF (5 ml) Inj ONE (09:29)
--- NOTE | 2018-03-01 09:53 | CP.PCM.CON ---
<Ashwin Nuno - Last Filed: 03/01/18 10:07> History of Present Illness - History of Present Illness History of Present Illness: PGY-4 GI Fellow Consult Note Pt is a 57 yo BM with HTN, CKD, DM2, systolic CHF (Last EF 12%), PPM, AICD, deafness and mute, Bladder CA? who presents with worsening abdominal pain and shortness of breath. 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 He states he has had progressively worse abd distension over the last several days to weeks. Symptoms progressed to the point that he has begun to fell short of breath with some associated LUQ/flank discomfort as well. He denied any fevers, chills, N/V or signs of bleeding. Pt has been seen multiple times by the GI service and ascites has been attributed to congestive hepatopathy. He had a paracentesis 3L removed on 02/14/18, Neg for SBP. On 12/06/17, SAAG>1.1 and TP>2.5 consistent with Heart Failure. No prior EGD/CSPY on file. 12pt ROS was negative except as above MH: As stated above PSH: PPM and AICD Meds: Reviewed in chart FamHx: GERD, HTN, HLD; No history of colon/liver/GI cancer SocHx: Currently denies any tobacco, alcohol or illicit drug use; Former alcohol abuse noted. All: NKDA Past Patient History - Infectious Disease Hx of Infectious Diseases: None - Past Medical History & Family History Past Medical History?: Yes - Past Social History Smoking Status: Never Smoked - CARDIAC Hx Cardia Arrhythmia: Yes Hx Congestive Heart Failure: Yes Hx Hypercholesterolemia: Yes Hx Hypertension: Yes Hx Pacemaker: Yes Hx Peripheral Edema: Yes - PULMONARY Hx Respiratory Disorders: No - NEUROLOGICAL HX Cerebrovascular Accident: Yes - HEENT Hx HEENT Problems: Yes Hx Deafness: Yes - RENAL Hx Chronic Kidney Disease: Yes - ENDOCRINE/METABOLIC Hx Diabetes Mellitus Type 2: Yes - HEMATOLOGICAL/ONCOLOGICAL Hx Human Immunodeficiency Virus (HIV): No - INTEGUMENTARY Hx Dermatological Problems: No - MUSCULOSKELETAL/RHEUMATOLOGICAL Hx Musculoskeletal Disorders: No Hx Falls: Yes - GASTROINTESTINAL Hx Gastrointestinal Disorders: Yes Other/Comment: ascites - GENITOURINARY/GYNECOLOGICAL Hx Genitourinary Disorders: Yes (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) - PSYCHIATRIC Hx Substance Use: No - SURGICAL HISTORY Hx Surgeries: Yes Other/Comment: AICD. Paracentesis - ANESTHESIA Hx Anesthesia: Yes Hx Anesthesia Reactions: No Hx Malignant Hyperthermia: No Meds Allergies/Adverse Reactions: Allergies Allergy/AdvReac Type Severity Reaction Status Date / Time No Known Allergies Allergy Verified 02/28/18 12:16 - Medications Medications: Current Medications Albuterol/Ipratropium (Duoneb 3 Mg/0.5 Mg (3 Ml) Ud) 3 ml INH RQ6 PRN PRN Reason: Shortness of Breath Last Admin: 03/01/18 01:46 Dose: 3 ml Bisacodyl (Dulcolax) 10 mg [place] Q12H PRN PRN Reason: Constipation Carvedilol (Coreg) 6.25 mg PO Q12H [facility] Last Admin: 03/01/18 06:22 Dose: 6.25 mg Finasteride (Proscar) 5 mg PO DAILY [facility] Furosemide (Lasix) 40 mg IVP DAILY [facility] Last Admin: 02/28/18 21:12 Dose: 40 mg Heparin Sodium (Porcine) (Heparin) 5,000 units SC Q12 [facility] Last Admin: 02/28/18 22:06 Dose: 5,000 units Magnesium Oxide (Mag-Ox) 400 mg PO DAILY [facility] Spironolactone (Aldactone) 25 mg PO DAILY [facility] Physical Exam - Constitutional Appears: In Acute Distress (occasionally anxious but then calm in NAD) - Head Exam Head Exam: ATRAUMATIC, NORMAL INSPECTION - Eye Exam Eye Exam: EOMI, Scleral icterus - ENT Exam ENT Exam: Mucous Membranes Dry. absent: Mucous Membranes Moist - Respiratory Exam Respiratory Exam: Clear to Auscultation Bilateral (other than decreased breath sounds at LLL), NORMAL BREATHING PATTERN - Cardiovascular Exam Cardiovascular Exam: REGULAR RHYTHM, RRR - GI/Abdominal Exam GI & Abdominal Exam: Distended (significant distension limiting abd exam), Firm, Normal Bowel Sounds, Soft. absent: Bruit, Diminished Bowel Sounds, Guarding, Hernia, Mass, Organomegaly, Pulsatile Mass, Rigid, Tenderness Additional comments: flank fullness, dull to percussion - Rectal Exam Rectal Exam: Deferred - Extremities Exam Extremities exam: Positive for: normal inspection. Negative for: pedal edema Additional comments: Mason strapped to R leg - Neurological Exam Neurological exam: Alert, CN II-XII Intact - Psychiatric Exam Psychiatric exam: Anxious, Normal Affect - Skin Skin Exam: Normal Color, Warm Results - Vital Signs Recent Vital Signs: Last Vital Signs Temp 96.7 F L 03/01/18 07:00 Pulse 116 H 03/01/18 07:00 Resp 20 03/01/18 07:00 BP 101/67 03/01/18 07:00 Pulse Ox 100 03/01/18 09:00 - Labs Result Diagrams: 02/28/18 13:14 03/01/18 07:03 Labs: Laboratory Results - last 24 hr 02/28/18 02/28/18 03/01/18 13:14 13:39 07:03 WBC 7.8 RBC 5.34 Hgb 16.4 Hct 49.8 MCV 93.3 D MCH 30.7 MCHC 32.9 L RDW 20.5 H Plt Count 359 D MPV 8.7 Neut % (Auto) 67.0 Lymph % (Auto) 22.8 [place] % (Auto) 8.0 Eos % (Auto) 0.5 Baso % (Auto) 1.7 Neut # (Auto) 5.2 Lymph # (Auto) 1.8 [place] # (Auto) 0.6 Eos # (Auto) 0.0 Baso # (Auto) 0.1 Sodium 136 138 Potassium 4.6 4.3 Chloride 97 L 96 L Carbon Dioxide 27 26 Anion Gap 17 19 BUN 68 H 71 H Creatinine 1.6 H 1.8 H Est GFR ( Amer) 54 47 Est GFR (Non-Af Amer) 45 39 Random Glucose 131 H 118 H Hemoglobin A1c Calcium 9.3 9.2 Total Bilirubin 5.1 H 3.6 H AST 32 28 ALT 35 26 Alkaline Phosphatase 446 H 456 H Troponin I 0.0530 NT-Pro-B Natriuret Pep 9500 H Total Protein 7.4 7.5 Albumin 3.7 3.7 Globulin 3.7 3.9 Albumin/Globulin Ratio 1.0 1.0 03/01/18 07:03 WBC RBC Hgb Hct MCV MCH MCHC RDW Plt Count MPV Neut % (Auto) Lymph % (Auto) [place] % (Auto) Eos % (Auto) Baso % (Auto) Neut # (Auto) Lymph # (Auto) [place] # (Auto) Eos # (Auto) Baso # (Auto) Sodium Potassium Chloride Carbon Dioxide Anion Gap BUN Creatinine Est GFR ( Amer) Est GFR (Non-Af Amer) Random Glucose Hemoglobin A1c 7.3 H Calcium Total Bilirubin AST ALT Alkaline Phosphatase Troponin I NT-Pro-B Natriuret Pep Total Protein Albumin Globulin Albumin/Globulin Ratio Assessment & Plan - Assessment and Plan (Free Text) Assessment: 57 yo BM with CHF s/p AICD, PPM, CKD, likely cardiogenic cirrhosis presenting with symptomatic ascites. # Decompensated Cirrhosis: +Ascites related to Congestive Hepatopathy (SAAG >1.1 and Tot Prot > 2.5 on 12/06/17). MELD-Na 22 on admission (recent INR 1.4 on 02/22/18). Given degree of cholestatic picture, will also check AMA and LAURA. - Ascites: Paracentesis later today, check Cell Count w/diff. Last para 02/14. - HE: None Apparent - EV: No prior EGDs on file - HCC: No masses seen on recent imaging though not triple phase # CHF s/p AICD+PPM: EF 10-15% per last report # CKD Plan: - Paracentesis today, check cell count w/diff --- If >5 L removed or SBP positive, will need Albumin infusion - Low Na diet post para - Agree with Cardiology consult - Will need outpatient f/u regarding variceal and HCC screening - Check AMA and LAURA in AM - Monitor labs Thank you for the consult; will cont to follow. Pt seen and examined with Dr. Lucas Nuno, PGY-4 <Saqib Zavala - Last Filed: 03/01/18 12:29> Meds - Medications Medications: Current Medications Albuterol/Ipratropium (Duoneb 3 Mg/0.5 Mg (3 Ml) Ud) 3 ml INH RQ6 PRN PRN Reason: Shortness of Breath Last Admin: 03/01/18 01:46 Dose: 3 ml Bisacodyl (Dulcolax) 10 mg [place] Q12H PRN PRN Reason: Constipation Carvedilol (Coreg) 6.25 mg PO Q12H [facility] Last Admin: 03/01/18 06:22 Dose: 6.25 mg Finasteride (Proscar) 5 mg PO DAILY [facility] Last Admin: 03/01/18 10:51 Dose: 5 mg Furosemide (Lasix) 40 mg IVP DAILY [facility] Last Admin: 03/01/18 10:51 Dose: 40 mg Heparin Sodium (Porcine) (Heparin) 5,000 units SC Q12 [facility] Last Admin: 03/01/18 10:51 Dose: 5,000 units Magnesium Oxide (Mag-Ox) 400 mg PO DAILY [facility] Last Admin: 03/01/18 10:50 Dose: 400 mg Spironolactone (Aldactone) 25 mg PO DAILY [facility] Last Admin: 03/01/18 10:50 Dose: 25 mg Results - Vital Signs Recent Vital Signs: Last Vital Signs Temp 96.7 F L 03/01/18 07:00 Pulse 116 H 03/01/18 07:00 Resp 20 03/01/18 07:00 BP 106/71 03/01/18 10:51 Pulse Ox 100 03/01/18 09:00 - Labs Result Diagrams: 02/28/18 13:14 03/01/18 07:03 Labs: Laboratory Results - last 24 hr 02/28/18 02/28/18 03/01/18 13:14 13:39 07:03 WBC 7.8 RBC 5.34 Hgb 16.4 Hct 49.8 MCV 93.3 D MCH 30.7 MCHC 32.9 L RDW 20.5 H Plt Count 359 D MPV 8.7 Neut % (Auto) 67.0 Lymph % (Auto) 22.8 [place] % (Auto) 8.0 Eos % (Auto) 0.5 Baso % (Auto) 1.7 Neut # (Auto) 5.2 Lymph # (Auto) 1.8 [place] # (Auto) 0.6 Eos # (Auto) 0.0 Baso # (Auto) 0.1 Sodium 136 138 Potassium 4.6 4.3 Chloride 97 L 96 L Carbon Dioxide 27 26 Anion Gap 17 19 BUN 68 H 71 H Creatinine 1.6 H 1.8 H Est GFR ( Amer) 54 47 Est GFR (Non-Af Amer) 45 39 Random Glucose 131 H 118 H Hemoglobin A1c Calcium 9.3 9.2 Total Bilirubin 5.1 H 3.6 H AST 32 28 ALT 35 26 Alkaline Phosphatase 446 H 456 H Troponin I 0.0530 NT-Pro-B Natriuret Pep 9500 H Total Protein 7.4 7.5 Albumin 3.7 3.7 Globulin 3.7 3.9 Albumin/Globulin Ratio 1.0 1.0 Fluid Source Fluid Appearance Fluid WBC Fluid RBC Fluid Tot Cell Count Fluid Neutrophils Fluid Lymphocytes Fld Monocyte/Macrophag Fluid Comment 03/01/18 03/01/18 07:03 11:06 WBC RBC Hgb Hct MCV MCH MCHC RDW Plt Count MPV Neut % (Auto) Lymph % (Auto) [place] % (Auto) Eos % (Auto) Baso % (Auto) Neut # (Auto) Lymph # (Auto) [place] # (Auto) Eos # (Auto) Baso # (Auto) Sodium Potassium Chloride Carbon Dioxide Anion Gap BUN Creatinine Est GFR ( Amer) Est GFR (Non-Af Amer) Random Glucose Hemoglobin A1c 7.3 H Calcium Total Bilirubin AST ALT Alkaline Phosphatase Troponin I NT-Pro-B Natriuret Pep Total Protein Albumin Globulin Albumin/Globulin Ratio Fluid Source Peritoneal Fluid Appearance Cloudy Fluid WBC 245.0 Fluid RBC 74419.0 H Fluid Tot Cell Count 100 H Fluid Neutrophils 41.0 H Fluid Lymphocytes 57.0 H Fld Monocyte/Macrophag 2 H Fluid Comment Attending/Attestation - Attestation I have personally seen and examined this patient.: Yes I have fully participated in the care of the patient.: Yes I have reviewed all pertinent clinical information: Yes Notes (Text): 03/01/18 12:24 I have seen and examined patient with GI fellow. Agree with above documentation with the following additions. In brief, this is a 57 year old male with history of CHF s/p ICD, decompensated cirrhosis, CKD, DM, deaf/mute, who presents to hospital with dyspnea and progressive abdominal distention. Further information was obtained using video railroad signal operator to communicate effectively with patient. He reports progressive symptoms over the past one week along with development of LLQ abdominal pain. He has been using diuretic therapy at home and claims to be compliant with dietary restrictions. He denies nausea, vomiting, fever/chills, weight loss, rectal bleeding. He had a paracentesis 3 weeks ago with 3 L fluid removed. No prior endoscopic evaluation. CHF s/p ICD Decompensated cirrhosis - admission MELD 22 CKD DM Deaf/mute Dyspnea, abdominal pain - ascites - likely secondary to cardiac etiology given analysis from prior ascitic fluid - Low sodium diet as tolerated - Repeat INR - Patient to have paracentesis performed today, follow up ascitic fluid cell count - Follow up cardiology recommendations - Continue with diuretic therapy, monitor electrolytes and creatinine - LFTs stable, obtain autoimmune panel testing - Patient would benefit from elective outpatient EGD/colonoscopy evaluation following medical/cardiac optimization. Will continue to monitor patient clinical course.
--- NOTE | 2018-03-01 10:30 | PCM.SURG1 ---
Surgeon's Initial Post Op Note - Surgeon's Notes Surgeon: Dwain Carrasco MD Poultry Hatchery Laborer: NONE Type of Anesthesia: Local Pre-Operative Diagnosis: Ascites, cirrhosis Operative Findings: US showed moderate ascites Post-Operative Diagnosis: Ascites, cirrhosis Operation Performed: US guided paracentesis Specimen/Specimens Removed: 2 liters of kadi colored fluid Estimated Blood Loss: EBL {In ML}: 0 Blood Products Given: N/A Drains Used: No Drains Post-Op Condition: Fair Date of Surgery/Procedure: 03/01/18 Time of Surgery/Procedure: 10:25
[2018-03-01] MEDS: Magnesium Oxide 400 mg Tab UD PO SCH (10:50)
[2018-03-01 11:09] LABS: BODY FLUID TYPE PERITONEAL
[2018-03-01 12:14] LABS: BF GROSS APPEARANCE CLOUDY (CLEAR)
[2018-03-01 12:15] LABS: BODY FLUID MONO/MACROPHAGE 2 % (0-0); BODY FLUID TOTAL COUNT 100 (0-0)
--- NOTE | 2018-03-01 12:29 | US ---
Date of Procedure: 03/01/2018 PROCEDURE: Ultrasound-guided paracentesis, CPT 58845 Medications: 7 cc 1% Lidocaine HISTORY: Ascites, abdominal pain, cirrhosis TECHNIQUE: Following informed consent , the patient was placed supine on the stretcher and the site was marked. A limited abdominal ultrasound was performed that showed a moderate amount of intra-abdominal fluid. Procedural time out was called and the Pt's abdomen was marked and prepped and draped in the usual sterile fashion. Ultrasound-guided large volume paracentesis performed. A total of 2 liters of kadi colored fluid was removed without complication. IMPRESSION: Ultrasound-guided paracentesis.
[2018-03-01] MEDS ORDERED: Albumin Human 25% (12.5 gm/50 ml) IV ONE (12:34)
[2018-03-01 14:05] LABS: INR 1.5; PROTHROMBIN TIME 16.9 SECONDS (9.7-12.2)
[2018-03-01] MEDS: Vitamins A & D Oint UD Foilpak TOP SCH (17:39)
--- NOTE | 2018-03-01 21:42 | PCM.RRT ---
CONFERENCE ORGANIZER Nurses Assessment - Situation Date: 03/01/18 Time CONFERENCE ORGANIZER was called: 20:55 CONFERENCE ORGANIZER Responder Arrival Time:: 20:56 CONFERENCE ORGANIZER Location:: Med/Surg Room Number: 664A CONFERENCE ORGANIZER Reason for Call: Respiratory Distress CONFERENCE ORGANIZER Called By: RN - IV IV Inserted during CONFERENCE ORGANIZER?: No - Respiratory CONFERENCE ORGANIZER Delivery Method: Nasal Cannula @L/min (2L), Face Mask @% Received Nebulizer Treatments: No - Ventilator Settings Ventilator Respiratory Rate Settin Ventilator Tidal Volume Settin - Diagnostic Test Ordered Chest X-Ray: Yes CPR started during CONFERENCE ORGANIZER?: No - Vital Signs Vital Signs: T: 97.1 HR: 115 BP: 92/63 rr: 24 O2: 98% - Time CONFERENCE ORGANIZER Ended Time CONFERENCE ORGANIZER Ended: 21:20 - Vital Signs at end of CONFERENCE ORGANIZER Vital Signs at end of CONFERENCE ORGANIZER: T: 97.2 HR: 110 Bp: 104/77 rr: 22 O2: 96% I.Reason for CONFERENCE ORGANIZER - A) Acute Change in Patient: (Select all that apply): Staff member or family is worried about patient - Neurological Status (Select all that apply): Alert, Responsive, Oriented, Follows Commands. absent: Disoriented, Confused, Lethargic, Aggressive, Weakness - Respiratory Oxygen Delivery Method: Nasal Cannula @L/min, Face Mask @% - Constitutional Appears: Non-toxic, No Acute Distress - Head Head Exam: ATRAUMATIC, NORMAL INSPECTION, NORMOCEPHALIC - Eyes Eye Exam: EOMI, Normal appearance, PERRL - Respiratory Exam Respiratory Exam: Clear to Ausculation Bilateral, NORMAL BREATHING PATTERN - Cardiovascular Exam Cardiovascular Exam: Tachycardia, REGULAR RHYTHM, +S1, +S2 - GI/Abdominal Exam GI & Abdominal Exam: Distended, Rigid. absent: Tenderness - Neurological Exam Neurological Exam: Alert, Awake, Oriented x3 - Extremities Exam Extremities Exam: Full ROM, Normal Inspection Plan - Assessment of Findings&Treatment Plan CONFERENCE ORGANIZER note: Rapid response called at 20:55 for patient in 664A for shortness of breath. Patient admitted for worsening abdominal ascites, pmhx of liver cirrhosis, Patient is deaf and mute. interpreter deaf Rin #[id number]. Patient complains of difficulty breathing due to pain on his left upper abdominal area. Patient complains of shortness of breath and anxiety when moving from one position to another. Vitals at arrival T 97, BP 92/63, HR 115 RR 24, O2 98% on NC 2L. Physical exam noted for distended abdomen. Bipap attempted but patient refused due to not feeling comfortable with the mask. Venti mask provided at 15 L. Port able Chest Xray ordered, with unremarkable findings. Vitals at the end of rapid t 97.2, HR 110, BP 104/77 O2 sat 96% ICU consult as per Dr Carlton. Attending to be notified.
--- NOTE | 2018-03-01 21:51 | CARD ---
APPROVED REPORT Date of service: 02/28/2018 EKG Measurement Heart [id number] <Conclusion> Sinus tachycardia with 1o AV block with premature ventricular or aberrantly conducted complexes Left axis deviation Incomplete right bundle branch block Possible Lateral infarct, age undetermined Inferior infarct, age undetermined Abnormal ECG
[2018-03-01] MEDS ORDERED: Digoxin 500 mcg/2ml (0.5 mg/2ml) Inj IVP ONE (22:22)
--- NOTE | 2018-03-01 22:38 | CP.PCM.CON ---
History of Present Illness - History of Present Illness History of Present Illness: CCM 57 yo black male with hx HTN /Cirrhosis /CMP /HLD /CKD /AICD/Deaf-Mute admitted with worsenng abd. distention and SOB. Pt had paracentecis of 2 liters done. Today SOB and anxious and rapid response called. Pt did not want BIPAP and changed from NC to VM with O2 sat 95%. c/o some abd. discomfort. No n /v. EKG from yest. and today with A-flutter. Pt refused BIPAP earlier. ROS- as noted All- NKDA Social- ex-etoh/ no tob or drugs Meds- reviewed FH- Unknown PE T-97.1 P-120 R-22 BP107/63 alert anxious and sl. tachypneic initially when seen Neck-+jvd Lungs- bilat bs Heart-rr ABd- distended, BS+, soft, no localized tenderness Ext- bipedal edema Labs, ekg, [id number] A&P CMP SARAH on CKD cirrhosis /Ascites AICD Deaf -Mute Hx HTN HLD hold BP meds for BP <100 syst. Rx analgesia Rx dig for inotropy /rate control cont supplemental O2 check ABG LE duplex May benefit from inotropic Rx but would rate control first anxiolytic prn DVT prophylaxis Pt calmed down and less dyspneic after MSO4 cont Rx on floor re-consult prn Past Patient History - Infectious Disease Hx of Infectious Diseases: None - Past Medical History & Family History Past Medical History?: Yes - Past Social History Smoking Status: Never Smoked - CARDIAC Hx Cardia Arrhythmia: Yes Hx Congestive Heart Failure: Yes Hx Hypercholesterolemia: Yes Hx Hypertension: Yes Hx Pacemaker: Yes Hx Peripheral Edema: Yes - PULMONARY Hx Respiratory Disorders: No - NEUROLOGICAL HX Cerebrovascular Accident: Yes - HEENT Hx HEENT Problems: Yes Hx Deafness: Yes - RENAL Hx Chronic Kidney Disease: Yes - ENDOCRINE/METABOLIC Hx Diabetes Mellitus Type 2: Yes - HEMATOLOGICAL/ONCOLOGICAL Hx Human Immunodeficiency Virus (HIV): No - INTEGUMENTARY Hx Dermatological Problems: No - MUSCULOSKELETAL/RHEUMATOLOGICAL Hx Musculoskeletal Disorders: No Hx Falls: Yes - GASTROINTESTINAL Hx Gastrointestinal Disorders: Yes Other/Comment: ascites - GENITOURINARY/GYNECOLOGICAL Hx Genitourinary Disorders: Yes (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) - PSYCHIATRIC Hx Substance Use: No - SURGICAL HISTORY Hx Surgeries: Yes Other/Comment: AICD. Paracentesis - ANESTHESIA Hx Anesthesia: Yes Hx Anesthesia Reactions: No Hx Malignant Hyperthermia: No Meds Allergies/Adverse Reactions: Allergies Allergy/AdvReac Type Severity Reaction Status Date / Time No Known Allergies Allergy Verified 02/28/18 12:16 - Medications Medications: Current Medications Albuterol/Ipratropium (Duoneb 3 Mg/0.5 Mg (3 Ml) Ud) 3 ml INH RQ6 PRN PRN Reason: Shortness of Breath Last Admin: 03/01/18 21:05 Dose: 3 ml Bisacodyl (Dulcolax) 10 mg [place] Q12H PRN PRN Reason: Constipation Carvedilol (Coreg) 6.25 mg PO Q12H [facility] Last Admin: 03/01/18 18:49 Dose: Not Given Enalapril Maleate (Vasotec) 2.5 mg PO DAILY [facility] Last Admin: 03/01/18 13:43 Dose: 2.5 mg Finasteride (Proscar) 5 mg PO DAILY [facility] Last Admin: 03/01/18 10:51 Dose: 5 mg Furosemide (Lasix) 40 mg IVP DAILY [facility] Last Admin: 03/01/18 10:51 Dose: 40 mg Magnesium Oxide (Mag-Ox) 400 mg PO DAILY [facility] Last Admin: 03/01/18 10:50 Dose: 400 mg Spironolactone (Aldactone) 25 mg PO DAILY [facility] Last Admin: 03/01/18 10:50 Dose: 25 mg Vitamin A (Vitamin A & D Oint Ud Foilpak) 1 ea TOP BID [facility] Last Admin: 03/01/18 17:39 Dose: 1 ea Results - Vital Signs Recent Vital Signs: Last Vital Signs Temp 98 F 03/01/18 15:31 Pulse 110 H 03/01/18 20:40 Resp 22 03/01/18 20:40 BP 92/63 L 03/01/18 20:40 Pulse Ox 2 L 03/01/18 20:40 - Labs Result Diagrams: 02/28/18 13:14 03/01/18 07:03 Labs: Laboratory Results - last 24 hr 03/01/18 03/01/18 03/01/18 07:03 07:03 11:06 PT INR Sodium 138 Potassium 4.3 Chloride 96 L Carbon Dioxide 26 Anion Gap 19 BUN 71 H Creatinine 1.8 H Est GFR ( Amer) 47 Est GFR (Non-Af Amer) 39 POC Glucose (mg/dL) Random Glucose 118 H Hemoglobin A1c 7.3 H Calcium 9.2 Magnesium Total Bilirubin 3.6 H AST 28 ALT 26 Alkaline Phosphatase 456 H Total Protein 7.5 Albumin 3.7 Globulin 3.9 Albumin/Globulin Ratio 1.0 Fluid Source Peritoneal Fluid Appearance Cloudy Fluid WBC 245.0 Fluid RBC 22250.0 H Fluid Tot Cell Count 100 H Fluid Neutrophils 41.0 H Fluid Lymphocytes 57.0 H Fld Monocyte/Macrophag 2 H Fluid Comment 03/01/18 03/01/18 03/01/18 13:54 18:05 21:13 PT 16.9 H INR 1.5 Sodium Potassium Chloride Carbon Dioxide Anion Gap BUN Creatinine Est GFR ( Amer) Est GFR (Non-Af Amer) POC Glucose (mg/dL) 145 H Random Glucose Hemoglobin A1c Calcium Magnesium 2.6 H Total Bilirubin AST ALT Alkaline Phosphatase Total Protein Albumin Globulin Albumin/Globulin Ratio Fluid Source Fluid Appearance Fluid WBC Fluid RBC Fluid Tot Cell Count Fluid Neutrophils Fluid Lymphocytes Fld Monocyte/Macrophag Fluid Comment Assessment & Plan (1) Cardiomyopathy Status: Chronic (2) Flutter-fibrillation Status: Chronic (3) Chronic renal insufficiency Status: Chronic (4) Cardiorenal syndrome Status: Chronic (5) Cirrhosis Status: Chronic
--- NOTE | 2018-03-02 03:48 | CON ---
DATE: 03/01/2018 CARDIOLOGY CONSULTATION HISTORY OF PRESENT ILLNESS: The patient is deaf and mute, and the clinical evaluation was performed in the presence of the patient's son who perfectly conducted the sign language interpretation. The patient is a 57-year-old -[place] male who has a history of dilated cardiomyopathy, status post ICD placement, history of benign prostatic hypertrophy with indwelling Perdomo catheter, and was recently diagnosed with low-grade malignancy bladder carcinoma. The patient has history of ascites and liver cirrhosis, most likely cardiac cirrhosis. During his last admission to [facility], he required abdominal paracentesis twice and was admitted from the rehab because of shortness of breath and worsening abdominal swelling. The patient underwent abdominal paracentesis today with removal of 2L of kadi color fluid. The patient's shortness of breath improved. He denies any chest pain and denies any recent discharge of the defibrillator. The patient is being followed as an outpatient by Dr. Pang, the wire rope fabrication supervisor, whom the medical team spoke to and anticoagulation was not considered a safe option. SOCIAL HISTORY: Nonsmoker, nondrinker. MEDICATIONS: Aldactone 25 mg once a day, Coreg 6.25 mg twice a day, Lasix 40 mg intravenously daily, Vasotec 2.5 mg daily, and Proscar 5 mg once a day. PAST MEDICAL HISTORY: Dilated cardiomyopathy, status post ICD placement, persistent atrial flutter, and recently diagnosed with a bladder CA. PHYSICAL EXAMINATION: GENERAL: The patient is a middle-aged male, who does not appear to be in acute distress. VITAL SIGNS: Blood pressure 96/64, heart rate 100, temperature 98, and respirations 20. HEENT: Normocephalic. NECK: Jugular venous distention is noted. CHEST: Bibasilar rhonchi. HEART: S1 and S2, regular. ABDOMEN: Mild ascites. EXTREMITIES: 2+ pitting edema. LABORATORY DATA: Hemoglobin and hematocrit 16.4 and 49.8, white count 7.8, and platelet count 359,000. Today's SMA-7: Sodium 138, potassium 4.2, chloride 96, CO2 of 26, glucose 118, BUN 71, creatinine 1.8. ProBNP is 9500. INR is 1.5. EKG revealed atrial flutter, PVCs versus aberrancy. Heart rate is 122, incomplete right bundle branch block, old inferior infarct. The most recent echo done on 02/10/2018 revealed ejection fraction below 20% with severe dilated left ventricle with small reduced right ventricular systolic function, moderate pulmonary hypertension, and final statement was 4-chamber dilatation with severe biventricular systolic dysfunction. Chest x-ray revealed significant cardiomegaly. No infiltrate or effusion. ICD device is noted. ASSESSMENT: 1. Exacerbation of congestive heart failure and the patient has biventricular failure. 2. Moderate pulmonary hypertension. 3. Cardiac cirrhosis. 4. Portal hypertension. 5. Recurrent ascites, status post abdominal paracentesis. 6. Atrial flutter. 7. Benign prostatic hypertrophy requiring indwelling catheter. 8. Chronic renal insufficiency. 9. Papillary urothelial carcinoma of low grade. RECOMMENDATIONS: Continue Aldactone 25 mg daily, Coreg 6.25 mg twice a day, Lasix 40 mg intravenously once a day, Vasotec 2.5 mg once a day. Conservative medical approach is recommended. Jass Carlton MD
--- NOTE | 2018-03-02 04:05 | HP ---
HISTORY OF PRESENT ILLNESS: This is a 57-year-old deaf and mute male with past medical history of hypertension, urinary bladder cancer, dilated cardiomyopathy with ejection fraction of 12% with ICD and pacemaker placement who was in subacute rehabilitation at [facility] where he started to develop shortness of breath with increase of abdominal girth. The patient was brought by paramedics to emergency room of [facility] where he was evaluated and found to be in acute exacerbation of systolic heart failure. Subsequently, the patient was admitted for further management that include intravenous diuretics. The patient also had liver failure with ascites due to chronic abuse of alcohol combined with CHF. In 2017, the patient was having difficulty passing urine and went to urologist, had a workup and found to have bladder cancer and BPH. He was recommended to go to the hospital for Surgery. The patient was not found to be a candidate for surgery due to weak heart and was treated conservatively. The patient admits that he has also symptoms of shortness of breath and dizziness. Otherwise, review of system is negative. ALLERGIES: NO KNOWN ALLERGIES. MEDICATIONS: Reviewed as per MAR and ordered. SOCIAL HISTORY: Positive history for EtOH, former heavy drinker. Last drink was about 1 year ago. The patient's proxy, his son Mauri with phone number [phone], and daughter, Marialuisa, with phone number [phone]. PAST MEDICAL HISTORY: As above. FAMILY HISTORY: Not contributory. PHYSICAL EXAMINATION: GENERAL: The patient was in bed, not in any cardiopulmonary distress at the time of this examination. VITAL SIGNS: Blood pressure 99/67, temperature 98, respiratory rate 20, and pulse 115. HEENT: Pupils equal and reactive to light. Normal-appearing mucosa of the conjunctivae, oropharynx, and nasal membrane mucosa. NECK: Supple. No JVD. No carotid bruit. No lymph node. No thyromegaly. CHEST AND LUNGS: Bilateral symmetrical expansion. Good air exchange. No rales, no rhonchi. CARDIOVASCULAR SYSTEM: PMI not localized. S1, S2. No additional sounds. ABDOMEN: Positive ascites which decreased in size compared to when he was in [facility] after paracentesis. CENTRAL NERVOUS SYSTEM: Alert, awake, oriented x2. No neurological deficit could be appreciated except the patient is mute and deaf. 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 Acute on top of chronic systolic and diastolic heart failure, history of alcohol abuse. PLAN: Continue the diuretics and beta cleo, and we will add 2.5 mg XAVIER inhibitor, and we will monitor closely the BUN and creatinine. Follow recommendation of Cardiology and GI. [facility] [place] MD Neal
[2018-03-02 07:12] LABS: BASO % 0.6 % (0.0-2.0); HEMOGLOBIN 14.9 g/dL (12.0-18.0); LYMPH # 0.9 K/uL (1.0-4.3); LYMPH % 13.1 % (20.0-40.0); MEAN CELL VOLUME 92.9 fL (80.0-94.0); MEAN CORPUSCULAR HEMOGLOBIN 30.8 pg (27.0-31.0); MEAN CORPUSCULAR HGB CONC 33.1 g/dL (33.0-37.0); MEAN PLATELET VOLUME 8.3 fL (7.2-11.7); MONO # 0.5 K/uL (0.0-0.8); MONO % 6.8 % (0.0-10.0); NEUT # 5.4 K/uL (1.8-7.0); NEUT % 79.5 % (50.0-75.0); NRBC % 0.2 % (0.0-2.0); RBC 4.84 Mil/uL (4.40-5.90); RED CELL DISTRIBUTION WIDTH 20.4 % (11.5-14.5); WHITE BLOOD COUNT 6.8 K/uL (4.8-10.8)
--- NOTE | 2018-03-02 07:58 | RAD ---
Chest x-ray single frontal view HISTORY: Chest pain. COMPARISON: None available. Findings: Left-sided pacemaker. Cardiomegaly. Atherosclerotic calcification at the aortic knob. Mild venous congestion. Mild patchy increased markings at the left lung base. Degenerative changes in the spine and shoulders. Impression: Left-sided pacemaker. Cardiomegaly. Atherosclerotic calcification at the aortic knob. Mild venous congestion. Mild patchy increased markings at the left lung base.
[2018-03-02 08:27] LABS: CALCIUM 9.5 mg/dl (8.6-10.4)
[2018-03-02] MEDS: Vitamins A & D Oint UD Foilpak TOP SCH ×2 (09:10→17:46)
[2018-03-02] MEDS: Magnesium Oxide 400 mg Tab UD PO SCH (09:10)
--- NOTE | 2018-03-02 09:47 | CP.PCM.PN ---
<YaakovNgasarah - Last Filed: 03/02/18 09:45> Subjective - Date & Time of Evaluation Date of Evaluation: 03/02/18 Time of Evaluation: 06:45 - Subjective Subjective: PGY-4 GI Fellow Note Pt lying in bed when seen this AM, asleep wearing supp O2 mask. He awoke to light tough and history obtained via railroad signal technician ([id number]). Pt states that symptoms of abd distension are much improved post-paracentesis. He is still somewhat anxious and acknowledges that Cardiology is working on optimizing cardiac status. Tolerating diet. 5 point ROS negative other than stated above Objective - Vital Signs/Intake and Output Vital Signs (last 24 hours): Temp Pulse Resp BP Pulse Ox 97.3 F L 106 H 18 111/80 100 03/02/18 08:05 03/02/18 08:27 03/02/18 08:05 03/02/18 09:10 03/02/18 08:05 Intake and Output: 03/02/18 03/02/18 06:59 18:59 Intake Total 120 Output Total 400 Balance -280 - Medications Medications: Current Medications Albuterol/Ipratropium (Duoneb 3 Mg/0.5 Mg (3 Ml) Ud) 3 ml INH RQ6 PRN PRN Reason: Shortness of Breath Last Admin: 03/01/18 21:05 Dose: 3 ml Bisacodyl (Dulcolax) 10 mg [place] Q12H PRN PRN Reason: Constipation Carvedilol (Coreg) 6.25 mg PO Q12H [facility] Last Admin: 03/02/18 08:06 Dose: 6.25 mg Enalapril Maleate (Vasotec) 2.5 mg PO DAILY [facility] Last Admin: 03/02/18 09:10 Dose: 2.5 mg Finasteride (Proscar) 5 mg PO DAILY [facility] Last Admin: 03/01/18 10:51 Dose: 5 mg Furosemide (Lasix) 40 mg IVP DAILY [facility] Last Admin: 03/02/18 09:09 Dose: 40 mg Lorazepam (Ativan) 1 mg IVP Q4H PRN PRN Reason: Anxiety Magnesium Oxide (Mag-Ox) 400 mg PO DAILY [facility] Last Admin: 03/02/18 09:10 Dose: 400 mg Spironolactone (Aldactone) 25 mg PO DAILY [facility] Last Admin: 12/12/18 09:10 Dose: 25 mg Vitamin A (Vitamin A & D Oint Ud Foilpak) 1 ea TOP BID [facility] Last Admin: 03/02/18 09:10 Dose: 1 ea - Labs Labs: 03/02/18 07:01 03/02/18 07:01 PT 16.9 SECONDS (9.7-12.2) H 03/01/18 13:54 INR 1.5 03/01/18 13:54 - Constitutional Appears: Well, No Acute Distress - Head Exam Head Exam: ATRAUMATIC, NORMAL INSPECTION - ENT Exam ENT Exam: Mucous Membranes Moist. absent: Mucous Membranes Dry - Respiratory Exam Respiratory Exam: NORMAL BREATHING PATTERN. absent: Accessory Muscle Use - GI/Abdominal Exam GI & Abdominal Exam: Distended (mildly), Soft, Normal Bowel Sounds. absent: Bruit, Firm, Guarding, Rigid, Tenderness, Mass, Organomegaly, Pulsatile Mass Assessment and Plan - Assessment and Plan (Free Text) Assessment: 57 yo BM with CHF s/p AICD, PPM, CKD, likely cardiogenic cirrhosis presenting with symptomatic ascites. # Decompensated Cirrhosis: +Ascites related to Congestive Hepatopathy (SAAG >1.1 and Tot Prot > 2.5 on 12/06/17). MELD-Na 22 on admission (recent INR 1.4 on 02/22/18). Given degree of cholestatic picture, will also check AMA and LAURA. - Ascites: Paracentesis later today, check Cell Count w/diff. Last para 02/14. 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 Please call if questions. Pt seen and examined with Dr. Zavala; please see attestation for further recs/changes Ashwin Nuno, PGY-4 <Saqib Zavala Y - Last Filed: 03/02/18 11:34> Objective - Vital Signs/Intake and Output Vital Signs (last 24 hours): Temp Pulse Resp BP Pulse Ox 97.3 F L 106 H 18 111/80 100 03/02/18 08:05 03/02/18 08:27 03/02/18 08:05 03/02/18 09:10 03/02/18 08:05 Intake and Output: 03/02/18 03/02/18 06:59 18:59 Intake Total 120 Output Total 400 Balance -280 - Medications Medications: Current Medications Albuterol/Ipratropium (Duoneb 3 Mg/0.5 Mg (3 Ml) Ud) 3 ml INH RQ6 PRN PRN Reason: Shortness of Breath Last Admin: 03/01/18 21:05 Dose: 3 ml Bisacodyl (Dulcolax) 10 mg [place] Q12H PRN PRN Reason: Constipation Carvedilol (Coreg) 6.25 mg PO Q12H [facility] Last Admin: 03/02/18 08:06 Dose: 6.25 mg Enalapril Maleate (Vasotec) 2.5 mg PO DAILY [facility] Last Admin: 03/02/18 09:10 Dose: 2.5 mg Finasteride (Proscar) 5 mg PO DAILY [facility] Last Admin: 03/02/18 09:10 Dose: 5 mg Furosemide (Lasix) 40 mg IVP DAILY [facility] Last Admin: 03/02/18 09:09 Dose: 40 mg Lorazepam (Ativan) 1 mg IVP Q4H PRN PRN Reason: Anxiety Magnesium Oxide (Mag-Ox) 400 mg PO DAILY [facility] Last Admin: 03/02/18 09:10 Dose: 400 mg Spironolactone (Aldactone) 25 mg PO DAILY [facility] Last Admin: 03/02/18 09:10 Dose: 25 mg Vitamin A (Vitamin A & D Oint Ud Foilpak) 1 ea TOP BID [facility] Last Admin: 03/02/18 09:10 Dose: 1 ea - Labs Labs: 03/02/18 07:01 03/02/18 07:01 PT 16.9 SECONDS (9.7-12.2) H 03/01/18 13:54 INR 1.5 03/01/18 13:54 Attending/Attestation - Attestation I have personally seen and examined this patient.: Yes I have fully participated in the care of the patient.: Yes I have reviewed all pertinent clinical information, including history, physical exam and plan: Yes Notes (Text): 03/02/18 11:31 I have seen and examined patient with GI fellow. No acute events overnight, he is seen sitting at side of bed, appears more comfortable as compared to yesterday. He denies abdominal pain, nausea, vomiting, fever/chills. s/p paracentesis yesterday with 2L fluid removed. Breathing improved. Decompensated cirrhosis - likely secondary to cardiac etiology Ascites s/p LVP CKD s/p albumin replacement therapy CHF s/p ICD - Low sodium diet as tolerated - Ascitic fluid cell count shows no evidence of SBP - Follow up cardiology recommendations, recently started on digoxin - Continue with diuretic therapy, monitor electrolytes - Follow up autoimmune panel - Patient would benefit from outpatient follow up and endoscopic evaluation after cardiac optimization. No further planned GI interventions at this time, will sign off case. Please reconsult as necessary, thank you.
[2018-03-02 16:29] LABS: ARTERIAL BLOOD GAS HEMOGLOBIN 13.8 g/dL (11.7-17.4); ARTERIAL BLOOD GAS O2 SAT 99.7 % (95-98); ARTERIAL BLOOD GAS PCO2 35 mm/Hg (35-45); ARTERIAL BLOOD GAS PH 7.46 (7.35-7.45); ARTERIAL BLOOD GAS PO2 134 mm/Hg (80-100)
--- NOTE | 2018-03-03 01:30 | PN ---
DATE: 03/02/2018 SUBJECTIVE: The patient is seen today, 03/02/2018. 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 The patient was given Lasix and he was feeling better during the rounds today. PHYSICAL EXAMINATION: VITAL SIGNS: Blood pressure 100/70, temperature 97.3, respiratory rate 20, and pulse 102. HEENT: Pupils equal and reactive to light. Normal appearing mucosa of the conjunctivae, oropharynx, and nasal membrane mucosa. NECK: Supple. No JVD. No carotid bruits. No lymph node. No thyromegaly. CHEST AND LUNGS: Bilateral symmetrical expansion. Good air exchange. Decreased air entry both lower lung youssef. CARDIOVASCULAR SYSTEM: PMI not localized. S1, S2. No additional sounds. ABDOMEN: Normoactive bowel sounds. No tenderness. No organomegaly. No masses. EXTREMITIES: No cyanosis, no clubbing, no edema. MOTION PICTURE EQUIPMENT MACHINIST: Alert, awake, and oriented x2. No neurological deficit could be appreciated. ASSESSMENT: Dilated cardiomyopathy status post implantable cardioverter defibrillator placement, ascites secondary to alcoholic versus cardiac cirrhosis, history of urinary bladder cancer with a Perdomo catheter and a leg bag, and chronic kidney disease. PLAN: Continue Lasix as tolerated, status post paracentesis ____ taking 2 L of ascitic fluid. Follow up renal function. Continue XAVIER inhibitor, beta cleo, spironolactone and Lasix as tolerated. Bladimir De Jesus MD
--- NOTE | 2018-03-03 06:38 | PN ---
DATE: 03/02/2018 SUBJECTIVE: The patient last night was reported to be hypotensive, had also known nonsustained ventricular tachycardia and was dyspneic, required BiPAP . Rapid response was also conducted. Following that I did ask for ICU evaluation and the patient was evaluated by Dr. Foy, ____ digital x ray service engineer and the patient remained on the floor on BiPAP. At the time of my evaluation around noon time, the patient was comfortable, eating his lunch and was happy. He denies having shortness of breath at the time of my evaluation. PHYSICAL EXAMINATION: VITAL SIGNS: Blood pressure 111/80, heart rate 106, temperature 97.3, and respirations 18. HEENT: Normocephalic. CHEST: Diminished breath sounds around the bases. HEART: S1, S2 regular. EXTREMITIES: No edema. LABORATORY DATA: Today's hemoglobin and hematocrit , white count and platelet count are within normal limit. Today's BUN and creatinine are 73 and 1.6 respectively and glucose today is 122. EKG done yesterday at the time of rapid response revealed atrial flutter with variable conduction with heart rate of 123, old inferior and old lateral infarcts. Chest x-ray done yesterday after rapid response revealed significant cardiomegaly, no infiltrate or effusion. ASSESSMENT: 1. Exacerbation of congestive heart failure. 2. Atrial flutter. 3. Prerenal azotemia. 4. Uncontrolled diabetes mellitus. 5. Recurrent ascites, status post portal hypertension, status post abdominal paracentesis. 6. Cardiac cirrhosis. 7. Benign prosthetic hypertrophy requiring indwelling Perdomo catheter. 8. Papillary low-grade urothelial carcinoma. RECOMMENDATIONS: Continue Aldactone 25 mg once a day, Coreg 6.25 mg once a day, Lasix 20 mg intravenously once a day, Lasix 2.5 mg once a day, long-term digoxin, ____ of rapid atrial flutter and nonsustained ventricular tachycardia. Jass Carlton MD
[2018-03-03] MEDS: Vitamins A & D Oint UD Foilpak TOP SCH ×2 (09:35→18:12)
[2018-03-03] MEDS: Magnesium Oxide 400 mg Tab UD PO SCH (09:36)
[2018-03-03] MEDS: Nystatin 100,000 Units/ml Oral Susp 5 ml UD PO SCH ×3 (14:23→21:49)
[2018-03-03] MEDS: Digoxin 125 mcg (0.125 mg) Tab PO SCH (18:11)
--- NOTE | 2018-03-03 19:14 | PN ---
DATE: 03/03/2018 SUBJECTIVE: The patient was reported to have nonsustained ventricular tachycardia. However, on review of the rhythm strips, are consistent with atrial fibrillation with aberrancy. He is still in atrial flutter with variable AV conduction and he denies any chest pain or dizziness. PHYSICAL EXAMINATION: VITAL SIGNS: Blood pressure 101/71, heart rate 125, temperature 97.3, and respirations 18. HEENT: Normocephalic. CHEST: Minimal basal rhonchi. HEART: S1 and S2, regular. ABDOMEN: Worsening ascites. EXTREMITIES: 1+ pitting edema. LABORATORY DATA: Today's digoxin level is 0.6. ASSESSMENT: 1. Dilated cardiomyopathy status post implantable-cardioverter defibrillator placement. 2. Atrial flutter with variable atrioventricular conduction. 3. Portal hypertension with recurrent ascites. 4. Benign prosthetic hypertrophy with indwelling Perdomo catheter. 5. Low-grade bladder malignancy. RECOMMENDATIONS: The case was discussed with Dr. De Jesus, anticoagulation not justified given the patient's extensive lower abdominal wall ecchymosis and the fact that he is requiring a ____ abdominal tap. Continue current Aldactone 25 mg daily, Coreg 6.25 mg twice a day, Lasix 40 mg intravenously once a day, Vasotec 2.5 mg once a day. I will start digoxin 0.125 mg orally daily. Jass Carlton MD
[2018-03-03] MEDS ORDERED: Aluminum Hydroxide/Magnesium Hydroxide Susp (30 mL) PO ONE (21:15)
[2018-03-03] MEDS: Albuterol-Ipratrop 3 mg / 0.5 (3 ml) UD INH PRN (23:48)
--- NOTE | 2018-03-04 01:32 | PN ---
DATE: 03/03/2018 SUBJECTIVE: The patient is seen today, 03/03/2018. He is less short of breath and the patient passed swallowing evaluation and is currently in puree diet. PHYSICAL EXAMINATION: VITAL SIGNS: Blood pressure 114/81, temperature 97.4, respiratory rate 20, and pulse 101. HEENT: Pupils equal, reactive to light. Normal-appearing mucosa of the conjunctivae, oropharynx, and nasal membrane mucosa. NECK: Supple. No JVD. No carotid bruit. No lymph node. No thyromegaly. CHEST AND LUNGS: Bilateral symmetrical expansion. Good air exchange. No rales, no rhonchi. CARDIOVASCULAR SYSTEM: PMI not localized. S1, S2. No additional sounds. ABDOMEN: Normoactive bowel sounds. No tenderness. No organomegaly. No masses. EXTREMITIES: No cyanosis, no clubbing, and no edema. MATERIAL DISTRIBUTOR: The patient is deaf and mute, but he moves all extremities. ASSESSMENT: 1. Exacerbation of congestive heart failure, acute on chronic systolic heart failure. 2. Alcoholic liver cirrhosis. 3. Massive arthritis with repeated paracentesis. PLAN: Continue Lasix, spironolactone, XAVIER inhibitor, beta cleo, monitor electrolytes, and physical therapy. The patient states that he wants to go home, not to return back to subacute rehabilitation. Follow Cardiology recommendations regarding nonsustained v-tach that the patient had overnight. I discussed the patient with Dr. Carlton, assembler piano. Magy MD Neal
--- NOTE | 2018-03-04 05:09 | CARD ---
APPROVED REPORT Date of service: 03/01/2018 EKG Measurement Heart [id number] <Conclusion> Atrial flutter with variable AV block with premature ventricular or aberrantly conducted complexes Left axis deviation Incomplete right bundle branch block Septal infarct, age undetermined Possible Lateral infarct, age undetermined Inferior infarct, age undetermined Abnormal ECG
[2018-03-04 09:20] LABS: BLOOD UREA NITROGEN 54 mg/dL (9-20); CALCIUM 8.6 mg/dl (8.6-10.4); GFR NON-AFRICAN AMERICAN > 60
[2018-03-04] MEDS ORDERED: Sod Polystyrene Sulf 15 gm/60 ml Susp PO ONE (10:16)
[2018-03-04] MEDS: Magnesium Oxide 400 mg Tab UD PO SCH (10:18)
[2018-03-04] MEDS: Vitamins A & D Oint UD Foilpak TOP SCH ×2 (10:19→18:53)
[2018-03-04] MEDS: Nystatin 100,000 Units/ml Oral Susp 5 ml UD PO SCH ×4 (10:19→21:24)
[2018-03-04] MEDS: Albuterol-Ipratrop 3 mg / 0.5 (3 ml) UD INH PRN (11:02)
--- NOTE | 2018-03-04 11:36 | CP.PCM.CON ---
History of Present Illness - History of Present Illness History of Present Illness: Palliative consult requested by Kymberly GARBER for goals of care and Code status discussion Patient is a 57 yo male admitted from [facility] with worsening symptoms of ascites. Upon admission, patient was diagnosed with CHF exacerbation due to ascites and is post Paracentesis with 2 L out. lasix, Aldactone and Dulcolax on board. However, his breathing remains labored and ascites had returned. K 6.1, BUN 54, Quality And Reliability Engineer 1.1 BP104/78, HR 121. Urine output about 800 cc/ days, Mason in place, urine kadi. PMH: alcoholic liver cirrhosis, CHF, HTN, mute and def Soc. Hx: , lives at home, uses sign language Fam. hx: denies Review of Systems - Constitutional Constitutional: Weakness - EENT Eyes: absent: As Per HPI, Blind Spots, Blurred Vision, Change in Vision, Decreased Night Vision, Diplopia, Discharge, Dry Eye, Exophthalmos, Floaters, Irritation, Itchy Eyes, Loss of Peripheral Vision, Pain, Photophobia, Requires Corrective Lenses, Sees Flashes, Spots in Vision, Tunnel Vision, Other Visual Disturbances, Loss of Vision, Other Ears: absent: As Per HPI, Decreased Hearing, Ear Discharge, Ear Pain, Tinnitus, Abnormal Hearing, Disequilibrium, Dizziness, Other Nose/Mouth/Throat: absent: As Per HPI, Epistaxis, Nasal Congestion, Nasal Discharge, Nasal Obstruction, Nasal Trauma, Nose Pain, Post Nasal Drip, Sinus Pain, Sinus Pressure, Bleeding Gums, Change in Voice, Dental Pain, Dry Mouth, Dysphagia, Halitosis, Hoarsness, Lip Swelling, Mouth Lesions, Mouth Pain, Odynophagia, Sore Throat, Throat Swelling, Tongue Swelling, Facial Pain, Neck Pain, Neck Mass, Other - Cardiovascular Cardiovascular: Dyspnea on Exertion - Respiratory Respiratory: Cough, Dyspnea on Exertion - Gastrointestinal Gastrointestinal: Bloating - Genitourinary Genitourinary: Urinary Frequency - Musculoskeletal Musculoskeletal: absent: As Per HPI, Abnormal Gait, Arthralgias, Atrophy, Back Pain, Deformity, Joint Swelling, Limited Range of Motion, Loss of Height, Muscle Cramps, Muscle Weakness, Myalgias, Neck Pain, Numbness, Radiating Pain into Limb, Stiffness, Tingling, Other - Integumentary Integumentary: absent: As Per HPI, Acne, Alopecia, Bleeding Lesions, Change in Hair, Change in Nails, Change in Pigmentation, Changing Lesions, Dry Skin, Erythema, Furuncle, Hirsutism, Lesions, New Lesions, Non-Healing Lesions, Photosensitivity, Pruritus, Rash, Skin Pain, Skin Ulcer, Sores, Striae, Swelling, Unusual Bruising, Wounds, Jaundice, Other - Neurological Neurological: absent: As Per HPI, Abnormal Gait, Abnormal Hearing, Abnormal Movements, Abnormal Speech, Behavioral Changes, Burning Sensations, Confusion, Convulsions, Disequilibrium, Dizziness, Numbness, Focal Weakness, Frequent Falls, Headaches, Lack of Coordination, Loss of Vision, Memory Loss, Paresthesias, Radicular Pain, Restless Legs, Sensory Deficit, Syncope, Tingling, Tremor, Vertigo, Weakness, Other Visual Disturbances, Other - Psychiatric Psychiatric: Irritability - Endocrine Endocrine: Change in Body Appearance - Hematologic/Lymphatic Hematologic: absent: As Per HPI, Easy Bleeding, Easy Bruising, Lymphadenopathy, Other Past Patient History - Infectious Disease Hx of Infectious Diseases: None - Past Medical History & Family History Past Medical History?: Yes - Past Social History Smoking Status: Never Smoked - CARDIAC Hx Cardiac Disorders: Yes Hx Congestive Heart Failure: Yes Hx Hypercholesterolemia: Yes Hx Hypertension: Yes Hx Pacemaker: Yes - PULMONARY Hx Respiratory Disorders: No - NEUROLOGICAL HX Cerebrovascular Accident: Yes - HEENT Hx HEENT Problems: Yes Hx Deafness: Yes Other/Comment: mute - RENAL Hx Chronic Kidney Disease: Yes Other/Comment: bladder cancer - ENDOCRINE/METABOLIC Hx Endocrine Disorders: Yes Hx Diabetes Mellitus Type 2: Yes - HEMATOLOGICAL/ONCOLOGICAL Hx Human Immunodeficiency Virus (HIV): No - INTEGUMENTARY Hx Dermatological Problems: No - MUSCULOSKELETAL/RHEUMATOLOGICAL Hx Falls: Yes - GASTROINTESTINAL Hx Gastrointestinal Disorders: Yes Other/Comment: ascites - GENITOURINARY/GYNECOLOGICAL Hx Genitourinary Disorders: Yes (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) Hx Bladder Cancer: Yes Other/Comment: bph - PSYCHIATRIC Hx Substance Use: No - SURGICAL HISTORY Hx Surgeries: Yes Other/Comment: AICD. Paracentesis - ANESTHESIA Hx Anesthesia: Yes Hx Anesthesia Reactions: No Hx Malignant Hyperthermia: No Meds Allergies/Adverse Reactions: Allergies Allergy/AdvReac Type Severity Reaction Status Date / Time No Known Allergies Allergy Verified 02/28/18 12:16 - Medications Medications: Current Medications Albuterol/Ipratropium (Duoneb 3 Mg/0.5 Mg (3 Ml) Ud) 3 ml INH RQ6 PRN PRN Reason: Shortness of Breath Last Admin: 03/04/18 11:02 Dose: 3 ml Aspirin (Aspirin Chewable) 81 mg PO DAILY [facility] Last Admin: 03/04/18 10:18 Dose: 81 mg Bisacodyl (Dulcolax) 10 mg [place] Q12H PRN PRN Reason: Constipation Carvedilol (Coreg) 6.25 mg PO Q12H [facility] Last Admin: 03/04/18 06:26 Dose: 6.25 mg Digoxin (Digoxin) 0.125 mg PO DAILY@1800 [facility] Last Admin: 03/03/18 18:11 Dose: 0.125 mg Enalapril Maleate (Vasotec) 2.5 mg PO DAILY [facility] Last Admin: 03/04/18 10:18 Dose: 2.5 mg Famotidine (Pepcid) 20 mg PO BID [facility] Last Admin: 03/04/18 10:18 Dose: 20 mg Finasteride (Proscar) 5 mg PO DAILY [facility] Last Admin: 03/04/18 10:18 Dose: 5 mg Furosemide (Lasix) 40 mg IVP DAILY [facility] Last Admin: 03/04/18 10:18 Dose: 40 mg Lorazepam (Ativan) 1 mg IVP Q4H PRN PRN Reason: Anxiety Last Admin: 03/03/18 06:06 Dose: 1 mg Magnesium Oxide (Mag-Ox) 400 mg PO DAILY [facility] Last Admin: 03/04/18 10:18 Dose: 400 mg Nystatin (Nystatin Oral Susp) 5 ml PO QID [facility] Last Admin: 03/04/18 10:19 Dose: 5 ml Spironolactone (Aldactone) 25 mg PO DAILY [facility] Last Admin: 03/04/18 10:18 Dose: 25 mg Vitamin A (Vitamin A & D Oint Ud Foilpak) 1 ea TOP BID [facility] Last Admin: 03/04/18 10:19 Dose: 1 ea Physical Exam - Constitutional Appears: Chronically Ill - Head Exam Head Exam: ATRAUMATIC, NORMAL INSPECTION, NORMOCEPHALIC - Eye Exam Eye Exam: EOMI, Normal appearance, PERRL Pupil Exam: NORMAL ACCOMODATION, PERRL - ENT Exam ENT Exam: Mucous Membranes Moist, Normal Exam - Neck Exam Neck exam: Positive for: Normal Inspection - Respiratory Exam Respiratory Exam: Decreased Breath Sounds, NORMAL BREATHING PATTERN - Cardiovascular Exam Cardiovascular Exam: Tachycardia, REGULAR RHYTHM - GI/Abdominal Exam GI & Abdominal Exam: Diminished Bowel Sounds, Distended, Firm, Rigid - Rectal Exam Rectal Exam: Deferred - Exam Additional comments: Mason cath - Extremities Exam Extremities exam: Positive for: pedal edema - Back Exam Back exam: NORMAL INSPECTION - Neurological Exam Neurological exam: Alert, Oriented x3 - Psychiatric Exam Psychiatric exam: Anxious - Skin Skin Exam: Dry, Intact, Pallor Results - Vital Signs Recent Vital Signs: Last Vital Signs Temp 97.0 F L 03/04/18 07:50 Pulse 121 H 03/04/18 07:50 Resp 20 03/04/18 07:50 BP 105/76 03/04/18 10:18 Pulse Ox 97 03/04/18 07:50 - Labs Result Diagrams: 03/02/18 07:01 03/04/18 08:25 Labs: Laboratory Results - last 24 hr 03/02/18 03/03/18 03/04/18 07:01 12:18 08:25 Sodium 132 Potassium 6.1 H Chloride 98 Carbon Dioxide 22 Anion Gap 18 BUN 54 H Creatinine 1.1 Est GFR ( Amer) > 60 Est GFR (Non-Af Amer) > 60 Random Glucose 110 Calcium 8.6 Magnesium 2.3 Digoxin 0.6 L LAURA Nuclear Membr Pat Negative Anti-Mitochondrial Ab Negative Assessment & Plan - Assessment and Plan (Free Text) Assessment: Palliativ consult Full Code, no advance directive on chart, PPS 30% I reviewed Medical records, all diagnostic studies, examined and interviewed patient in the chair. head teacher used Patient is alert, oriented X 3, mute and def, uses sign language to communicate. patient appears chronically ill in mild distress due to ascites. Skin and sclera are pale. Patient has dark under eye circles. Abdomen is largely distended making him very uncomfortable and also affecting his breathing. Breathing is shallow with occasional moist cough. Patient believes his abdomen gets larger after he drinks or eats and is trying to take minimal amount of PO fluids. I corrected his knowledge regarding ascites. Mason cath in situ, urine kadi. Ambulates with assistance, denies abdominal pain. BP 104/78, HR 121 K 6.1, BUN 54, Quality And Reliability Engineer 1.1 Using e learning designer I discussed his condition. Patient showed no knowledge about his diagnosis. With his permission I offered more information about liver cirrhosis and recurring ascites related to it. I further discussed the need for repetitive paracentesis vs. Pleurex cath placement. After detail information about Pleurex cath benefices patient agreed he would want to go for it. I offered to talk to his son as well about it, but patient said there was no need for it. I shared this with Doctor Neal and Malia, the charge nurse Patient further stated wanting to go home , no to [facility]. He feels his quality of life would be much better at home with his children around him. Code status discussion introduced. Patient clearly got upset and said , he did not want to talk about it. I supported him and explained the reason behind the need to discuss it as his opportunity to make his wishes know in case his condition gets worse. Impression * Chronically ill male with liver cirrhosis and all fallowing symptoms * SOB due to ascites * Abdominal discomfort due to ascites * Hyperkalemia * Patient agreeable with Pleurex cath if suggested by Medical staff * Patient wishes to go home * Patient refuses Code status discussion Suggestion * Continue Lasix and Aldactone * Would consider Lactulose, until BM * Monitor K level after Lactulose * Consider Pleurex cath for prison management of ascites * Full Code Palliative care will continue to fallow up with this patient. If Pleurex cath ordered, than the next step should be Hospice care for symptoms control in this chronically ill male. Advance care planing 46 min .
[2018-03-04] MEDS: Digoxin 125 mcg (0.125 mg) Tab PO SCH (18:46)
--- NOTE | 2018-03-04 20:36 | PN ---
DATE: 03/04/2018 SUBJECTIVE: The patient is bothered by his abdominal distension. He denies any chest pain. PHYSICAL EXAMINATION: VITAL SIGNS: Blood pressure 105/76, heart rate 92, temperature 97, respirations 20. HEENT: Normocephalic. CHEST: Bilateral rhonchi. HEART: S1, S2 regular. EXTREMITIES: 1+ pitting edema. LABORATORY DATA: Digoxin level is 0.6. LAURA and antimitochondrial antibodies are negative. ASSESSMENT: 1. Cardiomyopathy, status post ICU placement. 2. Liver cirrhosis. 3. Portal hypertension with recurring ascites. 4. Coagulopathy. 5. Benign prosthetic hypertrophy, requiring indwelling Perdomo catheter. 6. Low-grade bladder malignancy. RECOMMENDATIONS: Continue aspirin 81 mg once a day, Coreg 6.25 mg once a day, digoxin 0.125 mg daily, Lasix 40 mg intravenously once a day, magnesium oxide 400 mg daily, Vasotec 2.5 mg once a day. I will discuss with Dr. De Jesus considering another abdominal paracentesis. Jass Carlton MD
[2018-03-05] MEDS: Vitamins A & D Oint UD Foilpak TOP SCH ×2 (09:38→18:04)
[2018-03-05] MEDS: Magnesium Oxide 400 mg Tab UD PO SCH (09:38)
[2018-03-05] MEDS: Nystatin 100,000 Units/ml Oral Susp 5 ml UD PO SCH ×4 (09:39→21:16)
--- NOTE | 2018-03-05 17:23 | PN ---
DATE: 03/05/2018 SUBJECTIVE: The patient denies any chest pain or shortness of breath. He is comfortable, nasal O2. PHYSICAL EXAMINATION: VITAL SIGNS: Blood pressure 116/77, heart rate 92, temperature 98.2, respirations 18. HEENT: Normocephalic. CHEST: Minimal rhonchi. HEART: S1 and S2, regular. ABDOMEN: Mild ascites. EXTREMITIES: 1+ pitting edema. LABORATORY DATA: Yesterday, SMA-7: Sodium 132, potassium 6.1, chloride 98, CO2 of 22, glucose 110, BUN 54, creatinine 1.1. ASSESSMENT: 1. Cardiomyopathy, status post implantable-cardioverter defibrillator placement. 2. Chronic atrial flutter. 3. Liver cirrhosis. 4. Portal hypertension and recurring ascites. 5. Benign prostatic hypertrophy. 6. Urinary bladder cancer. 7. Hyperkalemia. RECOMMENDATIONS: Continue aspirin 81 mg once a day, Coreg 6.25 mg once a day, digoxin 0.125 mg daily, Lasix 40 mg intravenously once a day, Vasotec 2.5 mg daily. Obtain repeat in the a.m. The patient is scheduled for abdominal thoracentesis. Jass Carlton MD
[2018-03-05] MEDS: Digoxin 125 mcg (0.125 mg) Tab PO SCH (18:05)
--- NOTE | 2018-03-05 21:32 | PN ---
DATE: 03/04/2018 SUBJECTIVE: He was in mild respiratory distress. PHYSICAL EXAMINATION: VITAL SIGNS: Blood pressure was 105/62, temperature 97.5, respiratory rate 20 and pulse 96. HEENT: Pupils equal, reactive to light. Normal-appearing mucosa of the conjunctiva, oropharynx and nasal membrane mucosa. NECK: Supple. No JVD. No carotid bruit. No lymph node. No thyromegaly. CHEST AND LUNGS: Bilateral symmetrical expansion. Good air exchange. No rales, no rhonchi. CARDIOVASCULAR: PMI not localized. S1, S2. No additional sounds. ABDOMEN: Normoactive bowel sounds. No tenderness. No organomegaly. No masses. There is moderate to massive ascites. EXTREMITIES: No cyanosis, no clubbing, +1 edema bilaterally. CENTRAL NERVOUS SYSTEM: The patient is deaf and mute and he uses sign language. ASSESSMENT: 1. Congestive heart failure, acute on chronic, systolic and diastolic. 2. Liver cirrhosis, multifactorial, alcoholic versus cardiac cirrhosis with ascites and frequent paracentesis. PLAN: Continue current IV diuretics and because potassium went up, we will stop the spironolactone and continue the XAVIRE inhibitor. The patient was given Kayexalate. We will order also IR for paracentesis. Bladimir De Jesus MD
--- NOTE | 2018-03-05 21:40 | PN ---
DATE: 03/05/2018SUBJECTIVE: He is not in any cardiopulmonary distress. PHYSICAL EXAMINATION: VITAL SIGNS: Blood pressure is 114/75, temperature 97.5, respiratory rate 20 and pulse 96. HEENT: Pupils equal, reactive to light. Normal-appearing mucosa of the conjunctivae, oropharynx and nasal membrane mucosa. NECK: Supple. No JVD. No carotid bruit. No lymph node. No thyromegaly. CHEST AND LUNGS: Bilateral symmetrical expansion. Good air exchange. Decreased air entry in both lower lung youssef. CARDIOVASCULAR: PMI not localized. S1, S2. No additional sounds. ABDOMEN: Moderate to massive arthritis. EXTREMITIES: +1 edema bilaterally. CENTRAL NERVOUS SYSTEM: Alert, awake, oriented x2 and the patient is deaf and mute and uses sign language. ASSESSMENT: 1. Massive ascites secondary to cardiac versus alcoholic cirrhosis. 2. Congestive heart failure, acute on chronic. PLAN: Continue current management. Monitor electrolytes. Continue Lasix, beta-cleo and small dose of XAVIER inhibitor. We will follow with Interventional Radiology for possible repeated paracentesis. Bladimir De Jesus MD
[2018-03-06] MEDS: Vitamins A & D Oint UD Foilpak TOP SCH ×2 (10:00→17:30)
[2018-03-06] MEDS: Nystatin 100,000 Units/ml Oral Susp 5 ml UD PO SCH ×4 (10:25→21:21)
[2018-03-06] MEDS: Magnesium Oxide 400 mg Tab UD PO SCH (10:25)
[2018-03-06] MEDS: Digoxin 125 mcg (0.125 mg) Tab PO SCH (17:28)
--- NOTE | 2018-03-06 17:32 | PN ---
DATE: 03/06/2018 SUBJECTIVE: The patient's shortness of breath is controlled on nasal O2. He is complaining of worsening of abdominal distention and no chest pain. PHYSICAL EXAMINATION: VITAL SIGNS: Blood pressure 111/78, heart rate 90, temperature 98, respirations 18. HEENT: Normocephalic. NECK: Jugular venous distention is noted. CHEST: Absent breath sounds over the bases. HEART: S1 and S2, regular. ABDOMEN: Mild ascites. EXTREMITIES: Improved leg edema. ASSESSMENT: 1. Cardiomyopathy. 2. Status post implantable-cardioverter defibrillator placement. 3. Chronic atrial flutter. 4. Benign prostatic hypertrophy with an indwelling Perdomo catheter placement. 5. Low grade bladder malignancy. 6. Cardiac cirrhosis with recurrent ascites. RECOMMENDATIONS: Continue aspirin 81 mg once a day, Coreg 6.25 mg twice a day, digoxin 0.125 mg once a day, Lasix 40 mg intravenously once a day, Vasotec 2.5 mg once a day. The patient will undergo abdominal thoracentesis tomorrow. Jass Carlton MD
[2018-03-07 08:46] LABS: BLOOD UREA NITROGEN 49 mg/dL (9-20); CALCIUM 8.9 mg/dl (8.6-10.4); GFR NON-AFRICAN AMERICAN > 60
[2018-03-07] MEDS: Nystatin 100,000 Units/ml Oral Susp 5 ml UD PO SCH ×4 (09:59→21:19)
[2018-03-07] MEDS: Magnesium Oxide 400 mg Tab UD PO SCH (09:59)
--- NOTE | 2018-03-07 09:59 | PN ---
DATE: 03/06/2018 SUBJECTIVE: The patient is seen today, 03/06/2018. He is not in any cardiopulmonary distress at the time of this examination. OBJECTIVE: VITAL SIGNS: Blood pressure 111/78, temperature 98, respiratory rate 18 and pulse 90. HEENT: Pupils equal and reactive to light. Normal-appearing mucosa of the conjunctivae, oropharynx and nasal membrane mucosa. NECK: Supple. No JVD. No carotid bruit. No lymph node. No thyromegaly. CHEST AND LUNGS: Bilateral symmetrical expansion. Good air exchange. No rales. No rhonchi. CARDIOVASCULAR SYSTEM: PMI not localized. S1, S2. No additional sounds. ABDOMEN: Moderately distended with ascites. EXTREMITIES: +1 edema bilaterally. JAVA SPRING DEVELOPER: Alert, awake, oriented x2. No neurological deficit could be appreciated. ASSESSMENT: 1. [id number] congestive heart failure both systolic and diastolic. 2. Moderate to massive ascites with repeated paracentesis, etiology is alcoholic hepatic cirrhosis versus cardiac cirrhosis. 3. Status post implantable cardioverter defibrillator placement. PLAN: Continue current medication and management, and the patient is for paracentesis. Monitor electrolytes. Continue Lasix and XAVIER inhibitor and beta-cleo. Bladimir De Jesus MD
[2018-03-07] MEDS: Vitamins A & D Oint UD Foilpak TOP SCH ×2 (10:17→18:00)
--- NOTE | 2018-03-07 11:11 | PCM.SURG1 ---
Surgeon's Initial Post Op Note - Surgeon's Notes Surgeon: Dwain Carrasco MD Polymer Chemist: NONE Type of Anesthesia: Local Pre-Operative Diagnosis: Ascites Operative Findings: US showed moderate amount of ascites Post-Operative Diagnosis: Ascites Operation Performed: US guided paracentesis Specimen/Specimens Removed: 3 liters of straw colored fluid Estimated Blood Loss: EBL {In ML}: 0 Blood Products Given: N/A Drains Used: No Drains Post-Op Condition: Fair Date of Surgery/Procedure: 03/07/18 Time of Surgery/Procedure: 10:30
--- NOTE | 2018-03-07 12:09 | US ---
Date of Procedure: 03/07/2018 PROCEDURE: Ultrasound-guided paracentesis, CPT 76986 Medications: 7 cc 1% Lidocaine HISTORY: Ascites TECHNIQUE: Following informed consent , the patient was placed supine on the stretcher and the site was marked. A limited abdominal ultrasound was performed that showed a moderate amount of intra-abdominal fluid. Procedural time out was called and the Pt's abdomen was marked and prepped and draped in the usual sterile fashion. Ultrasound-guided large volume paracentesis performed. A total of 2.8 liters of straw colored fluid was removed without complication. IMPRESSION: Ultrasound-guided paracentesis.
[2018-03-07] MEDS: Digoxin 125 mcg (0.125 mg) Tab PO SCH (17:59)
--- NOTE | 2018-03-07 19:59 | PN ---
DATE: 03/07/2018 SUBJECTIVE: The patient underwent abdominal paracentesis today with over 3 L of straw-color fluid. He denies any chest pain. PHYSICAL EXAMINATION: VITAL SIGNS: Blood pressure 159/76, heart rate 91, temperature 97.5, and respirations 18. HEENT: Normocephalic. CHEST: Diminished breath sounds over the bases. HEART: S1 and S2, regular. ABDOMEN: Soft. EXTREMITIES: Improved leg edema. LABORATORY DATA: Today's SMA-7: Sodium 133, potassium 4.9, chloride 96, CO2 of 28, glucose 110, BUN 49, creatinine 1.2. ASSESSMENT: 1. Cardiomyopathy, status post ICD placement. 2. Atrial flutter. 3. Benign prostatic hypertrophy with an indwelling Perdomo catheter. 4. Bladder carcinoma. 5. Cardiac cirrhosis with recurrent ascites. RECOMMENDATIONS: Continue aspirin 81 mg once a day, Coreg 6.25 mg twice a day, digoxin 0.125 mg once a day, Lasix 40 mg intravenously once a day, Vasotec 2.5 mg once a day. I had a lengthy discussion with the patient who wants to go home; however, his son stated that he is not ready to receive him at home and he has to go to subacute rehab. The patient sounded to be upset at this decision, which I will discuss with Dr. De Jesus. Jass Carlton MD
--- NOTE | 2018-03-08 00:37 | PN ---
DATE: 03/07/2018 SUBJECTIVE: The patient is seen today, 03/07/2018. He is status post paracentesis today. OBJECTIVE: VITAL SIGNS: Blood pressure 95/72, temperature 97.4, respiratory rate 20, and pulse 65. HEENT: Pupils equal and reactive to light. Normal-appearing mucosa of the conjunctivae, oropharyngeal mucosa. NECK: Supple. No JVD. No carotid bruit. No lymph node. No thyromegaly. CHEST AND LUNGS: Bilateral symmetrical expansion. Good air exchange. No rales. Decreased air entry lower lung youssef. CARDIOVASCULAR SYSTEM: PMI not localized. S1, S2. No additional sounds. ABDOMEN: Normoactive bowel sounds. No tenderness. No organomegaly. No masses. EXTREMITIES: No cyanosis, no clubbing; +1 edema. CENTRAL NERVOUS SYSTEM: Alert, awake, and oriented x2. No neurological deficit could be appreciated except that the patient is deaf and mute. ASSESSMENT: 1. Congestive heart failure, acute on chronic systolic and diastolic. 2. 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 3. Paroxysmal atrial fibrillation. PLAN: Continue current medications and start physical therapy and plan to discharge the patient to subacute rehabilitation. Bladimir De Jesus MD
[2018-03-08] MEDS: Magnesium Oxide 400 mg Tab UD PO SCH (10:24)
[2018-03-08] MEDS: Nystatin 100,000 Units/ml Oral Susp 5 ml UD PO SCH ×2 (10:24→14:16)
[2018-03-08] MEDS: Vitamins A & D Oint UD Foilpak TOP SCH ×3 (10:24→17:27)
[2018-03-08] MEDS: Digoxin 125 mcg (0.125 mg) Tab PO SCH (17:26)
--- NOTE | 2018-03-08 22:08 | PN ---
DATE: 03/08/2018 SUBJECTIVE: The patient is comfortable. His son is at the bedside. He conducted the sign language for me. The patient is more alert. Son is accepting the idea to go to rehab. PHYSICAL EXAMINATION: VITAL SIGNS: Blood pressure 149/73, heart rate 87, temperature 97.4, and respirations 20. HEENT: Normocephalic. CHEST: Diminished breath sounds over the bases. HEART: S1 and S2, irregular. EXTREMITIES: Improved leg edema. ASSESSMENT: 1. Dilated cardiomyopathy, status post implantable cardioverter-defibrillator placement. 2. Hepatic cirrhosis and portal hypertension. 3. Recurrent ascites. 4. Benign prostatic hypertrophy, requiring indwelling Perdomo catheter. 5. Urinary bladder carcinoma. 6. Atrial flutter. RECOMMENDATIONS: Continue aspirin 81 mg once a day, Coreg 6.25 mg twice a day, digoxin 0.125 mg daily, Lasix 40 mg intravenously daily, Proscar 5 mg once a day, and Vasotec 2.5 mg daily. Jass Carlton MD
--- NOTE | 2018-03-09 02:39 | PN ---
DATE: 03/08/2018 SUBJECTIVE: The patient is seen on today, 03/08/2018. He is not in any cardiopulmonary distress. PHYSICAL EXAMINATION: VITAL SIGNS: Blood pressure 112/81, temperature 97.4, respiratory rate 18, and pulse 90. CHEST AND LUNGS: Few scattered rhonchi both lung youssef. CARDIOVASCULAR SYSTEM: PMI not localized. S1, S2. No additional sounds. ABDOMEN: Normoactive bowel sounds. No tenderness. No organomegaly. No masses. EXTREMITIES: +1 edema. CREDIT AUTHORIZER: Alert, awake, and oriented x2. The patient is mute and deaf and used the sign language. ASSESSMENT: 1. Acute on chronic congestive heart failure, both systolic and diastolic. 2. [id number] ascites secondary to liver cirrhosis. PLAN: Continue current medications and management, monitor electrolytes, physical therapy and the patient is for discharge to subacute rehabilitation. Bladimir De Jesus MD
[2018-03-09] MEDS: Magnesium Oxide 400 mg Tab UD PO SCH (10:09)
[2018-03-09] MEDS: Vitamins A & D Oint UD Foilpak TOP SCH ×2 (10:10→18:38)
[2018-03-09] MEDS: Digoxin 125 mcg (0.125 mg) Tab PO SCH (18:37)
[2018-03-09 18:38] VITALS: PULSE 112
--- NOTE | 2018-03-09 18:52 | PN ---
DATE: 03/09/2018 SUBJECTIVE: The patient denies chest pain. He is comfortable on nasal O2. PHYSICAL EXAMINATION VITAL SIGNS: Blood pressure 98/74, heart rate 86, temperature 97.3, respirations 20. HEENT: Normocephalic. NECK: Jugular venous distention noted. CHEST: Clear. HEART: S1, S2 regular. EXTREMITIES: 1+ pitting edema. ASSESSMENT: 1. Dilated cardiomyopathy. 2. Atrial flutter. 3. Benign prostatic hypertrophy with indwelling Perdomo catheter. 4. Bladder carcinoma. RECOMMENDATIONS: Continue aspirin 81 mg once a day, Coreg 6.25 mg once a day, digoxin 0.125 mg once a day, Lasix 40 mg intravenously once a day, Pepcid 20 mg twice a day, Vasotec 2.5 mg once a day. Awaiting authorization for subacute rehab approval. Jass Carlton MD
--- NOTE | 2018-03-10 01:43 | PN ---
DATE: 03/09/2018 SUBJECTIVE: Less shortness of breath. PHYSICAL EXAMINATION VITAL SIGNS: Blood pressure is 125/90, temperature 97.2, respiratory rate 20 and pulse 112. HEENT: Pupils equal and reactive to light. Normal-appearing mucosa of the conjunctivae, oropharynx and nasal membrane mucosa. NECK: Supple. No JVD. No carotid bruit. No lymph node. No thyromegaly. CHEST AND LUNGS: Bilateral symmetrical expansion. Good air exchange. No rales, no rhonchi. CARDIOVASCULAR SYSTEM: PMI not localized. S1, S2. No additional sounds. ABDOMEN: Normoactive bowel sounds. No tenderness. No organomegaly. No masses. EXTREMITIES: No cyanosis, no clubbing. +1 edema. CENTRAL NERVOUS SYSTEM: Alert, awake, oriented, deaf and mute. Uses sign-language. He also can write. ASSESSMENT: 1. Congestive heart failure, acute on chronic, systolic and diastolic, status post implantable cardioverter-defibrillator placement. 2. Liver cirrhosis with ascites, status post multiple paracenteses. PLAN: Continue current medications and diuretics. Monitor electrolytes. For subacute rehabilitation. Bladimir De Jesus MD
[2018-03-10 07:32] LABS: BASO # 0.1 K/uL (0.0-0.2); EOS # 0.1 K/uL (0.0-0.7); EOS % 1.7 % (0.0-4.0); HEMOGLOBIN 14.8 g/dL (12.0-18.0); LYMPH # 1.1 K/uL (1.0-4.3); MEAN CELL VOLUME 92.7 fL (80.0-94.0); MEAN CORPUSCULAR HEMOGLOBIN 30.8 pg (27.0-31.0); MEAN CORPUSCULAR HGB CONC 33.3 g/dL (33.0-37.0); MONO # 0.5 K/uL (0.0-0.8); MONO % 9.1 % (0.0-10.0); NEUT # 3.6 K/uL (1.8-7.0); NEUT % 67.2 % (50.0-75.0); NRBC % 0.1 % (0.0-2.0); RBC 4.81 Mil/uL (4.40-5.90); RED CELL DISTRIBUTION WIDTH 19.6 % (11.5-14.5); WHITE BLOOD COUNT 5.3 K/uL (4.8-10.8)
[2018-03-10 07:56] LABS: ALBUMIN 3.3 g/dL (3.5-5.0); ALT/SGPT 34 U/L (21-72); AST/SGOT 36 U/L (17-59); BLOOD UREA NITROGEN 42 mg/dL (9-20); CALCIUM 8.9 mg/dl (8.6-10.4); GFR NON-AFRICAN AMERICAN > 60
[2018-03-10 08:25] VITALS: TEMP 98.1
[2018-03-10] MEDS: Magnesium Oxide 400 mg Tab UD PO SCH (10:30)
--- NOTE | 2018-03-10 15:12 | PCM.HF ---
Heart Failure Core Measure - Heart Failure Ejection Fraction: Less Than 40 % XAVIER Inhibitor Prescribed: Yes Beta-Mary Ann Prescribed: Carvedilol Angiotensin II Receptor Mary Ann Prescribed: No Contraindication/Reason for not providing: on xavier AnticoagulationTherapy for Atrial Fibrillation/Atrialflutter: No Contraindication/Reason for not providing: no hx of a fib Aldosterone Antagonist Prescribed: Yes Hydralazine Nitrate Prescribed: No Contraindication/Reason for not providing: zan running low Implantable Cardioverter Defibrillator Therapy: No Contraindication/Reason for not providing: pt has AICD Cardiac Resynchronization Therapy Prescribed: No Contraindication/Reason for not providing: PT HAS AICD - Follow up [facility] be [facility] Follow Up Date (must be within 7 days from discharge): 03/14/18 Follow Up Time: 16:00
[2018-03-10 16:10] VITALS: BP 119/80; PULSE 76; RESP 20; O2SAT 99
--- NOTE | 2018-03-10 17:11 | CP.PCM.PN ---
Subjective - Date & Time of Evaluation Date of Evaluation: 03/10/18 Time of Evaluation: 14:00 - Subjective Subjective: Patient seen today, no c/o voiced , oob ambulating without sob vss and labs reviewed - stable Objective - Vital Signs/Intake and Output Vital Signs (last 24 hours): Temp Pulse Resp BP Pulse Ox 98.1 F 76 20 119/80 99 03/10/18 15:30 03/10/18 15:30 03/10/18 15:30 03/10/18 15:30 03/10/18 15:30 Intake and Output: 03/10/18 03/10/18 06:59 18:59 Intake Total 300 350 Output Total 800 1800 Balance -500 -1450 - Labs Labs: 03/10/18 07:17 03/10/18 07:17 PT 16.9 SECONDS (9.7-12.2) H 03/01/18 13:54 INR 1.5 03/01/18 13:54 Assessment and Plan - Assessment and Plan (Free Text) Assessment: A/P 57 yr old trista jerome pmhx of Cardia Arrhythmia, CHF, HTN, Hypercholesterolemia, Hyperlipidemia, cardiomaopathy and AICD placement admitted with ascitis s/p paracentesisx 2 patient accepted at [facility] and patien rachel Son in agreement D/w Dr. De Jesus cleared for discharge back [facility]
--- NOTE | 2018-03-10 22:57 | DS ---
REASON FOR ADMISSION: This is a 57-year-old male who is deaf and mute, was admitted to [facility] for massive ascites, status post paracentesis x2. COURSE OF HOSPITALIZATION: The patient was admitted to telemetry floor and he had paracentesis. The patient had a cardiology consultation done by Dr. Carlton. The patient's symptoms gradually improved and he was placed on both XAVIER inhibitor as well as beta-cleo and diuretics. The patient was started also on physical therapy. His potassium as well as kidney function normalized. The patient was discharged back to subacute rehabilitation at [place]. FINAL DIAGNOSES: 1. Huge ascites secondary to cardiac versus alcoholic cirrhosis. 2. [id number]-[id number] congestive heart failure, both systolic and diastolic. 3. Hypertension. 4. Deaf and mute. [facility] MD Neal
--- NOTE | 2018-03-11 06:55 | PN ---
DATE: 03/10/2018 SUBJECTIVE: The patient denies any chest pain. His breathing is comfortable. PHYSICAL EXAMINATION: VITAL SIGNS: Blood pressure 116/91, heart rate 94, temperature 98.1, and respirations 18. HEENT: Normocephalic. CHEST: Minimal rhonchi. HEART: S1 and S2, regular. ABDOMEN: Mild ascites. EXTREMITIES: Trace leg edema. LABORATORY DATA: Hemoglobin and hematocrit 14.8 and 44.6, white count 5.2, and platelet count 240,000. SMA-7 within normal limits except for glucose of 129 and BUN of 42. Total bilirubin is elevated at 2.1. ASSESSMENT: 1. Cardiomyopathy. 2. Atrial flutter. 3. Cardiac cirrhosis. 4. Uncontrolled diabetes mellitus. 5. Bladder cancer. RECOMMENDATIONS: Continue aspirin 81 mg once a day, Coreg 6.25 mg twice a day, digoxin 0.125 mg once a day, Lasix 40 mg intravenously twice a day, magnesium oxide 200 mg once a day, Proscar 5 mg once a day, and Vasotec 2.5 mg once a day. The plan is to send the patient to [facility] today. Jass Carlton MD
== END 2018-03-10 16:50 | DRG 432 ==
LOC: C.ER 12:08 → C.9E 15:36 → C.3T 17:03 → C.6T 22:30 → OBSVTOIN 03-02 15:10
PROVIDERS: ADMIT Internal Medicine; ATTEND Internal Medicine
PROC: 0W9G3ZZ Drainage of Peritoneal Cavity, Percutaneous Approach (ICD-10-PCS; principal; 2018-03-01)
PROC: BW40ZZZ Ultrasonography of Abdomen (ICD-10-PCS; 2018-03-01)
PROC: 0W9G3ZZ Drainage of Peritoneal Cavity, Percutaneous Approach (ICD-10-PCS; 2018-03-07)
PROC: BW40ZZZ Ultrasonography of Abdomen (ICD-10-PCS; 2018-03-07)
DX: K70.31 Alcoholic cirrhosis of liver with ascites (principal); I50.43 Acute on chronic combined systolic (congestive) and diastolic (congestive) heart failure; I13.0 Hypertensive heart and chronic kidney disease with heart failure and stage 1 through stage 4 chronic kidney disease, or unspecified chronic kidney disease; I42.0 Dilated cardiomyopathy; N17.9 Acute kidney failure, unspecified; D68.9 Coagulation defect, unspecified; K76.6 Portal hypertension; I47.2 Ventricular tachycardia; I48.92 Unspecified atrial flutter; C67.9 Malignant neoplasm of bladder, unspecified; E11.22 Type 2 diabetes mellitus with diabetic chronic kidney disease; I50.82 Biventricular heart failure; K21.9 Gastro-esophageal reflux disease without esophagitis; K72.90 Hepatic failure, unspecified without coma; E87.5 Hyperkalemia; N40.0 Benign prostatic hyperplasia without lower urinary tract symptoms; N18.9 Chronic kidney disease, unspecified; K76.1 Chronic passive congestion of liver; I48.0 Paroxysmal atrial fibrillation; I27.20 Pulmonary hypertension, unspecified; E11.65 Type 2 diabetes mellitus with hyperglycemia; F10.10 Alcohol abuse, uncomplicated; E78.5 Hyperlipidemia, unspecified; E78.00 Pure hypercholesterolemia, unspecified; H91.3 Deaf nonspeaking, not elsewhere classified; Z86.73 Personal history of transient ischemic attack (TIA), and cerebral infarction without residual deficits; Z95.810 Presence of automatic (implantable) cardiac defibrillator

== ENCOUNTER 2018-04-04 08:20 | Day surgery (SDC) | payer MEDICARE ==
--- NOTE | 2018-04-04 09:38 | CP.SDSHP ---
Same Day Surgery H & P - History Proposed Procedure: US guided paracentesis Pre-Op Diagnosis: Ascites - Allergies Allergies: Allergies No Known Allergies Allergy (Verified 02/28/18 12:16) - Impression Impression: Pt with refractory ascites refered for paracentesis. Plan US guided paracentesis. Pt. Evaluated Today:Candidate for Anesthesia & Procedure: No - Date & Time Date: 04/04/18 Time: 09:00 Short Stay Discharge - Short Stay Discharge Admitting Diagnosis/Reason for Visit: DX: ASCITES Disposition: HOME/ ROUTINE
--- NOTE | 2018-04-04 09:45 | PCM.SURG1 ---
Surgeon's Initial Post Op Note - Surgeon's Notes Surgeon: Dwain Carrasco MD Funeral Planning Counselor: NONE Type of Anesthesia: Local Pre-Operative Diagnosis: Ascites Operative Findings: US shows large amount of ascites Post-Operative Diagnosis: Ascites Operation Performed: US guided paracentesis Specimen/Specimens Removed: 5 liters of straw colored fluid Estimated Blood Loss: EBL {In ML}: 0 Blood Products Given: N/A Drains Used: No Drains Post-Op Condition: Good Date of Surgery/Procedure: 04/04/18 Time of Surgery/Procedure: 09:40
--- NOTE | 2018-04-04 09:51 | US ---
Date of Procedure: 04/04/2018 PROCEDURE: Ultrasound-guided paracentesis, CPT 85834 Medications: 7 cc 1% Lidocaine HISTORY: Ascites, abdominal pain TECHNIQUE: Following informed consent , the patient was placed supine on the stretcher and the site was marked. A limited abdominal ultrasound was performed that showed a large amount of intra-abdominal fluid. Procedural time out was called and the Pt's abdomen was marked and prepped and draped in the usual sterile fashion. Ultrasound-guided large volume paracentesis performed. A total of 5 liters of straw colored fluid was removed without complication. IMPRESSION: Ultrasound-guided large volume paracentesis.
== END 2018-04-04 11:30 | disposition home or self-care (01) ==
LOC: C.SPRAD 08:20
PROVIDERS: ATTEND Radiology Vascular & Interventional Radiology
DX: R18.8 Other ascites (principal)

== ENCOUNTER 2018-04-13 12:40 | Inpatient (IN) | payer MEDICARE ==
[2018-04-13 12:40] VITALS: BMI 24.5
[2018-04-13 14:14] LABS: HEMOGLOBIN 14.7 g/dL (12.0-18.0); NRBC % 0.1 % (0.0-2.0)
[2018-04-13 14:20] LABS: BASO # 0.1 K/uL (0.0-0.2); EOS % 0.5 % (0.0-4.0); LYMPH # 0.8 K/uL (1.0-4.3); LYMPH % 11.6 % (20.0-40.0); MEAN CORPUSCULAR HEMOGLOBIN 30.1 pg (27.0-31.0); MEAN CORPUSCULAR HGB CONC 31.8 g/dL (33.0-37.0); MEAN PLATELET VOLUME 7.3 fL (7.2-11.7); MONO # 0.6 K/uL (0.0-0.8); MONO % 8.2 % (0.0-10.0); NEUT # 5.5 K/uL (1.8-7.0); NEUT % 78.7 % (50.0-75.0); RBC 4.87 Mil/uL (4.40-5.90); RED CELL DISTRIBUTION WIDTH 17.5 % (11.5-14.5)
[2018-04-13 14:21] LABS: MEAN CELL VOLUME 94.8 fL (80.0-94.0)
[2018-04-13 14:22] LABS: ALBUMIN 3.3 g/dL (3.5-5.0); ALT/SGPT 18 U/L (21-72); AST/SGOT 28 U/L (17-59); BLOOD UREA NITROGEN 25 mg/dL (9-20); CALCIUM 8.7 mg/dl (8.6-10.4); GFR NON-AFRICAN AMERICAN > 60
--- NOTE | 2018-04-13 14:23 | RAD ---
HISTORY: SOB COMPARISON: Chest x-ray performed 03/01/18 TECHNIQUE: Chest, one view. FINDINGS: LUNGS: Hypoinflation. No focal consolidation. Please note that chest x-ray has limited sensitivity for the detection of pulmonary masses. PLEURA: No significant pleural effusion identified. No definite pneumothorax . CARDIOVASCULAR: Dual lead left-sided AICD. Severe enlargement of the cardiac silhouette. OSSEOUS STRUCTURES: Degenerative changes. Acromioclavicular arthropathy. VISUALIZED UPPER ABDOMEN: Unremarkable. OTHER FINDINGS: None. IMPRESSION: Hypoinflation. Dual lead left-sided AICD. Severe enlargement of the cardiac silhouette.
--- NOTE | 2018-04-13 14:29 | C.PDOC ---
History Of Present Illness 57 y/o male,w/ PMhx of dilated cardiomyopathy (ejection fraction 12%) s/p AICD, previous [place], chronic kidney disease, liver cirrhosis with ascites, BPH, and bladder cancer brought to ER from long-term for evaluation of scrotal swel ling. Patient states that he does have pain in his scrotum. He has a chronic indwelling mason catheter. Patient is also complaining of mild shortness of breath. Denies having fever, chills ,and urinary symptoms. Of note, [employer] software design manager was used because patient is deaf mute. 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 ) History/Exam Limitations: no limitations Onset/Duration Of Symptoms: Days Current Symptoms Are (Timing): Still Present Severity: Moderate Past Medical History Reviewed: Historical Data, Nursing Documentation, Vital Signs Vital Signs: Last Vital Signs Temp 97.6 F 04/13/18 12:50 Pulse 75 04/13/18 12:50 Resp 22 04/13/18 12:50 BP 118/74 04/13/18 12:50 Pulse Ox 94 L 04/13/18 12:50 - Medical History PMH: Cardia Arrhythmia, CHF, HTN, Hypercholesterolemia, Hyperlipidemia, Peripheral Edema, Chronic Kidney Disease Denies: HIV, Personality Disorder Surgical History: Pacemaker - [facility] Procedures DESTRUCTION OF BLADDER, ENDO (02/03/18) DRAINAGE OF PERITONEAL CAVITY, PERCUTANEOUS APPROACH (03/02/18) EXERCISE TREATMENT OF MUSCULOSK WHOLE USING ASSIST EQUIPMENT (02/15/18) FLUOROSCOPY OF BLADDER USING LOW OSMOLAR CONTRAST (02/03/18) GAIT TRAINING/AMBULAT TREATMENT USING ASSIST EQUIPMENT (02/15/18) HOME MANAGEMENT TREATMENT USING ASSIST EQUIPMENT (02/15/18) INJECT/INFUSE ELECTROLYT (02/18/13) INJECT/INFUSE NEC (02/18/13) INSERTION OF ENDOTRACHEAL AIRWAY INTO TRACHEA, VIA OPENING (02/03/18) RESPIRATORY VENTILATION, LESS THAN 24 CONSECUTIVE HOURS (02/03/18) ULTRASONOGRAPHY OF ABDOMEN (03/02/18) Family History: States: No Known Family Hx - Social History Hx Tobacco Use: No Hx Alcohol Use: No Hx Substance Use: No - Immunization History Hx Tetanus Toxoid Vaccination: No Hx Influenza Vaccination: No Hx Pneumococcal Vaccination: No Review Of Systems Constitutional: Negative for: Fever, Chills Cardiovascular: Negative for: Chest Pain Respiratory: Positive for: Shortness of Breath Gastrointestinal: Negative for: Nausea, Vomiting Genitourinary: Positive for: Scrotal Pain, Other (scrotal swelling). Negative for: Dysuria, Hematuria Physical Exam - Physical Exam Appears: Non-toxic, No Acute Distress Skin: Normal Color, Warm, Dry Head: Atraumatic, Normacephalic Eye(s): bilateral: Normal Inspection Nose: Normal Oral Mucosa: Moist Neck: Supple Chest: Symmetrical Cardiovascular: Rhythm Regular Respiratory: Rales (diffuse rales), No Rhonchi, Wheezing (diffuse wheezing) Gastrointestinal/Abdominal: Soft, No Tenderness, Distention, No Guarding, No Rebound Male Genital: Other (scrotal edema) Extremity: Normal ROM, Other (anasarca, edema from costal margins to toes) Neurological/Psych: Oriented x3, Other (deaf, mute) ED Course And Treatment - Laboratory Results Result Diagrams: 04/13/18 14:00 04/13/18 14:00 Lab Interpretation: Abnormal (BUN 25, BNP 8680, troponin normal) ECG: Interpreted By Me ECG Rhythm: Atrial Flutter (with 2:1 block and left axis, Q waves II, III, AVF) ECG Interpretation: Abnormal O2 Sat by Pulse Oximetry: 94 (RA) Pulse Ox Interpretation: Normal - Radiology CXR: Viewed By Me, Read By Radiologist CXR Interpretation: Yes: Cardiomegaly (severe) Reevaluation Time: 15:07 Reassessment Condition: Unchanged - Physician Consult Information Time Consulting Physician Contacted: 15:07 Physician Contacted: Bladimir De Jesus Outcome Of Conversation: Kristennet to be admitted to [facility] for CHF with anasarca. Medical Decision Making Medical Decision Making: Plan: --Labs --UA --CXR Disposition - Disposition Disposition: HOSPITALIZED Disposition Time: 15:15 Condition: GUARDED - POA Present On Arrival: None - Clinical Impression Clinical Impression: Chronic renal insufficiency, Flutter-fibrillation, Ascites, Congestive heart failure, Cardiomyopathy, Anasarca - Scribe Statement The provider has reviewed the documentation as recorded by the Gigi Esteban Provider Attestation: All medical record entries made by the Lynnibjose were at my direction and personally dictated by me. I have reviewed the chart and agree that the record accurately reflects my personal performance of the history, physical exam, medical decision making, and the department course for this patient. I have also personally directed, reviewed, and agree with the discharge instructions and disposition.
[2018-04-13 14:32] LABS: B-TYPE NATRIURETIC PEPTIDE 8680 pg/mL (0-900)
[2018-04-13] MEDS ORDERED: Morphine 4 MG/ML VIAL ONE (15:35)
[2018-04-13 16:00] LABS: URINE BILIRUBIN NEGATIVE (NEGATIVE); URINE BLOOD 3+ (NEGATIVE); URINE CALCIUM OXALATE CRYSTALS FEW /hpf (<OCC); URINE CLARITY Clear (Clear); URINE COLOR Amber (YELLOW); URINE GLUCOSE (UA) NORMAL (Normal); URINE LEUKOCYTE ESTERASE 2+ Leu/uL (Negative); URINE PROTEIN 3+ mg/dL (NEGATIVE)
[2018-04-13 18:22] VITALS: RESP 20
[2018-04-13] MEDS ORDERED: Albuterol-Ipratrop 3 mg / 0.5 (3 ml) UD INH PRN (19:27)
[2018-04-14] MEDS: Magnesium Oxide 400 mg Tab UD PO SCH (09:29)
--- NOTE | 2018-04-14 11:15 | CARD ---
APPROVED REPORT Date of service: 04/13/2018 EKG Measurement Heart [id number] <Conclusion> Atrial flutter with 3:1 AV conduction Left axis deviation Pulmonary disease pattern Inferior infarct, age undetermined Abnormal ECG
--- NOTE | 2018-04-14 14:19 | CP.PCM.CON ---
<KingsleymubayleeChapin - Last Filed: 04/14/18 15:10> History of Present Illness - History of Present Illness History of Present Illness: GI Fellow PGY4, Consult note. Ever Sorto is a 57M, deaf/mute, presenting with scrotal and abdominal swelling. We have seen this patient on our service a few times before this. He comes in with recurrent ascites due to cardiac hepatopathy. SAAG >1.1, TP 3.9. Last paracentesis was 04/04/18. He has at least 6 paracentesis since 11/2017. He admits that he does not know the medications or the dosing he is taking. He does not weigh himself daily nor know his "dry" weight. He drinks 6 glasses of water per day. He denies seeing a PMD as an outpatient. PMHx -Dilated CMP, EF 12%, CAD, CKD, ESLD w/ ascites, bladder CA PSHx - AICD, chronic mason Family History: GERD, HTN, HLD; No history of colon/liver/GI cancer Social History: Currently denies any tobacco, alcohol or illicit drug use; Former alcohol abuse noted; Lives alone and independent with ADL's 15pt ROS completed and negative except for above. Past Patient History - Infectious Disease Hx of Infectious Diseases: None - Past Medical History & Family History Past Medical History?: Yes - Past Social History Smoking Status: Never Smoked - CARDIAC Hx Cardia Arrhythmia: Yes Hx Congestive Heart Failure: Yes Hx Hypercholesterolemia: Yes Hx Hypertension: Yes Hx Pacemaker: Yes Hx Peripheral Edema: Yes - PULMONARY Hx Respiratory Disorders: No - NEUROLOGICAL HX Cerebrovascular Accident: Yes - HEENT Hx HEENT Problems: Yes Hx Deafness: Yes Other/Comment: mute - RENAL Hx Chronic Kidney Disease: Yes - ENDOCRINE/METABOLIC Hx Endocrine Disorders: Yes Hx Diabetes Mellitus Type 2: Yes - HEMATOLOGICAL/ONCOLOGICAL Hx Human Immunodeficiency Virus (HIV): No - INTEGUMENTARY Hx Dermatological Problems: No - MUSCULOSKELETAL/RHEUMATOLOGICAL Hx Falls: Yes - GASTROINTESTINAL Hx Gastrointestinal Disorders: Yes Other/Comment: ascites - GENITOURINARY/GYNECOLOGICAL Hx Genitourinary Disorders: Yes (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) Hx Bladder Cancer: Yes Other/Comment: bph - PSYCHIATRIC Hx Substance Use: No - SURGICAL HISTORY Hx Surgeries: Yes Other/Comment: AICD. Paracentesis - ANESTHESIA Hx Anesthesia: Yes Hx Anesthesia Reactions: No Hx Malignant Hyperthermia: No Meds Allergies/Adverse Reactions: Allergies Allergy/AdvReac Type Severity Reaction Status Date / Time No Known Allergies Allergy Verified 04/13/18 12:56 - Medications Medications: Current Medications Albuterol/Ipratropium (Duoneb 3 Mg/0.5 Mg (3 Ml) Ud) 3 ml INH RQ6 PRN PRN Reason: Shortness of Breath Aspirin (Aspirin Chewable) 81 mg PO DAILY [facility] Last Admin: 04/14/18 09:29 Dose: 81 mg Bisacodyl (Dulcolax) 10 mg IN Q12H PRN PRN Reason: Constipation Carvedilol (Coreg) 6.25 mg PO Q12H [facility] Last Admin: 04/14/18 09:29 Dose: 6.25 mg Digoxin (Digoxin) 0.125 mg PO DAILY@1800 [facility] Enalapril Maleate (Vasotec) 2.5 mg PO DAILY [facility] Last Admin: 04/14/18 09:29 Dose: 2.5 mg Famotidine (Pepcid) 20 mg PO BID [facility] Last Admin: 04/14/18 09:29 Dose: 20 mg Finasteride (Proscar) 5 mg PO DAILY [facility] Last Admin: 04/14/18 09:29 Dose: 5 mg Furosemide (Lasix) 40 mg IVP Q12 [facility] Last Admin: 04/14/18 09:29 Dose: 40 mg Ketorolac Tromethamine (Toradol) 15 mg IVP Q6 PRN PRN Reason: Pain, severe (8-10) Last Admin: 04/14/18 04:16 Dose: 15 mg Magnesium Oxide (Mag-Ox) 400 mg PO DAILY [facility] Last Admin: 04/14/18 09:29 Dose: 400 mg Physical Exam - Constitutional Appears: Non-toxic, No Acute Distress - Head Exam Head Exam: ATRAUMATIC, NORMAL INSPECTION - Eye Exam Eye Exam: EOMI, Normal appearance - ENT Exam ENT Exam: Mucous Membranes Moist, Normal Exam - Respiratory Exam Respiratory Exam: Clear to Auscultation Bilateral, NORMAL BREATHING PATTERN - Cardiovascular Exam Cardiovascular Exam: REGULAR RHYTHM, +S1, +S2 - GI/Abdominal Exam GI & Abdominal Exam: Distended, Firm, Normal Bowel Sounds, Soft. absent: Tenderness - Extremities Exam Extremities exam: Positive for: pedal edema. Negative for: calf tenderness, normal inspection - Neurological Exam Neurological exam: Alert, CN II-XII Intact, Oriented x3 - Psychiatric Exam Psychiatric exam: Normal Affect, Normal Mood - Skin Skin Exam: Normal Color, Warm Results - Vital Signs Recent Vital Signs: Last Vital Signs Temp 97.6 F 04/14/18 07:10 Pulse 109 H 04/14/18 09:29 Resp 20 04/14/18 09:29 BP 133/94 H 04/14/18 09:29 Pulse Ox 98 04/14/18 09:29 - Labs Result Diagrams: 04/13/18 14:00 04/13/18 14:00 Labs: Laboratory Results - last 24 hr 04/13/18 04/13/18 04/13/18 14:00 14:00 15:39 WBC 7.0 RBC 4.87 Hgb 14.7 Hct 46.2 MCV 94.8 H D MCH 30.1 MCHC 31.8 L RDW 17.5 H Plt Count 292 MPV 7.3 Neut % (Auto) 78.7 H Lymph % (Auto) 11.6 L Travis % (Auto) 8.2 Eos % (Auto) 0.5 Baso % (Auto) 1.0 Neut # (Auto) 5.5 Lymph # (Auto) 0.8 L Travis # (Auto) 0.6 Eos # (Auto) 0.0 Baso # (Auto) 0.1 Sodium 140 Potassium 4.2 Chloride 104 Carbon Dioxide 28 Anion Gap 11 BUN 25 H Creatinine 1.1 Est GFR ( Amer) > 60 Est GFR (Non-Af Amer) > 60 Random Glucose 118 H Calcium 8.7 Magnesium 2.1 Total Bilirubin 3.3 H AST 28 ALT 18 L D Alkaline Phosphatase 529 H Troponin I 0.0720 NT-Pro-B Natriuret Pep 8680 H Total Protein 6.6 Albumin 3.3 L Globulin 3.3 Albumin/Globulin Ratio 1.0 Urine Color Leanne Urine Clarity Clear Urine pH 6.0 Ur Specific Leeds 1.014 Urine Protein 3+ H Urine Glucose (UA) Normal Urine Ketones Negative Urine Blood 3+ H Urine Nitrate Negative Urine Bilirubin Negative Urine Urobilinogen 4.0 Ur Leukocyte Esterase 2+ H Urine WBC (Auto) 36 H Urine RBC (Auto) 886 H Calcium Oxalate Crystal Few H Digoxin 04/14/18 10:54 WBC RBC Hgb Hct MCV MCH MCHC RDW Plt Count MPV Neut % (Auto) Lymph % (Auto) Travis % (Auto) Eos % (Auto) Baso % (Auto) Neut # (Auto) Lymph # (Auto) Travis # (Auto) Eos # (Auto) Baso # (Auto) Sodium Potassium Chloride Carbon Dioxide Anion Gap BUN Creatinine Est GFR ( Amer) Est GFR (Non-Af Amer) Random Glucose Calcium Magnesium Total Bilirubin AST ALT Alkaline Phosphatase Troponin I NT-Pro-B Natriuret Pep Total Protein Albumin Globulin Albumin/Globulin Ratio Urine Color Urine Clarity Urine pH Ur Specific Leeds Urine Protein Urine Glucose (UA) Urine Ketones Urine Blood Urine Nitrate Urine Bilirubin Urine Urobilinogen Ur Leukocyte Esterase Urine WBC (Auto) Urine RBC (Auto) Calcium Oxalate Crystal Digoxin 0.6 L Assessment & Plan - Assessment and Plan (Free Text) Assessment: #Recurrent tense ascites due to cardiac failure #Acute on chronic systolic heart failure, EF 12%. AICD #Cardiac hepatopathy #CKD #Papillary Urothelial Carcinoma PLAN: -Labs and exam show decompensated right sided cardiac failure likely due to medication non-compliance. -Advised patient to find his "dry" weight and weight himself everyday on the same scale. -Advised him to take the medications everyday and write down the medications and dosing that he is taking. -Advised him to drink no more than 1L of water per day, and avoid salt. -Patient is scheduled for paracentesis. -Aldactone 100mg daily. Lasix IV per primary, cardiology. -TIPS is not advisable. Medication, diet and lifestyle adherence is best management. Patient would benefit from frequent nursing checks at home to document medications and daily weights. This would help prevent recurrent admissions. Case discussed with Dr. Zavala, see attestation - Date & Time Date: 04/14/18 Time: 15:07 <Saqib Zavala - Last Filed: 04/14/18 16:33> Meds - Medications Medications: Current Medications Albuterol/Ipratropium (Duoneb 3 Mg/0.5 Mg (3 Ml) Ud) 3 ml INH RQ6 PRN PRN Reason: Shortness of Breath Aspirin (Aspirin Chewable) 81 mg PO DAILY [facility] Last Admin: 04/14/18 09:29 Dose: 81 mg Bisacodyl (Dulcolax) 10 mg IN Q12H PRN PRN Reason: Constipation Carvedilol (Coreg) 6.25 mg PO Q12H [facility] Last Admin: 04/14/18 09:29 Dose: 6.25 mg Digoxin (Digoxin) 0.125 mg PO DAILY@1800 [facility] Enalapril Maleate (Vasotec) 2.5 mg PO DAILY [facility] Last Admin: 04/14/18 09:29 Dose: 2.5 mg Famotidine (Pepcid) 20 mg PO BID [facility] Last Admin: 04/14/18 09:29 Dose: 20 mg Finasteride (Proscar) 5 mg PO DAILY [facility] Last Admin: 04/14/18 09:29 Dose: 5 mg Furosemide (Lasix) 40 mg IVP Q12 [facility] Last Admin: 04/14/18 09:29 Dose: 40 mg Ketorolac Tromethamine (Toradol) 15 mg IVP Q6 PRN PRN Reason: Pain, severe (8-10) Last Admin: 04/14/18 04:16 Dose: 15 mg Magnesium Oxide (Mag-Ox) 400 mg PO DAILY [facility] Last Admin: 04/14/18 09:29 Dose: 400 mg Spironolactone (Aldactone) 100 mg PO DAILY [facility] Results - Vital Signs Recent Vital Signs: Last Vital Signs Temp 98 F 04/14/18 15:36 Pulse 87 04/14/18 15:36 Resp 20 04/14/18 15:36 BP 115/76 04/14/18 15:36 Pulse Ox 100 04/14/18 15:36 - Labs Result Diagrams: 04/13/18 14:00 04/13/18 14:00 Labs: Laboratory Results - last 24 hr 04/14/18 10:54 Digoxin 0.6 L Attending/Attestation - Attestation I have personally seen and examined this patient.: Yes I have fully participated in the care of the patient.: Yes I have reviewed all pertinent clinical information: Yes Notes (Text): 04/14/18 16:27 I have seen and examined patient with GI fellow. Agree with above documentation with the following additions. In brief, this is a 57 year old male with history of CHF s/p ICD, deaf/mute, cirrhosis, CKD, bladder neoplasm who presents to hospital with complaint of abdominal and scrotal swelling. He has recurrent abdominal ascites secondary to cardiac dysfunction requiring routine paracen tesis. He claims to be compliant with dietary regimen and takes medication as instructed. He denies abdominal pain, nausea, vomiting, fever/chills, weight loss, rectal bleeding, or change in bowel habits. Additional physical examination: Abdomen: no palpable hepato/splenomegaly CHF s/p ICD Deaf/mute CKD Bladder neoplasm Decompensated cirrhosis secondary to cardiac dysfunction Abdominal distention, recurrent ascites - Low sodium diet as tolerated - Suggest therapeutic paracentesis with albumin replacement as indicated - Continue with diuretic therapy, would add aldactone 100mg and titrate up as necessary - Currently would not consider TIPS since he has not been optimized on diuretic therapy thus far. Additionally, his primary cause of recurrent ascites is cirrhosis secondary to cardiac dysfunction, would therefore consult cardiology for optimal halfway strategy. - Patient may benefit from home nursing services for additional assistance with medication given his clinical condition. Will continue to monitor patient clinical course.
[2018-04-14] MEDS: Digoxin 125 mcg (0.125 mg) Tab PO SCH (17:21)
[2018-04-14] MEDS: Ciprofloxacin 400mg/200ml D5W 400 MG/200 ML BAG IVPB SCH (19:24)
--- NOTE | 2018-04-15 01:07 | CON ---
DATE: 04/14/2018 CARDIOLOGY CONSULTATION REASON FOR CONSULTATION: Exacerbation of congestive heart failure. HISTORY OF PRESENT ILLNESS: The history was taken via social services designee for extended period of time. The patient is a 57-year-old male, known to me, who has a history of cardiomyopathy, status post ICD placement, history of atrial flutter, history of benign prostatic hypertrophy with an indwelling Perdomo catheter, history of the bladder CA which is low- grade malignancy, history of cardiac cirrhosis with recurrent ascites requiring frequent abdominal taps, presented because of worsening shortness of breath, abdominal distention as well as significant scrotal edema. The patient denied any chest pain. SOCIAL HISTORY: The patient is a nonsmoker. He lives at home with his son, but lately he has been into subacute rehab for extended periods of time. MEDICATIONS: Aldactone 100 mg daily, aspirin 81 mg once a day, Coreg 6.25 mg twice a day, digoxin 0.125 mg daily, Lasix 40 mg intravenously twice a day, Pepcid 20 mg p.o. twice a day, magnesium oxide 400 mg daily, Proscar 5 mg once a day, Toradol 15 mg intravenously every 6 hours p.r.n., enalapril 2.5 mg daily. REVIEW OF SYSTEMS: No fever or chills. No recent hematuria. No dizziness or syncope. No recent discharge of the defibrillator. PAST MEDICAL HISTORY: Cardiomyopathy, status post ICD placement, benign prostatic hypertrophy with bladder neck obstruction requiring indwelling catheter, bladder CA, cardiac cirrhosis with recurrent ascites, chronic atrial flutter. PHYSICAL EXAMINATION: GENERAL: The patient is a middle-aged male, who does not appear to be in acute distress. VITAL SIGNS: Blood pressure 115/76, heart rate 87, temperature 98, respirations 20. HEENT: Normocephalic. CHEST: Absent breath sounds over the bases. HEART: S1, S2 regular. ABDOMEN: Moderate ascites with significant scrotal edema. EXTREMITIES: 2+ pitting edema. LABORATORY DATA: Digoxin level is 0.6. SMA-7: Sodium 140, potassium 4.2, chloride 104, CO2 26, glucose 118, BUN 25, creatinine 1.1. ProBNP is 8680. CBC: Hemoglobin and hematocrit 14.7 and 46.2, white count and platelet count are within normal limits. Chest x-ray revealed significant cardiomegaly, ICD and biventricular pacemaker. EKG revealed atrial flutter with 3:1 conduction with a heart rate of 82, infarct of indeterminate age. The most recent echo was in 01/2018, which revealed ejection fraction less than 20%, severe global hypokinesis of the ventricle, pulmonary hypertension, small circumferential pericardial effusion. ASSESSMENT: 1. Exacerbation of congestive heart failure. 2. Portal hypertension with moderate ascites and significant scrotal edema. 3. Chronic atrial flutter. 4. History of bladder carcinoma. 5. Benign prostatic hypertrophy with bladder neck obstruction. 6. History of recurrent hematuria in the past. RECOMMENDATIONS: Case was discussed with Dr. De Jesus, the primary physician. Continue Aldactone which will be started tomorrow at 100 mg daily, aspirin 81 mg once a day, Coreg 6.25 mg twice a day, digoxin 0.125 mg daily, Lasix 40 mg intravenously twice a day, Pepcid 20 mg p.o. twice a day, enalapril 2.5 mg once a day. The patient was recommended to restrict his fluid intake, mainly cold water and ice that he had on his table. GI consult will be requested to evaluate the patient for any intervention for the patient's severe portal hypertension with recurrent ascites. The patient is not a suitable candidate for anticoagulation because of his bladder carcinoma and recurrent hematuria. I would request to restrict the fluid intake to 1 liter a day. Jass Carlton MD
--- NOTE | 2018-04-15 06:15 | HP ---
HISTORY OF PRESENT ILLNESS: The patient is a 57-year-old deaf and mute male, presented to emergency room with symptoms of generalized scrotal, abdominal as well as lower extremity edema. The patient is known to have dilated cardiomyopathy with cardiac versus alcoholic liver cirrhosis and portal hypertension. The patient had frequent paracenteses due to increased abdominal girth and impairment of the respiration. The patient was in subacute rehabilitation at [facility] when he was found to have increased abdominal girth as well as increase of scrotal swelling. The patient was evaluated in the emergency room, and he was admitted for further management. Other review of system is negative. ALLERGIES: NO KNOWN ALLERGIES. MEDICATIONS: As per MAR were reviewed and ordered. SOCIAL HISTORY: No history of smoking, EtOH or substance abuse. FAMILY HISTORY: Noncontributory. PHYSICAL EXAMINATION: GENERAL: The patient is in bed, in mild respiratory distress. VITAL SIGNS: Blood pressure 115/76, temperature 98, respiratory rate 20, and pulse 87. HEENT: Pupils equal and reactive to light. Normal-appearing mucosa of the conjunctivae, oropharynx and nasal membrane mucosa. NECK: Supple. No JVD. No carotid bruit. No lymph node. No thyromegaly. CHEST AND LUNGS: Bilateral symmetrical expansion. Good air exchange. No rales. No rhonchi. CARDIOVASCULAR SYSTEM: PMI not localized. S1 and S2. No additional sounds. ABDOMEN: The patient has increased abdominal girth with remarkable distention. EXTREMITIES: Bilateral lower extremity edema. CENTRAL NERVOUS SYSTEM: Alert, awake, oriented x1. Moves all extremities equally. The patient is deaf and mute. ASSESSMENT: 1. Generalized anasarca. 2. History of dilated cardiomyopathy. PLAN: We will give the patient Lasix 40 mg IV every 12 hours. GI consult and follow their recommendations. Continue current medications. Discussed with Cardiology. Follow GI consult and follow their recommendations. Bladimir De Jesus MD
[2018-04-15] MEDS: Ciprofloxacin 400mg/200ml D5W 400 MG/200 ML BAG IVPB SCH (06:17)
[2018-04-15] MEDS ORDERED: Lidocaine Hydrochloride 5 ML INJ ONE (09:37)
--- NOTE | 2018-04-15 09:57 | CP.PCM.PN ---
<Chapin Riggins - Last Filed: 04/15/18 13:27> Subjective - Date & Time of Evaluation Date of Evaluation: 04/15/18 Time of Evaluation: 09:55 - Subjective Subjective: GI Fellow PGY4, progress note. Patient is doing well. Abdomen is still distended. Making good UOP, ~850cc last night. Objective - Vital Signs/Intake and Output Vital Signs (last 24 hours): Temp Pulse Resp BP Pulse Ox 97.4 F L 92 H 20 138/95 H 99 04/15/18 07:25 04/15/18 08:00 04/15/18 07:25 04/15/18 07:25 04/15/18 07:25 Intake and Output: 04/15/18 04/15/18 06:59 18:59 Intake Total 620 Output Total 600 Balance 20 - Medications Medications: Current Medications Albuterol/Ipratropium (Duoneb 3 Mg/0.5 Mg (3 Ml) Ud) 3 ml INH RQ6 PRN PRN Reason: Shortness of Breath Aspirin (Aspirin Chewable) 81 mg PO DAILY [facility] Last Admin: 04/14/18 09:29 Dose: 81 mg Bisacodyl (Dulcolax) 10 mg AL Q12H PRN PRN Reason: Constipation Carvedilol (Coreg) 6.25 mg PO Q12H [facility] Last Admin: 04/14/18 21:31 Dose: 6.25 mg Digoxin (Digoxin) 0.125 mg PO DAILY@1800 [facility] Last Admin: 04/14/18 17:21 Dose: 0.125 mg Enalapril Maleate (Vasotec) 2.5 mg PO DAILY [facility] Last Admin: 04/14/18 09:29 Dose: 2.5 mg Famotidine (Pepcid) 20 mg PO BID [facility] Last Admin: 04/14/18 17:21 Dose: 20 mg Finasteride (Proscar) 5 mg PO DAILY [facility] Last Admin: 04/14/18 09:29 Dose: 5 mg Furosemide (Lasix) 40 mg IVP Q12 [facility] Last Admin: 04/14/18 21:31 Dose: 40 mg Ciprofloxacin (Cipro 400mg/200ml Dsw) 400 mg in 200 mls @ 133 mls/hr IVPB Q12H [facility]; Protocol Last Admin: 04/15/18 06:17 Dose: 133 mls/hr Ketorolac Tromethamine (Toradol) 15 mg IVP Q6 PRN PRN Reason: Pain, severe (8-10) Last Admin: 04/14/18 04:16 Dose: 15 mg Magnesium Oxide (Mag-Ox) 400 mg PO DAILY [facility] Last Admin: 04/14/18 09:29 Dose: 400 mg Spironolactone (Aldactone) 100 mg PO DAILY [facility] - Labs Labs: 04/13/18 14:00 04/13/18 14:00 - Constitutional Appears: Non-toxic, No Acute Distress, Chronically Ill - Head Exam Head Exam: ATRAUMATIC, NORMAL INSPECTION - Eye Exam Eye Exam: EOMI, Normal appearance - Respiratory Exam Respiratory Exam: Clear to Ausculation Bilateral, NORMAL BREATHING PATTERN - Cardiovascular Exam Cardiovascular Exam: REGULAR RHYTHM, +S1, +S2 - GI/Abdominal Exam GI & Abdominal Exam: Soft, Normal Bowel Sounds. absent: Tenderness - Extremities Exam Extremities Exam: Pedal Edema. absent: Normal Inspection, Tenderness - Neurological Exam Neurological Exam: Alert, Awake, Oriented x3 - Psychiatric Exam Psychiatric exam: Normal Affect, Normal Mood - Skin Skin Exam: Normal Color, Warm Assessment and Plan - Assessment and Plan (Free Text) Assessment: #Recurrent tense ascites due to cardiac failure #Acute on chronic systolic heart failure, EF 12%. AICD #Cardiac hepatopathy #CKD #Papillary Urothelial Carcinoma PLAN: -Labs and exam show decompensated right sided cardiac failure likely due to medication non-compliance. -Advised patient to find his "dry" weight and weight himself everyday on the same scale. -Advised him to take the medications everyday and write down the medications and dosing that he is taking. -Advised him to drink no more than 1L of water per day, and avoid salt. -Patient is scheduled for paracentesis. -Aldactone 100mg daily. Lasix IV per primary, cardiology. -TIPS is not advisable. Medication, diet and lifestyle adherence is best management. Patient would benefit from home nursing to document medications and daily weights. This would help prevent recurrent admissions. -Daily weights, note the dry weight. Case discussed with Dr. Zavala, see attestation <Saqib Zavala Y - Last Filed: 04/15/18 13:49> Objective - Vital Signs/Intake and Output Vital Signs (last 24 hours): Temp Pulse Resp BP Pulse Ox 97.4 F L 92 H 20 111/85 99 04/15/18 07:25 04/15/18 08:00 04/15/18 07:25 04/15/18 11:21 04/15/18 07:25 Intake and Output: 04/15/18 04/15/18 06:59 18:59 Intake Total 620 Output Total 600 Balance 20 - Medications Medications: Current Medications Albuterol/Ipratropium (Duoneb 3 Mg/0.5 Mg (3 Ml) Ud) 3 ml INH RQ6 PRN PRN Reason: Shortness of Breath Aspirin (Aspirin Chewable) 81 mg PO DAILY [facility] Last Admin: 04/15/18 11:20 Dose: 81 mg Bisacodyl (Dulcolax) 10 mg AL Q12H PRN PRN Reason: Constipation Carvedilol (Coreg) 6.25 mg PO Q12H [facility] Last Admin: 04/15/18 11:20 Dose: 6.25 mg Digoxin (Digoxin) 0.125 mg PO DAILY@1800 [facility] Last Admin: 04/14/18 17:21 Dose: 0.125 mg Enalapril Maleate (Vasotec) 2.5 mg PO DAILY [facility] Last Admin: 04/15/18 11:20 Dose: 2.5 mg Famotidine (Pepcid) 20 mg PO BID [facility] Last Admin: 04/15/18 11:21 Dose: 20 mg Finasteride (Proscar) 5 mg PO DAILY [facility] Last Admin: 04/15/18 11:20 Dose: 5 mg Furosemide (Lasix) 40 mg IVP Q12 [facility] Last Admin: 04/15/18 11:21 Dose: 40 mg Ciprofloxacin (Cipro 400mg/200ml Dsw) 400 mg in 200 mls @ 133 mls/hr IVPB Q12H [facility]; Protocol Last Admin: 04/15/18 06:17 Dose: 133 mls/hr Ketorolac Tromethamine (Toradol) 15 mg IVP Q6 PRN PRN Reason: Pain, severe (8-10) Last Admin: 04/15/18 11:20 Dose: 15 mg Magnesium Oxide (Mag-Ox) 400 mg PO DAILY [facility] Last Admin: 04/15/18 11:20 Dose: 400 mg Spironolactone (Aldactone) 100 mg PO DAILY [facility] Last Admin: 04/15/18 11:20 Dose: 100 mg - Labs Labs: 04/13/18 14:00 04/13/18 14:00 Attending/Attestation - Attestation I have personally seen and examined this patient.: Yes I have fully participated in the care of the patient.: Yes I have reviewed all pertinent clinical information, including history, physical exam and plan: Yes Notes (Text): 04/15/18 13:45 I have seen and examined patient with GI fellow. No acute events overnight, he is seen resting in bed comfortably. He underwent paracentesis today with 3.5 liters fluid removed and feels better afterwards. He denies nausea, vomiting, fever/chills. Tolerating PO diet without difficulty. Decompensated cirrhosis, suspected cardiac source CHF, s/p ICD CKD Bladder neoplasm Deaf/mute - Low sodium diet as tolerated - Continue with diuretic therapy, monitor electrolytes. Can increase aldactone to max 200 mg PO daily if clinically necessary. - Follow up cardiology recommendations - TIPS is not ideal course of management for this patient given incomplete trial of diuretic optimization and underlying deaf/mute condition with possible encephalopathy following TIPS. No further planned GI intervention at this time, will sign off case. Patient would benefit from continued outpatient observation to gague response to diuretics. Case discussed with Dr. De Jesus.
--- NOTE | 2018-04-15 09:59 | PCM.URO ---
Urology Progress Note - Objective Lab Results Last 24 Hours: Laboratory Results - last 24 hr 04/14/18 10:54 Digoxin 0.6 L Intake & Output: Intake & Output 04/14/18 04/15/18 04/15/18 18:59 06:59 18:59 Intake Total 620 Output Total 250 600 Balance -250 20 Intake: Intake, IV Amount 150 Left Antecubital 150 Oral 470 Output: Urine 250 600 2-way Urethral 250 600 Other: # Bowel Movements 1 Vital Signs: Vital Signs - 24 hr 04/14/18 04/14/18 04/14/18 15:36 16:00 20:00 Temperature 98 F Pulse Rate 87 91 H 93 H Respiratory 20 Rate Blood Pressure 115/76 O2 Sat by Pulse 100 Oximetry 04/14/18 04/14/18 04/14/18 21:31 23:30 23:45 Temperature 98.1 F Pulse Rate 81 92 H Respiratory 20 Rate Blood Pressure 118/77 137/93 H O2 Sat by Pulse 98 Oximetry 04/15/18 04/15/18 04/15/18 07:00 07:03 07:25 Temperature 97.6 F 97.4 F L Pulse Rate 93 H 90 92 H Respiratory 20 20 Rate Blood Pressure 128/88 138/95 H O2 Sat by Pulse 100 99 Oximetry 04/15/18 08:00 Temperature Pulse Rate 92 H Respiratory Rate Blood Pressure O2 Sat by Pulse Oximetry
--- NOTE | 2018-04-15 10:36 | PCM.SURG1 ---
Surgeon's Initial Post Op Note - Surgeon's Notes Surgeon: Dwain Carrasco MD Store Worker: NONE Type of Anesthesia: Local Pre-Operative Diagnosis: Ascites Operative Findings: US showed moderate ascites Post-Operative Diagnosis: Ascites Operation Performed: US guided paracentesis Specimen/Specimens Removed: 3.5 liters of straw colored fluid Estimated Blood Loss: EBL {In ML}: 0 Blood Products Given: N/A Drains Used: No Drains Post-Op Condition: Fair Date of Surgery/Procedure: 04/15/18 Time of Surgery/Procedure: 10:10
[2018-04-15] MEDS: Magnesium Oxide 400 mg Tab UD PO SCH (11:20)
--- NOTE | 2018-04-15 12:40 | US ---
Date of Procedure: 04/15/2018 PROCEDURE: Ultrasound-guided paracentesis, CPT 66255 Medications: 7 cc 1% Lidocaine HISTORY: Ascites, abdominal pain TECHNIQUE: Following informed consent , the patient was placed supine on the stretcher and the site was marked. A limited abdominal ultrasound was performed that showed a moderate amount of intra-abdominal fluid. Procedural time out was called and the Pt's abdomen was marked and prepped and draped in the usual sterile fashion. Ultrasound-guided large volume paracentesis performed. A total of 3.5 liters of straw colored fluid was removed without complication. IMPRESSION: Ultrasound-guided large volume paracentesis.
--- NOTE | 2018-04-15 16:40 | PN ---
DATE: 04/15/2018 SUBJECTIVE: The patient underwent abdominal paracentesis today with removal of 3.5 liter of straw-colored fluid. He is much more comfortable today and in much better sprits compared to yesterday. PHYSICAL EXAMINATION: VITAL SIGNS: Blood pressure 138/95, the latest one was 111/85, heart rate 92, temperature 97.4 and respiration 20. HEENT: Normocephalic. CHEST: Absent breath sounds over the bases. HEART: S1 and S2 regular. ABDOMEN: Mild ascites and significant scrotal edema. EXTREMITIES: 1+ pitting edema. ASSESSMENT: 1. Chronic atrial flutter with 3:1 conduction. 2. Cardiomyopathy. 3. Cardiac cirrhosis. 4. Benign prostatic hypertrophy, requiring indwelling Perdomo catheter. 5. Bladder cancer. RECOMMENDATIONS: Continue Aldactone 100 mg daily, aspirin 81 mg once a day, Coreg 6.25 mg twice a day, digoxin 0.125 mg daily, Lasix 40 mg intravenously twice a day, Vasotec 2.5 mg once a day. Case was discussed with Dr. De Jesus and with the hepatobiliary surgeon. The patient is not a suitable candidate for TIPS and continue to get therapy as recommended. Jass Carlton MD
[2018-04-15] MEDS: Digoxin 125 mcg (0.125 mg) Tab PO SCH (18:34)
--- NOTE | 2018-04-15 21:31 | PN ---
DATE: 04/15/2018 SUBJECTIVE: The patient is seen today, 04/15/2018, status post paracentesis. The patient is currently on IV Lasix and Aldactone. OBJECTIVE: VITAL SIGNS: Blood pressure is 131/90, temperature 98.2, respiratory rate 20, and pulse 80. HEENT: Pupils equal and reactive to light. Normal-appearing mucosa of the conjunctivae, oropharynx, and nasal membrane mucosa. NECK: Supple. No JVD. No carotid bruit. No lymph node. No thyromegaly. CHEST AND LUNGS: Bilateral symmetrical expansion. Good air exchange. Few basilar rales. CARDIOVASCULAR SYSTEM: PMI not localized. S1, S2. No additional sounds. ABDOMEN: Normoactive distant bowel sounds with small abrasion at the site of previous paracentesis. Positive scrotal edema. EXTREMITIES: +1 edema. CENTRAL NERVOUS SYSTEM: Alert, awake, and oriented x2. No neurological deficit could be appreciated. The patient is deaf and mute. ASSESSMENT: Generalized anasarca, cardiac cirrhosis. PLAN: Continue current diuretics, and we will monitor potassium and CMP. Discussed the patient's condition with Gastroenterology. Magy MD Neal
[2018-04-16 08:16] LABS: BASO # 0.1 K/uL (0.0-0.2); BASO % 1.1 % (0.0-2.0); EOS # 0.1 K/uL (0.0-0.7); EOS % 1.9 % (0.0-4.0); HEMOGLOBIN 15.1 g/dL (12.0-18.0); LYMPH # 0.9 K/uL (1.0-4.3); LYMPH % 14.2 % (20.0-40.0); MEAN CELL VOLUME 94.8 fL (80.0-94.0); MEAN CORPUSCULAR HEMOGLOBIN 30.7 pg (27.0-31.0); MEAN CORPUSCULAR HGB CONC 32.4 g/dL (33.0-37.0); MEAN PLATELET VOLUME 7.6 fL (7.2-11.7); MONO # 0.7 K/uL (0.0-0.8); MONO % 10.4 % (0.0-10.0); NEUT # 4.8 K/uL (1.8-7.0); NEUT % 72.4 % (50.0-75.0); NRBC % 0.1 % (0.0-2.0); RBC 4.91 Mil/uL (4.40-5.90); RED CELL DISTRIBUTION WIDTH 17.8 % (11.5-14.5); WHITE BLOOD COUNT 6.6 K/uL (4.8-10.8)
[2018-04-16 08:37] LABS: ALBUMIN 3.3 g/dL (3.5-5.0); CALCIUM 8.8 mg/dl (8.6-10.4)
[2018-04-16] MEDS: Magnesium Oxide 400 mg Tab UD PO SCH (10:13)
[2018-04-16] MEDS: Digoxin 125 mcg (0.125 mg) Tab PO SCH (17:46)
--- NOTE | 2018-04-16 18:15 | PN ---
DATE: 04/16/2018 SUBJECTIVE: The patient's shortness of breath has improved. He is still experiencing abdominal swelling and significant scrotal swelling. He is in a better mood today. PHYSICAL EXAMINATION: VITAL SIGNS: Blood pressure 129/92, heart rate 86, temperature 97.5, and respirations 20. HEENT: Normocephalic. CHEST: Absent breath sounds over the bases. HEART: S1 and S2 regular. ABDOMEN: Moderate ascites with slightly improved scrotal edema. EXTREMITIES: 2+ pitting edema. LABORATORY DATA: Today's hemoglobin and hematocrit 15.1 and 46.5. White count and platelet count are within normal limits. Today's BUN and creatinine are 34 and 1.5 respectively. ASSESSMENT: 1. Dilated cardiomyopathy. 2. Cardiac cirrhosis. 3. Recurrent ascites with recurrent abdominal paracentesis. 4. Mild prerenal azotemia. 5. Bladder cancer. RECOMMENDATIONS: Continue Aldactone 100 mg once a day, aspirin 81 mg once a day, Coreg 6.25 mg once a day, digoxin 0.125 mg orally daily, Lasix 40 mg intravenously twice a day, and Vasotec 2.5 daily. Oral fluid restriction was emphasized to the patient. Jass Carlton MD
[2018-04-17] MEDS: Magnesium Oxide 400 mg Tab UD PO SCH (10:30)
--- NOTE | 2018-04-17 19:36 | PN ---
DATE: 04/17/2018 SUBJECTIVE: The patient is in good mood and spirits. His daughter is at the bedside and she helped with sign language. His shortness of breath has improved as well as scrotal swelling. PHYSICAL EXAMINATION: VITAL SIGNS: Blood pressure 122/80, heart rate 126, temperature 97.2, respirations 20. HEENT: Normocephalic. CHEST: Diminished breath sounds over the bases. HEART: S1 and S2 regular. ABDOMEN: Moderate ascites and moderate scrotal edema. EXTREMITIES: 1+ pedal edema. ASSESSMENT: 1. Dilated cardiomyopathy, status post implantable cardioverter defibrillator placement with biventricular pacemaker placement. 2. Chronic atrial flutter. 3. Cardiac cirrhosis with recurrent ascites. 4. Bladder cancer. 5. Benign prostatic hypertrophy requiring an indwelling Perdomo catheter. RECOMMENDATIONS: Continue Aldactone 100 mg once a day, aspirin 81 mg once a day, Coreg 6.25 mg twice a day, digoxin 0.125 mg daily, albuterol inhaler every 6 hours p.r.n., Lasix 40 mg intravenously twice a day, Vasotec 2.5 mg once a day, Proscar 5 mg once a day. Jass Carlton MD
[2018-04-17] MEDS: Digoxin 125 mcg (0.125 mg) Tab PO SCH (19:48)
--- NOTE | 2018-04-17 21:50 | PCM.URO ---
Urology Progress Note - Subjective Other: maintain mason. see previous notes - Objective Intake & Output: Intake & Output 04/17/18 04/17/18 04/18/18 06:59 18:59 06:59 Intake Total 200 Output Total 750 Balance -550 Weight 184 lb Intake: Oral 200 Output: Urine 750 2-way Urethral 650 Urethral (Mason) 100 Other: # Bowel Movements 0 Vital Signs: Vital Signs - 24 hr 04/16/18 04/17/18 04/17/18 23:30 08:59 10:29 Temperature 98.8 F 97.2 F L Pulse Rate 90 126 H Respiratory 20 20 Rate Blood Pressure 129/91 H 128/80 130/80 O2 Sat by Pulse 97 96 Oximetry 04/17/18 04/17/18 10:30 15:00 Temperature 97.7 F Pulse Rate 73 Respiratory 20 Rate Blood Pressure 130/80 128/97 H O2 Sat by Pulse 96 Oximetry
--- NOTE | 2018-04-18 01:36 | PN ---
DATE: 04/16/2018 SUBJECTIVE: The patient was seen on 04/16/2018. There was mild respiratory distress and exertional shortness of breath. PHYSICAL EXAMINATION: VITAL SIGNS: Blood pressure was 124/94, temperature 97.9, respiratory rate 20, and pulse 84. HEENT: Pupils equal, reactive to light. Normal-appearing mucosa of the conjunctivae, oropharyngeal, and nasal membrane mucosa. NECK: Supple. No JVD. No carotid bruit. No lymph node. No thyromegaly. CHEST AND LUNGS: Bilateral symmetrical expansion. Decreased air entry, both lower lung youssef. CARDIOVASCULAR SYSTEM: PMI not localized. S1, S2. No additional sounds. ABDOMEN: There is abdominal distension with shifting dullness due to ascites. EXTREMITIES: Bilateral lower extremity edema which is less. INSULATION BOARD CALENDER OPERATOR: Alert, awake, oriented. The patient is deaf and mute and moved all extremities equally. ASSESSMENT: 1. Congestive heart failure, both systolic and diastolic, [id number]. 2. Liver cirrhosis with pulmonary hypertension and generalized edema. 3. Status post multiple paracenteses. PLAN: Continue current spironolactone and Lasix and daily weight. We need to give the patient IV Lasix. Bladimir De Jesus MD
--- NOTE | 2018-04-18 09:21 | PN ---
DATE: 04/17/2018 See history and physical, consultation and procedure note and see the progress note from Dr. Yesenia Brar from 04/15/2018. SUBJECTIVE: The patient is seen today 04/17/2018. The patient is currently well. Since Perdomo catheter has been placed, draining well. Abdomen is overall soft. DIAGNOSES: Urinary retention and voiding dysfunction. ASSESSMENT AND PLAN: In summary, this is a very pleasant gentleman with the above history of urinary retention and he is now currently resting comfortably. Angel Brar MD
--- NOTE | 2018-04-18 14:04 | OP ---
PROCEDURE DATE: 04/14/2018 UROLOGY PROCEDURE NOTE See the thoroughly dictated consult note. INDICATIONS: A very pleasant gentleman, who is here with retention and voiding dysfunction and needed a catheter change. PREOPERATIVE DIAGNOSIS: Retention Perdomo catheter. POSTOPERATIVE DIAGNOSIS: Retention Perdomo catheter. PROCEDURE: At the bedside, change of the catheter. SURGEON: Angel Brar MD ESTIMATED BLOOD LOSS: No blood loss. COMPLICATIONS: There were no complications. DESCRIPTION OF PROCEDURE: Under sterile technique, I explained to the patient what we are going to do, I hand wrote it. The patient happens to be deaf and he is able to see. So, I removed it under sterile technique, and under sterile technique, I inserted a new Perdomo catheter without difficulty . The patient tolerated procedure without complication. Angel Brar MD
--- NOTE | 2018-04-18 15:14 | CON ---
DATE: 04/14/2018 REASON FOR CONSULTATION: Urinary retention and need for Perdomo catheter insertion. HISTORY OF PRESENT ILLNESS: Mr. Sorto is a pleasant patient who happens to be deaf and mute, who is now in the hospital. It seems, he was going to be seen by Dr. Yesenia Brar who had been scheduled for change of a Perdomo catheter, but today his catheter is not working well and he is readmitted then with further plans to follow up. Urology is consulted to change the Perdomo catheter. PAST MEDICAL AND SURGICAL HISTORY: As listed on the chart. From Urology standpoint, otherwise unremarkable. REVIEW OF SYSTEMS: As listed above, otherwise noncontributory. MEDICATIONS: Listed. ALLERGIES: LISTED. PHYSICAL EXAMINATION: GENERAL: Well-nourished, well developed, currently resting comfortably in his bed. See the separately dictated procedure note. What we did was we removed his Perdomo catheter and we put in a new Perdomo catheter. See the plan as listed below. DIAGNOSIS: Urinary retention, voiding dysfunction. ASSESSMENT AND PLAN: In summary, the patient now has a new Perdomo catheter. Medical management as per the medical team. Urology-huang, just maintain the Perdomo catheter, straight drainage and then further plans can follow. Angel Brar MD
[2018-04-18] MEDS: Digoxin 125 mcg (0.125 mg) Tab PO SCH (18:05)
[2018-04-18 18:06] VITALS: PULSE 94
--- NOTE | 2018-04-18 20:51 | PN ---
DATE: 04/18/2018 FOLLOWUP SUBJECTIVE: The patient is comfortable on nasal O2. His scrotal swelling is improving. PHYSICAL EXAMINATION: VITAL SIGNS: Blood pressure 136/90, heart rate 99, temperature 97.3, respirations 20. HEENT: Normocephalic. CHEST: Absent breath sounds over the bases. HEART: S1 and S2 are regular. ABDOMEN: Moderate ascites. EXTREMITIES: 1+ pitting edema. ASSESSMENT: 1. Cardiomyopathy, status post implantable cardioverter-defibrillator placement and biventricular pacemaker placement. 2. Chronic atrial flutter. 3. Benign prostatic hypertrophy, underwent change of indwelling Perdomo catheter. 4. Bladder cancer. 5. Hepatic cirrhosis with recurrent ascites, status post abdominal paracentesis. RECOMMENDATIONS: Continue Aldactone 100 mg once a day, aspirin 81 mg once a day, Coreg 6.25 mg twice a day, digoxin 0.125 mg once a day, Lasix 40 mg intravenously twice a day, magnesium oxide 400 mg daily, and Vasotec 2.5 mg once a day. Jass Carlton MD
--- NOTE | 2018-04-19 00:55 | PN ---
DATE: 04/18/2018 SUBJECTIVE: The patient is seen today, 04/18/2018. He is still having exertional shortness of breath. PHYSICAL EXAMINATION VITAL SIGNS: Blood pressure is 136/90, temperature 97.3, respiratory rate 20 and pulse 90. HEENT: Pupils equal and reactive to light. Normal-appearing mucosa of the conjunctivae, oropharynx and nasal membrane mucosa. NECK: Supple. No JVD. No carotid bruit. No lymph node. No thyromegaly. CHEST AND LUNGS: Bilateral symmetrical expansion. Good air exchange. Decreased air entry in both lower lung youssef. CARDIOVASCULAR SYSTEM: PMI not localized. S1, S2. No additional sounds. ABDOMEN: Normoactive bowel sounds. There is a moderate amount of ascites. EXTREMITIES: Bilateral pitting edema and scrotal edema which is decreasing in size. CENTRAL NERVOUS SYSTEM: Alert, awake, oriented x2. No neurological deficit could be appreciated. ASSESSMENT: 1. Generalized anasarca, portal hypertension secondary to left-sided heart disease. 2. Status post multiple paracenteses. PLAN: Continue current diuretics. Monitor electrolytes. Daily weight. [facility] MD Neal
[2018-04-19 07:49] LABS: ALBUMIN 3.6 g/dL (3.5-5.0); ALT/SGPT 20 U/L (21-72); AST/SGOT 40 U/L (17-59); BLOOD UREA NITROGEN 30 mg/dL (9-20); GFR NON-AFRICAN AMERICAN 57
[2018-04-19] MEDS: Magnesium Oxide 400 mg Tab UD PO SCH (09:21)
--- NOTE | 2018-04-19 14:09 | CP.PCM.PN ---
Subjective - Date & Time of Evaluation Date of Evaluation: 04/19/18 Time of Evaluation: 14:08 Objective - Vital Signs/Intake and Output Vital Signs (last 24 hours): Temp Pulse Resp BP Pulse Ox 97.6 F 140 H 20 137/90 96 04/19/18 08:13 04/19/18 08:13 04/19/18 08:13 04/19/18 11:03 04/19/18 08:13 Intake and Output: 04/19/18 04/19/18 06:59 18:59 Intake Total 400 Output Total 300 700 Balance -300 -300 - Medications Medications: Current Medications Aspirin (Aspirin Chewable) 81 mg PO DAILY [facility] Last Admin: 04/19/18 09:21 Dose: 81 mg Bisacodyl (Dulcolax) 10 mg OK Q12H PRN PRN Reason: Constipation Carvedilol (Coreg) 6.25 mg PO Q12H [facility] Last Admin: 04/19/18 09:22 Dose: 6.25 mg Digoxin (Digoxin) 0.125 mg PO DAILY@1800 [facility] Last Admin: 04/18/18 18:05 Dose: 0.125 mg Enalapril Maleate (Vasotec) 2.5 mg PO DAILY [facility] Last Admin: 04/19/18 11:03 Dose: 2.5 mg Famotidine (Pepcid) 20 mg PO BID [facility] [place] Last Admin: 04/19/18 09:21 Dose: 20 mg Finasteride (Proscar) 5 mg PO DAILY [facility] Last Admin: 04/19/18 09:21 Dose: 5 mg Furosemide (Lasix) 40 mg IVP Q12 [facility] Last Admin: 04/19/18 09:23 Dose: 40 mg Magnesium Oxide (Mag-Ox) 400 mg PO DAILY [facility] Last Admin: 04/19/18 09:21 Dose: 400 mg Spironolactone (Aldactone) 100 mg PO DAILY [facility] Last Admin: 04/19/18 09:22 Dose: 100 mg - Labs Labs: 04/16/18 08:00 04/19/18 07:22 Assessment and Plan - Assessment and Plan (Free Text) Assessment: PLACE UNDER THE SERVICE OF DR BEAN AT [facility] ----CALL FOR ADMITTING CONTINUE HOME MEDICATION ACTIVITY TOLERATED AND FACILITY PROTOCOL [facility]AVER CATHETER CARE PER FACILITY PROTOCOL CALL DR BEAN FOR FURTHER ORDER MAKE ARRANGE FOR PATIENT TO FOLLOW UP WITH DR YONATAN NARANJO IN HIS OFFICE ------CALL FOR APPOINTMENT\ ADDRESS YOUR BEAVER CATHETER AT YOUR VISIT
[2018-04-19 15:59] VITALS: BP 121/80; PULSE 92; TEMP 98.2; O2SAT 99
--- NOTE | 2018-04-19 19:26 | PN ---
DATE: 04/19/2018 SUBJECTIVE: The patient is comfortable in terms of breathing, but he is angry. He wants to go home. PHYSICAL EXAMINATION: VITAL SIGNS: Blood pressure 137/97, heart rate 140, temperature 97.6, and respirations 20. HEENT: Normocephalic. CHEST: Absent breath sounds over the bases. HEART: S1 and S2. Regular. ABDOMEN: Moderate ascites with improving scrotal edema. EXTREMITIES: 1+ pitting edema. LABORATORY DATA: Today's SMA-7: Sodium 137, potassium 4.4, chloride 97, CO2 of 30, glucose 112, BUN 30, and creatinine 1.3. Total bilirubin is 2.6. Alkaline phosphatase 661. ASSESSMENT: 1. Exacerbation of congestive heart failure. 2. Rapid atrial flutter. 3. Cardiac cirrhosis. 4. Benign prostatic hypertrophy requiring indwelling Perdomo catheter. 5. Bladder carcinoma. RECOMMENDATIONS: Continue Aldactone 100 mg daily, aspirin 81 mg once a day, Coreg 6.25 mg twice a day, digoxin 0.125 mg daily, Lasix 40 mg intravenously twice a day, Vasotec 2.5 mg once a day, Proscar 5 mg once a day, magnesium oxide 400 mg once a day. I discussed the case with Dr. De Jesus, conveyed to him the patient's insistence on going home today. Jass Carlton MD
--- NOTE | 2018-04-20 05:33 | DS ---
REASON FOR ADMISSION: This is a 57-year-old male who is deaf and mute, who was admitted for generalized anasarca, secondary to congestive heart failure and liver cirrhosis. COURSE OF HOSPITALIZATION: The patient was admitted to medical floor, and he was started on both IV diuretics and Aldactone. The patient was diuresed well, and his shortness of breath as well as his edema has tremendously decreased. The patient was an Aldactone 100 mg and potassium was 4.4, BUN 30, and creatinine 1.3. PLAN: The patient was discharged to [facility], and we will follow with electrolytes as an outpatient. FINAL DIAGNOSES: Generalized anasarca, congestive heart failure, liver cirrhosis. [facility] MD Neal
== END 2018-04-19 17:47 | DRG 291 ==
LOC: C.ER 12:40 → C.9E 15:28 → C.6T 17:31
PROVIDERS: ADMIT Internal Medicine; ATTEND Internal Medicine
PROC: 0T2BX0Z Change Drainage Device in Bladder, External Approach (ICD-10-PCS; 2018-04-14)
PROC: 0W9G3ZZ Drainage of Peritoneal Cavity, Percutaneous Approach (ICD-10-PCS; principal; 2018-04-15)
PROC: BW40ZZZ Ultrasonography of Abdomen (ICD-10-PCS; 2018-04-15)
DX: I13.0 Hypertensive heart and chronic kidney disease with heart failure and stage 1 through stage 4 chronic kidney disease, or unspecified chronic kidney disease (principal); I50.43 Acute on chronic combined systolic (congestive) and diastolic (congestive) heart failure; R18.8 Other ascites; K74.69 Other cirrhosis of liver; N13.8 Other obstructive and reflux uropathy; I48.92 Unspecified atrial flutter; K76.6 Portal hypertension; I42.0 Dilated cardiomyopathy; C67.9 Malignant neoplasm of bladder, unspecified; E11.22 Type 2 diabetes mellitus with diabetic chronic kidney disease; E78.5 Hyperlipidemia, unspecified; E78.00 Pure hypercholesterolemia, unspecified; H91.3 Deaf nonspeaking, not elsewhere classified; I25.10 Atherosclerotic heart disease of native coronary artery without angina pectoris; I27.20 Pulmonary hypertension, unspecified; K21.9 Gastro-esophageal reflux disease without esophagitis; K76.1 Chronic passive congestion of liver; N40.1 Benign prostatic hyperplasia with lower urinary tract symptoms; N18.9 Chronic kidney disease, unspecified; N50.89 Other specified disorders of the male genital organs; Z95.810 Presence of automatic (implantable) cardiac defibrillator; I25.2 Old myocardial infarction; Z86.73 Personal history of transient ischemic attack (TIA), and cerebral infarction without residual deficits

== ENCOUNTER 2018-05-31 13:19 | Inpatient (IN) | payer MEDICARE | END 2018-06-04 22:55 | disposition home or self-care (01) | LOC: C.5S 06-01 01:23 → C.ER 13:19 → C.9E 17:36 ==

== ENCOUNTER 2018-06-22 14:48 | Observation (INO) | payer MEDICARE ==
[2018-06-22 14:48] VITALS: BMI 24.5
[2018-06-22 16:22] LABS: BASO # 0.1 K/uL (0.0-0.2); EOS % 0.5 % (0.0-4.0); HEMOGLOBIN 15.1 g/dL (12.0-18.0); LYMPH # 1.1 K/uL (1.0-4.3); MEAN PLATELET VOLUME 7.8 fL (7.2-11.7); MONO # 0.7 K/uL (0.0-0.8)
[2018-06-22 16:24] LABS: BASO % 1.4 % (0.0-2.0); LYMPH % 17.4 % (20.0-40.0); MEAN CELL VOLUME 91.5 fL (80.0-94.0); MEAN CORPUSCULAR HEMOGLOBIN 29.5 pg (27.0-31.0); MEAN CORPUSCULAR HGB CONC 32.2 g/dL (33.0-37.0); MONO % 10.8 % (0.0-10.0); NEUT # 4.5 K/uL (1.8-7.0); NEUT % 69.9 % (50.0-75.0); NRBC % 0.1 % (0.0-2.0); RBC 5.1 Mil/uL (4.40-5.90); RED CELL DISTRIBUTION WIDTH 17.9 % (11.5-14.5); WHITE BLOOD COUNT 6.4 K/uL (4.8-10.8)
[2018-06-22 16:27] LABS: URINE BACTERIA OCC (<OCC); URINE BILIRUBIN NEGATIVE (NEGATIVE); URINE BLOOD 1+ (NEGATIVE); URINE COLOR Yellow (YELLOW); URINE GLUCOSE (UA) NORMAL (Normal); URINE HYALINE CAST 0-2 /lpf (0-2); URINE LEUKOCYTE ESTERASE TRACE Leu/uL (Negative); URINE PROTEIN 1+ mg/dL (NEGATIVE)
--- NOTE | 2018-06-22 16:31 | C.PDOC ---
History Of Present Illness 57 y/o male,w/PMhx of CHF, liver cirrhosis, and abdominal ascites secondary to poor ejection fraction, brought to ER from alf for evaluation of increasing abdominal distention and increasing leg edema. Patient was recently admitted in [facility] from 05/06/18-05/09/18. Patient states that he has periodic abdominal paracentesis. He notes that his medications and fluid intake are governed by his alf. Denies having fever,chills, CP,SOB, nausea, vomiting, and abdominal pain. Time Seen by Provider: 06/22/18 15:46 Chief Complaint (Nursing): Shortness Of Breath History Per: Patient History/Exam Limitations: no limitations Onset/Duration Of Symptoms: Days Current Symptoms Are (Timing): Still Present Severity: Moderate Past Medical History Reviewed: Historical Data, Nursing Documentation, Vital Signs Vital Signs: Last Vital Signs Temp 97.6 F 06/22/18 15:01 Pulse 82 06/22/18 15:01 Resp 20 06/22/18 15:01 BP 119/89 06/22/18 15:01 Pulse Ox 100 06/22/18 15:01 - Medical History PMH: Cardia Arrhythmia, CHF, HTN, Hypercholesterolemia, Hyperlipidemia, Peripheral Edema, Chronic Kidney Disease Denies: HIV, Personality Disorder Surgical History: Pacemaker - [facility] Procedures CHANGE DRAINAGE DEVICE IN BLADDER, EXTERNAL APPROACH (04/13/18) DESTRUCTION OF BLADDER, ENDO (02/03/18) DRAINAGE OF PERITONEAL CAVITY, PERCUTANEOUS APPROACH (05/31/18) EXERCISE TREATMENT OF MUSCULOSK WHOLE USING ASSIST EQUIPMENT (02/15/18) FLUOROSCOPY OF BLADDER USING LOW OSMOLAR CONTRAST (02/03/18) GAIT TRAINING/AMBULAT TREATMENT USING ASSIST EQUIPMENT (02/15/18) HOME MANAGEMENT TREATMENT USING ASSIST EQUIPMENT (02/15/18) INJECT/INFUSE ELECTROLYT (02/18/13) INJECT/INFUSE NEC (02/18/13) INSERTION OF ENDOTRACHEAL AIRWAY INTO TRACHEA, VIA OPENING (02/03/18) RESPIRATORY VENTILATION, LESS THAN 24 CONSECUTIVE HOURS (02/03/18) ULTRASONOGRAPHY OF ABDOMEN (05/06/18) Family History: States: No Known Family Hx - Social History Hx Tobacco Use: No Hx Alcohol Use: Yes Hx Substance Use: No - Immunization History Hx Tetanus Toxoid Vaccination: No Hx Influenza Vaccination: Yes (2019) Hx Pneumococcal Vaccination: No Review Of Systems Except As Marked, All Systems Reviewed And Found Negative. Constitutional: Negative for: Fever, Chills Cardiovascular: Negative for: Chest Pain Respiratory: Negative for: Shortness of Breath Gastrointestinal: Positive for: Other (abdominal distention). Negative for: Nausea, Vomiting, Abdominal Pain Musculoskeletal: Positive for: Other (leg edema) Physical Exam - Physical Exam Appears: No Acute Distress, Chronically Ill, Other (confused, thin, frail) Skin: Normal Color, Warm, Dry Head: Atraumatic, Normacephalic Eye(s): bilateral: Normal Inspection Nose: Normal Oral Mucosa: Moist Neck: Supple, Other (JVD) Chest: Symmetrical Cardiovascular: Rhythm Regular Respiratory: Normal Breath Sounds, No Rales, No Rhonchi, No Wheezing Gastrointestinal/Abdominal: Soft, No Tenderness, Distention, No Guarding, No Rebound Extremity: Normal ROM, Other (2/4 pitting edema) Neurological/Psych: Oriented x3, Normal Speech ED Course And Treatment - Laboratory Results Result Diagrams: 06/22/18 16:07 Lab Interpretation: Normal ECG: Interpreted By Me ECG Rhythm: Atrial Fibrillation ECG Interpretation: Normal Rate From EC O2 Sat by Pulse Oximetry: 100 (RA) Pulse Ox Interpretation: Normal - Radiology CXR: Interpreted by Tx CXR Interpretation: Yes: Heart Size Reevaluation Time: 17:02 Reassessment Condition: Unchanged - Physician Consult Information Outcome Of Conversation: 1600 and 1700 d/w Dr. De Jesus, ok to Med/Surg Obs. 1600: Dr. Kaushik Das, Urology, aware of inpatient Medical Decision Making Medical Decision Making: Plan: --Labs --UA recurrent abd ascites due to liver cirrhosis/chronic CHF ? underlying hepatic encephalopathy NH4 level hemolyzed, but pt cooperative, but refuses re-draw Disposition Doctor Will See Patient In The: Hospital Counseled Patient/Family Regarding: Studies Performed, Diagnosis - Disposition Disposition: HOSPITALIZED Disposition Time: 17:03 Condition: GOOD Forms: [facility] (Israeli) - Clinical Impression Clinical Impression: Ascites due to alcoholic cirrhosis, Cardiomyopathy, Congestive heart failure - Scribe Statement The provider has reviewed the documentation as recorded by the Scribe Vee Esteban Provider Attestation: All medical record entries made by the Scribe were at my direction and personally dictated by me. I have reviewed the chart and agree that the record accurately reflects my personal performance of the history, physical exam, medical decision making, and the department course for this patient. I have also personally directed, reviewed, and agree with the discharge instructions and disposition.
[2018-06-22 16:32] LABS: URINE CLARITY HAZY (Clear)
[2018-06-22 16:58] LABS: INR 0.7; PROTHROMBIN TIME 18.7 SECONDS (9.7-12.2)
--- NOTE | 2018-06-22 17:08 | RAD ---
Date of service: 06/22/2018 HISTORY: SOB COMPARISON: Portable chest 06/01/2018. TECHNIQUE: 1 view obtained. FINDINGS: LUNGS: No active pulmonary disease. PLEURA: No significant pleural effusion identified, no pneumothorax apparent. CARDIOVASCULAR: No aortic atherosclerotic calcification present. Prominent cardiomegaly reiterated. AICD/pacemaker again evident. No pulmonary vascular congestion. OSSEOUS STRUCTURES: No significant abnormalities. VISUALIZED UPPER ABDOMEN: Normal. OTHER FINDINGS: None. IMPRESSION: Gross cardiomegaly reiterated without definite pulmonary vascular congestion, infiltrate pleural effusion. AICD/pacemaker reiterated.
[2018-06-22 20:29] LABS: ALB/GLOB RATIO 0.9 (1.0-2.1); ALBUMIN 3.5 g/dL (3.5-5.0); CALCIUM 9.6 mg/dl (8.6-10.4)
[2018-06-22 20:42] LABS: TROPONIN I 0.169 ng/mL (0.00-0.120)
--- NOTE | 2018-06-23 08:11 | CP.PCM.CON ---
<Chapin Riggins - Last Filed: 06/23/18 08:22> History of Present Illness - History of Present Illness History of Present Illness: GI Fellow PGY4, consult note. Ever Sorto is a deaf/mute 57M with extensive medical history including bladder cancer and cardiac cirrhosis requiring diuretic therapy and recurrent paracentesis. He last had fluid removed 06/03/18, ~2L straw colored fluid. He states he is compliant with medication requirements and fluid restrictions. He is asking if he can have fluid removed from his abdomen, however he admits the fluid is not as much as before. He denies a tense abdomen. This admission, he presented from snf for apparent diarrhea, 3 episode s, light brown. He had mild abdominal cramping and discomfort. These symptoms have mostly resolved at this time. He also had mildly elevated troponin and cardiology was consulted. PMHx -Dilated CMP, EF 12%, CAD, CKD, ESLD w/ ascites, bladder CA PSHx - AICD, chronic mason Family History: GERD, HTN, HLD; No history of colon/liver/GI cancer Social History: Currently denies any tobacco, alcohol or illicit drug use; Former alcohol abuse noted; Lives in snf. 12pt ROS completed and negative except for above. Past Patient History - Infectious Disease Hx of Infectious Diseases: None - Past Medical History & Family History Past Medical History?: Yes - Past Social History Smoking Status: Never Smoked - CARDIAC Hx Cardia Arrhythmia: Yes Hx Congestive Heart Failure: Yes Hx Hypercholesterolemia: Yes Hx Hypertension: Yes Hx Pacemaker: Yes Hx Peripheral Edema: Yes - PULMONARY Hx Respiratory Disorders: No - NEUROLOGICAL HX Cerebrovascular Accident: Yes - HEENT Hx HEENT Problems: Yes Hx Deafness: Yes Other/Comment: mute - RENAL Hx Chronic Kidney Disease: Yes - ENDOCRINE/METABOLIC Hx Diabetes Mellitus Type 2: Yes - HEMATOLOGICAL/ONCOLOGICAL Hx Human Immunodeficiency Virus (HIV): No - INTEGUMENTARY Hx Dermatological Problems: No - MUSCULOSKELETAL/RHEUMATOLOGICAL Hx Falls: Yes - GASTROINTESTINAL Hx Gastrointestinal Disorders: Yes Other/Comment: ascites - GENITOURINARY/GYNECOLOGICAL Hx Genitourinary Disorders: Yes (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 Paracentesis - ANESTHESIA Hx Anesthesia: Yes Hx Anesthesia Reactions: No Hx Malignant Hyperthermia: No Meds Allergies/Adverse Reactions: Allergies Allergy/AdvReac Type Severity Reaction Status Date / Time No Known Allergies Allergy Verified 05/31/18 14:47 - Medications Medications: Current Medications Aspirin (Ecotrin) 81 mg PO DAILY [facility] Carvedilol (Coreg) 6.25 mg PO Q12 [facility] Last Admin: 06/22/18 22:01 Dose: 6.25 mg Digoxin (Digoxin) 0.125 mg PO DAILY@1800 [facility] Finasteride (Proscar) 5 mg PO DAILY [facility] Furosemide (Lasix) 40 mg IVP Q12H [facility] Last Admin: 06/22/18 22:01 Dose: 40 mg Spironolactone (Aldactone) 100 mg PO DAILY [facility] Physical Exam - Constitutional Appears: Non-toxic, No Acute Distress, Cachectic, Chronically Ill - Head Exam Head Exam: ATRAUMATIC, NORMAL INSPECTION - Eye Exam Eye Exam: EOMI, Normal appearance - ENT Exam ENT Exam: Mucous Membranes Moist, Normal Exam - Respiratory Exam Respiratory Exam: Clear to Auscultation Bilateral, NORMAL BREATHING PATTERN - Cardiovascular Exam Cardiovascular Exam: REGULAR RHYTHM, +S1, +S2 - GI/Abdominal Exam GI & Abdominal Exam: Normal Bowel Sounds, Soft. absent: Tenderness Additional comments: mildly distended with fluid wave. NO tense ascites. - Extremities Exam Extremities exam: Positive for: normal inspection. Negative for: pedal edema - Neurological Exam Neurological exam: Alert, CN II-XII Intact, Oriented x3 - Psychiatric Exam Psychiatric exam: Normal Affect, Normal Mood - Skin Skin Exam: Normal Color, Warm Results - Vital Signs Recent Vital Signs: Last Vital Signs Temp 98.4 F 06/23/18 00:09 Pulse 89 06/23/18 00:09 Resp 18 06/23/18 00:09 BP 126/89 06/23/18 00:09 Pulse Ox 98 06/23/18 03:00 - Labs Result Diagrams: 06/22/18 16:07 06/22/18 20:06 Labs: Laboratory Results - last 24 hr 06/22/18 06/22/18 06/22/18 16:07 16:07 16:07 WBC 6.4 RBC 5.10 Hgb 15.1 Hct 46.7 MCV 91.5 MCH 29.5 MCHC 32.2 L RDW 17.9 H Plt Count 258 MPV 7.8 Neut % (Auto) 69.9 Lymph % (Auto) 17.4 L [place] % (Auto) 10.8 H Eos % (Auto) 0.5 Baso % (Auto) 1.4 Neut # (Auto) 4.5 Lymph # (Auto) 1.1 [place] # (Auto) 0.7 Eos # (Auto) 0.0 Baso # (Auto) 0.1 PT 18.7 H INR 0.7 APTT 31 Sodium Potassium Chloride Carbon Dioxide Anion Gap BUN Creatinine Est GFR ( Amer) Est GFR (Non-Af Amer) POC Glucose (mg/dL) Random Glucose Calcium Total Bilirubin AST ALT Alkaline Phosphatase Ammonia Troponin I NT-Pro-B Natriuret Pep Total Protein Albumin Globulin Albumin/Globulin Ratio Urine Color Yellow Urine Clarity Hazy Urine pH 6.0 Ur Specific [place] 1.009 Urine Protein 1+ H Urine Glucose (UA) Normal Urine Ketones Negative Urine Blood 1+ H Urine Nitrate Positive H Urine Bilirubin Negative Urine Urobilinogen 4.0 Ur Leukocyte Esterase Trace Urine WBC (Auto) 2 Urine RBC (Auto) < 1 Urine Bacteria Occ H Hyaline Casts 0-2 06/22/18 06/22/18 06/22/18 16:07 18:46 20:06 WBC RBC Hgb Hct MCV MCH MCHC RDW Plt Count MPV Neut % (Auto) Lymph % (Auto) [place] % (Auto) Eos % (Auto) Baso % (Auto) Neut # (Auto) Lymph # (Auto) [place] # (Auto) Eos # (Auto) Baso # (Auto) PT INR APTT Sodium 137 Potassium 4.5 Chloride 102 Carbon Dioxide 24 Anion Gap 16 BUN 43 H Creatinine 1.6 H Est GFR ( Amer) 54 Est GFR (Non-Af Amer) 45 POC Glucose (mg/dL) 122 H Random Glucose 97 D Calcium 9.6 Total Bilirubin 3.5 H AST 35 ALT 18 L D Alkaline Phosphatase 551 H Ammonia Cancelled Troponin I 0.1690 H* NT-Pro-B Natriuret Pep 7460 H Total Protein 7.5 Albumin 3.5 Globulin 4.0 H Albumin/Globulin Ratio 0.9 L Urine Color Urine Clarity Urine pH Ur Specific [place] Urine Protein Urine Glucose (UA) Urine Ketones Urine Blood Urine Nitrate Urine Bilirubin Urine Urobilinogen Ur Leukocyte Esterase Urine WBC (Auto) Urine RBC (Auto) Urine Bacteria Hyaline Casts 06/22/18 06/22/1819 20:06 20:26 06:33 WBC RBC Hgb Hct MCV MCH MCHC RDW Plt Count MPV Neut % (Auto) Lymph % (Auto) [place] % (Auto) Eos % (Auto) Baso % (Auto) Neut # (Auto) Lymph # (Auto) [place] # (Auto) Eos # (Auto) Baso # (Auto) PT INR APTT Sodium Potassium Chloride Carbon Dioxide Anion Gap BUN Creatinine Est GFR ( Amer) Est GFR (Non-Af Amer) POC Glucose (mg/dL) 100 169 H Random Glucose Calcium Total Bilirubin AST ALT Alkaline Phosphatase Ammonia 32 Troponin I NT-Pro-B Natriuret Pep Total Protein Albumin Globulin Albumin/Globulin Ratio Urine Color Urine Clarity Urine pH Ur Specific [place] Urine Protein Urine Glucose (UA) Urine Ketones Urine Blood Urine Nitrate Urine Bilirubin Urine Urobilinogen Ur Leukocyte Esterase Urine WBC (Auto) Urine RBC (Auto) Urine Bacteria Hyaline Casts Assessment & Plan - Assessment and Plan (Free Text) Assessment: 57 year old male with PMH of 57 year old male with PMH of decompensated cardiac cirrhosis (diagnosed 10/2017) 2/2 ascites, systolic CHF EF 10% s/p AICD, CKD, Atrial flutter, HTN, Diabetes, Bladder cancer diagnosed 01/2018, and Deaf/Mute presenting with hematuria and abdominal distension. GI consultation for elevated LFTs. No prior EGD or colonoscopy. Plan: -MELD-Na 16 -recommend optimization diuretic therapy discussed with primary team -Order U/S abdomen to evaluate ascites -recommend continuing previous regimen of Lasix 40mg BID and spironolactone 100mg BID -Ideally, diuretics to remove fluid, but will order paracentesis if needed. -monitor for electrolyte derangements and renal function -CT Liver protocol 06/07- no hepatic lesions, cirrhosis -05/10 Duplex U/S- patent portal vein -03/08 negative Hepatitis panel, LAURA, AMA -low sodium diet -will benefit from elective follow up for EGD for variceal screening and colonoscopy for CRC screening -Urology has followed patient for cystoscopy and ?TURB and last note 06/07 stated patient was not a good candidate for anesthesia due to severe cardiac condition. - Date & Time Date: 06/23/18 Time: 08:13 <Saqib Zavala Y - Last Filed: 04/04/19 09:40> Meds - Medications Medications: Current Medications Aspirin (Ecotrin) 81 mg PO DAILY [facility] Bismuth Subsalicylate (Pepto Bismol) 524 mg PO PRN PRN PRN Reason: Diarrhea Carvedilol (Coreg) 6.25 mg PO Q12 [facility] Last Admin: 06/22/18 22:01 Dose: 6.25 mg Digoxin (Digoxin) 0.125 mg PO DAILY@1800 [facility] Finasteride (Proscar) 5 mg PO DAILY [facility] Furosemide (Lasix) 40 mg PO BID [facility] Spironolactone (Aldactone) 100 mg PO BID [facility] Results - Vital Signs Recent Vital Signs: Last Vital Signs Temp 97.3 F L 06/23/18 07:05 Pulse 78 06/23/18 07:05 Resp 20 06/23/18 07:05 BP 105/78 06/23/18 07:05 Pulse Ox 100 06/23/18 07:05 - Labs Result Diagrams: 06/22/18 16:07 06/22/18 20:06 Labs: Laboratory Results - last 24 hr 06/22/18 06/22/18 06/22/18 16:07 16:07 16:07 WBC 6.4 RBC 5.10 Hgb 15.1 Hct 46.7 MCV 91.5 MCH 29.5 MCHC 32.2 L RDW 17.9 H Plt Count 258 MPV 7.8 Neut % (Auto) 69.9 Lymph % (Auto) 17.4 L [place] % (Auto) 10.8 H Eos % (Auto) 0.5 Baso % (Auto) 1.4 Neut # (Auto) 4.5 Lymph # (Auto) 1.1 [place] # (Auto) 0.7 Eos # (Auto) 0.0 Baso # (Auto) 0.1 PT 18.7 H INR 0.7 APTT 31 Sodium Potassium Chloride Carbon Dioxide Anion Gap BUN Creatinine Est GFR ( Amer) Est GFR (Non-Af Amer) POC Glucose (mg/dL) Random Glucose Calcium Total Bilirubin AST ALT Alkaline Phosphatase Ammonia Troponin I NT-Pro-B Natriuret Pep Total Protein Albumin Globulin Albumin/Globulin Ratio Urine Color Yellow Urine Clarity Hazy Urine pH 6.0 Ur Specific [place] 1.009 Urine Protein 1+ H Urine Glucose (UA) Normal Urine Ketones Negative Urine Blood 1+ H Urine Nitrate Positive H Urine Bilirubin Negative Urine Urobilinogen 4.0 Ur Leukocyte Esterase Trace Urine WBC (Auto) 2 Urine RBC (Auto) < 1 Urine Bacteria Occ H Hyaline Casts 0-2 06/22/18 06/22/18 06/22/18 16:07 18:46 20:06 WBC RBC Hgb Hct MCV MCH MCHC RDW Plt Count MPV Neut % (Auto) Lymph % (Auto) [place] % (Auto) Eos % (Auto) Baso % (Auto) Neut # (Auto) Lymph # (Auto) [place] # (Auto) Eos # (Auto) Baso # (Auto) PT INR APTT Sodium 137 Potassium 4.5 Chloride 102 Carbon Dioxide 24 Anion Gap 16 BUN 43 H Creatinine 1.6 H Est GFR ( Amer) 54 Est GFR (Non-Af Amer) 45 POC Glucose (mg/dL) 122 H Random Glucose 97 D Calcium 9.6 Total Bilirubin 3.5 H AST 35 ALT 18 L D Alkaline Phosphatase 551 H Ammonia Cancelled Troponin I 0.1690 H* NT-Pro-B Natriuret Pep 7460 H Total Protein 7.5 Albumin 3.5 Globulin 4.0 H Albumin/Globulin Ratio 0.9 L Urine Color Urine Clarity Urine pH Ur Specific [place] Urine Protein Urine Glucose (UA) Urine Ketones Urine Blood Urine Nitrate Urine Bilirubin Urine Urobilinogen Ur Leukocyte Esterase Urine WBC (Auto) Urine RBC (Auto) Urine Bacteria Hyaline Casts 06/22/18 06/22/18 06/23/18 20:06 20:26 06:33 WBC RBC Hgb Hct MCV MCH MCHC RDW Plt Count MPV Neut % (Auto) Lymph % (Auto) [place] % (Auto) Eos % (Auto) Baso % (Auto) Neut # (Auto) Lymph # (Auto) [place] # (Auto) Eos # (Auto) Baso # (Auto) PT INR APTT Sodium Potassium Chloride Carbon Dioxide Anion Gap BUN Creatinine Est GFR ( Amer) Est GFR (Non-Af Amer) POC Glucose (mg/dL) 100 169 H Random Glucose Calcium Total Bilirubin AST ALT Alkaline Phosphatase Ammonia 32 Troponin I NT-Pro-B Natriuret Pep Total Protein Albumin Globulin Albumin/Globulin Ratio Urine Color Urine Clarity Urine pH Ur Specific [place] Urine Protein Urine Glucose (UA) Urine Ketones Urine Blood Urine Nitrate Urine Bilirubin Urine Urobilinogen Ur Leukocyte Esterase Urine WBC (Auto) Urine RBC (Auto) Urine Bacteria Hyaline Casts Attending/Attestation - Attestation I have personally seen and examined this patient.: Yes I have fully participated in the care of the patient.: Yes I have reviewed all pertinent clinical information: Yes Notes (Text): 06/23/18 09:33 I have seen and examined patient with GI fellow. Agree with above documentation with the following additions. In brief, this is a 57 year old male with history of end stage CHF s/p ICD, CKD, bladder cancer, cirrhosis, deaf/mute, HTN, who is sent from nursing facility for evaluation of progressive abdominal distention and loose bowel movements. He has had multiple hospital admissions in the past for paracentesis, last one on 06/03. He reports three episodes of light brown stool yesterday which he believes is related to contaminated food consumption. He otherwise denies abdominal pain, nausea, vomiting, fever/chills. Tolerating PO diet without difficulty. Review of vitals from today are normal. Additional physical exam: Abdomen: no palpable hepato/splenomegaly CHF s/p ICD CKD Bladder cancer HTN Decompensated cirrhosis (admission MELD 16), ascites - Low sodium diet as tolerated - Continue with diuretic management, monitor electrolytes - Obtain abdominal US to assess degree of ascites, on clinical examination patient does not appear fluid overloaded - Obtain stool studies - Patient will benefit from elective EGD/colonoscopy for variceal and CRC screening which should be performed as outpatient - Will continue to monitor patient clinical course
[2018-06-23] MEDS ORDERED: Bismuth Subsalicylate 262 mg Chew Tab PO PRN (08:31)
--- NOTE | 2018-06-23 11:27 | PCM.URO ---
Urology Progress Note - Objective Lab Studies: Reviewed (full note to be dictated no gu change) Lab Results Last 24 Hours: Laboratory Results - last 24 hr 06/22/18 06/22/18 06/22/18 16:07 16:07 16:07 WBC 6.4 RBC 5.10 Hgb 15.1 Hct 46.7 MCV 91.5 MCH 29.5 MCHC 32.2 L RDW 17.9 H Plt Count 258 MPV 7.8 Neut % (Auto) 69.9 Lymph % (Auto) 17.4 L [place] % (Auto) 10.8 H Eos % (Auto) 0.5 Baso % (Auto) 1.4 Neut # (Auto) 4.5 Lymph # (Auto) 1.1 [place] # (Auto) 0.7 Eos # (Auto) 0.0 Baso # (Auto) 0.1 PT 18.7 H INR 0.7 APTT 31 Sodium Potassium Chloride Carbon Dioxide Anion Gap BUN Creatinine Est GFR ( Amer) Est GFR (Non-Af Amer) POC Glucose (mg/dL) Random Glucose Calcium Total Bilirubin AST ALT Alkaline Phosphatase Ammonia Troponin I NT-Pro-B Natriuret Pep Total Protein Albumin Globulin Albumin/Globulin Ratio Urine Color Yellow Urine Clarity Hazy Urine pH 6.0 Ur Specific [place] 1.009 Urine Protein 1+ H Urine Glucose (UA) Normal Urine Ketones Negative Urine Blood 1+ H Urine Nitrate Positive H Urine Bilirubin Negative Urine Urobilinogen 4.0 Ur Leukocyte Esterase Trace Urine WBC (Auto) 2 Urine RBC (Auto) < 1 Urine Bacteria Occ H Hyaline Casts 0-2 06/22/18 06/22/18 06/22/18 16:07 18:46 20:06 WBC RBC Hgb Hct MCV MCH MCHC RDW Plt Count MPV Neut % (Auto) Lymph % (Auto) [place] % (Auto) Eos % (Auto) Baso % (Auto) Neut # (Auto) Lymph # (Auto) [place] # (Auto) Eos # (Auto) Baso # (Auto) PT INR APTT Sodium 137 Potassium 4.5 Chloride 102 Carbon Dioxide 24 Anion Gap 16 BUN 43 H Creatinine 1.6 H Est GFR ( Amer) 54 Est GFR (Non-Af Amer) 45 POC Glucose (mg/dL) 122 H Random Glucose 97 D Calcium 9.6 Total Bilirubin 3.5 H AST 35 ALT 18 L D Alkaline Phosphatase 551 H Ammonia Cancelled Troponin I 0.1690 H* NT-Pro-B Natriuret Pep 7460 H Total Protein 7.5 Albumin 3.5 Globulin 4.0 H Albumin/Globulin Ratio 0.9 L Urine Color Urine Clarity Urine pH Ur Specific [place] Urine Protein Urine Glucose (UA) Urine Ketones Urine Blood Urine Nitrate Urine Bilirubin Urine Urobilinogen Ur Leukocyte Esterase Urine WBC (Auto) Urine RBC (Auto) Urine Bacteria Hyaline Casts 06/22/18 06/22/18 06/23/18 20:06 20:26 06:33 WBC RBC Hgb Hct MCV MCH MCHC RDW Plt Count MPV Neut % (Auto) Lymph % (Auto) [place] % (Auto) Eos % (Auto) Baso % (Auto) Neut # (Auto) Lymph # (Auto) [place] # (Auto) Eos # (Auto) Baso # (Auto) PT INR APTT Sodium Potassium Chloride Carbon Dioxide Anion Gap BUN Creatinine Est GFR ( Amer) Est GFR (Non-Af Amer) POC Glucose (mg/dL) 100 169 H Random Glucose Calcium Total Bilirubin AST ALT Alkaline Phosphatase Ammonia 32 Troponin I NT-Pro-B Natriuret Pep Total Protein Albumin Globulin Albumin/Globulin Ratio Urine Color Urine Clarity Urine pH Ur Specific [place] Urine Protein Urine Glucose (UA) Urine Ketones Urine Blood Urine Nitrate Urine Bilirubin Urine Urobilinogen Ur Leukocyte Esterase Urine WBC (Auto) Urine RBC (Auto) Urine Bacteria Hyaline Casts 06/23/18 09:36 WBC RBC Hgb Hct MCV MCH MCHC RDW Plt Count MPV Neut % (Auto) Lymph % (Auto) [place] % (Auto) Eos % (Auto) Baso % (Auto) Neut # (Auto) Lymph # (Auto) [place] # (Auto) Eos # (Auto) Baso # (Auto) PT INR APTT Sodium Potassium Chloride Carbon Dioxide Anion Gap BUN Creatinine Est GFR ( Amer) Est GFR (Non-Af Amer) POC Glucose (mg/dL) Random Glucose Calcium Total Bilirubin AST ALT Alkaline Phosphatase Ammonia Troponin I 0.1250 H* NT-Pro-B Natriuret Pep Total Protein Albumin Globulin Albumin/Globulin Ratio Urine Color Urine Clarity Urine pH Ur Specific [place] Urine Protein Urine Glucose (UA) Urine Ketones Urine Blood Urine Nitrate Urine Bilirubin Urine Urobilinogen Ur Leukocyte Esterase Urine WBC (Auto) Urine RBC (Auto) Urine Bacteria Hyaline Casts Intake & Output: Intake & Output 04/03/19 04/04/19 04/04/19 18:59 06:59 18:59 Intake Total 420 Output Total 500 Balance -80 Weight 165 lb Intake: Oral 420 Output: Urine 500 Urethral (Perdomo) 500 Other: # Bowel Movements 0 Vital Signs: Vital Signs - 24 hr 06/22/18 06/22/18 06/22/18 15:01 15:05 17:04 Temperature 97.6 F Pulse Rate 82 Respiratory 20 22 Rate Blood Pressure 119/89 O2 Sat by Pulse 100 100 100 Oximetry 06/22/18 06/22/18 06/22/18 18:57 20:25 22:01 Temperature 97.9 F Pulse Rate 79 79 Respiratory 20 16 Rate Blood Pressure 120/89 112/82 120/84 O2 Sat by Pulse 100 100 Oximetry 06/22/18 06/22/18 06/22/18 22:18 22:56 23:37 Temperature 97.2 F L Pulse Rate 62 Respiratory 20 Rate Blood Pressure 112/76 O2 Sat by Pulse 96 98 98 Oximetry 06/23/18 06/23/18 06/23/18 00:09 03:00 07:05 Temperature 98.4 F 97.3 F L Pulse Rate 89 78 Respiratory 18 20 Rate Blood Pressure 126/89 105/78 O2 Sat by Pulse 98 98 100 Oximetry 06/23/18 10:10 Temperature Pulse Rate Respiratory Rate Blood Pressure 113/89 O2 Sat by Pulse Oximetry
--- NOTE | 2018-06-23 15:20 | US ---
Date of service: 06/23/2018 Indication: evaluate ascites for ?tap Limited abdomen ascites check Comparison: Liver protocol triple phase Findings: Limited study performed as an ascites check. Small to moderate ascites noted with thickening right upper, right lower, left upper, and left lower quadrants. Impression: See above.
[2018-06-23] MEDS: Digoxin 125 mcg (0.125 mg) Tab PO SCH (17:47)
--- NOTE | 2018-06-23 20:24 | CP.PCM.CON ---
Past Patient History - Infectious Disease Hx of Infectious Diseases: None - Past Medical History & Family History Past Medical History?: Yes - Past Social History Smoking Status: Never Smoked - CARDIAC Hx Cardiac Disorders: Yes (Cardia arrhythmia, Pacemaker) Hx Congestive Heart Failure: Yes Hx Hypercholesterolemia: Yes Hx Hypertension: Yes - PULMONARY Hx Respiratory Disorders: No - NEUROLOGICAL HX Cerebrovascular Accident: Yes - HEENT Hx HEENT Problems: Yes Hx Deafness: Yes Other/Comment: mute - RENAL Hx Chronic Kidney Disease: Yes - ENDOCRINE/METABOLIC Hx Diabetes Mellitus Type 2: Yes - HEMATOLOGICAL/ONCOLOGICAL Hx Human Immunodeficiency Virus (HIV): No - INTEGUMENTARY Hx Dermatological Problems: No - MUSCULOSKELETAL/RHEUMATOLOGICAL Hx Falls: Yes - GASTROINTESTINAL Hx Gastrointestinal Disorders: Yes Other/Comment: ascites - GENITOURINARY/GYNECOLOGICAL Hx Genitourinary Disorders: Yes (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 Paracentesis - ANESTHESIA Hx Anesthesia: Yes Hx Anesthesia Reactions: No Hx Malignant Hyperthermia: No Meds Allergies/Adverse Reactions: Allergies Allergy/AdvReac Type Severity Reaction Status Date / Time No Known Allergies Allergy Verified 05/31/18 14:47 - Medications Medications: Current Medications Aspirin (Ecotrin) 81 mg PO DAILY [facility] Last Admin: 06/23/18 10:08 Dose: 81 mg Bismuth Subsalicylate (Pepto Bismol) 524 mg PO PRN PRN PRN Reason: Diarrhea Carvedilol (Coreg) 6.25 mg PO Q12 [facility] Last Admin: 06/23/18 10:10 Dose: 6.25 mg Clopidogrel Bisulfate (Plavix) 75 mg PO DAILY [facility] Last Admin: 06/23/18 14:41 Dose: 75 mg Digoxin (Digoxin) 0.125 mg PO DAILY@1800 [facility] Last Admin: 06/23/18 17:47 Dose: 0.125 mg Famotidine (Pepcid) 20 mg PO BID [facility] Last Admin: 06/23/18 17:48 Dose: 20 mg Finasteride (Proscar) 5 mg PO DAILY [facility] Last Admin: 06/23/18 10:10 Dose: 5 mg Furosemide (Lasix) 40 mg PO BID [facility] Last Admin: 06/23/18 17:47 Dose: 40 mg Heparin Sodium (Porcine) (Heparin) 5,000 units SC BID [facility] Last Admin: 06/23/18 17:48 Dose: 5,000 units Spironolactone (Aldactone) 100 mg PO BID [facility] Last Admin: 06/23/18 17:47 Dose: 100 mg Tramadol HCl (Ultram) 50 mg PO TID PRN PRN Reason: Pain, severe (8-10) Last Admin: 06/23/18 14:38 Dose: 50 mg Results - Vital Signs Recent Vital Signs: Last Vital Signs Temp 97.3 F L 06/23/18 15:00 Pulse 68 06/23/18 15:00 Resp 18 06/23/18 15:00 BP 110/70 06/23/18 17:47 Pulse Ox 100 06/23/18 17:10 - Labs Result Diagrams: 06/22/18 16:07 06/22/18 20:06 Labs: Laboratory Results - last 24 hr 06/22/18 06/22/18 06/22/18 20:06 20:06 20:26 Sodium 137 Potassium 4.5 Chloride 102 Carbon Dioxide 24 Anion Gap 16 BUN 43 H Creatinine 1.6 H Est GFR ( Amer) 54 Est GFR (Non-Af Amer) 45 POC Glucose (mg/dL) 100 Random Glucose 97 D Calcium 9.6 Total Bilirubin 3.5 H AST 35 ALT 18 L D Alkaline Phosphatase 551 H Ammonia 32 Troponin I 0.1690 H* NT-Pro-B Natriuret Pep 7460 H Total Protein 7.5 Albumin 3.5 Globulin 4.0 H Albumin/Globulin Ratio 0.9 L 06/23/18 06/23/18 06:33 09:36 Sodium Potassium Chloride Carbon Dioxide Anion Gap BUN Creatinine Est GFR ( Amer) Est GFR (Non-Af Amer) POC Glucose (mg/dL) 169 H Random Glucose Calcium Total Bilirubin AST ALT Alkaline Phosphatase Ammonia Troponin I 0.1250 H* NT-Pro-B Natriuret Pep Total Protein Albumin Globulin Albumin/Globulin Ratio Assessment & Plan - Assessment and Plan (Free Text) Assessment: IMP: URINARY RETENTION BPH BLADDER CA CHF ASCITES CIRRHOSIS FULL NOTE TBD THANK YOU YS - Date & Time Date: 06/23/18 Time: 20:23
--- NOTE | 2018-06-24 00:20 | HP ---
HISTORY OF PRESENT ILLNESS: This is a 57-year-old male who is deaf and mute and known to me from previous admission, presented to emergency room for symptoms of shortness of breath and what he thought increased abdominal girth. The patient was evaluated in emergency room and because of elevated troponin as well as proBNP, the patient was admitted for further management. The patient had many abdominal taps before for massive ascites. The patient has been on high dose of Aldactone and Lasix. He has not been in the hospital for more than 6 weeks. Other review of systems is negative. ALLERGIES: NO KNOWN ALLERGY. MEDICATIONS: Reviewed as per MAR and ordered. SOCIAL HISTORY: No history of smoking, EtOH or substance abuse. FAMILY HISTORY: Noncontributory. PHYSICAL EXAMINATION: GENERAL: The patient is in mild cardiopulmonary distress at the time of this examination and he has exertional shortness of breath. VITAL SIGNS: Blood pressure 110/70, temperature 97.2, respiratory rate 22 and pulse of 80. HEENT: Normal-appearing mucosa of the conjunctivae, oropharynx and nasal membrane mucosa. NECK: Supple. No JVD. No carotid bruit. No lymph node. No thyromegaly. CHEST AND LUNGS: Bilateral symmetrical expansion. Good air exchange. No rales, no rhonchi. CARDIOVASCULAR SYSTEM: PMI not localized. S1, S2. No additional sounds. ABDOMEN: Normoactive bowel sounds. No tenderness. No organomegaly. No masses. EXTREMITIES: No cyanosis, no clubbing, no edema. CENTRAL NERVOUS SYSTEM: Alert, awake, oriented x3. No neurological deficit could be appreciated. ASSESSMENT: 1. Severe congestive heart failure, acute on chronic with elevated proBNP and troponin. 2. Liver cirrhosis, likely cardiac cirrhosis with ascites. 3. History of hypertension. 4. History of chronic kidney disease. PLAN: Continue current IV antibiotics and Aldactone. Cardiology consult and GI consult. Abdominal ultrasound and follow the results. Bladimir De Jesus MD
--- NOTE | 2018-06-24 00:33 | CON ---
DATE: 06/23/2018 CARDIOLOGY CONSULTATION REASON FOR CONSULTATION: Congestive heart failure and elevated troponin. The history was obtained by a dress designer. HISTORY OF PRESENT ILLNESS: The patient is a 57-year-old, known to me, deaf and mute who has a history of cardiomyopathy status post ICD placement, history of chronic atrial flutter, history of benign prostatic hypertrophy requiring indwelling Perdomo catheter, history of bladder CA, history of hepatic cirrhosis, portal hypertension, and recurrent ascites that is requiring frequent abdominal paracentesis. The patient presented because of more shortness of breath as well as worsening increased abdominal swelling. The patient denies any chest pain. The patient has no recent fall. The patient does not recall any discharge of the defibrillator. MEDICATIONS: Aldactone 100 mg twice a day, Coreg 6.25 mg twice a day, digoxin 0.125 mg once a day, aspirin 81 mg once a day, Lasix 20 mg p.o. twice a day, Pepto-Bismol 524 mg p.r.n., Proscar 5 mg daily. REVIEW OF SYSTEMS: No chest pain. No dizziness or syncope. No hematuria. No hematemesis or melena. PAST MEDICAL HISTORY: Cardiomyopathy status post ICD placement, atrial flutter, benign prostatic hypertrophy requiring indwelling Perdomo catheter, hepatic cirrhosis and recurrent ascites, bladder CA of low-grade malignancy. PHYSICAL EXAMINATION: GENERAL: The patient is a middle-aged male who does not appear to be in any acute distress. VITAL SIGNS: Blood pressure 115/89, heart rate 78, temperature 97.3, respirations 20. HEENT: Normocephalic. CHEST: Diminished breath sounds over the bases. HEART: S1 and S2, regular. ABDOMEN: Ahxw-bu-lchfdtai ascites. EXTREMITIES: Trace leg edema. LABORATORY DATA: Hemoglobin and hematocrit 15.1 and 46.7, white count 6.4, platelet count 158,000. Today's SMA-7: Sodium 137, potassium 4.5, chloride 102, CO2 of 24, glucose 97, BUN 43, and creatinine 1.6. Troponin 0.169 and 0.125. ProBNP is 7460. Chest x-ray report: Gross cardiomegaly without definite pulmonary vascular congestion, infiltrate or pleural effusion. AICD/pacemaker. EKG revealed atrial flutter with variable AV block, PVCs versus aberrancy, incomplete right bundle-branch block, inferior and septal infarcts of indeterminate age, possible right ventricular hypertrophy. Consider lateral ischemia. ASSESSMENT: 1. Cardiomyopathy, status post implantable cardioverter-defibrillator placement. 2. Chronic atrial flutter. 3. Considered non-ST elevation myocardial infarction. 4. Cardiac cirrhosis with recurrent ascites, requiring abdominal paracentesis. 5. Benign prostatic hypertrophy, requiring indwelling Perdomo catheter. 6. Low-grade prostatic malignancy. 7. Chronic insufficiency. RECOMMENDATIONS: Continue aspirin 81 mg once a day, Coreg 6.25 mg once a day, Aldactone 100 mg twice a day, digoxin 0.125 mg once a day. Start subcutaneous heparin at 5000 units twice a day and Plavix 75 mg daily, however, hold both subcutaneous heparin and Plavix if abdominal paracentesis is considered or if the patient develops hematuria as he did in the past related to his bladder CA. Long-term anticoagulation or coronary intervention is not justified in view of multiple medical problems, and that was discussed in a previous admission with his primary relay repairer, Dr. Doyle Pang. The case was discussed with the primary physician, Dr. De Jesus. Jass Carlton MD
[2018-06-24 00:59] VITALS: RESP 20
[2018-06-24 10:13] LABS: CALCIUM 9.8 mg/dl (8.6-10.4)
--- NOTE | 2018-06-24 11:18 | CP.PCM.PN ---
<Chapin Riggins - Last Filed: 06/24/18 12:58> Subjective - Date & Time of Evaluation Date of Evaluation: 06/24/18 Time of Evaluation: 11:15 - Subjective Subjective: GI Fellow PGY4, progress note. No acute overnight events. No BMs overnight or today. 5pt ROS completed and negative except for above. Objective - Vital Signs/Intake and Output Vital Signs (last 24 hours): Temp Pulse Resp BP Pulse Ox 97.4 F L 82 20 110/84 95 06/24/18 07:20 06/24/18 07:20 06/24/18 07:20 06/24/18 09:44 06/24/18 07:20 Intake and Output: 06/24/18 06/24/18 06:59 18:59 Output Total 450 Balance -450 - Medications Medications: Current Medications Aspirin (Ecotrin) 81 mg PO DAILY [facility] Last Admin: 06/24/18 09:44 Dose: 81 mg Bismuth Subsalicylate (Pepto Bismol) 524 mg PO PRN PRN PRN Reason: Diarrhea Carvedilol (Coreg) 6.25 mg PO Q12 [facility] Last Admin: 06/24/18 09:44 Dose: 6.25 mg Clopidogrel Bisulfate (Plavix) 75 mg PO DAILY [facility] Last Admin: 06/24/18 09:45 Dose: 75 mg Digoxin (Digoxin) 0.125 mg PO DAILY@1800 [facility] Last Admin: 06/23/18 17:47 Dose: 0.125 mg Famotidine (Pepcid) 20 mg PO BID [facility] Last Admin: 06/24/18 09:45 Dose: 20 mg Finasteride (Proscar) 5 mg PO DAILY [facility] Last Admin: 06/24/18 09:45 Dose: 5 mg Furosemide (Lasix) 40 mg PO BID [facility] Last Admin: 06/24/18 09:44 Dose: 40 mg Heparin Sodium (Porcine) (Heparin) 5,000 units SC BID [facility] Last Admin: 06/24/18 09:44 Dose: 5,000 units Spironolactone (Aldactone) 100 mg PO BID [facility] Last Admin: 06/24/18 09:44 Dose: 100 mg Tramadol HCl (Ultram) 50 mg PO TID PRN PRN Reason: Pain, severe (8-10) Last Admin: 06/24/18 09:45 Dose: 50 mg - Labs Labs: 06/22/18 16:07 06/24/18 09:26 PT 18.7 SECONDS (9.7-12.2) H 06/22/18 16:07 INR 0.7 06/22/18 16:07 APTT 31 SECONDS (21-34) 06/22/18 16:07 - Constitutional Appears: Non-toxic, No Acute Distress, Chronically Ill - ENT Exam ENT Exam: Mucous Membranes Moist, Normal Exam - Respiratory Exam Respiratory Exam: Clear to Ausculation Bilateral, NORMAL BREATHING PATTERN - Cardiovascular Exam Cardiovascular Exam: REGULAR RHYTHM, +S1, +S2 - GI/Abdominal Exam GI & Abdominal Exam: Distended, Soft, Normal Bowel Sounds. absent: Tenderness - Extremities Exam Extremities Exam: absent: Pedal Edema - Neurological Exam Neurological Exam: Alert, Awake, Oriented x3 - Psychiatric Exam Psychiatric exam: Normal Affect, Normal Mood - Skin Skin Exam: Dry, Warm Assessment and Plan - Assessment and Plan (Free Text) Assessment: 57 year old male with PMH of 57 year old male with PMH of decompensated cardiac cirrhosis (diagnosed 10/2017) 2/2 ascites, systolic CHF EF 10% s/p AICD, CKD, Atrial flutter, HTN, Diabetes, Bladder cancer diagnosed 01/2018, and Deaf/Mute presenting with hematuria and abdominal distension. GI consultation for elevated LFTs. No prior EGD or colonoscopy. Plan: -MELD-Na 16 -U/S shows moderate ascites -Paracentesis ordered with cell count -recommend continuing previous regimen of Lasix 40mg BID and spironolactone 100mg BID. Monitor Cr, elevated. -Slight increase in Cr. Will order albumin now. -CT Liver protocol 06/07- no hepatic lesions, cirrhosis -05/10 Duplex U/S- patent portal vein -03/08 negative Hepatitis panel, LAURA, AMA -low sodium diet -will benefit from elective follow up for EGD for variceal screening and colonoscopy for CRC screening -Urology has followed patient for cystoscopy and ?TURB and last note 06/07 stated patient was not a good candidate for anesthesia due to severe cardiac condition. <Saqib Zavala - Last Filed: 06/24/18 13:24> Objective - Vital Signs/Intake and Output Vital Signs (last 24 hours): Temp Pulse Resp BP Pulse Ox 97.4 F L 57 L 20 110/84 95 06/24/18 07:20 06/24/18 10:00 06/24/18 07:20 06/24/18 09:44 06/24/18 07:20 Intake and Output: 06/24/18 06/24/18 06:59 18:59 Output Total 450 Balance -450 - Medications Medications: Current Medications Albumin Human (Albumin Human 25% (12.5 Gm/50 Ml)) 25 gm IV ONCE ONE Stop: 06/24/18 13:00 Aspirin (Ecotrin) 81 mg PO DAILY [facility] Last Admin: 06/24/18 09:44 Dose: 81 mg Bismuth Subsalicylate (Pepto Bismol) 524 mg PO PRN PRN PRN Reason: Diarrhea Carvedilol (Coreg) 6.25 mg PO Q12 [facility] Last Admin: 06/24/18 09:44 Dose: 6.25 mg Clopidogrel Bisulfate (Plavix) 75 mg PO DAILY [facility] Last Admin: 06/24/18 09:45 Dose: 75 mg Digoxin (Digoxin) 0.125 mg PO DAILY@1800 [facility] Last Admin: 06/23/18 17:47 Dose: 0.125 mg Famotidine (Pepcid) 20 mg PO BID [facility] Last Admin: 06/24/18 09:45 Dose: 20 mg Finasteride (Proscar) 5 mg PO DAILY [facility] Last Admin: 06/24/18 09:45 Dose: 5 mg Furosemide (Lasix) 40 mg PO BID [facility] Last Admin: 06/24/18 09:44 Dose: 40 mg Heparin Sodium (Porcine) (Heparin) 5,000 units SC BID [facility] Last Admin: 06/24/18 09:44 Dose: 5,000 units Spironolactone (Aldactone) 100 mg PO BID [facility] Last Admin: 06/24/18 09:44 Dose: 100 mg Tramadol HCl (Ultram) 50 mg PO TID PRN PRN Reason: Pain, severe (8-10) Last Admin: 06/24/18 09:45 Dose: 50 mg - Labs Labs: 06/22/18 16:07 06/24/18 09:26 PT 18.7 SECONDS (9.7-12.2) H 06/22/18 16:07 INR 0.7 06/22/18 16:07 APTT 31 SECONDS (21-34) 06/22/18 16:07 Attending/Attestation - Attestation I have personally seen and examined this patient.: Yes I have fully participated in the care of the patient.: Yes I have reviewed all pertinent clinical information, including history, physical exam and plan: Yes Notes (Text): 06/24/18 13:20 I have seen and examined patient with GI fellow. No acute events overnight, he is seen resting in bed comfortably. He denies abdominal pain, nausea, vomiting, fever/chills. Review of vitals from today are normal. Decompensated cardiac cirrhosis Ascites Bladder cancer CHF s/p ICD CKD DM/HTN - Low sodium diet as tolerated - Suggest dose of albumin today along with continued monitoring of creatinine - Continue with diuretic therapy, monitor electrolytes - Evidence of moderate ascites on sonogram imaging, can consider therapeutic paracentesis, though patient asymptomatic - Follow up urology recommendations regarding bladder cancer - Patient would benefit from ongoing management at a tertiary care facility with dual cardiac and liver transplant capabilities, have suggested he go to [facility] in the past though he has transportation issues which prevent him from doing so. No further planned GI interventions at this time, will sign off case. Please reconsult as necessary, thank you.
[2018-06-24 13:54] LABS: ALB/GLOB RATIO 0.9 (1.0-2.1); ALBUMIN 3.5 g/dL (3.5-5.0); BILIRUBIN,DIRECT 2.2 mg/dL (0.0-0.4)
[2018-06-24] MEDS ORDERED: Albumin Human 25% (12.5 gm/50 ml) IV ONE (14:00)
--- NOTE | 2018-06-24 15:48 | PN ---
DATE: 06/24/2018 SUBJECTIVE: The patient denies any chest pain. He is concerned about his abdominal swelling. PHYSICAL EXAMINATION: VITAL SIGNS: Blood pressure 110/84, heart rate 82, temperature 97.4, respirations 20. HEENT: Normocephalic. CHEST: Diminished breath sounds over the bases. HEART: S1 and S2, regular. ABDOMEN: Moderate ascites. EXTREMITIES: Trace leg edema. LABORATORY DATA: Today's BUN and creatinine are 55 and 1.9 respectively. Glucose 177. Rest of SMA-7 is within normal limits. Yesterday's troponin 0.125. I did review Urology evaluation by Dr. Brar and the impression is urinary retention, benign prostatic hypertrophy, bladder carcinoma, congestive heart failure, ascites, cirrhosis. ASSESSMENT: 1. Cardiomyopathy, status post implantable cardioverter defibrillator placement. 2. Borderline troponin elevation, consider [id number] myocardial infarction. 3. Cardiac cirrhosis and moderate ascites. 4. Benign prostatic hypertrophy requiring an indwelling Perdomo catheter placement. 5. History of bladder carcinoma of low-grade malignancy. RECOMMENDATIONS: Continue Aldactone 100 mg twice a day, Coreg 6.25 mg twice a day, digoxin 0.125 mg once a day, aspirin 81 mg once a day, subcutaneous heparin 5000 units b.i.d., Lasix 20 mg p.o. twice a day, Plavix 75 mg once a day. Obtain serum digoxin level. Conservative medical approach for the patient's cardiomyopathy is recommended. Jass Carlton MD
--- NOTE | 2018-06-24 16:03 | CP.PCM.PN ---
Subjective - Date & Time of Evaluation Date of Evaluation: 06/24/18 Time of Evaluation: 16:03 - Subjective Subjective: PATIENT SEEN AND EXAMINED AT THE BEDSIDE Objective - Vital Signs/Intake and Output Vital Signs (last 24 hours): Temp Pulse Resp BP Pulse Ox 97.4 F L 57 L 20 110/84 95 06/24/18 07:20 06/24/18 10:00 06/24/18 07:20 06/24/18 09:44 06/24/18 07:20 Intake and Output: 06/24/18 06/24/18 06:59 18:59 Output Total 450 Balance -450 - Medications Medications: Current Medications Aspirin (Ecotrin) 81 mg PO DAILY [facility] Last Admin: 06/24/18 09:44 Dose: 81 mg Bismuth Subsalicylate (Pepto Bismol) 524 mg PO PRN PRN PRN Reason: Diarrhea Carvedilol (Coreg) 6.25 mg PO Q12 [facility] Last Admin: 06/24/18 09:44 Dose: 6.25 mg Clopidogrel Bisulfate (Plavix) 75 mg PO DAILY [facility] Last Admin: 06/24/18 09:45 Dose: 75 mg Digoxin (Digoxin) 0.125 mg PO DAILY@1800 [facility] Last Admin: 06/23/18 17:47 Dose: 0.125 mg Famotidine (Pepcid) 20 mg PO BID [facility] Last Admin: 06/24/18 09:45 Dose: 20 mg Finasteride (Proscar) 5 mg PO DAILY [facility] Last Admin: 06/24/18 09:45 Dose: 5 mg Furosemide (Lasix) 40 mg IVP DAILY [facility] Heparin Sodium (Porcine) (Heparin) 5,000 units SC BID [facility] Last Admin: 06/24/18 09:44 Dose: 5,000 units Tramadol HCl (Ultram) 50 mg PO TID PRN PRN Reason: Pain, severe (8-10) Last Admin: 06/24/18 09:45 Dose: 50 mg - Labs Labs: 06/22/18 16:07 06/24/18 09:26 PT 18.7 SECONDS (9.7-12.2) H 06/22/18 16:07 INR 0.7 06/22/18 16:07 APTT 31 SECONDS (21-34) 06/22/18 16:07 Assessment and Plan - Assessment and Plan (Free Text) Assessment: FOLLOW UP WITH DR BEAN IN HIS OFFICE ------CALL FOR APPOINTMENT FOLLOW UP WITH JOSE ANTONIO IN HIS OFFICE -----CALL FOR APPOINTMENT CONTINUE HOME MEDICATION NEW PRESCRIPTION GIVEN PLAVIX 75 MG PO DAILY aldactone 50 mg po daily lasix 40 mg po daily stop taking lasix twice a day and aldactone 100 mg ACTIVITY TOLERATED CALL DR BEAN OR GO TO THE EMERGENCY ROOM IF SYMPTOM RETURN OR WORSENING
[2018-06-24 16:48] VITALS: BP 116/65
[2018-06-24 17:18] VITALS: PULSE 59; TEMP 97.2; O2SAT 98
[2018-06-24] MEDS: Digoxin 125 mcg (0.125 mg) Tab PO SCH (19:01)
[2018-06-24 19:02] VITALS: PULSE 58
--- NOTE | 2018-06-25 10:24 | DS ---
REASON FOR ADMISSION: This is a 57-year-old male with history of cardiomyopathy, status post ICD placement, and liver cirrhosis, who was admitted for shortness of breath. COURSE OF HOSPITALIZATION: The patient was admitted to medical floor, and he had a cardiology consult done by Dr. Carlton and gastroenterology consult done by Dr. Zavala. The patient had an abdominal ultrasound, and it showed some ascites, but he did not have any tapping this time because it was told that there is no need for it. The patient was started on Aldactone 100 mg twice a day and Lasix 40 mg twice a day by Gastroenterology. Potassium went up to 5.1, and Aldactone was held and changed to 50 mg to be started on 06/27/2018. The patient was also asked to follow up with primary care physician as well as Gastroenterology and Cardiology as outpatient. The patient was found to have elevation of troponin which was felt to be due to congestive heart failure. ASSESSMENT: 1. Acute on chronic exacerbation of congestive heart failure, systolic and diastolic. 2. Liver cirrhosis, likely cardiac in origin. 3. Status post implantable cardioverter defibrillator placement. 4. Chronic kidney disease. 5. History of bladder cancer with catheter in place. Discussed with Dr. Brar, and the patient is very high risk for any procedure with general anesthesia at this point. Bladimir De Jesus MD
--- NOTE | 2018-06-26 01:24 | CON ---
DATE: 06/23/2018 UROLOGY CONSULTATION Urology consultation is requested by Dr. De Jesus. Urology consultation is filled by Dr. Yesenia Brar. REASON FOR CONSULTATION: Urinary retention, indwelling Perdomo catheter, history of bladder cancer. HISTORY OF PRESENT ILLNESS: The patient is a 57-year-old male with urinary retention. The patient was admitted with increasing abdominal girth secondary to ascites. The patient has an indwelling Perdomo catheter. He has had urinary retention since last year. During previous admission, the patient had hematuria. He underwent cystoscopy. The patient was found to have urinary retention due to prostatic enlargement. He was also found to have a bladder cancer. The patient has been unable to have the recommended surgery for his retention and bladder tumor, mainly TURP and TURBT (TUR of prostate and TUR of bladder tumor). The reason for the inability to perform the surgery is due to the patient's cardiac disease. The patient has a history of cardiomyopathy. He has a defibrillator in place. The patient has severe CHF. The patient has ejection fraction of approximately 12%. During previous admission, the patient was felt to be not a suitable candidate for anesthesia. I spoke to the patient's family several days ago as well as to the patient's sightseeing guide, Dr. Nan Pang. The sightseeing guide felt that the patient was in as good shape as he can be for surgery. He cleared the patient for surgery, realizing the patient is at increased risk due to his cardiac disease. The patient also has impaired hearing and speech. PHYSICAL EXAMINATION: GENERAL: The patient is a well-developed male, appearing his stated age. The patient is awake and alert. ABDOMEN: Soft. Abdomen is bilaterally distended. Nontender. BACK: No CVA tenderness. The urine is clear via the Perdomo catheter. LABORATORY DATA: Reviewed. IMPRESSION: Urinary retention, history of benign prostatic hypertrophy, history of bladder cancer, congestive heart failure. RECOMMENDATIONS AND PLAN: I will discuss with the various consultants regarding possible surgery. I will discuss with Anesthesia as well as the primary attending physician. Further therapy is pending to follow according to the patient's clinical course and assessment of the risks versus benefits of any intervention. Thank you for recommending the patient for urology consultation. Yesenia Brar MD cc: Dr. Neal Carlton MD
--- NOTE | 2018-06-26 20:09 | CARD ---
APPROVED REPORT Date of service: 06/22/2018 EKG Measurement Heart [id number] <Conclusion> Atrial flutter with variable AV block with premature ventricular or aberrantly conducted complexes Right superior axis deviation Incomplete right bundle branch block Possible Right ventricular hypertrophy Septal infarct, age undetermined Inferior infarct, age undetermined T wave abnormality, consider lateral ischemia Abnormal ECG
== END 2018-06-24 20:03 | disposition home or self-care (01) ==
LOC: C.ER 14:48 → C.9E 16:59 → C.3T 20:13 → C.5S 22:37
PROVIDERS: ADMIT Internal Medicine; ATTEND Internal Medicine
DX: I13.0 Hypertensive heart and chronic kidney disease with heart failure and stage 1 through stage 4 chronic kidney disease, or unspecified chronic kidney disease (principal); I50.42 Chronic combined systolic (congestive) and diastolic (congestive) heart failure; K74.69 Other cirrhosis of liver; E11.22 Type 2 diabetes mellitus with diabetic chronic kidney disease; N18.9 Chronic kidney disease, unspecified; Z85.51 Personal history of malignant neoplasm of bladder; K76.6 Portal hypertension; N40.1 Benign prostatic hyperplasia with lower urinary tract symptoms; Z79.02 Long term (current) use of antithrombotics/antiplatelets; Z79.899 Other long term (current) drug therapy; Z86.73 Personal history of transient ischemic attack (TIA), and cerebral infarction without residual deficits; Z94.4 Liver transplant status; Z95.0 Presence of cardiac pacemaker; E78.5 Hyperlipidemia, unspecified; E78.00 Pure hypercholesterolemia, unspecified
CPT/HCPCS: 36415; 71045; 76705; 80048; 80053; 80076; 80162; 81001; 82140; 82948; 83880; 84484; 85025; 85610; 85730; 87045; 93005; 97162; 97530; 99285; G0378; G8978; G8979; J1644; J1940; P9047